=== PATIENT | female | born 1940 | race Caucasian/White ===

== ENCOUNTER → 2017-11-30 12:51 | Outpatient (CLI) | payer OTHER, SELFPAY ==
--- NOTE | 2017-11-30 | DI.CT.S_ITS ---
PROCEDURE: CT CHEST W CON INDICATIONS: LYPHADENOPATHY TECHNIQUE: After the administration of intravenous contrast, 5 mm thick sections acquired from the pulmonary apices to the posterior costophrenic angles. 7 mm thick coronal and sagittal MIP reformats were acquired. For radiation dose reduction, the following was used: automated exposure control, adjustment of mA and/or kV according to patient size. COMPARISON: [facility], CT, CT ANGIO CHEST, 06/18/2016, 9:53. , CT, PE STUDY (CTA CHEST), 05/20/2011, 12:36. FINDINGS: Image quality: Excellent. Lungs and pleura: No acute consolidation. 1 mm nodule seen in the right lung on image 29 series 3 is unchanged. No pleural effusions or pneumothorax. Central and peripheral airways are patent and normal in caliber. Mediastinum: Heart size is enlarged. No pericardial effusion. No mediastinal or hilar adenopathy by size criteria. Thoracic aorta and central pulmonary arteries are normal in size. Esophagus is normal in caliber. No hiatal hernia. Bones and chest wall: No suspicious bony lesions. No vertebral body compression fractures. No axillary or supraclavicular adenopathy by size criteria. Thyroid gland negative. Abdomen: The Upper abdominal bowel loops are normal in caliber. Gallbladder surgically absent. There is hepatic steatosis. IMPRESSION: No acute consolidation. No evidence of mediastinal or hilar lymphadenopathy. No axillary lymphadenopathy. Hepatic steatosis. Mild cardiomegaly. Dictated by: Quentin Pedroza M.D. on 11/30/2017 at 13:58 Approved by: Quentin Pedroza M.D. on 11/30/2017 at 14:08
== END ==
PROVIDERS: PCP Family Medicine; Visit Provider Family Medicine
DX: K76.0 Fatty (change of) liver, not elsewhere classified (principal); R59.0 Localized enlarged lymph nodes; I51.7 Cardiomegaly
CPT/HCPCS: 71260; Q9967

== ENCOUNTER → 2018-02-17 12:40 | Outpatient (CLI) | payer OTHER, SELFPAY ==
--- NOTE | 2018-02-17 | DI.CT.S_ITS ---
PROCEDURE: CT SOFT TISSUE NECK W CON INDICATIONS: MASS AND LUMP OF LEFT NECK TECHNIQUE: After the administration of intravenous contrast, 3.0 mm axial sections acquired from the sella to the aortic arch. Additional oblique axial 3.0 mm sections acquired through the pharynx. 3 mm thick coronal and sagittal reformats were generated. For radiation dose reduction, the following was used: automated exposure control. COMPARISON: None. FINDINGS: Image quality: Excellent. Lymph nodes: No enlarged lymph nodes seen throughout the neck. Vessels: Visualized vasculature appears patent. Neck spaces: The oropharynx, nasopharynx, and pharynx demonstrate no mucosal lesions. The vocal cords, false vocal cords, pyriform sinuses, epiglottis, vallecula, and tongue base all appear normal. Extramucosal spaces appear unremarkable. A CT surface marker was placed over the area of maximal clinical concern by the patient, left supraclavicular fossa area anteriorly. This does show a mild contour prominence without underlying soft tissue mass but rather the fatty soft tissues in this area appears slightly asymmetrically more prominent than on the right. A lipoma or normal anatomic variation in the fatty soft tissues both could produce this appearance. Glands: The parotid and submandibular glands appear normal. Thyroid gland appears normal. Miscellaneous: Visualized brain and orbits appear normal. Lung apices appear clear. Superficial soft tissues appear normal. Bones: No suspicious bony lesions. Visualized sinuses and mastoids appear unremarkable. IMPRESSION: Mild asymmetry in the fatty soft tissues of the anterior left supraclavicular fossa when compared to the same area on the right. As noted this may reflect presence of a lipoma within the fatty soft tissues in that area but also normal anatomic variant asymmetry could explain that appearance. No underlying adenopathy is found, no malignant appearing mass is suspected. Dictated by: Jamie Zhou M.D. on 02/17/2018 at 14:15 Approved by: Jamie Zhou M.D. on 02/17/2018 at 14:20
== END ==
PROVIDERS: PCP Family Medicine; Visit Provider Physician Assistant Medical
DX: R22.0 Localized swelling, mass and lump, head (principal)
CPT/HCPCS: 70491; Q9967

== ENCOUNTER → 2018-07-13 10:31 | Outpatient (CLI) | payer OTHER, SELFPAY ==
--- NOTE | 2018-07-13 | DI.US.S_ITS ---
PROCEDURE: US ARTERIAL DUPLEX LE BI INDICATIONS: PAIN IN BILATERAL LOWER EXTREMITIES TECHNIQUE: Color and pulse Doppler interrogation was performed of both lower extremity arterial systems, with image documentation. COMPARISON: None. FINDINGS: Right lower extremity: Common femoral artery: 124 cm/sec, with triphasic flow. Deep femoral artery: 69 cm/sec, with triphasic flow. Proximal superficial femoral artery: 1:15 cm/sec, with triphasic flow. Mid superficial femoral artery: 89 cm/sec, with biphasic flow. Distal superficial femoral artery: 94 cm/sec, with biphasic flow. Popliteal artery: 50 cm/s, biphasic Posterior tibial artery: 81 cm/sec, with a biphasic flow. Anterior tibial artery/dorsalis pedis: 85 cm/sec, with biphasic flow. Reyes-scale imaging description:M.D. 3.7 x 1.1 x 2.1 cm medial popliteal fossa cystic structure with internal debris consistent with a Tracey's cyst. No significant stenosing plaque, either calcific or soft. Left lower extremity: Common femoral artery: 1:30 cm/sec, with biphasic flow. Deep femoral artery: 64 cm/sec, with biphasic flow. Proximal superficial femoral artery: 98 cm/sec, with biphasic flow. Mid superficial femoral artery: 96 cm/sec, with biphasic flow. Distal superficial femoral artery: 59 cm/sec, with biphasic flow. Popliteal artery: 66 cm/sec, with biphasic flow. Posterior tibial artery: 79 cm/sec, with biphasic flow. Anterior tibial artery/dorsalis pedis: 68 cm/sec, with biphasic flow. Reyes-scale imaging description: No significant stenosing plaque, either calcific or soft. IMPRESSION: Mild atherosclerotic change, no area of significant stenosis or occlusion found. Incidental note is made of a Tracey's cyst measuring up to 3 cm of the right popliteal fossa medially. The Dictated by: Jamie Zhou M.D. on 07/13/2018 at 14:02 Approved by: Jamie Zhou M.D. on 07/13/2018 at 14:06
== END ==
PROVIDERS: PCP Family Medicine; Visit Provider Internal Medicine Cardiovascular Disease
DX: M79.604 Pain in right leg (principal); M79.605 Pain in left leg; M71.21 Synovial cyst of popliteal space [Baker], right knee
CPT/HCPCS: 93925

== ENCOUNTER → 2018-08-24 12:05 | Outpatient (CLI) | payer OTHER, SELFPAY ==
--- NOTE | 2018-08-24 | DI.US.S_ITS ---
PROCEDURE: US CAROTID DOPPLER BI INDICATIONS: CAROTID ARTERIAL DISEASE TECHNIQUE: Color and pulse Doppler interrogation was performed of both carotid systems, with image documentation and velocity measurements. COMPARISON: None. FINDINGS: Stenosis calculations are based on SRU (Society of Radiologists in Ultrasound) criteria. Right side: Brachial blood pressure: 144/80 mm Hg. Common carotid artery peak systolic velocity: 80 cm/sec. Internal carotid artery peak systolic velocity: 109 cm/sec. Internal carotid artery end diastolic velocity: 39 cm/sec. External carotid artery peak systolic velocity: 169 cm/sec. ICA/CCA peak systolic ratio: 1.4. Reyes scale imaging description: Moderate scattered plaque. Percent internal carotid artery stenosis: Less than 50% stenosis. Vertebral artery: Flow direction is antegrade. Left side: Brachial blood pressure: 134/71 mm Hg. Common carotid artery peak systolic velocity: 97 cm/sec. Internal carotid artery peak systolic velocity: 226 cm/sec. Internal carotid artery end diastolic velocity: 59 cm/sec. External carotid artery peak systolic velocity: 106 cm/sec. ICA/CCA peak systolic ratio: 2.3. Reyes scale imaging description: Moderate scattered plaque. Percent internal carotid artery stenosis: 50-69% stenosis. Vertebral artery: Flow direction is antegrade. IMPRESSION: 1. 50-69% left internal carotid artery stenosis. 2. Less than 50% right internal carotid artery stenosis. Dictated by: Kunal HURD Interpreted: Caty Encarnacion MD on 08/24/2018 at 13:57 Approved by: Caty Encarnacion M.D. on 08/24/2018 at 16:20
== END ==
PROVIDERS: PCP Family Medicine; Visit Provider Family Medicine
DX: I65.23 Occlusion and stenosis of bilateral carotid arteries (principal)
CPT/HCPCS: 93880

== ENCOUNTER → 2018-10-28 09:25 | Outpatient (CLI) | payer OTHER, SELFPAY ==
--- NOTE | 2018-10-28 09:29 | DI.RAD.S_ITS ---
PROCEDURE: XR CHEST 2V INDICATIONS: worsening cough TECHNIQUE: 2 views of the chest were acquired. COMPARISON: [facility], CT, CT CHEST W CON, 11/30/2017, 13:03. [facility], CR, CHEST 1 VIEW, 08/15/2015, 6:52. [facility], CR, CHEST 1 VIEW, 08/25/2015, 3:03. FINDINGS: Surgical changes and devices: A pacer device is seen. Cholecystectomy clips are seen. Lungs and pleura: An incomplete inspiratory result is noted, causing a crowded appearance to the lung markings. Interstitial prominence can be seen. No pneumothorax or significant pleural effusions are seen. Mediastinum: Mediastinal contours are normal. Heart size is normal. Bones and chest wall: No suspicious bony abnormalities. Age-appropriate bony degenerative changes are seen. Soft tissues appear unremarkable. IMPRESSION: Low lung volumes, with interstitial prominence. Differential diagnosis includes pulmonary edema and artifact. No definite, focal infiltrates are seen. If there is clinical concern for a developing pulmonary process, a short-term followup chest series (with PA and lateral views, performed in deep inspiration) is suggested for further evaluation. Postoperative and degenerative changes are seen. Dictated by: Virgil Stock M.D. on 10/28/2018 at 8:43 Approved by: Virgil Stock M.D. on 10/28/2018 at 8:45
== END ==
PROVIDERS: PCP Family Medicine; Visit Provider Physician Assistant
DX: R05 Cough (principal); Z95.0 Presence of cardiac pacemaker
CPT/HCPCS: 71046

== ENCOUNTER → 2018-12-09 16:46 | Outpatient (CLI) | payer OTHER, SELFPAY ==
--- NOTE | 2018-12-09 | DI.MG.S_ITS ---
BILATERAL DIGITAL SCREENING MAMMOGRAM 3D/2D WITH CAD: 12/09/2018 CLINICAL: Routine screening. Comparison is made to exams dated: 07/01/2013 mammogram, 07/12/2014 mammogram, and 06/21/2015 mammogram - [facility]. There are scattered fibroglandular elements in both breasts. Current study was also evaluated with a Computer Aided Detection (CAD) system. There are post operative changes of the left breast/chest including placement of a left chest pacer device, the battery pack of which projects over the superior left breast and results in imaging artifact that results in suboptimal evaluation of the left breast tissue and obscures underlying anatomy. Of note, the pacer device projects over the posterior central left breast LCC view, obscuring evaluation of the area of greatest fibroglandular tissue when compared to prior exams. Within this context, no significant masses, calcifications, or other findings are seen in either breast. IMPRESSION: Limited exam secondary to the patient's superior left chest pacer device which causes imaging artifact that results in suboptimal evaluation of the left breast tissues and obscures underlying anatomy. Within this context, there are no suspicious masses or abnormalities are identified in the imaged portions of the breasts bilaterally to suggest malignancy. A 1 year screening mammogram is recommended. This exam was interpreted at Station ID: [id number]. NOTE: For mammograms, a report in lay terms will be sent to the patient. Approximately 15% of breast malignancies will not be visualized mammographically. In the management of a palpable breast mass, a negative mammogram must not discourage biopsy of a clinically suspicious lesion. Electronically Signed By: Pasha Gallo M.D. ecl/:12/10/2018 19:44:11 letter sent: Normal Exam ACR BI-RADS Category 2: Benign Finding(s) 3342F
== END ==
PROVIDERS: PCP Family Medicine; Visit Provider Family Medicine
DX: Z12.31 Encounter for screening mammogram for malignant neoplasm of breast (principal)
CPT/HCPCS: 77063; 77067

== ENCOUNTER → 2019-02-28 10:04 | Outpatient (CLI) | payer MEDICARE, SELFPAY ==
[2019-02-28 11:11] LABS: BUN Creatinine Ratio 23.3 (6-22); Blood Urea Nitrogen 14 mg/dL (7-17); Calcium 9.7 mg/dL (8.4-10.2); Carbon Dioxide 29 mmol/L (22-32); Chloride 98 mmol/L (98-107); Estimated Glomerular Filt Rate > 60.0 mL/min (>60); Glucose 110 mg/dL (80-110); HEMOLYSIS < 15 (0-50); Potassium 5.2 mmol/L (3.4-5.1); Sodium 136 mmol/L (137-145)
== END ==
PROVIDERS: PCP Family Medicine; Visit Provider Family Medicine
DX: Z51.81 Encounter for therapeutic drug level monitoring (principal); E78.5 Hyperlipidemia, unspecified; I10 Essential (primary) hypertension; R55 Syncope and collapse
CPT/HCPCS: 36415; 80048

== ENCOUNTER → 2019-03-07 10:30 | Outpatient (CLI) | payer MEDICARE, SELFPAY ==
--- NOTE | 2019-03-07 10:31 | DI.CT.S_ITS ---
PROCEDURE: CT HEAD/BRAIN WO/W CON INDICATIONS: headaches TECHNIQUE: 4.5 mm thick angled axial sections acquired from the foramen magnum to the vertex before and after the administration of intravenous contrast, with coronal and sagittal reformats. For radiation dose reduction, the following was used: automated exposure control, adjustment of mA and/or kV according to patient size. COMPARISON: None. FINDINGS: Image quality: Excellent. CSF Spaces: Basal cisterns are patent. No extra-axial fluid collections. Ventricles are normal in size and shape. Brain: No midline shift. No intracranial bleeds or masses. No abnormal intracranial enhancement. Reyes-white interface appears normal there is mild, diffuse cerebral volume loss. There are mild periventricular and subcortical white matter chronic microvascular ischemic changes.. Skull and face: Calvarium and visualized facial bones appear intact, without suspicious lesions. Sinuses: Visualized sinuses and mastoids are clear. IMPRESSION: 1. No acute intracranial disease process. 2. No abnormal intracranial mass or mass effect. 3. No suspicious postcontrast enhancement. Dictated by: Lauren Rojo MD, PhD on 03/07/2019 at 11:06 Approved by: Lauren Rojo MD, PhD on 03/07/2019 at 11:08
== END ==
PROVIDERS: PCP Family Medicine; Visit Provider Family Medicine
DX: R51 Headache (principal)
CPT/HCPCS: 70470; Q9967

== ENCOUNTER → 2019-06-10 10:38 | Outpatient (CLI) | payer MEDICARE, SELFPAY ==
[2019-06-10 12:03] LABS: Add Manual Diff / Slide Review NO; Basophils Absolute Auto 100 /uL (0-100); Basophils Percent Auto 0.7 % (0-2); Eosinophils Absolute Auto 100 /uL (0-450); Eosinophils Percent Auto 0.9 % (2-4); Hemoglobin 13.9 g/dL (12.0-16.0); Lymphocytes Absolute Auto 1600 /uL (1100-4500); Mean Corpuscular Hemoglobin 28.2 PG (26-34); Mean Corpuscular Volume 82.9 fL (80-100); Monocytes Absolute Auto 900 /uL (0-900); Monocytes Percent Auto 8.3 % (3-14); Neutrophils Absolute Auto 8100 /uL (1500-7000); Neutrophils Percent Auto 75.1 % (50-75); Platelet Count 453 X10^3/uL (150-400); Red Blood Cell Count 4.94 X10^6/uL (4.0-5.2); Red Cell Distribution Width 13.8 % (11.6-14.8); White Blood Cell Count 10.8 X10^3/uL (4.5-11.0)
[2019-06-10 12:25] LABS: Alanine Aminotransferase 14 IU/L (<35); Albumin 4.2 g/dL (3.5-5.0); Alkaline Phosphatase 85 U/L (38-126); Aspartate Aminotransferase 24 IU/L (14-36); BUN Creatinine Ratio 14.9 (6-22); Bilirubin Total 0.7 mg/dL (0.2-1.3); Blood Urea Nitrogen 10 mg/dL (7-17); C-Reactive Protein Quant 2.5 mg/dL (<1.0); Calcium 9.3 mg/dL (8.4-10.2); Carbon Dioxide 28 mmol/L (22-32); Chloride 97 mmol/L (98-107); Cholesterol 130 mg/dL (140-199); Estimated Glomerular Filt Rate > 60.0 mL/min (>60); Globulin 4.2 g/dL (1.7-4.1); Glucose 118 mg/dL (80-110); HDL Cholesterol 39 mg/dL (40-60); HEMOLYSIS < 15 (0-50); LDL Cholesterol Calculated 74 mg/dL (<100); Magnesium 1.9 mg/dL (1.6-2.3); Potassium 4.4 mmol/L (3.4-5.1); Sodium 134 mmol/L (137-145); Total Protein 8.4 g/dL (6.3-8.2); Triglycerides 86 mg/dL (35-150)
[2019-06-10 12:34] LABS: Erythrocyte Sedimentation Rate 19 MM/HR (0-20)
[2019-06-10 12:36] LABS: Vitamin D 25 Hydroxy (D3) 22.6 ng/mL (30.0-100.0)
[2019-06-10 12:37] LABS: Free T3, Triiodothyronine Free 2.45 pg/mL (2.77-5.27); Free T4, Direct Thyroxine 1.39 ng/dL (0.78-2.19)
[2019-06-10 12:51] LABS: Thyroid Stimulating Hormone 1.77 uIU/mL (0.47-4.68)
[2019-06-11 20:07] LABS: ANA Screen, IFA Negative (.)
== END ==
PROVIDERS: PCP Family Medicine; Referring Provider Family Medicine; Visit Provider Family Medicine
DX: E03.9 Hypothyroidism, unspecified (principal); E78.5 Hyperlipidemia, unspecified; I10 Essential (primary) hypertension; M79.10 Myalgia, unspecified site; R53.83 Other fatigue
CPT/HCPCS: 36415; 80053; 80061; 82306; 83735; 84439; 84443; 84481; 85025; 85651; 86038; 86140

== ENCOUNTER → 2019-07-26 11:08 | Outpatient (CLI) | payer MEDICARE, SELFPAY ==
[2019-07-26 12:18] LABS: Free T3, Triiodothyronine Free 3.19 pg/mL (2.77-5.27); Free T4, Direct Thyroxine 1.49 ng/dL (0.78-2.19)
[2019-07-26 12:32] LABS: Thyroid Stimulating Hormone 0.59 uIU/mL (0.47-4.68)
== END ==
PROVIDERS: PCP Family Medicine; Referring Provider Family Medicine; Visit Provider Family Medicine
DX: E03.9 Hypothyroidism, unspecified (principal)
CPT/HCPCS: 36415; 84439; 84443; 84481

== ENCOUNTER → 2019-08-16 16:51 | Outpatient (CLI) | payer MEDICARE, SELFPAY ==
[2019-08-16 20:02] LABS: Free T4, Direct Thyroxine 1.51 ng/dL (0.78-2.19)
[2019-08-16 20:03] LABS: Free T3, Triiodothyronine Free 2.07 pg/mL (2.77-5.27)
[2019-08-16 20:26] LABS: Thyroid Stimulating Hormone 0.578 uIU/mL (0.47-4.68)
== END ==
PROVIDERS: PCP Family Medicine; Referring Provider Family Medicine; Visit Provider Family Medicine
DX: E03.9 Hypothyroidism, unspecified (principal)
CPT/HCPCS: 36415; 84439; 84443; 84481

== ENCOUNTER → 2019-11-23 14:40 | Outpatient (CLI) | payer MEDICARE, SELFPAY ==
[2019-11-23 17:36] LABS: Free T3, Triiodothyronine Free 5.11 pg/mL (2.77-5.27); Free T4, Direct Thyroxine 2.41 ng/dL (0.78-2.19)
[2019-11-23 17:52] LABS: Thyroid Stimulating Hormone < 0.015 uIU/mL (0.47-4.68)
== END ==
PROVIDERS: PCP Family Medicine; Referring Provider Family Medicine; Visit Provider Family Medicine
DX: E03.9 Hypothyroidism, unspecified (principal)
CPT/HCPCS: 36415; 84439; 84443; 84481

== ENCOUNTER → 2020-01-19 10:46 | Outpatient (CLI) | payer MEDICARE, SELFPAY ==
[2020-01-19 12:05] LABS: Alanine Aminotransferase 16 IU/L (<35); Albumin 3.9 g/dL (3.5-5.0); Albumin Globulin Ratio 1.1 (1.0-2.8); Alkaline Phosphatase 79 U/L (38-126); Aspartate Aminotransferase 22 IU/L (14-36); Bilirubin Total 0.6 mg/dL (0.2-1.3); Bilirubin Unconjugated 0.6 mg/dL (0.0-1.1); Cholesterol 124 mg/dL (140-199); Globulin 3.7 g/dL (1.7-4.1); HDL Cholesterol 50 mg/dL (40-60); HEMOLYSIS < 15 (0-50); LDL Cholesterol Calculated 57 mg/dL (<100); Total Protein 7.6 g/dL (6.3-8.2); Triglycerides 83 mg/dL (35-150)
== END ==
PROVIDERS: PCP Family Medicine; Referring Provider Nurse Practitioner; Visit Provider Nurse Practitioner
DX: I73.9 Peripheral vascular disease, unspecified (principal); E78.5 Hyperlipidemia, unspecified
CPT/HCPCS: 36415; 80061; 80076

== ENCOUNTER → 2020-03-17 09:55 | Outpatient (CLI) | payer MEDICARE, SELFPAY ==
--- NOTE | 2020-03-17 | DI.MG.S_ITS ---
BILATERAL DIGITAL SCREENING MAMMOGRAM 3D/2D WITH CAD: 03/17/2020 CLINICAL: Routine screening. Comparison is made to exams dated: 12/09/2018 mammogram - [facility], 06/21/2015 mammogram, and 07/12/2014 mammogram - [facility]. There are scattered fibroglandular elements in both breasts. Current study was also evaluated with a Computer Aided Detection (CAD) system. There are benign post operative findings in the left breast. No significant masses, calcifications, or other findings are seen in either breast. There has been no significant interval change. IMPRESSION: BENIGN There is no mammographic evidence of malignancy. A 1 year screening mammogram is recommended. This exam was interpreted at Station ID: [id number]. NOTE: For mammograms, a report in lay terms will be sent to the patient. Approximately 15% of breast malignancies will not be visualized mammographically. In the management of a palpable breast mass, a negative mammogram must not discourage biopsy of a clinically suspicious lesion. Electronically Signed By: Flash curry/kirsten:03/19/2020 08:38:48 letter sent: Normal Exam ACR BI-RADS Category 2: Benign Finding(s) 3342F
== END ==
PROVIDERS: PCP Family Medicine; Referring Provider Family Medicine; Visit Provider Family Medicine
DX: Z12.31 Encounter for screening mammogram for malignant neoplasm of breast (principal)
CPT/HCPCS: 77063; 77067

== ENCOUNTER 2020-05-10 18:59 | Emergency (ER) | payer MEDICARE, SELFPAY ==
[2020-05-10] VITALS (9 sets, daily range): BP systolic 110–194; BP diastolic 55–108; PULSE 69–140; RESP 14–24; TEMP 36.2–37.1; O2SAT 95–99
--- NOTE | 2020-05-10 19:09 | DI.RAD.S_ITS ---
PROCEDURE: XR CHEST 1V INDICATIONS: chest pain TECHNIQUE: One view of the chest was acquired. COMPARISON: [facility], CR, XR CHEST 2V, 10/28/2018, 9:29. FINDINGS: Surgical changes and devices: Pacemaker Lungs and pleura: Lungs are clear. No pleural effusions or pneumothorax. Mediastinum: Mediastinal contours appear normal. Heart size is normal. Bones and chest wall: No suspicious bony lesions. Overlying soft tissues appear unremarkable. IMPRESSION: No evidence acute pulmonary process. Dictated by: Hong Morales M.D. on 05/10/2020 at 19:41 Approved by: Hong Morales M.D. on 05/10/2020 at 19:42
[2020-05-10 19:22] LABS: Add Manual Diff / Slide Review NO; Basophils Absolute Auto 100 /uL (0-100); Eosinophils Absolute Auto 300 /uL (0-450); Eosinophils Percent Auto 2.3 % (2-4); Lymphocytes Absolute Auto 3200 /uL (1100-4500); Lymphocytes Percent Auto 27.8 % (25-40); Mean Corpuscular HGB Conc 32.5 % (30-36); Mean Corpuscular Hemoglobin 26.6 PG (26-34); Mean Corpuscular Volume 81.9 fL (80-100); Monocytes Absolute Auto 1300 /uL (0-900); Monocytes Percent Auto 11.1 % (3-14); Neutrophils Absolute Auto 6600 /uL (1500-7000); Neutrophils Percent Auto 57.8 % (50-75); Platelet Count 362 X10^3/uL (150-400); Red Blood Cell Count 5.62 X10^6/uL (4.0-5.2); Red Cell Distribution Width 14.5 % (11.6-14.8); White Blood Cell Count 11.4 X10^3/uL (4.5-11.0)
--- NOTE | 2020-05-10 19:28 | ED.CHESTPAIN ---
HPI - Chest Pain General Chief Complaint: Chest Pain Stated Complaint: chest tightness Time Seen by Provider: 05/10/20 19:17 Source: patient Mode of arrival: Ambulatory Limitations: no limitations History of Present Illness HPI narrative: Patient is an 79-year-old female. History of hypothyroidism and high blood pressure in atrial fibrillation. She does have a pacemaker in place. She is unsure the exact maker of the pacemaker. She states that was placed because of atrial fibrillation. She is on anticoagulation and states she has taken every day for the past 4 weeks and longer than that. Approximately 1.5-2 hours prior to arrival here in the emergency department she started to have chest discomfort and some shortness of breath and some lightheadedness. She states that she feels like her heart is beating fast and skipping beats. No swelling in her legs. Nothing seems to make the symptoms better or worse. Has not tried anything for the symptoms prior to arrival. She has taken all of her medication to include a blood pressure medicine today prior to arrival. Related Data Home Medications Medication Instructions Recorded Confirmed rivaroxaban 20 mg tablet 20 mg PO DAILY 10/22/18 12/01/19 atorvastatin 20 mg tablet 20 mg PO DAILY 12/08/19 Previous Rx's Medication Instructions Recorded losartan 100 mg tablet 100 mg PO DAILY #90 tab 03/10/19 levalbuterol tartrate 45 2 inhalation INHALATION Q6H PRN 05/06/19 mcg/actuation aerosol inhaler #15 gram pantoprazole 40 mg tablet,delayed 40 mg PO BID #180 tab 05/16/19 release miscellaneous medical supply See Rx Instructions MISC .COMPLEX 05/25/19 #100 each trazodone 50 mg tablet 50 mg PO BEDTIME PRN #30 tab 07/29/19 metoprolol succinate 50 mg 50 mg PO DAILY #90 tab 08/02/19 tablet,extended release 24 hr felodipine 5 mg tablet,extended 5 mg PO DAILY #90 tab 09/01/19 release 24 hr zolpidem 10 mg tablet 0.5 mg PO BEDTIME #45 tab 09/13/19 levothyroxine 150 mcg tablet See Rx Instructions .ROUTE 02/14/20 .COMPLEX #90 tab escitalopram oxalate 10 mg tablet 10 mg PO DAILY #90 tab 04/04/20 Allergies Allergy/AdvReac Type Severity Reaction Status Date / Time hydromorphone Allergy Intermediate RASH/GI Verified 12/01/19 15:57 UPSET hydrocodone Allergy Mild GI UPSET Verified 12/01/19 15:57 diltiazem [DILTIAZEM] AdvReac Intermediate BRADYCARDIA Verified 12/01/19 15:57 Review of Systems Constitutional Constitutional: Denies fatigue, Denies fever(s) and Denies headache(s) ENT Ears, Nose, Mouth, and Throat: Denies headache(s) Cardiovascular Cardiovascular: Reports chest pain, Reports rapid heart rate, Reports irregular heart rhythm and Reports dyspnea Respiratory Respiratory: Denies cough and Reports dyspnea Gastrointestinal Gastrointestinal: Denies abdominal pain, Denies nausea and Denies vomiting Genitourinary Genitourinary: Denies dysuria Genitourinary: Denies dysuria Musculoskeletal Musculoskeletal: Denies myalgias Integumentary/Breasts Skin/Breast: Denies rash Neurologic Neurologic: Denies behavioral changes and Denies headache(s) Psychiatric Psychiatric: Denies behavioral changes Endocrine Endocrine: Denies fatigue Hematologic/Lymphatic On Anticoagulants: Yes Allergic/Immunologic Allergic/Immunologic: Denies urticaria Patient History Medical History Allergies Anxiety (~2013) Bilateral chronic otitis media Carpal tunnel syndrome Cervical somatic dysfunction Chronic neck pain Chronic pain of both shoulders Cranial somatic dysfunction Depression (~2015) Fatigue Fibroid (~1964) Hearing loss Lumbar region somatic dysfunction Myalgia Segmental and somatic dysfunction of abdomen and other regions Segmental and somatic dysfunction of pelvic region Segmental and somatic dysfunction of sacral region Segmental and somatic dysfunction of thoracic region Shoulder pain (~2018) Stiff neck Upper extremity somatic dysfunction Vitamin D deficiency Surgical History Anesthesia Cataracts, bilateral History of appendectomy History of cholecystectomy History of hysterectomy (~1978) Pacemaker (~11/06/15) Family History (Updated 11/21/18 @ 17:16 by Sayda Sosa) Father Hypertension Mother Lung cancer Social History Smoking Status: Never smoker Smoking Status: Never smoker Substance Use Type: does not use Exam Initial Vital Signs Initial Vital Signs: Vital Signs Temperature 97.1 F L 05/10/20 19:05 Pulse Rate 104 H 05/10/20 19:05 Respiratory Rate 24 05/10/20 19:05 Blood Pressure 194/108 H 05/10/20 19:05 Pulse Oximetry 95 05/10/20 19:05 Const General: cooperative, comfortable and well developed Limitations: mental status not altered HENMT Head: normal to inspection and normocephalic Resp Effort & Inspection: normal respiratory effort Auscultation: clear to auscultation bilaterally Cardio Rate: tachycardic Rhythm: abnormal rhythm GI Inspection: non-distended Skin Lesions: no lesions Rashes: no rashes Neuro General: patient alert, patient awake and patient oriented x3 Cognition: normal cognition Speech: speech normal Extrem General: normal to inspection, capillary refill normal and No edema Psych Appearance: grossly normal and well kempt Procedures Cardioversion Consent Signed: Yes Indication: Atrial fibrillation Stability: Stable Number of attempts (shocks): 1 Joules used: 150 Cardiac rhythm post-cardioversion: Sinus rhythm Procedural Sedation Consent signed: Yes Time out performed: Yes Indication: cardioversion Presedation Evaluation: See note ASA Class: II Mallampati Airway Classification: Class II Preparation: traffic monitor specialist applied, pulse oximeter, capnometry used, supplemental O2 applied, suction/airway equipment at bedside and IV secured Fentanyl: IV Fentanyl dose (mcg): 12 IV Propofol dose (mg): 70 ED Sedation Level: Moderate (Concious) Patient Tolerated Procedure: Well Complications: none Course Orders Ordered: ED Orders 05/10/20 19:09 XR chest 1V Stat EKG-12 Lead Stat 05/10/20 19:12 BNP [NT-proBNP (BNP-Adult 18+)] Stat Complete Blood Count AUTO DIFF Stat Comprehensive Metabolic Panel Stat Lipase Stat Magnesium Stat Partial Thromboplastin Time Stat Prothrombin Time INR Stat Troponin & CK Cardiac Panel Stat 05/10/20 19:29 RT Consult Eval and Treat Now 05/10/20 20:23 EKG-12 Lead Stat Discontinued Medications Fentanyl (Fentanyl 100 Mcg/2 Ml Inj) 125 mcg IV NOW ONE Stop: 05/10/20 19:30 Last Admin: 05/10/20 20:13 Dose: 125 mcg Documented by: DIVYA Fentanyl (Fentanyl 100 Mcg/2 Ml Inj) 12.5 mcg IV NOW ONE Stop: 05/10/20 20:12 Last Admin: 05/10/20 20:14 Dose: 12.5 mcg Documented by: DIVYA Sodium Chloride (Normal Saline 0.9%) 1,000 mls @ 1,000 mls/hr IV BOLUS ONE Stop: 05/10/20 21:12 Last Infusion: 05/10/20 21:30 Dose: 0 mls/hr Documented by: Admin: 05/10/20 20:15 Dose: 1,000 mls/hr Documented by: DIVYA Propofol (Propofol 200 Mg/20 Ml Vial) 100 mg IV NOW ONE Stop: 05/10/20 19:30 Last Admin: 05/10/20 19:52 Dose: 100 mg Documented by: DIVYA Vital Signs Vital signs: Vital Signs - 8 hr 05/10/20 19:05 05/10/20 19:57 05/10/20 20:02 Temperature 97.1 F L 98.7 F Pulse Rate 104 H 122 H 140 H Respiratory Rate 24 14 24 Blood Pressure 194/108 H Blood Pressure [Right Arm] 110/56 L 187/77 H Pulse Oximetry 95 99 98 05/10/20 20:15 05/10/20 20:18 05/10/20 20:25 Temperature 98.7 F Pulse Rate 138 H 75 69 Respiratory Rate 24 23 19 Blood Pressure Blood Pressure [Right Arm] 139/68 144/65 H 134/62 Pulse Oximetry 99 98 97 05/10/20 20:33 05/10/20 20:39 05/10/20 21:31 Temperature Pulse Rate 69 69 69 Respiratory Rate 17 14 24 Blood Pressure 138/61 Blood Pressure [Right Arm] 125/55 L 125/55 L Pulse Oximetry 97 97 97 MDM - Chest Pain Lab Data Attestation: I reviewed the patient's lab results. Result diagrams: 05/10/20 19:12 05/10/20 19:12 Labs: Lab Results 05/10/20 05/10/20 05/10/20 Range/Units 19:12 19:12 19:12 WBC 11.4 H (4.5-11.0) X10^3/uL RBC 5.62 H (4.0-5.2) X10^6/uL Hgb 15.0 (12.0-16.0) g/dL Hct 46.0 (36-46) % MCV 81.9 (80-100) fL MCH 26.6 (26-34) PG MCHC 32.5 (30-36) % RDW 14.5 (11.6-14.8) % Plt Count 362 (150-400) X10^3/uL Neut % (Auto) 57.8 (50-75) % Lymph % (Auto) 27.8 (25-40) % [place] % (Auto) 11.1 (3-14) % Eos % (Auto) 2.3 (2-4) % Baso % (Auto) 1.0 (0-2) % Neut # (Auto) 6600 (0703-7905) /uL Lymph # (Auto) 3200 (4843-3214) /uL [place] # (Auto) 1300 H (0-900) /uL Eos # (Auto) 300 (0-450) /uL Baso # (Auto) 100 (0-100) /uL PT 12.5 (10.1-12.7) SECONDS INR 1.1 (0.9-1.3) APTT 34 (26.4-36.2) SECONDS Sodium 136 L (137-145) mmol/L Potassium 3.7 (3.4-5.1) mmol/L Chloride 100 (98-107) mmol/L Carbon Dioxide 23 (22-32) mmol/L BUN 14 (7-17) mg/dL Creatinine 0.48 L (0.52-1.04) mg/dL Estimated GFR > 60.0 (>60) mL/min BUN/Creatinine Ratio 29.2 H (6-22) Glucose 183 H (80-110) mg/dL Calcium 9.7 (8.4-10.2) mg/dL Magnesium (1.6-2.3) mg/dL Total Bilirubin 0.3 (0.2-1.3) mg/dL AST 36 (14-36) IU/L ALT 19 (<35) IU/L Alkaline Phosphatase 85 (38-126) U/L Total Creatine Kinase 41 (30-135) U/L CK-MB (CK-2) TNP CK-MB (CK-2) Rel Index TNP Troponin I < 0.012 (0.01-0.034) ng/mL NT-Pro-B Natriuret Pep (<450) pg/mL Total Protein 8.6 H (6.3-8.2) g/dL Albumin 4.5 (3.5-5.0) g/dL Globulin 4.1 (1.7-4.1) g/dL Albumin/Globulin Ratio 1.1 (1.0-2.8) Lipase 107 (23-300) U/L // Range/Units 19:12 WBC (4.5-11.0) X10^3/uL RBC (4.0-5.2) X10^6/uL Hgb (12.0-16.0) g/dL Hct (36-46) % MCV (80-100) fL MCH (26-34) PG MCHC (30-36) % RDW (11.6-14.8) % Plt Count (150-400) X10^3/uL Neut % (Auto) (50-75) % Lymph % (Auto) (25-40) % [place] % (Auto) (3-14) % Eos % (Auto) (2-4) % Baso % (Auto) (0-2) % Neut # (Auto) (2575-9518) /uL Lymph # (Auto) (2424-5140) /uL [place] # (Auto) (0-900) /uL Eos # (Auto) (0-450) /uL Baso # (Auto) (0-100) /uL PT (10.1-12.7) SECONDS INR (0.9-1.3) APTT (26.4-36.2) SECONDS Sodium (137-145) mmol/L Potassium (3.4-5.1) mmol/L Chloride (98-107) mmol/L Carbon Dioxide (22-32) mmol/L BUN (7-17) mg/dL Creatinine (0.52-1.04) mg/dL Estimated GFR (>60) mL/min BUN/Creatinine Ratio (6-22) Glucose (80-110) mg/dL Calcium (8.4-10.2) mg/dL Magnesium 1.8 (1.6-2.3) mg/dL Total Bilirubin (0.2-1.3) mg/dL AST (14-36) IU/L ALT (<35) IU/L Alkaline Phosphatase (38-126) U/L Total Creatine Kinase (30-135) U/L CK-MB (CK-2) CK-MB (CK-2) Rel Index Troponin I (0.01-0.034) ng/mL NT-Pro-B Natriuret Pep 296 (<450) pg/mL Total Protein (6.3-8.2) g/dL Albumin (3.5-5.0) g/dL Globulin (1.7-4.1) g/dL Albumin/Globulin Ratio (1.0-2.8) Lipase (23-300) U/L Point of Care Testing Test Results Negative Imaging Data Chest x-ray: Radiologist's Impression: [address] [id number] ReportSigned Patient: Jory Reese LMR#: [id number]: 9Acct:[id number]/Sex: 79 / FDate of Service: 05/10/20Loc: EDAccession Number: [id number] Procedure: XR chest 1V Ordering Provider: Jorge Barton D.O. PROCEDURE: XR CHEST 1V INDICATIONS: chest pain TECHNIQUE: One view of the chest was acquired. COMPARISON: [facility], , XR CHEST 2V, 10/28/2018, 9:29. FINDINGS: Surgical changes and devices: Pacemaker Lungs and pleura: Lungs are clear. No pleural effusions or pneumothorax. Mediastinum: Mediastinal contours appear normal. Heart size is normal. Bones and chest wall: No suspicious bony lesions. Overlying soft tissues appear unremarkable. IMPRESSION: No evidence acute pulmonary process. Dictated by: Hong Morales M.D. on 05/10/2020 at 19:41 Approved by: Hong Morales M.D. on 05/10/2020 at 19:42 ECG Data Attestation: I personally reviewed and interpreted this ECG as follows: Interpretation: Presentation EKG Atrial fibrillation Ventricular rate 137 Normal axis Normal QRS Normal QTC Nonspecific ST T wave changes Post cardioversion EKG Sinus rhythm Ventricular rate is 76 Normal axis Normal QRS Normal QTC No ST T wave changes MDM Narrative Medical decision making narrative: Patient does have a history of atrial fibrillation and she has been on anticoagulation every day for least the past 4 weeks. She has taken all of her medications prior to arrival. She arrived tachycardic in atrial fibrillation but not hypotensive. I suspect that her presenting symptoms are related to this. After discussing options to include rate control versus rhythm control the patient opted for rhythm control and sedation. We discussed 1st benefits this. She signed the consent form. Patient was cardioverted as described above without any complication. After the cardioversion all of patient's symptoms resolved. She was instructed to continue taking all of her medications and a contact her primary doctor and also or environmental laboratory technician tomorrow for follow-up. She expressed understanding and agreement Discharge Plan Departure Patient Disposition: Home Clinical Impression: Atrial fibrillation status post cardioversion Instructions: Atrial Fibrillation Activity Restrictions/Additional Instructions: Continue all of your medications as directed. Recommend that tomorrow you contact your primary doctor and also your environmental laboratory technician for a follow-up. Return to the emergency department for any new or worsening symptoms Prescriptions: No Action losartan 100 mg tablet 100 mg PO DAILY Qty: 90 RF: 1 levalbuterol tartrate 45 mcg/actuation HFA aerosol inhaler 2 inhalation INHALATION Q6H PRN (Reason: shortness of breath or wheezing) Qty: 15 RF: 1 pantoprazole [Protonix] 40 mg tablet,delayed release (DR/EC) 40 mg PO BID Qty: 180 RF: 3 trazodone 50 mg tablet 50 mg PO BEDTIME PRN (Reason: insomnia) Qty: 30 RF: 1 metoprolol succinate 50 mg tablet extended release 24 hr 50 mg PO DAILY Qty: 90 RF: 1 felodipine 5 mg tablet extended release 24 hr 5 mg PO DAILY Qty: 90 RF: 0 zolpidem [Ambien] 10 mg tablet 0.5 mg PO BEDTIME Qty: 45 RF: 1 atorvastatin 20 mg tablet 20 mg PO DAILY RF: 0 levothyroxine 150 mcg tablet See Rx Instructions .ROUTE .COMPLEX Qty: 90 RF: 1 escitalopram oxalate [Lexapro] 10 mg tablet 10 mg PO DAILY Qty: 90 RF: 1 miscellaneous medical supply Misc See Rx Instructions MISC .COMPLEX Qty: 100 RF: 5 Xarelto 20 mg tablet 20 mg PO DAILY RF: 0 Referrals: Montrell Yi DO [Primary Care Provider] -
[2020-05-10 19:36] LABS: INR 1.1 (0.9-1.3); Prothrombin Time 12.5 SECONDS (10.1-12.7)
[2020-05-10 19:38] LABS: Magnesium 1.8 mg/dL (1.6-2.3); PTT Partial Thromboplastin Tim 34 SECONDS (26.4-36.2)
[2020-05-10 19:48] LABS: NT-proBNP (BNP-Adult 18+) 296 pg/mL (<450)
[2020-05-10] MEDS: propofoL 200 MG/20 ML VIAL 100 MG IV (19:52)
[2020-05-10] MEDS: fentaNYL 100 MCG/2 ML INJ 125 MCG IV (20:13)
[2020-05-10] MEDS: fentaNYL 100 MCG/2 ML INJ 12.5 MCG IV (20:14)
[2020-05-10] MEDS: SODIUM CHLORIDE 0.9% 1,000 ML 1000 ML IV (20:15)
[2020-05-10 21:02] LABS: Alanine Aminotransferase 19 IU/L (<35); Albumin 4.5 g/dL (3.5-5.0); Albumin Globulin Ratio 1.1 (1.0-2.8); Alkaline Phosphatase 85 U/L (38-126); Aspartate Aminotransferase 36 IU/L (14-36); BUN Creatinine Ratio 29.2 (6-22); Bilirubin Total 0.3 mg/dL (0.2-1.3); Blood Urea Nitrogen 14 mg/dL (7-17); Calcium 9.7 mg/dL (8.4-10.2); Carbon Dioxide 23 mmol/L (22-32); Chloride 100 mmol/L (98-107); Creatine Kinase 41 U/L (30-135); Estimated Glomerular Filt Rate > 60.0 mL/min (>60); Globulin 4.1 g/dL (1.7-4.1); Glucose 183 mg/dL (80-110); HEMOLYSIS 40 (0-50); Lipase 107 U/L (23-300); Potassium 3.7 mmol/L (3.4-5.1); Sodium 136 mmol/L (137-145); Total Protein 8.6 g/dL (6.3-8.2)
[2020-05-10 21:14] LABS: Troponin I < 0.012 ng/mL (0.01-0.034)
== END 2020-05-10 21:33 | disposition home or self-care (01) ==
PROVIDERS: Emergency Provider Emergency Medicine; PCP Family Medicine
DX: I48.91 Unspecified atrial fibrillation (principal); Z95.0 Presence of cardiac pacemaker; Z79.01 Long term (current) use of anticoagulants
CPT/HCPCS: 36415; 71045; 80053; 82550; 83690; 83735; 83880; 84484; 85025; 85610; 85730; 92960; 93005; 93010; 96360; 96361; 99152; 99284; 99285; J2704; J3010

== ENCOUNTER → 2020-05-16 10:21 | Outpatient (CLI) | payer MEDICARE, SELFPAY ==
[2020-05-16 11:41] LABS: Free T4, Direct Thyroxine 2.28 ng/dL (0.78-2.19)
[2020-05-16 11:55] LABS: Thyroid Stimulating Hormone < 0.015 uIU/mL (0.47-4.68)
== END ==
PROVIDERS: PCP Registered Nurse; Referring Provider Registered Nurse; Visit Provider Registered Nurse
DX: E03.9 Hypothyroidism, unspecified (principal)
CPT/HCPCS: 36415; 84439; 84443

== ENCOUNTER → 2020-06-26 08:24 | Outpatient (CLI) | payer MEDICARE, SELFPAY ==
[2020-06-26 10:09] LABS: Thyroid Stimulating Hormone < 0.015 uIU/mL (0.47-4.68)
== END ==
PROVIDERS: PCP Registered Nurse; Referring Provider Registered Nurse; Visit Provider Registered Nurse
DX: E03.9 Hypothyroidism, unspecified (principal)
CPT/HCPCS: 36415; 84443

== ENCOUNTER 2020-08-03 08:53 | Emergency (ER) | payer MEDICARE, SELFPAY ==
[2020-08-03] VITALS (7 sets, daily range): BP systolic 107–130; BP diastolic 53–63; PULSE 69–75; RESP 16–23; TEMP 36.9–37.1; O2SAT 91–96; BMI 27.1
--- NOTE | 2020-08-03 09:08 | DI.RAD.S_ITS ---
PROCEDURE: XR CHEST 1V INDICATIONS: chest pain TECHNIQUE: One view of the chest was acquired. COMPARISON: [facility], CR, XR CHEST 1V, 05/10/2020, 19:22. FINDINGS: Surgical changes and devices: Left chest wall pacer is seen with intact leads. Lungs and pleura: Lungs are clear. No pleural effusions or pneumothorax. Mediastinum: Mediastinal contours appear normal. Heart size is normal. Bones and chest wall: No suspicious bony lesions. Overlying soft tissues appear unremarkable. IMPRESSION: No acute cardiopulmonary abnormality. Dictated by: Alvarez High M.D. on 08/03/2020 at 11:26 Approved by: Alvarez High M.D. on 08/03/2020 at 11:27
--- NOTE | 2020-08-03 09:14 | ED.CHESTPAIN ---
HPI - Chest Pain General Chief Complaint: Chest Pain Stated Complaint: CHEST PAIN/SHORTNESS OF BREATH Time Seen by Provider: 08/03/20 09:14 Source: patient Mode of arrival: Family Vehicle Limitations: no limitations History of Present Illness HPI narrative: 79-year-old woman with a history of, hypertension, hypothyroidism, hyperlipidemia and paroxysmal atrial fibrillation, with dual-chamber permanent pacemaker,anticoagulated on Xarelto and cardioverted 3 days ago presents with a rubber band like tightness under her breasts that has been significantly bothering her since bedtime last night. she notes that she typically has this pressure but describes it as a chronic 1 to 2/10 last night it was high getting up into the to 10/26 and she was having difficulty sleeping until she readjusted positions in was in a recliner. She describes difficulty in taking a deep breath and fatigue. She was seen by her linux security administrator approximately 2 weeks ago was in atrial fibrillation at the time complaining of dyspnea and fatigue she had a scheduled cardioversion but found that the fatigue and dyspnea was progressive to the point that she did go to the ER on July 31 and was cardioverted. She has remained in sinus rhythm over the last 3 days. She does not describe orthopnea or lower extremity edema. She has intermittent episodes of diaphoresis that are not necessarily related to any chest pain. She describes no fever, cough, chills, vomiting, diarrhea, abdominal pain. recent cardiology visits: Her LBE Security Master heart monitor has reported long an ongoing atrial fibrillation episodes since July 20. On July 24 her metoprolol was increased to metoprolol succinate 50 mg twice a day which did seem to help her symptoms. Of note, she did have a cardiac ablation 07/02/2016 and has been cardioverted 4-5 times since that point and has been very consistent with taking her Xarelto. Related Data Home Medications Medication Instructions Recorded Confirmed rivaroxaban 20 mg tablet 20 mg PO DAILY 10/22/18 12/01/19 atorvastatin 20 mg tablet 20 mg PO DAILY 12/08/19 Previous Rx's Medication Instructions Recorded losartan 100 mg tablet 100 mg PO DAILY #90 tab 03/10/19 levalbuterol tartrate 45 2 inhalation INHALATION Q6H PRN 05/06/19 mcg/actuation aerosol inhaler #15 gram pantoprazole 40 mg tablet,delayed 40 mg PO BID #180 tab 05/16/19 release metoprolol succinate 50 mg 50 mg PO DAILY #90 tab 08/02/19 tablet,extended release 24 hr escitalopram oxalate 10 mg tablet 10 mg PO DAILY #90 tab 04/04/20 felodipine 5 mg tablet,extended 5 mg PO DAILY #90 tab 05/15/20 release 24 hr levothyroxine 112 mcg capsule 112 mcg PO DAILY #30 cap 07/02/20 zolpidem 5 mg tablet 5 mg PO BEDTIME PRN #30 tab 07/05/20 levothyroxine 112 mcg tablet 112 mcg PO DAILY #90 tab 07/17/20 Allergies Allergy/AdvReac Type Severity Reaction Status Date / Time hydromorphone Allergy Intermediate RASH/GI Verified 05/15/20 10:23 UPSET hydrocodone Allergy Mild GI UPSET Verified 05/15/20 10:23 diltiazem [DILTIAZEM] AdvReac Intermediate BRADYCARDIA Verified 05/15/20 10:23 Review of Systems Review of Systems Narrative: Remainder of complete review of systems is otherwise unremarkable except for that included in the HPI. Patient History Medical History (Updated 08/03/20 @ 12:43 by Goldie Menon MD) Allergies Anxiety (~2013) Atrial fibrillation (~2014) Bilateral chronic otitis media Carpal tunnel syndrome Cervical somatic dysfunction Chronic neck pain Cranial somatic dysfunction Depression (~2015) Fatigue Fibroid (~1964) Hearing loss HTN (hypertension) Hypothyroid Lumbar region somatic dysfunction Segmental and somatic dysfunction of abdomen and other regions Segmental and somatic dysfunction of pelvic region Segmental and somatic dysfunction of sacral region Segmental and somatic dysfunction of thoracic region Shoulder pain (~2018) Upper extremity somatic dysfunction Vitamin D deficiency Surgical History Anesthesia Cataracts, bilateral History of appendectomy History of cholecystectomy History of hysterectomy (~1978) Pacemaker (~11/06/15) Family History Father Hypertension Mother Lung cancer Social History Smoking Status: Never smoker Smoking Status: Never smoker alcohol intake frequency: 0-2 drinks per day Substance Use Type: does not use Exam Narrative Exam Narrative: General: Healthy appearing, in no acute distress. Able to give a complete and coherent history. Well-nourished well-developed HEENT: Moist mucous membranes, normal sclera with reactive pupils, Neck: No JVD, supple Respiratory: Lungs are clear to auscultation, no wheezing no rales no rhonchi. Full and symmetrical air movement Cardiac: Regular rate and rhythm no murmurs no bruits Abdomen: Soft, nontender, good bowel tones, no flank pain Skin: Warm and dry, no rashes Neurologic: Grossly neurologically intact with no obvious asymmetries or abnormalities Extremities: No trauma, well perfused Psych: Cooperative, appropriate insight and affect Initial Vital Signs Initial Vital Signs: Vital Signs Temperature 98.5 F 08/03/20 09:08 Pulse Rate 75 08/03/20 09:08 Respiratory Rate 20 08/03/20 09:08 Blood Pressure 130/63 08/03/20 09:08 Pulse Oximetry 95 08/03/20 09:08 Course Orders Ordered: ED Orders 08/03/20 09:26 Complete Blood Count AUTO DIFF Stat Comprehensive Metabolic Panel Stat Lipase Stat Troponin & CK Cardiac Panel Stat Vital Signs Vital signs: Vital Signs - 8 hr 08/03/20 10:30 08/03/20 11:00 08/03/20 12:13 Temperature 98.7 F Pulse Rate 69 69 69 Respiratory Rate 20 22 16 Blood Pressure 107/53 L 109/57 L 116/58 L Pulse Oximetry 93 92 96 MDM - Chest Pain Medical Records Data Attestation: I reviewed the patient's medical records. Lab Data Attestation: I reviewed the patient's lab results. Result diagrams: 08/03/20 09:26 08/03/20 09:26 Labs: Lab Results 08/03/20 08/03/20 Range/Units 09:26 09:26 WBC 16.0 H (4.5-11.0) X10^3/uL RBC 4.68 (4.0-5.2) X10^6/uL Hgb 12.6 (12.0-16.0) g/dL Hct 38.3 (36-46) % MCV 81.9 (80-100) fL MCH 27.0 (26-34) PG MCHC 32.9 (30-36) % RDW 13.8 (11.6-14.8) % Plt Count 310 (150-400) X10^3/uL Neut % (Auto) 86.9 H (50-75) % Lymph % (Auto) 6.1 L (25-40) % [place] % (Auto) 6.4 (3-14) % Eos % (Auto) 0.2 L (2-4) % Baso % (Auto) 0.4 (0-2) % Neut # (Auto) 41270 H (1105-7672) /uL Lymph # (Auto) 1000 L (6349-6404) /uL [place] # (Auto) 1000 H (0-900) /uL Eos # (Auto) 0 (0-450) /uL Baso # (Auto) 100 (0-100) /uL Sodium 136 L (137-145) mmol/L Potassium 3.7 (3.4-5.1) mmol/L Chloride 103 (98-107) mmol/L Carbon Dioxide 27 (22-32) mmol/L BUN 9 (7-17) mg/dL Creatinine 0.44 L (0.52-1.04) mg/dL Estimated GFR > 60.0 (>60) mL/min BUN/Creatinine Ratio 20.5 (6-22) Glucose 132 H (80-110) mg/dL Calcium 9.2 (8.4-10.2) mg/dL Total Bilirubin 1.7 H (0.2-1.3) mg/dL AST 27 (14-36) IU/L ALT 16 (<35) IU/L Alkaline Phosphatase 64 (38-126) U/L Total Creatine Kinase 38 (30-135) U/L CK-MB (CK-2) TNP CK-MB (CK-2) Rel Index TNP Troponin I < 0.012 (0.01-0.034) ng/mL Total Protein 7.4 (6.3-8.2) g/dL Albumin 3.8 (3.5-5.0) g/dL Globulin 3.6 (1.7-4.1) g/dL Albumin/Globulin Ratio 1.1 (1.0-2.8) Lipase 30 (23-300) U/L Imaging Data Chest x-ray: Radiologist's Impression: FINDINGS: Surgical changes and devices: Left chest wall pacer is seen with intact leads. Lungs and pleura: Lungs are clear. No pleural effusions or pneumothorax. Mediastinum: Mediastinal contours appear normal. Heart size is normal. Bones and chest wall: No suspicious bony lesions. Overlying soft tissues appear unremarkable. IMPRESSION: No acute cardiopulmonary abnormality. Dictated by: Alvarez High M.D. on 08/03/2020 at 11:26 ECG Data Attestation: I personally reviewed and interpreted this ECG as follows: Interpretation: sinus rhythm at a rate of [address] T wave abnormalities no acute ischemic changes MDM Narrative Medical decision making narrative: 79-year-old woman with history of paroxysmal atrial fibrillation and chronic upper abdominal pain presents with chronic upper abdominal pain in a bandlike distribution. There is no evidence of acute coronary syndrome, pancreatitis, ulcer disease or other life-threatening abnormalities appreciated today. She is currently in sinus rhythm. Reassurance is given and she is felt to be safe for home Discharge Plan Departure Patient Disposition: Home Clinical Impression: Abdominal pain Qualifiers: Abdominal location: upper abdomen, unspecified Qualified Code(s): R10.10 - Upper abdominal pain, unspecified Instructions: DI for Abdominal Pain-Adult Activity Restrictions/Additional Instructions: thank you for coming in today this bandlike pain that you are experiencing does not seem to be related to your heart. There is no evidence of recurrent atrial fibrillation or heart attack or heart attack like syndrome today. I do not see any evidence of pancreatitis or bleeding from your stomach. Your belly itself is very reassuring and there is no evidence of any type of surgical problem. As you have had this bandlike upper abdominal pain for a long period of time, I would recommend that you follow-up with your primary care physician to see if they have any additional suggestions on further workup. I wish you the best Prescriptions: No Action losartan 100 mg tablet 100 mg PO DAILY Qty: 90 RF: 1 levalbuterol tartrate 45 mcg/actuation HFA aerosol inhaler 2 inhalation INHALATION Q6H PRN (Reason: shortness of breath or wheezing) Qty: 15 RF: 1 pantoprazole [Protonix] 40 mg tablet,delayed release (DR/EC) 40 mg PO BID Qty: 180 RF: 3 metoprolol succinate 50 mg tablet extended release 24 hr 50 mg PO DAILY Qty: 90 RF: 1 atorvastatin 20 mg tablet 20 mg PO DAILY RF: 0 escitalopram oxalate [Lexapro] 10 mg tablet 10 mg PO DAILY Qty: 90 RF: 1 zolpidem 5 mg tablet 5 mg PO BEDTIME PRN (Reason: insomnia) Qty: 30 RF: 3 levothyroxine [Synthroid] 112 mcg tablet 112 mcg PO DAILY Qty: 90 RF: 3 Xarelto 20 mg tablet 20 mg PO DAILY RF: 0 felodipine 5 mg tablet extended release 24 hr 5 mg PO DAILY Qty: 90 RF: 0 levothyroxine 112 mcg capsule 112 mcg PO DAILY Qty: 30 RF: 2 Referrals: Christian Velez ARNP [Primary Care Provider] -
[2020-08-03 09:32] LABS: Add Manual Diff / Slide Review NO; Basophils Absolute Auto 100 /uL (0-100); Basophils Percent Auto 0.4 % (0-2); Eosinophils Absolute Auto 0 /uL (0-450); Eosinophils Percent Auto 0.2 % (2-4); Hematocrit 38.3 % (36-46); Hemoglobin 12.6 g/dL (12.0-16.0); Lymphocytes Absolute Auto 1000 /uL (1100-4500); Lymphocytes Percent Auto 6.1 % (25-40); Mean Corpuscular HGB Conc 32.9 % (30-36); Mean Corpuscular Volume 81.9 fL (80-100); Monocytes Absolute Auto 1000 /uL (0-900); Monocytes Percent Auto 6.4 % (3-14); Neutrophils Absolute Auto 13900 /uL (1500-7000); Neutrophils Percent Auto 86.9 % (50-75); Platelet Count 310 X10^3/uL (150-400); Red Blood Cell Count 4.68 X10^6/uL (4.0-5.2); Red Cell Distribution Width 13.8 % (11.6-14.8)
[2020-08-03 09:46] LABS: Alanine Aminotransferase 16 IU/L (<35); Albumin 3.8 g/dL (3.5-5.0); Albumin Globulin Ratio 1.1 (1.0-2.8); Alkaline Phosphatase 64 U/L (38-126); Aspartate Aminotransferase 27 IU/L (14-36); BUN Creatinine Ratio 20.5 (6-22); Bilirubin Total 1.7 mg/dL (0.2-1.3); Blood Urea Nitrogen 9 mg/dL (7-17); Calcium 9.2 mg/dL (8.4-10.2); Carbon Dioxide 27 mmol/L (22-32); Chloride 103 mmol/L (98-107); Creatine Kinase 38 U/L (30-135); Estimated Glomerular Filt Rate > 60.0 mL/min (>60); Globulin 3.6 g/dL (1.7-4.1); Glucose 132 mg/dL (80-110); HEMOLYSIS 42 (0-50); Lipase 30 U/L (23-300); Potassium 3.7 mmol/L (3.4-5.1); Sodium 136 mmol/L (137-145); Total Protein 7.4 g/dL (6.3-8.2)
[2020-08-03 09:57] LABS: Troponin I < 0.012 ng/mL (0.01-0.034)
== END 2020-08-03 12:53 | disposition home or self-care (01) ==
PROVIDERS: Emergency Provider Emergency Medicine; PCP Registered Nurse
DX: R10.10 Upper abdominal pain, unspecified (principal); I48.0 Paroxysmal atrial fibrillation; Z95.0 Presence of cardiac pacemaker
CPT/HCPCS: 36415; 71045; 80053; 82550; 83690; 84484; 85025; 93005; 93010; 99284

== ENCOUNTER → 2020-08-15 11:30 | Outpatient (CLI) | payer MEDICARE, SELFPAY ==
--- NOTE | 2020-08-15 11:31 | DI.US.S_ITS ---
PROCEDURE: US THYROID INDICATIONS: HYPOTHYROIDISM TECHNIQUE: Real-time scanning was performed of the thyroid gland, with image documentation. COMPARISON: None. FINDINGS: Right: Thyroid lobe measures 3.4 x 1.1 x 1.1 cm, and is mildly heterogeneous in echotexture. Left: Thyroid lobe measures 3.6 x 0.9 x 0.8 cm, and is mildly heterogeneous in echotexture. Isthmus: 3.0 mm thick. MPRESSION: Mildly atrophic and heterogeneous thyroid. No focal nodules. Dictated by: Kunal HURD Interpreted: Jesus Alvarez MD on 08/15/2020 at 12:40 Transcribed by: BRY on 08/15/2020 at 12:41 Approved by: Jesus Alvarez M.D. on 08/15/2020 at 18:03
== END ==
PROVIDERS: PCP Registered Nurse; Referring Provider Registered Nurse; Visit Provider Registered Nurse
DX: E03.9 Hypothyroidism, unspecified (principal)
CPT/HCPCS: 76536

== ENCOUNTER 2020-08-30 18:54 | Emergency (ER) | payer MEDICARE, SELFPAY ==
[2020-08-30] VITALS (25 sets, daily range): BP systolic 77–167; BP diastolic 52–109; PULSE 69–156; RESP 16–33; TEMP 36.5; O2SAT 93–99; BMI 34.0
--- NOTE | 2020-08-30 19:12 | DI.RAD.S_ITS ---
PROCEDURE: XR CHEST 1V INDICATIONS: chest pain TECHNIQUE: One view of the chest was acquired. COMPARISON: [facility], CR, XR CHEST 2 VIEWS, 08/02/2019, 8:56. [facility], CR, XR CHEST 1 VIEW, 07/31/2020, 9:26. [facility], CR, XR CHEST 1V, 05/10/2020, 19:22. [facility], CR, XR CHEST 1V, 08/03/2020, 9:11. FINDINGS: Surgical changes and devices: There is a cardiac pacemaker in stable position. Lungs and pleura: Lungs are clear. No pleural effusions or pneumothorax. Mediastinum: Mediastinal contours appear normal. Heart size is normal. Bones and chest wall: No suspicious bony lesions. Overlying soft tissues appear unremarkable. IMPRESSION: No acute cardiopulmonary disease. Dictated by: Manoj Milan M.D. on 08/30/2020 at 20:20 Approved by: Manoj Milan M.D. on 08/30/2020 at 20:21
--- NOTE | 2020-08-30 19:16 | ED.ARRPALP ---
HPI - Arrhythmia/Palpitations General Chief Complaint: Arrhythmia/Palpitations Stated Complaint: thinks she is in A Fib Time Seen by Provider: 08/30/20 19:13 Source: patient Mode of arrival: Ambulatory Limitations: no limitations History of Present Illness HPI narrative: 79-year-old female nonsmoker with history of AFib on Xarelto presents with family in the chief complaint of rapid irregular heart rate, shortness of breath and chest pressure over the course of the day. She has been taking all of her medications as directed and has not missed a dose of her Xarelto in quite some time. She has had no fever chills and denies nausea, vomiting or diarrhea. She denies any exertional component to her chest pressure. She denies recent travel, history of blood clot Related Data Home Medications Medication Instructions Recorded Confirmed rivaroxaban 20 mg tablet (Xarelto) 20 mg PO DAILY 10/22/18 08/10/20 atorvastatin 20 mg tablet 20 mg PO DAILY 12/08/19 08/10/20 metoprolol succinate 50 mg 75 mg PO DAILY tab 08/10/20 08/10/20 tablet,extended release 24 hr Previous Rx's Medication Instructions Recorded losartan 100 mg tablet 100 mg PO DAILY #90 tab 03/10/19 levalbuterol tartrate 45 2 inhalation INHALATION Q6H PRN 05/06/19 mcg/actuation aerosol inhaler #15 gram pantoprazole 40 mg tablet,delayed 40 mg PO BID #180 tab 05/16/19 release (Protonix) escitalopram oxalate 10 mg tablet 10 mg PO DAILY #90 tab 04/04/20 (Lexapro) felodipine 5 mg tablet,extended 5 mg PO DAILY #90 tab 05/15/20 release 24 hr zolpidem 5 mg tablet 5 mg PO BEDTIME PRN #30 tab 07/05/20 levothyroxine 88 mcg tablet 88 mcg PO DAILY 30 Days #30 tab 08/10/20 (Synthroid) Allergies Allergy/AdvReac Type Severity Reaction Status Date / Time hydromorphone Allergy Intermediate RASH/GI Verified 08/30/20 19:01 UPSET hydrocodone Allergy Mild GI UPSET Verified 08/30/20 19:01 diltiazem [DILTIAZEM] AdvReac Intermediate BRADYCARDIA Verified 08/30/20 19:01 Review of Systems Review of Systems Narrative: GENERAL: Denies chills, fatigue, malaise, fever, sweats. HEENT: Denies sinus pain, ear pain, sore throat, difficulty swallowing, dizziness. RESPIRATORY: Denies dyspnea, cough, wheezing, hemoptysis, sputum. CARDIOVASCULAR: See HPI GASTROINTESTINAL: Denies nausea, vomiting, abdominal pain, diarrhea, constipation, melena. : Denies dysuria, frequency, incontinence, hematuria, urinary retention. MUSCULOSKELETAL: denies weakness, joint pain, or bony pain SKIN: Denies rash, skin lesions, or other NEUROLOGIC: Denies weakness, headache, numbness, change in speech, confusion, seizures, incoordination. PSYCHIATRIC: No concerning psychosocial issues. 12 point review of systems is negative except for those stated above Patient History Medical History Allergies Anxiety (~2013) Atrial fibrillation (~2014) Bilateral chronic otitis media Carpal tunnel syndrome Cervical somatic dysfunction Chronic neck pain Cranial somatic dysfunction Depression (~2015) Fatigue Fibroid (~1965) Hearing loss HTN (hypertension) Hypothyroid Lumbar region somatic dysfunction Segmental and somatic dysfunction of abdomen and other regions Segmental and somatic dysfunction of pelvic region Segmental and somatic dysfunction of sacral region Segmental and somatic dysfunction of thoracic region Shoulder pain (~2018) Upper extremity somatic dysfunction Vitamin D deficiency Surgical History Anesthesia Cataracts, bilateral History of appendectomy History of cholecystectomy History of hysterectomy (~1978) Pacemaker (~11/06/15) Family History Father Hypertension Mother Lung cancer Social History Smoking Status: Never smoker Smoking Status: Never smoker alcohol intake frequency: other Substance Use Type: does not use Exam Narrative Exam Narrative: GENERAL: [79] year old patient appears stated age. Well-developed patient, in mild distress. Anxious, some visible increased work of breathing HEAD: Atraumatic. Normocephalic. EYES: Pupils equal round and reactive. Extraocular motions intact. No scleral icterus. No injection or drainage. ENT: Nose without bleeding, purulent drainage. Throat without erythema, tonsillar hypertrophy or exudate. Airway patent. NECK: Trachea midline. Non tender CARDIOVASCULAR: Tachycardic and irregular rhythm without murmurs, gallops, or rubs. RESPIRATORY: Clear to auscultation. Breath sounds equal bilaterally. No wheezes, rales, or rhonchi. GASTROINTESTINAL: Abdomen soft, non-tender, nondistended. EXTREMITIES: No edema or joint tenderness. BACK: Nontender without deformity or crepitance. No flank tenderness. NEURO: AOx3. SKIN: No rash or erythema of visible areas Initial Vital Signs Initial Vital Signs: Vital Signs Temperature 97.7 F 08/30/20 19:01 Pulse Rate 129 H 08/30/20 19:01 Respiratory Rate 22 08/30/20 19:01 Blood Pressure 167/97 H 08/30/20 19:01 Pulse Oximetry 99 08/30/20 19:01 Procedures Cardioversion Consent Signed: Yes Stability: Unstable Number of attempts (shocks): 1 Joules used: 120 Cardiac rhythm post-cardioversion: Normal sinus rhythm in the 80s Procedural Sedation Consent signed: Yes Time out performed: Yes Indication: cardioversion Preparation: barrel endshaker adjuster applied, pulse oximeter, capnometry used, supplemental O2 applied, suction/airway equipment at bedside and IV secured IV Propofol dose (mg): 80 Intraservice time/total sedation time (min): 10 ED Sedation Level: Moderate (Concious) Patient Tolerated Procedure: Well Complications: none Course Orders Ordered: ED Orders 08/30/20 19:12 XR chest 1V Stat EKG-12 Lead Stat 08/30/20 19:20 Complete Blood Count AUTO DIFF Stat Comprehensive Metabolic Panel Stat Lipase Stat Troponin & CK Cardiac Panel Stat Discontinued Medications Propofol (Propofol 200 Mg/20 Ml Vial) 80 mg 1 mg/kg (80 mg) IV NOW ONE Stop: 08/30/20 19:27 Last Admin: 08/30/20 19:42 Dose: 55 mg Documented by: KRISTY Vital Signs Vital signs: Vital Signs - 8 hr 08/30/20 19:01 08/30/20 19:07 08/30/20 19:08 Temperature 97.7 F Pulse Rate 129 H 121 H 140 H Respiratory Rate 22 20 Blood Pressure 167/97 H 143/101 H Pulse Oximetry 99 98 98 08/30/20 19:10 08/30/20 19:15 08/30/20 19:20 Temperature Pulse Rate 138 H 128 H 136 H Respiratory Rate 20 18 24 Blood Pressure 147/108 H Pulse Oximetry 98 98 97 08/30/20 19:24 08/30/20 19:25 08/30/20 19:30 Temperature Pulse Rate 141 H 136 H 135 H Respiratory Rate 21 18 21 Blood Pressure 144/102 H 137/109 H Pulse Oximetry 97 97 98 08/30/20 19:35 08/30/20 19:36 08/30/20 19:38 Temperature Pulse Rate 139 H 142 H 156 H Respiratory Rate 26 H 21 20 Blood Pressure 149/96 H Pulse Oximetry 98 99 93 08/30/20 19:40 08/30/20 19:45 08/30/20 19:46 Temperature Pulse Rate 141 H 150 H 81 Respiratory Rate 19 29 H 33 H Blood Pressure 108/74 97/52 L Pulse Oximetry 98 98 94 08/30/20 19:50 08/30/20 19:55 08/30/20 20:00 Temperature Pulse Rate 74 69 69 Respiratory Rate 22 17 18 Blood Pressure 111/53 L 111/56 L 112/53 L Pulse Oximetry 97 95 96 08/30/20 20:05 08/30/20 20:10 08/30/20 20:11 Temperature Pulse Rate 69 69 69 Respiratory Rate 17 16 17 Blood Pressure 115/58 L 121/55 L Pulse Oximetry 97 97 96 08/30/20 20:15 08/30/20 20:20 08/30/20 20:25 Temperature Pulse Rate 69 69 69 Respiratory Rate 20 17 26 H Blood Pressure 77/52 L 119/58 L 104/61 Pulse Oximetry 96 97 97 08/30/20 20:30 Temperature Pulse Rate 70 Respiratory Rate Blood Pressure 111/59 L Pulse Oximetry 98 MDM - Arrhythmia/Palpitations Lab Data Result diagrams: 08/30/20 19:20 08/30/20 19:20 Labs: Lab Results 08/30/20 08/30/20 Range/Units 19:20 19:20 WBC 11.8 H (4.5-11.0) X10^3/uL RBC 5.61 H (4.0-5.2) X10^6/uL Hgb 15.2 (12.0-16.0) g/dL Hct 46.1 H (36-46) % MCV 82.1 (80-100) fL MCH 27.0 (26-34) PG MCHC 32.9 (30-36) % RDW 14.0 (11.6-14.8) % Plt Count 344 (150-400) X10^3/uL Neut % (Auto) 70.8 (50-75) % Lymph % (Auto) 18.0 L (25-40) % [place] % (Auto) 8.7 (3-14) % Eos % (Auto) 1.7 L (2-4) % Baso % (Auto) 0.8 (0-2) % Neut # (Auto) 8300 H (1457-9831) /uL Lymph # (Auto) 2100 (9355-2321) /uL [place] # (Auto) 1000 H (0-900) /uL Eos # (Auto) 200 (0-450) /uL Baso # (Auto) 100 (0-100) /uL Sodium 136 L (137-145) mmol/L Potassium 4.1 (3.4-5.1) mmol/L Chloride 101 (98-107) mmol/L Carbon Dioxide 27 (22-32) mmol/L BUN 15 (7-17) mg/dL Creatinine 0.60 (0.52-1.04) mg/dL Estimated GFR > 60.0 (>60) mL/min BUN/Creatinine Ratio 25.0 H (6-22) Glucose 147 H (80-110) mg/dL Calcium 9.5 (8.4-10.2) mg/dL Total Bilirubin 0.4 (0.2-1.3) mg/dL AST 32 (14-36) IU/L ALT 21 (<35) IU/L Alkaline Phosphatase 83 (38-126) U/L Total Creatine Kinase 49 (30-135) U/L CK-MB (CK-2) TNP CK-MB (CK-2) Rel Index TNP Troponin I < 0.012 (0.01-0.034) ng/mL Total Protein 8.2 (6.3-8.2) g/dL Albumin 4.5 (3.5-5.0) g/dL Globulin 3.7 (1.7-4.1) g/dL Albumin/Globulin Ratio 1.2 (1.0-2.8) Lipase 99 (23-300) U/L Point of Care Testing Test Results Not applicable ECG Data Interpretation: EKG 1: Rapid atrial fibrillation in the 140s without signs of ischemia such as ST depression or elevation. MDM Narrative Medical decision making narrative: Patient in a rapid AFib is quite symptomatic including shortness of breath and chest pain. This alone would suggest she is a candidate for cardioversion, however an extra layer safety given her routine use of anticoagulants. She responds well and is asymptomatic after cardioversion. Return precautions given and questions answered to her apparent satisfaction Discharge Plan Departure Patient Disposition: Home Clinical Impression: Atrial fibrillation Qualifiers: Atrial fibrillation type: paroxysmal Qualified Code(s): I48.0 - Paroxysmal atrial fibrillation Instructions: DI for Atrial Fibrillation Activity Restrictions/Additional Instructions: *You have been diagnosed with [atrial fibrillation status post electrocardioversion] *What to do: *Please continue to take your regular medications as directed. [ ] New medication prescriptions sent to your pharmacy: [ ] [ ] New medication written as a paper prescription [ x] No new medications given *Please follow up with your primary care provider in 2-3 days, call for an appointment. Let them know you were seen in the Emergency Department and that we ask that you be seen in follow up. We will electronically transmit a record of today's note if your PCP is in our system *If you do not have a primary care provider please contact the [facility] Resource line at [phone]. They will ask some questions about your medical history and help get you set up with a doctor in the community. *Return to Emergency Department if you should have any new, worsening or concerning symptoms, such as [fever greater than 101 F, shaking chills, worsening pain, persistent vomiting or other bothersome symptoms] Prescriptions: No Action losartan 100 mg tablet 100 mg PO DAILY Qty: 90 RF: 1 levalbuterol tartrate 45 mcg/actuation HFA aerosol inhaler 2 inhalation INHALATION Q6H PRN (Reason: shortness of breath or wheezing) Qty: 15 RF: 1 pantoprazole [Protonix] 40 mg tablet,delayed release (DR/EC) 40 mg PO BID Qty: 180 RF: 3 atorvastatin 20 mg tablet 20 mg PO DAILY RF: 0 escitalopram oxalate [Lexapro] 10 mg tablet 10 mg PO DAILY Qty: 90 RF: 1 zolpidem 5 mg tablet 5 mg PO BEDTIME PRN (Reason: insomnia) Qty: 30 RF: 3 metoprolol succinate 50 mg tablet extended release 24 hr 75 mg PO DAILY RF: 0 levothyroxine [Synthroid] 88 mcg tablet 88 mcg PO DAILY 30 Days Qty: 30 RF: 3 Xarelto 20 mg tablet 20 mg PO DAILY RF: 0 felodipine 5 mg tablet extended release 24 hr 5 mg PO DAILY Qty: 90 RF: 0 Referrals: Christian Velez ARNP [Primary Care Provider] -
[2020-08-30 19:27] LABS: Add Manual Diff / Slide Review NO; Basophils Absolute Auto 100 /uL (0-100); Basophils Percent Auto 0.8 % (0-2); Eosinophils Absolute Auto 200 /uL (0-450); Eosinophils Percent Auto 1.7 % (2-4); Hematocrit 46.1 % (36-46); Hemoglobin 15.2 g/dL (12.0-16.0); Lymphocytes Absolute Auto 2100 /uL (1100-4500); Mean Corpuscular HGB Conc 32.9 % (30-36); Mean Corpuscular Volume 82.1 fL (80-100); Monocytes Absolute Auto 1000 /uL (0-900); Monocytes Percent Auto 8.7 % (3-14); Neutrophils Absolute Auto 8300 /uL (1500-7000); Neutrophils Percent Auto 70.8 % (50-75); Platelet Count 344 X10^3/uL (150-400); Red Blood Cell Count 5.61 X10^6/uL (4.0-5.2); White Blood Cell Count 11.8 X10^3/uL (4.5-11.0)
[2020-08-30 19:39] LABS: Alanine Aminotransferase 21 IU/L (<35); Albumin 4.5 g/dL (3.5-5.0); Albumin Globulin Ratio 1.2 (1.0-2.8); Alkaline Phosphatase 83 U/L (38-126); Aspartate Aminotransferase 32 IU/L (14-36); Bilirubin Total 0.4 mg/dL (0.2-1.3); Blood Urea Nitrogen 15 mg/dL (7-17); Calcium 9.5 mg/dL (8.4-10.2); Carbon Dioxide 27 mmol/L (22-32); Chloride 101 mmol/L (98-107); Creatine Kinase 49 U/L (30-135); Estimated Glomerular Filt Rate > 60.0 mL/min (>60); Globulin 3.7 g/dL (1.7-4.1); Glucose 147 mg/dL (80-110); HEMOLYSIS 24 (0-50); Lipase 99 U/L (23-300); Potassium 4.1 mmol/L (3.4-5.1); Sodium 136 mmol/L (137-145); Total Protein 8.2 g/dL (6.3-8.2)
[2020-08-30] MEDS: propofoL 200 MG/20 ML VIAL 80 MG IV (19:42)
[2020-08-30 19:50] LABS: Troponin I < 0.012 ng/mL (0.01-0.034)
== END 2020-08-30 20:33 | disposition home or self-care (01) ==
PROVIDERS: Emergency Provider Emergency Medicine; PCP Registered Nurse
DX: I48.0 Paroxysmal atrial fibrillation (principal); Z79.01 Long term (current) use of anticoagulants; R06.02 Shortness of breath; R07.9 Chest pain, unspecified
CPT/HCPCS: 36415; 71045; 80053; 82550; 83690; 84484; 85025; 92960; 93005; 93010; 99152; 99285; J2704

== ENCOUNTER → 2020-09-06 10:23 | Outpatient (CLI) | payer MEDICARE, SELFPAY ==
[2020-09-06 11:38] LABS: Thyroid Stimulating Hormone < 0.015 uIU/mL (0.47-4.68)
== END ==
PROVIDERS: PCP Registered Nurse; Referring Provider Registered Nurse; Visit Provider Registered Nurse
DX: E03.9 Hypothyroidism, unspecified (principal)
CPT/HCPCS: 36415; 84443

== ENCOUNTER → 2020-10-15 11:46 | Outpatient (CLI) | payer MEDICARE, SELFPAY ==
[2020-10-15 13:58] LABS: Thyroid Stimulating Hormone 1.41 uIU/mL (0.47-4.68)
== END ==
PROVIDERS: PCP Registered Nurse; Referring Provider Registered Nurse; Visit Provider Registered Nurse
DX: E03.9 Hypothyroidism, unspecified (principal)
CPT/HCPCS: 36415; 84443

== ENCOUNTER → 2021-03-27 13:37 | Outpatient (CLI) | payer MEDICARE, SELFPAY ==
[2021-03-27 16:03] LABS: Appearance Urine UA CLEAR; Bilirubin Urine UA NEGATIVE (NEGATIVE); Color Urine UA YELLOW; Glucose Urine UA TRACE g/dL (Negative); Ketones Urine UA NEGATIVE (NEGATIVE); Leukocyte Esterase Urine UA TRACE (NEGATIVE); Nitrite Urine UA NEGATIVE (Negative); Occult Blood Urine UA NEGATIVE (Negative); Protein Urine UA NEGATIVE (Negative); Urobilinogen Urine UA 0.2 E.U./dL (0.2)
[2021-03-27 16:05] LABS: Add Manual Diff / Slide Review NO; Basophils Absolute Auto 100 /uL (0-100); Basophils Percent Auto 0.7 % (0-2); Eosinophils Absolute Auto 100 /uL (0-450); Eosinophils Percent Auto 1.7 % (2-4); Hematocrit 43.4 % (36-46); Hemoglobin 14.5 g/dL (12.0-16.0); Lymphocytes Absolute Auto 2900 /uL (1100-4500); Lymphocytes Percent Auto 34.7 % (25-40); Mean Corpuscular HGB Conc 33.4 % (30-36); Mean Corpuscular Hemoglobin 28.2 PG (26-34); Mean Corpuscular Volume 84.5 fL (80-100); Monocytes Absolute Auto 1000 /uL (0-900); Monocytes Percent Auto 11.9 % (3-14); Neutrophils Absolute Auto 4300 /uL (1500-7000); Platelet Count 403 X10^3/uL (150-400); Red Blood Cell Count 5.14 X10^6/uL (4.0-5.2); Red Cell Distribution Width 13.3 % (11.6-14.8); White Blood Cell Count 8.5 X10^3/uL (4.5-11.0)
[2021-03-27 16:10] LABS: Amorphous Sediment Urine 1+; Bacteria Urine Occasional (0-1); Culture Indicated Urine Specimen Cultured; RBC Urine None Seen (0-5/HPF); Squamous Epithelial Cell Urine 0-1 /HPF (0-5/HPF); WBC Urine 5-10/HPF (0-5/HPF)
[2021-03-27 16:29] LABS: Hemoglobin A1C% w Est Avg Glu 6.1 % (4.0-6.0)
[2021-03-27 16:52] LABS: BUN Creatinine Ratio 20.3 (6-22); Blood Urea Nitrogen 12 mg/dL (7-17); Calcium 9.6 mg/dL (8.4-10.2); Carbon Dioxide 35 mmol/L (22-32); Chloride 99 mmol/L (98-107); Estimated Glomerular Filt Rate > 60.0 mL/min (>60); Glucose 99 mg/dL (80-110); HEMOLYSIS < 15 (0-50); Potassium 3.8 mmol/L (3.4-5.1); Sodium 138 mmol/L (137-145)
== END ==
PROVIDERS: PCP Registered Nurse; Referring Provider Orthopaedic Surgery; Visit Provider Orthopaedic Surgery
DX: R73.9 Hyperglycemia, unspecified (principal); Z01.812 Encounter for preprocedural laboratory examination; N39.0 Urinary tract infection, site not specified
CPT/HCPCS: 36415; 80048; 81001; 83036; 85025; 87086

== ENCOUNTER → 2021-04-01 10:52 | Outpatient (CLI) | payer MEDICARE, SELFPAY ==
[2021-04-01 12:32] LABS: COVID19 -Nasal RAPID POSITIVE (Negative)
== END ==
PROVIDERS: PCP Registered Nurse; Visit Provider Family Medicine Sleep Medicine
DX: U07.1 COVID-19 (principal); Z20.822 Contact with and (suspected) exposure to COVID-19
CPT/HCPCS: 87635; C9803

== ENCOUNTER → 2021-04-03 09:16 | Outpatient (CLI) | payer MEDICARE, SELFPAY ==
[2021-04-03 13:39] LABS: COVID19 -Nasal RAPID Negative (Negative)
== END ==
PROVIDERS: PCP Registered Nurse; Visit Provider Family Medicine Sleep Medicine
DX: Z20.822 Contact with and (suspected) exposure to COVID-19 (principal)
CPT/HCPCS: 87635; C9803

== ENCOUNTER 2021-04-04 07:50 | Day surgery (SDC) | payer MEDICARE, SELFPAY ==
[2021-04-04] VITALS (26 sets, daily range): BP systolic 110–195; BP diastolic 51–92; PULSE 70–88; RESP 11–22; TEMP 36.1–36.8; O2SAT 93–100; BMI 34.0
--- NOTE | 2021-04-04 | DI.RAD.S_ITS ---
PROCEDURE: XR KNEE LT 1TO2V INDICATIONS: POST OP TECHNIQUE: To view(s) of the knee acquired. COMPARISON: None. FINDINGS: Bones: Patient is status post knee medial unicondylar joint arthroplasty. Hardware components are in expected positions. Visualized bony structures are intact. Soft tissues: Overlying postoperative changes are noted. IMPRESSION: Expected postsurgical change for left knee medial hemiarthroplasty. Dictated by: Lauren Rojo MD, PhD on 04/04/2021 at 12:57 Approved by: Lauren Rojo MD, PhD on 04/04/2021 at 12:57
[2021-04-04] MEDS: LACTATED RINGERS 1,000 ML 42 ML IV (09:42)
[2021-04-04] MEDS: VANCOMYCIN 1,000 MG/200 ML PIGGYBACK 200 MG IV (09:43)
--- NOTE | 2021-04-04 10:10 | PM.PREOP ---
Pre-operative Note COVID-19 COVID-19 status: Negative Result date/Date tested (Pos, Neg/Pending): 04/03/21 Criteria for continued procedure: Expected advancement of disease process, Possibility delay results in more complex future surgery or treatment and Continuing or worsening of significant or severe pain Interval Note History & Physical reviewed/Exam performed by Physician: Yes Changes to H&P: No H&P completed within 30 days and has changed as indicated here:: no symptoms other than seasonal allergies, wants to go home, heart has been stable without a fib now that thyroid has been stabilized
--- NOTE | 2021-04-04 10:12 | PM.PREOP ---
Pre-operative Note COVID-19 COVID-19 status: Negative Criteria for continued procedure: Expected advancement of disease process and Possibility delay results in more complex future surgery or treatment
--- NOTE | 2021-04-04 10:13 | P.OP_ITS ---
Operative Date/Time/Diagnoses Date of procedure: 04/04/21 Time of procedure: 10:50 Pre-op diagnosis: left knee OA Post-op diagnosis: same Procedure & Clinicians Procedure: left knee medial uni arthroplasty Same procedure as scheduled: Yes Indications: The patient has had progressively worsening left knee pain with radiographic changes consistent with arthritis. Non-operative management has failed and the patient has requested medial unicompartment knee replacement. The risks, benefits and alternatives to surgery were discussed with the patient prior to proceeding. Risks discussed included, but were not limited to, failure to relieve pain, stiffness, infection, nerve damage, deep venous thrombosis, pulmonary embolism, stroke, coma, heart attack, permanent paralysis and , as well as the potential need for eventual revision of the prosthetic. Surgeon: Char Cruz [employer] Sales Representative: Wellington Jackson Anesthesia Type: General Operative Notes Findings: Severe medial compartment arthritis, good stability, adequate bone Closure Type: primary Specimen(s): none sent Prosthetic devices, grafts, tissues, transplants, or devices: [employer] BCS 2 size 4 left femerol medial Uni, size 3 tibia, +10 poly Estimated Blood Loss (mL): 250 Blood products transfused: none Tourniquet time (min): 60 Procedure in detail: The patient was seen in the pre-operative area, where the right knee was identified as the operative site and this was marked with my initials. The patient received pre-operative antibiotics, and was taken to the operating room and placed on the operative table in the supine position. After satisfactory anesthesia, a inspector timers out was performed. The right leg was encircled with a tourniquet about the proximal thigh, and the leg was prepared from the toes to the tourniquet with ChloroPrep in the usual fashion and draped through sterile drapes. The leg was elevated and exsanguinated with Eschmark bandage and the tourniquet inflated to [250] mmHg pressure. The knee was approached through an approximately 10 cm incision medial parapatellar incision and carried into the knee through a medial parapatellar arthrotomy. The osteophytes and medial meniscus were removed. Next, a small amount of the anterior tibial boss was carefully resected with a saw. The guide was placed along the medial joint line. It was meticulously adjusted to make sure there was appropriate slope that it was at the joint line and then was pinned to the tibia and the femur. The medial femoral condylar cut was made in extension. The tibial cut was made in flexion. The bone was meticulously irrigated with normal saline. Small amount of additional meniscus was resected posterior capsule was checked and injected with Marcaine. The extension gap was carefully checked with an 8 mm gap supervisor chassis assembly was noted that it fit well. A small number of additional osteophytes were resected. The tibia was a size [3]. It was noted that it fit without overhang. The femur was sized and it was noted to be a [4]. The appropriate cutting guide was pinned into place and carefully positioned on the femoral condyle. Drill holes were placed. The tibia was pinned into place and drill holes were made. Trial reduction with the appropriate poly showed full range of motion and good stability at 0, 45. and 90? with normal tracking of the components without edge loading. The bone was meticulously irrigated and dried. Additional Marcaine was injected. The posterior capsule was injected with 0.25% Marcaine mixed with 20 ml Exparel for post-operative pain control. The remainder of this mixture was injected into the capsule and subcutaneous tissues during cement curing. Range of motion was [0-130], with good stability throughout the range. The trials were then remove. The cement was as applied and the final prosthetics placed. Excess cement was removed during and after cement curing. A brief medial compartment Betadine soak was performed. After confirming there was no extruded cement posteriorly, the final tibial insert was placed. The knee was copiously irrigated and the tourniquet deflated. Hemostasis was obtained. The capsule was closed with interrupted vicryl. The subcutaneous tissue was closed with barbed sutures. The skin with a running 3-0 V-Lock suture and surgical glue. An Aquacel Ag dressing was applied and the patient was taken to recovery having tolerated the procedure well. Complications: none Post-operative Condition: stable Disposition: Acute Care Plan for aftercare: The patient will be maintained on a standard medial uni knee replacement protocol with weight bearing as tolerated. The patient will receive aspirin and sequential compression devices for DVT prophylaxis. The patient will be discharged home when safe for the home environment. She had some chest pressure in the recovery room and an EKG was obtained and a hospital consult was obtained and it was felt that she required admission for further evaluation and medical stabilization.
[2021-04-04] MEDS: TRANEXAMIC ACID 1,000 MG in SODIUM CHLORIDE 0.9% 100 ML 200 ML IV ×2 (10:50→12:06)
--- NOTE | 2021-04-04 11:01 | SUR.OPER ---
Supine on padded OR bed. Pillow under head, arms secured on padded armboards <90 degree abduction. Safety belt across torso. Non-operative leg secured with tape over blanket over lower leg. Operative leg secured in Dionisio boot. Foam padded brace at thigh of operative leg.
[2021-04-04] MEDS: BUPIVACAINE 0.25% W/ EPI 30 ML VIAL 60 ML INJ (11:09)
[2021-04-04] MEDS: BUPIVACAINE LIPOSOME 266 MG/20 ML VIAL INJ (11:10)
--- NOTE | 2021-04-04 13:08 | SUR.PHASEI ---
Pt states it is hard to breath as chest feels heavy. O2 sat 98%. Dr Cruz at bedside, notified. STAT Ekg ordered. Oxygen placed at 2L NC.
[2021-04-04] MEDS: ALBUTEROL 2.5 MG/3 ML NEB (ADULT) INH (13:14)
[2021-04-04] MEDS: LORazepam 2 MG/ML INJ 0.5 MG IV ×2 (13:37→13:53)
--- NOTE | 2021-04-04 13:49 | SUR.PHASEI ---
1307 Pt awoke, stated she it was hard to breath and that she had chest pressure, not pain. Dr Cruz to bedside and notified. EDG ordered stat. Dr Grant notified by Dr Cruz. Pt o2 sat 98%, placed on 2L NC oxygen. 1308 Pt stated that the back of her neck was sore. 1317 EKG done by Rt. 1318 Alb nub given for left anterior chest wheeze. Pt states she rarely uses inhaler at home and that it has been months 1320 Dr Cruz to bedside. Updated. 1325 Dr Grant to bedside. Updated. Pt states that her breathing feels better after neb treatment and then
--- NOTE | 2021-04-04 14:02 | SUR.PHASEI ---
1325 Note continued. Pt states chest pressure is better. Pt having tremors to right upper outer thigh and larger spasms to same area with also complaining of muscle tightness in shoulders and a stiff neck. See order[address] Grant for Lorazepam. 1330 Patient 99% on room air. Continues to breath easily at this point. 1340 Medicated with 0.25 Ativan for continued muscle spams to right leg and neck. Dr Cruz at bedside, updated. 1344 Calm and dozing. Muscles spasms have mostly subsided 1348 Declined more ativan at this time.
--- NOTE | 2021-04-04 14:16 | SUR.PHASEI ---
Addendum entered by Sandra Zabala R.N. 04/04/21 14:17: 1/2 dose of 0.25mg dose given for total of 0.5mg Ativan. Original Note: 1353. No visible spasms however pt states the are still present, medicated with / dose of Ativan. Pt awake, alert, clearing throat. Denies SOB, difficulty breathing and chest pain.
--- NOTE | 2021-04-04 15:00 | SUR.PHASEI ---
Patient transferred to room 208 in bed with 1 belongings bag by this RN in bed on room air. SBAR report and update at bedside with Lynn RN. Pt awake, alert, denies pain, muscles spasms and SOB, smiling and talking with nursing staff. Left leg warm, + pedal pulse. Dressing clean dry and intact. Daughter at bedside. Bed in low position. Call light in reach.
[2021-04-04] MEDS: LACTATED RINGERS 1,000 ML 100 ML IV (15:22)
[2021-04-04] MEDS: ACETAMINOPHEN 325 MG TABLET 650 MG PO ×2 (15:23→20:44)
[2021-04-04] MEDS: CEFAZOLIN 2 GM/20 ML SYRINGE IV ×2 (15:23→23:17)
[2021-04-04] MEDS: PANTOPRAZOLE DR 40 MG TABLET PO (15:24)
--- NOTE | 2021-04-04 16:35 | PM.CN ---
History of Present Illness Consult details Chief complaint: [facility] [place] Narrative: 80yo female with a hx of hypertension, hyperlipidemia, hypothyroidism, atrial fibrillation on Xarelto, depression/anxiety, and GERD that we were consulted on for chest pain. The patient describes it as pressure, located over sub-xiphoid/epigastric area. She denies that this was associated with physical/emotional exertion. She denies any radiation of her pain to her arms, jaw, back, or elsewhere. She denies that this has happened before. She reports the episode occurred after she was coming out of anesthesia. She states it lasted 15-30 minutes and then self-resolved. She denies any recurrence of the pain since then. She actually reports feeling very well. Her only complaint is a slight indigestion/heartburn feeling. She reports feeling anxious at the time that this all occurred. She reports often feeling wonky after undergoing anesthesia. The patient denies any personal hx of GA's. She denies undergoing stress tests or heart caths. She does endorse a hx of PAD, status post vascular stenting on the left lower extremity. She reports that's stable. She does endorse a hx of GERD, and says that laying down flat for an extended period of time will sometimes cause it to flare. She believes that that might have happened this time, too. She takes her Protonix typically every day or every other day with meals. The patient reports adherence with all her medicines, including the atherosclerotic plaque-protecting meds, and Xarelto. She knows them by name and dose. PSH is positive for elective breast reduction, total hysterectomy, appendectomy and cholecystectomy, along with the most recent orthopedic surgery. She denies any family hx of premature CAD, or even of old-age GA's, etc. Her mother from lung cancer after many years of smoking tobacco. The patient denies ever smoking tobacco, using nicotine, or abusing EtOH or illicit drugs. She lives nearby with 2 of her daughter living close by for support, too. 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 Meds Home Medications and Allergies Home Medications Medication Instructions Recorded Confirmed Type rivaroxaban 20 mg tablet (Xarelto) 20 mg PO DAILY 10/22/18 04/03/21 History levalbuterol tartrate 45 2 inhalation INHALATION Q6H PRN 05/06/19 04/04/21 Rx mcg/actuation aerosol inhaler #15 gram felodipine 5 mg tablet,extended See Rx Instructions .ROUTE 11/06/20 04/04/21 Rx release 24 hr .COMPLEX #90 tab losartan 100 mg tablet 100 mg PO DAILY #90 tab 11/22/20 04/04/21 Rx levothyroxine 50 mcg tablet 50 mcg PO DAILY #90 tab 12/04/20 04/04/21 Rx pantoprazole 40 mg tablet,delayed 40 mg PO 2XW 12/06/20 04/04/21 History release (Protonix) pravastatin 20 mg tablet 20 mg PO DAILY 12/06/20 04/04/21 History metoprolol succinate 50 mg 50 mg PO BEDTIME 04/01/21 04/04/21 History tablet,extended release 24 hr multivitamin with minerals-folic 1 tab PO DAILY 04/01/21 04/04/21 History acid 200 mcg chewable tablet (Multivitamin Gummies) Baby Aspirin 81 mg PO DAILY 04/03/21 04/03/21 History escitalopram oxalate 5 mg tablet 5 mg PO DAILY 04/03/21 04/04/21 History (Lexapro) Allergies Allergy/AdvReac Type Severity Reaction Status Date / Time hydromorphone Allergy Intermediate RASH/GI Verified 04/04/21 09:38 UPSET hydrocodone Allergy Mild GI UPSET Verified 04/04/21 09:38 rosuvastatin [From Crestor] Allergy Unknown Intolerant Verified 04/04/21 09:38 diltiazem [DILTIAZEM] AdvReac Intermediate BRADYCARDIA Verified 04/04/21 09:38 atorvastatin AdvReac Unknown Significant Verified 04/04/21 09:38 weakness, myalgias Review of Systems Constitutional Comments: Denies fever/chills, weight loss, appetite loss Cardiovascular Comments: Denies CP, SOB, palpitations Respiratory Comments: Denies cough, SOB, URI sxs Gastrointestinal Comments: Denies abd pain, n/v/d. Does endorse heartburn. Integumentary/Breasts Comments: Denies any new skin changes Exam Vital Signs (past 8 hours): - 04/04/21 09:13 04/04/21 12:25 04/04/21 12:30 Temperature 97.9 F 97.3 F L Pulse Rate 70 70 70 Respiratory Rate 17 12 15 Blood Pressure 195/92 H 110/51 L 128/55 L Pulse Oximetry 99 93 93 04/04/21 12:35 04/04/21 12:40 04/04/21 12:45 Temperature 97.3 F L Pulse Rate 73 73 76 Respiratory Rate 13 13 12 Blood Pressure 136/60 137/58 L 136/57 L Pulse Oximetry 97 97 97 04/04/21 12:50 04/04/21 12:55 04/04/21 13:05 Temperature 97.4 F L Pulse Rate 76 76 75 Respiratory Rate 11 L 15 20 Blood Pressure 139/59 L 141/60 H 150/60 H Pulse Oximetry 98 97 98 04/04/21 13:10 04/04/21 13:15 04/04/21 13:20 Temperature 97.4 F L Pulse Rate 75 82 82 Respiratory Rate 15 22 22 Blood Pressure 142/74 H 136/74 138/72 Pulse Oximetry 100 100 100 04/04/21 13:25 04/04/21 13:30 04/04/21 13:45 Temperature 97.2 F L Pulse Rate 78 76 75 Respiratory Rate 22 20 15 Blood Pressure 148/80 H 140/63 145/63 H Pulse Oximetry 100 100 99 04/04/21 14:00 04/04/21 14:15 04/04/21 14:20 Temperature 97.2 F L Pulse Rate 76 71 70 Respiratory Rate 16 18 12 Blood Pressure 126/55 L 130/57 L 130/57 L Pulse Oximetry 100 99 99 04/04/21 14:36 04/04/21 14:50 04/04/21 15:22 Temperature 97.0 F L 96.9 F L 97.1 F L Pulse Rate 74 74 71 Respiratory Rate 17 18 18 Blood Pressure 120/58 L 127/56 L 127/80 Pulse Oximetry 98 95 96 04/04/21 15:55 Temperature 97.2 F L Pulse Rate 70 Respiratory Rate 16 Blood Pressure 117/63 Pulse Oximetry 95 Oxygen Delivery Method Room Air Oxygen Flow Rate 2 Const Other: Patient sitting up in bed comfortably upon my entering the room, watching TV, and in no apparent acute distress Eyes Other: No scleral icterus appreciated Neck Other: No carotid bruits appreciated Chest Other: Non-reproducible chest pain on chest wall palpation Resp Other: Lungs clear to auscultation bilaterally with good air exchange Cardio Other: Regular rate and rhythm, S1 and S2 heart sounds normal, with no extra heart sounds or murmurs appreciated, no peripheral edema noted GI Other: Soft, non-distended, non-tender, bowel sounds present Skin Other: No grossly abnormal skin lesions appreciated Extrem Other: Steady and equal radial pulses, along with bilateral dorsalis pedis pulses, with left lower extremity wrapped post-orthopedic surgery [facility] Medical History Allergies Anticoagulated Anxiety (~2013) Atrial fibrillation (~2014) Bilateral chronic otitis media Bruises easily Carpal tunnel syndrome Cervical somatic dysfunction Cervical spondylosis Chronic neck pain Cranial somatic dysfunction Depression (~2015) Essential hypertension Fatigue Fibroid (~1965) First degree AV block Gastroenteritis Hearing loss History of cardioversion (~07/31/20) History of syncope HTN (hypertension) Hypothyroid Lumbar region somatic dysfunction Osteoarthritis of left knee Pacemaker (~11/2015) PAD (peripheral artery disease) Segmental and somatic dysfunction of abdomen and other regions Segmental and somatic dysfunction of pelvic region Segmental and somatic dysfunction of sacral region Segmental and somatic dysfunction of thoracic region Shoulder pain (~2018) Tachy-kimmy syndrome Upper extremity somatic dysfunction Vitamin D deficiency Surgical History Anesthesia Cataracts, bilateral H/O cardiac radiofrequency ablation (~07/02/16) History of appendectomy History of carpal tunnel release History of cholecystectomy History of hysterectomy (~1978) Hx of breast reduction, elective (~2006) Pacemaker (~11/06/15) Family History Father Hypertension Mother Lung cancer Tobacco & Substance Use Smoking Status: Never smoker alcohol intake: never substance use type: does not use Assessment & Plan Assessment & Plan narrative: Assessment: 1. Atypical CP, likely due to GERD, resolved 2. GERD, stable 3. Atrial fibrillation, on Xarelto 4. Hypertension 5. Hyperlipidemia 6. Depression/anxiety 7. Left knee medial hemiarthroplasty 8. Possible JHON Plan: 1. Atypical CP, with unremarkable EKG, unlikely to be of true acute coronary syndrome origin, and does not require further coronary work-up at this time. 2. Continue home Protonix 40 mg daily. 3. CHADSVASc: 4 (age >75, hypertension, female sex). Continue home Xarelto for anticoagulation. Continue home Toprol 50 mg daily for rate control. 4. It does not appear that hypertensive urgency had any role to play in this atypical CP. Continue home losartan 100 mg dailyt, felodipine 5 mg daily (or inpatient equivalent), Toprol 50 mg daily. 5. This certainly serves as a risk factor for CAD, along with age, HTN, etc. However, LDL's appear to be well-controlled consistently. Continue home aspirin 81 mg daily, and pravastatin 20 mg daily. 6. Continue home escitalopram 5 mg daily. 7. She underwent this surgery on April 04, 2021. 8. Patient does have risk factors, and we discussed the importance of an outpatient sleep study, as uncontrolled JHON can cause heart strain and worsen atrial fibrillation. VTE prophylaxis: Xarelto, as per problem 3 Thank you for this consult. Hospital medicine will sign-off at this time. Time Spent With Patient Critical Care time: I spent a total of [] minutes of critical care time on this patient's care today; this time is exclusive of procedural time.
[2021-04-04] MEDS: IBUPROFEN 400 MG TABLET PO ×2 (17:10→20:45)
[2021-04-04] MEDS: DOCUSATE 100 MG CAPSULE PO (20:44)
[2021-04-04] MEDS: METOPROLOL ER 50 MG TABLET PO (20:44)
[2021-04-05] MEDS: IBUPROFEN 400 MG TABLET PO ×3 (01:33→08:30)
[2021-04-05] MEDS: LACTATED RINGERS 1,000 ML 100 ML IV (01:33)
--- NOTE | 2021-04-05 04:39 | PC.NURSE ---
Shift Note: Patient was alert and orientedx4, denies pain/discomfort, with post op dressing at left knee, no active bleeding or drainage noted. Afebrile, vital signs within acceptable limits, no signs of any distress. Safety precautions maintained. Will continue to monitor.
[2021-04-05] MEDS: LEVOTHYROXINE 50 MCG TABLET PO (05:37)
[2021-04-05 05:53] VITALS: BP 134/80; PULSE 77; RESP 18; TEMP 36.3; O2SAT 97
[2021-04-05 07:19] LABS: Hematocrit 41.6 % (36-46); Hemoglobin 13.9 g/dL (12.0-16.0)
--- NOTE | 2021-04-05 07:28 | PM.DS.1 ---
History of Present Illness History of Present Illness Date Patient Seen: 04/05/21 Time Patient Seen: 07:28 Chief complaint: Left knee pain s/p left medial arthroplasty Narrative: Patient notes her pain is mild this morning. I the chest pressure she was experiencing yesterday has completely resolved. She does have a history of AFib and takes Xarelto and baby aspirin for this she also has a history of GERD. She denies any numbness or tingling. Overall she is feeling good and would like to be discharged home today if she is safe Discharge Providers Provider Discharge Date: 04/05/21 Primary care physician: ARCADIO Krishnamurthy Consults: 04/04/21 13:36 Consult to Hospitalist Service Routine Comment: Consulting Provider: Cecille Pearson Reason for consultation: chest dyscomfort, dyspnea Has provider been notified: Yes 04/04/21 14:49 Consult to Discharge Planning Routine Comment: Consult to Physical Therapy Evaluate & Treat Comment: Physician Instructions: postop TKA protocol Consult to Respiratory Therapy Evaluate & Treat Comment: Physician Instructions: Evaluate and treat Discharge provider: Sara Galvez PA-C Summary Hospital Course Discharge Diagnosis: -left knee OA -atypical chest pain, likely due to GERD, resolved -history of AFib, GERD, PAD Hospital Course: Operative Date/Time/Diagnoses Date of procedure: 04/04/21 Time of procedure: 10:50 Procedure & Clinicians Procedure: left knee medial uni arthroplasty Same procedure as scheduled: Yes Indications: The patient has had progressively worsening left knee pain with radiographic changes consistent with arthritis. Non-operative management has failed and the patient has requested medial unicompartment knee replacement. The risks, benefits and alternatives to surgery were discussed with the patient prior to proceeding. Risks discussed included, but were not limited to, failure to relieve pain, stiffness, infection, nerve damage, deep venous thrombosis, pulmonary embolism, stroke, coma, heart attack, permanent paralysis and , as well as the potential need for eventual revision of the prosthetic. Surgeon: Char Cruz Demo Event Specialist: Wellington Jackson Anesthesia Type: General Operative Notes Findings: Severe medial compartment arthritis, good stability, adequate bone Closure Type: primary Specimen(s): none sent Prosthetic devices, grafts, tissues, transplants, or devices: [employer] BCS 2 size 4 left femerol medial Uni, size 3 tibia, +10 poly Estimated Blood Loss (mL): 250 Blood products transfused: none Tourniquet time (min): 60 Status at Discharge Cognitive/behavioral status at discharge: oriented Functional status at discharge: uses cane/walker Overall status at discharge: patient is progressing back to baseline Exam Vital Signs (past 8 hours): - 04/04/21 23:50 04/05/21 05:53 Temperature 97.5 F L 97.4 F L Pulse Rate 74 77 Respiratory Rate 17 18 Blood Pressure 127/89 134/80 Pulse Oximetry 96 97 Oxygen Delivery Method Room Air Oxygen Flow Rate 2 Narrative Exam Narrative: Pleasant 80-year-old female, resting comfortably in bed, no acute distress. Dressing is clean, dry, intact. Bilateral lower extremity: Motor functions are grossly intact, sensation is grossly intact to light touch, calves are soft and nontender to palpation. Objective Labs Result Diagrams: 04/05/21 07:04 Labs: Laboratory Results - last 24 hr 04/05/21 07:04 Hgb 13.9 Hct 41.6 PFSH Medical History Allergies Anticoagulated Anxiety (~2013) Atrial fibrillation (~2014) Bilateral chronic otitis media Bruises easily Carpal tunnel syndrome Cervical somatic dysfunction Cervical spondylosis Chronic neck pain Cranial somatic dysfunction Depression (~2015) Essential hypertension Fatigue Fibroid (~1964) First degree AV block Gastroenteritis Hearing loss History of cardioversion (~07/31/20) History of syncope HTN (hypertension) Hypothyroid Lumbar region somatic dysfunction Osteoarthritis of left knee Pacemaker (~11/2015) PAD (peripheral artery disease) Segmental and somatic dysfunction of abdomen and other regions Segmental and somatic dysfunction of pelvic region Segmental and somatic dysfunction of sacral region Segmental and somatic dysfunction of thoracic region Shoulder pain (~2018) Tachy-kimmy syndrome Upper extremity somatic dysfunction Vitamin D deficiency Surgical History Anesthesia Cataracts, bilateral H/O cardiac radiofrequency ablation (~07/02/16) History of appendectomy History of carpal tunnel release History of cholecystectomy History of hysterectomy (~1978) Hx of breast reduction, elective (~2006) Pacemaker (~11/06/15) Family History Father Hypertension Mother Lung cancer Social History Smoking Status: Never smoker alcohol intake: never substance use type: does not use Discharge Assessment & Plan Assessment and Plan Assessment: Stable status post left knee medial unicompartmental arthroplasty -atypical chest pain, resolved, likely due to GERD -history of AFib, GERD Plan of Treatment: -mobilize with PT. Weightbearing as tolerated front wheel walker -continue Xarelto and baby aspirin for her AFib and for DVT prophylaxis -discontinue ibuprofen upon discharge, continue with Tylenol and oxycodone as needed -DC home when cleared by PT Discharge Plan Discharge Plan Patient Disposition: Home Discharge orders & Medications Discharge Orders: Discharge (Order); Ordered 04/05/21 Ordered By: Sara Galvez Prescriptions: New acetaminophen 500 mg capsule 500 mg PO Q4H MDD Max 3000 mg per day PRN (Reason: fever or pain) Qty: 90 0RF docusate sodium 100 mg Capsule 100 mg PO BID PRN (Reason: Constipation from narcotic pain meds) Qty: 14 0RF oxycodone 5 mg Tablet 5 mg PO Q3HR PRN (Reason: Pain, Moderate (4-6)) Qty: 20 0RF Continued levalbuterol tartrate 45 mcg/actuation HFA aerosol inhaler 2 inhalation INHALATION Q6H PRN (Reason: shortness of breath or wheezing) Qty: 15 1RF felodipine 5 mg tablet extended release 24 hr See Rx Instructions .ROUTE .COMPLEX Qty: 90 0RF Dose Instruction: TAKE 1 TABLET DAILY Rx Instructions: TAKE 1 TABLET DAILY losartan 100 mg tablet 100 mg PO DAILY Qty: 90 1RF levothyroxine 50 mcg tablet 50 mcg PO DAILY Qty: 90 0RF Xarelto 20 mg tablet 20 mg PO DAILY 0RF pravastatin 20 mg Tablet 20 mg PO DAILY 0RF pantoprazole [Protonix] 40 mg tablet,delayed release (DR/EC) 40 mg PO 2XW 0RF metoprolol succinate 50 mg tablet extended release 24 hr 50 mg PO BEDTIME 0RF Multivitamin Gummies 200 mcg Tablet,Chewable 1 tab PO DAILY 0RF Baby Aspirin 81 mg PO DAILY 0RF escitalopram oxalate [Lexapro] 5 mg Tablet 5 mg PO DAILY 0RF Follow up/Referrals: Christian Velez ARNP [Primary Care Provider] - Char Cruz MD [Physician] - (10-14 days for postoperative visit) Diet/Activity/Treatments Diet: Regular Other treatments: Medications: -Xarelto to prevent blood clots. -OTC Tylenol 500 mg 1 tablet every 4 hours as needed for pain/fever. Max 6 tablets per day. -Oxycodone 5 mg take 1-2 tablets every 4 hours as needed for moderate-severe pain (narcotic pain medication). -As needed medications: -Ducolax and /or MiraLax as needed for constipation from narcotic pain medications. -Pepcid AC as needed for stomach upset (usually from aspirin or ibuprofen). Dressing/Wound care: -Remove the Roni wrap 48 hours after surgery. -Keep Aquacell dressing in place until postoperative follow-up office visit. -Okay to shower. Keep wound out of direct water stream. No soaking or submerging until all the scabs fall off (approximately 6 weeks). -Please call the office if dressing becomes wet, soiled, or saturated. Activities: -Weight-bearing as tolerated. Use front wheeled walker, and progress to cane when safe. -Continue with home exercises as directed by your physical therapist. -Elevate ?toes above the nose if you have significant swelling in your lower leg. (A wedge pillow is easiest.) -Ice your incision as needed for pain/inflammation/swelling. Protect your skin with a folded pillowcase. Follow-up: -Follow-up with your surgeon or PA in the office in 10-14 days after surgery. -Follow-up with your surgeon 6 weeks postoperatively. Call the office if you have chest pain, shortness of breath, significant swelling that will not resolve with elevating, fever over 101?, significantly worsening pain. [facility] Orth[facility]: [phone] Skin/Wound/Dressing Care Report to your healthcare provider any signs of infection, such as:: chills, fever, night sweats, unusual drainage and unusual redness Visit Report/Discharge Packet Instructions: DI for Knee Replacement Stand Alone Forms: Surgery Discharge Discharge Data Primary Care Provider: Christian Velez Attending Provider: Char Cruz Quality VTE Deep Vein Thrombosis/Pulmonary Embolism Present on Admission: No
[2021-04-05] MEDS: ACETAMINOPHEN 325 MG TABLET 650 MG PO (08:27)
[2021-04-05] MEDS: ASPIRIN 81 MG CHEW TAB PO (08:31)
[2021-04-05] MEDS: AMLODIPINE 5 MG TABLET PO (08:31)
[2021-04-05] MEDS: DOCUSATE 100 MG CAPSULE PO (08:31)
[2021-04-05] MEDS: OXYCODONE IR 5 MG TABLET PO (08:34)
[2021-04-05] MEDS: PRAVASTATIN 20 MG TABLET PO (08:34)
[2021-04-05 09:00] VITALS: BP 143/73; PULSE 70; RESP 18; O2SAT 97
--- NOTE | 2021-04-05 09:45 | PT.IIE ---
Current Diagnoses Unilateral primary osteoarthritis, left knee (04/04/21) Pain, unspecified (04/04/21) Surgery Performed Operation Date: 04/04/21 10:45 Actual Procedures p Unicompartment Knee Arthroplasty(Left) - Char Cruz MD Surgical History (Last Reviewed 04/05/21 @ 07:30 by Sara Galvez PA-C) Anesthesia Cataracts, bilateral Pacemaker (~11/06/15) Medical History (Last Reviewed 04/05/21 @ 07:30 by Sara Galvez PA-C) Allergies Anticoagulated Anxiety (~2013) Atrial fibrillation (~2014) Bilateral chronic otitis media Bruises easily Carpal tunnel syndrome Cervical somatic dysfunction Cervical spondylosis Chronic neck pain Cranial somatic dysfunction Depression (~2015) Essential hypertension Fatigue Fibroid (~1964) First degree AV block Gastroenteritis Hearing loss History of cardioversion (~07/31/20) History of syncope HTN (hypertension) Hypothyroid Lumbar region somatic dysfunction Osteoarthritis of left knee Pacemaker (~11/2015) PAD (peripheral artery disease) Segmental and somatic dysfunction of abdomen and other regions Segmental and somatic dysfunction of pelvic region Segmental and somatic dysfunction of sacral region Segmental and somatic dysfunction of thoracic region Shoulder pain (~2018) Tachy-kimmy syndrome Upper extremity somatic dysfunction Vitamin D deficiency Physical Therapy Inpatient Evaluation/Re-Eval M1 PT/OT-IP Prior Functional Status Start: 04/05/21 12:33 Freq: NEEDED Status: Discharge Protocol: Document 04/05/21 09:45 AB (Rec: 04/05/21 12:46 AB [id number]) Medical Review Prior Functional Status Medical History Reviewed Yes Communication ablel to make needs known Mobility and Gait pt stated that she is independent with all mobilities and ambulation without AD Social History Household Members none Living Arrangements House Number of Floors (Floors) One Floor Number of Stairs To Enter/Railing? 2 steps L rail ascending Home Environment Standard Height Toilet,Walk in Shower Home Equipment Front Wheel Walker,Quad Cane, Raised Toilet Seat Without Armrests,Shower Seat with Backrest Additional Social History Comment pt's daughters will stay with pt to assist M2 PT-IP Current Condition Start: 04/05/21 12:33 Freq: NEEDED Status: Discharge Protocol: Document 04/05/21 09:45 AB (Rec: 04/05/21 12:46 AB [email or web address]) Physical Therapy Current Condition Current Condition Evaluation Date 04/05/21 Treatment Diagnosis s/p L medial knee replacement; difficulty in walking Onset Date 04/04/21 M3 PT-IP Subjective Start: 04/05/21 12:33 Freq: NEEDED Status: Discharge Protocol: Document 04/05/21 09:45 AB (Rec: 04/05/21 12:46 AB [email or web address]) Subjective Physical Therapy Visit Type Type Initial Evaluation Visit Start Time 09:45 Visit Stop Time 10:15 Total Visit Minutes 30 Number of SENIOR FRONT END WEB DEVELOPER Visits 0 Physical Therapy Visit Comments Patient Comments agreeable to do PT Therapy Pain Assessment Pain When Pain Assessed At Rest Pain Present Pain Present Pain Reported Location Left Knee Intensity 1 Scale Used Numeric (0 - 10) Pain Management Techniques Distraction,Modification of Treatment,Re-positioning M4 PT-IP Mobility and Gait Start: 04/05/21 12:33 Freq: NEEDED Status: Discharge Protocol: Document 04/05/21 09:45 AB (Rec: 04/05/21 12:46 AB [email or web address]) PT-Bed Mobility Assessment Supine to Sit Supine to Sit Standby Assistance Sit to Supine Sit to Supine Standby Assistance PT-Transfer Assessment Sit to and From Stand Sit to and from Stand Standby Assistance,Contact Guard Assistance,1 Person Assistance,Use of Upper Extremities Equipment Transfer Assistive Device Gait Belt,Front Wheeled Walker Orthotic/Prosthetic Devices or Brace: No Transfers Transfer Destination Bed,Chair Transfer Technique ambulated Transfer Ability Level of Assist Standby Assistance,Contact Guard Assistance,1 Person Assistance,Use of Upper Extremities Comments Mobility Comments pt sitting on chair and agreeable to do PT. daugther in room with pt. pt completed sit to stand from chair CGA and ambulated in room SBA to CGA. cued for quads activation. ambulated to EOB. completed sit<>supine SBA. agreed to ambulate in the hallway and completed using FWW ~ 150 ft SBA to occasional CGA. completed up/down steps using L rail CGA. educated daughter on how to assist pt. pt ambulated back to the room using FWW SBA and sat on chair . pt without any other concerns. informed [facility] that pt is waiting for d/c. Gait Assessment Gait Gait Assistance Required: Standby Assistance,Contact Guard Assist Distance (Feet) 150 Able to Maintain Weight Bearing Status Yes During Gait Assistive Devices Assistive Device Gait Belt,Front Wheeled Walker Orthotic/Prosthetic Devices or Brace: No Gait Deviations General Gait Pattern Antalgic,Decreased Stride Length,Decreased Feet Clearance Factors Limiting Gait Function Factors Limiting Gait Function Decreased Activity Tolerance, Decreased Strength,Limited Range of Motion,Pain,Poor Balance,Poor Safety Awareness Stair Climbing Assessment Evaluation Level of Assist On Stairs Standby Assistance,Contact Guard Assistance,1 Person Assistance Devices Stair Climbing Assistive Devices Left Railing Technique/Endurance Stair Climbing Direction Ascend and Descend Stair Climbing Technique Step to Step Number of Steps Climbed 3 Query Text: Stair Climbing Set # Repetitions (reps) 2 PT-Balance Assessment Sitting Balance and Reactions Static Sitting Balance Ability Good Dynamic Sitting Balance Ability Good Standing Balance and Reactions Static Standing Balance Ability Fair Dynamic Standing Balance Ability Fair Device Used FWW M5 PT-IP Objective Assessments Start: 04/05/21 12:33 Freq: NEEDED Status: Discharge Protocol: Document 04/05/21 09:45 AB (Rec: 04/05/21 12:46 AB [email or web address]) Orientation Orientation/Cognition Level of Alertness Alert Orientation Name,Age,Birthday,Month,Date, Year,Day of Week,Place, Situation Language Function Ability Hard of Hearing Safety Awareness Understands Safety Issues Memory Description No Deficits Noted Gross Range of Motion Lower Extremity ROM Assessment Left Impaired Impairments L knee flexion ~ 90 deg PROM Strength Lower Extremity Strength Assessment Left Impaired Hip 4/5 Knee 4-/5 Sensation Assessment Sensation Gross Sensation WNL Muscle Tone Muscle Tone WNL Yes M6 PT-IP Treatment Start: 04/05/21 12:33 Freq: NEEDED Status: Discharge Protocol: Document 04/05/21 09:45 AB (Rec: 04/05/21 12:46 AB [email or web address]) Physical Therapy Treatment Education Education Provided Precautions,Weight Bearing Status,Post-Op Packet,Safety M7 PT-IP Assessment and Plan Start: 04/05/21 12:33 Freq: NEEDED Status: Discharge Protocol: Document 04/05/21 09:45 AB (Rec: 04/05/21 12:46 AB [email or web address]) PT Summary Assessment and Plan Potential Rehabilitation Potential Good Status of Condition at Evaluation Stable Summary Impairments Pain,ROM,Strength,Balance, Coordination,Sensation,Tone, Cognition,Bed Mobility, Transfers,Gait,Activity Tolerance Assessment Summary pt requiring SBA to CGA with mobility using FWW and will have her family to assist her. pt stated that she is set up for outpt PT. pt may go home when medically stable. Goals Bed Mobility Goal Independent Transfer Goal Independent,Front Wheeled Walker Gait Goal Independent,Front Wheel Walker Gait Distance 200 Other Goals up/down 2 steps L rail ascending mod I Days to Meet Goals 3 Frequency of Treatment Frequency Of Treatment Twice a Day Treatment Plan Physical Therapy Treatment Plan Bed Mobility Training,Transfer Training,Gait Training, Therapeutic Exercise,Balance Retraining,Post Op Education, Discharge Planning,Hot or Cold Pack,Neuromuscular Re-ed, Coordination Retraining,Manual Therapy Weight Bearing Status Weight Bearing Status Weight Bear as Tolerated Allowed Weight Bearing Amount (enter % LLE WBAT or #) (%) Recommendations To Nursing Amount of Assist Needed Standby Assistance Discharge Recommendations PT Discharge Recommendations Home with Assistance, Outpatient PT Transportation Needs at Discharge Private Vehicle
--- NOTE | 2021-04-05 12:40 | PC.NURSE ---
Pt is A&Ox3, VSS, afebrile on RA. She is able to ambulate with SBA using FWW, without difficulty and void without difficulty this a.m. She reports pain is tolerable to Left Knee at 4/10 with movement and denies pain at rest. She is anxious for discharging home this a.m. and is cleared by Ortho as well as PT this a.m. She denies numbness/tingling to LLE, +CMS to toes. RUPA wrap to L knee is c/D/I. She verbalizes understanding of site care, activity, s/sx of infection, medications and follow up care. She is escorted to private vehicle this a.m. at 1050 with her daughter for discharge home with all of her belongings.
== END 2021-04-05 10:50 | disposition home or self-care (01) ==
LOC: OR 12:05 → AC 12:06
PROVIDERS: PCP Registered Nurse; Referring Provider Orthopaedic Surgery; Visit Provider Orthopaedic Surgery
PROC: (CPT 27446; principal; 2021-04-04 10:45)
DX: M17.12 Unilateral primary osteoarthritis, left knee (principal); I10 Essential (primary) hypertension; I48.91 Unspecified atrial fibrillation; F32.9 Major depressive disorder, single episode, unspecified; F41.9 Anxiety disorder, unspecified; K21.9 Gastro-esophageal reflux disease without esophagitis; E78.5 Hyperlipidemia, unspecified; E03.9 Hypothyroidism, unspecified; Z79.01 Long term (current) use of anticoagulants; Z95.0 Presence of cardiac pacemaker
CPT/HCPCS: 27446; 73560; 85014; 85018; 93005; 93010; 97161; C1776; C9290; J0360; J0690; J1100; J2060; J2405; J2704; J3010; J7613

== ENCOUNTER 2021-04-27 12:38 | Emergency (ER) | payer MEDICARE, SELFPAY ==
[2021-04-04 15:02] VITALS: BMI 34.0
[2021-04-27] VITALS (49 sets, daily range): BP systolic 91–171; BP diastolic 44–103; PULSE 70–143; RESP 11–23; TEMP 36.3; O2SAT 94–99; BMI 32.5
--- NOTE | 2021-04-27 12:48 | DI.RAD.S_ITS ---
PROCEDURE: XR CHEST 1V INDICATIONS: chest pain TECHNIQUE: One view of the chest was acquired. COMPARISON: Located Within [facility], CR, XR CHEST 1V, 08/30/2020, 19:50. FINDINGS: Surgical changes and devices: Left chest wall pacemaker leads are in the region of right atrium and right ventricle. Lungs and pleura: Lungs are clear. No pleural effusions or pneumothorax. Mediastinum: Mediastinal contours appear normal. Heart size is normal. Bones and chest wall: No suspicious bony lesions. Overlying soft tissues appear unremarkable. IMPRESSION: No acute cardiopulmonary pathology. Dictated by: Adrian Elizondo M.D. on 04/27/2021 at 13:12 Approved by: Adrian Elizondo M.D. on 04/27/2021 at 13:12
--- NOTE | 2021-04-27 13:04 | ED.CHESTPAIN ---
HPI - Chest Pain General Chief Complaint: Chest Pain Stated Complaint: Tightness in chest- has pacemaker Time Seen by Provider: 04/27/21 12:57 Source: patient Mode of arrival: Ambulatory Limitations: no limitations History of Present Illness HPI narrative: The patient is an 80-year-old female with a history of AFib who presents with chest pain onset last night. She has lower sternal discomfort. She is having palpitations. She has PF, she recognizes she is in AFib once again. His anticoagulated. There is no dyspnea, no hemoptysis. She denies recent illness. She has no headache, sore throat, cough or fever. She underwent partial left knee replacement about 1 month ago. The wound is healing well. She has no calf edema or tenderness. She is compliant with medications, she has had her morning medications. Regarding AFib, she has previously undergone cardiac ablation. She has undergone cardioversion on multiple occasions. Related Data Home Medications Medication Instructions Recorded Confirmed rivaroxaban 20 mg tablet (Xarelto) 20 mg PO DAILY 10/22/18 04/03/21 pantoprazole 40 mg tablet,delayed 40 mg PO 2XW 12/06/20 04/04/21 release (Protonix) pravastatin 20 mg tablet 20 mg PO DAILY 12/06/20 04/04/21 metoprolol succinate 50 mg 50 mg PO BEDTIME 04/01/21 04/04/21 tablet,extended release 24 hr multivitamin with minerals-folic 1 tab PO DAILY 04/01/21 04/04/21 acid 200 mcg chewable tablet (Multivitamin Gummies) Baby Aspirin 81 mg PO DAILY 04/03/21 04/03/21 Previous Rx's Medication Instructions Recorded losartan 100 mg tablet 100 mg PO DAILY #90 tab 11/22/20 levothyroxine 50 mcg tablet 50 mcg PO DAILY #90 tab 12/04/20 acetaminophen 500 mg capsule 500 mg PO Q4H PRN #90 cap MDD Max 04/05/21 3000 mg per day docusate sodium 100 mg capsule 100 mg PO BID PRN #14 cap 04/05/21 oxycodone 5 mg tablet 5 mg PO Q3HR PRN #20 tab 04/05/21 escitalopram oxalate 10 mg tablet See Rx Instructions .ROUTE 04/12/21 .COMPLEX #90 tab felodipine 5 mg tablet,extended See Rx Instructions .ROUTE 04/12/21 release 24 hr .COMPLEX #90 tab levalbuterol tartrate 45 2 inh INHALATION Q6H PRN #15 gram 04/24/21 mcg/actuation aerosol inhaler Allergies Allergy/AdvReac Type Severity Reaction Status Date / Time hydromorphone Allergy Intermediate RASH/GI Verified 04/27/21 12:47 UPSET rosuvastatin [From Crestor] Allergy Unknown Intolerant Verified 04/27/21 12:47 diltiazem [DILTIAZEM] AdvReac Intermediate BRADYCARDIA Verified 04/27/21 12:47 hydrocodone AdvReac Mild GI UPSET Verified 04/27/21 15:03 atorvastatin AdvReac Unknown Significant Verified 04/27/21 12:47 weakness, myalgias Review of Systems Constitutional Constitutional: Reports as per HPI, Denies body ache(s), Denies chills, Denies fever(s) and Denies headache(s) Eyes Eyes: Denies blurry vision and Denies change in vision ENT Ears, Nose, Mouth, and Throat: Denies dizziness, Denies dry mouth, Denies ear discharge and Denies headache(s) Cardiovascular Cardiovascular: Denies chest pain, Denies syncope, Reports rapid heart rate and Reports irregular heart rhythm Respiratory Respiratory: Denies chest congestion and Denies cough Genitourinary Genitourinary: Denies dysuria Musculoskeletal Musculoskeletal: Denies arthralgias, Denies back pain and Denies muscle cramps Integumentary/Breasts Skin/Breast: Denies rash Neurologic Neurologic: Denies confusion, Denies dizziness, Denies syncope and Denies headache(s) Psychiatric Psychiatric: Denies confusion Hematologic/Lymphatic On Anticoagulants: No Patient History Medical History Allergies Anticoagulated Anxiety (~2013) Atrial fibrillation (~2014) Bilateral chronic otitis media Bruises easily Carpal tunnel syndrome Cervical somatic dysfunction Cervical spondylosis Chronic neck pain Cranial somatic dysfunction Depression (~2015) Essential hypertension Fatigue Fibroid (~1964) First degree AV block Gastroenteritis Hearing loss History of cardioversion (~07/31/20) History of syncope HTN (hypertension) Hypothyroid Lumbar region somatic dysfunction Osteoarthritis of left knee Pacemaker (~11/2015) PAD (peripheral artery disease) Segmental and somatic dysfunction of abdomen and other regions Segmental and somatic dysfunction of pelvic region Segmental and somatic dysfunction of sacral region Segmental and somatic dysfunction of thoracic region Shoulder pain (~2018) Tachy-kimmy syndrome Upper extremity somatic dysfunction Vitamin D deficiency Surgical History Anesthesia Cataracts, bilateral H/O cardiac radiofrequency ablation (~07/02/16) History of appendectomy History of carpal tunnel release History of cholecystectomy History of hysterectomy (~1978) Hx of breast reduction, elective (~2006) Pacemaker (~11/06/15) Family History Father Hypertension Mother Lung cancer Social History household members: none Smoking Status: Never smoker alcohol intake: never substance use type: does not use Smoking Status: Never smoker alcohol intake frequency: a few times a month Substance Use Type: does not use Exam Initial Vital Signs Initial Vital Signs: Vital Signs Temperature 97.3 F L 04/27/21 12:42 Pulse Rate 110 H 04/27/21 12:42 Respiratory Rate 20 04/27/21 12:42 Blood Pressure 137/80 04/27/21 12:42 Pulse Oximetry 97 04/27/21 12:42 Const General: cooperative, comfortable, well developed and well groomed HENHI Head: normocephalic and atraumatic Mouth: oral mucosae normal Teeth and gingiva: dentition normal Throat: posterior oropharynx normal Eyes General: appearance normal, both eyes and all related structures Neck Neck: normal visual inspection and No JVD Chest Chest: normal inspection of the chest Resp Effort & Inspection: normal respiratory effort Auscultation: clear to auscultation bilaterally Cardio Rate: tachycardic Rhythm: abnormal rhythm irregularly irregular Heart Sounds: no murmurs Pulses: radial pulses present GI Inspection: normal to inspection Palpation: soft and No tender Auscultation: normal bowel sounds Back/Spine/Pelvis Back: normal to inspection Skin General: no rashes or lesions noted Neuro General: patient alert, patient awake and patient oriented x3 Extrem General: normal to inspection, full ROM, no pedal edema and no calf tenderness Psych Mental Status: mental status grossly normal Procedures Cardioversion Time of Cardioversion: 17:40 Consent Signed: Yes Indication: AFib with RVR Stability: Stable Number of attempts (shocks): 1 Joules used: 100 Cardiac rhythm post-cardioversion: Normal sinus rhythm Procedural Sedation Time of procedure: 17:40 Consent signed: Yes Time out performed: Yes Indication: cardioversion ASA Class: I Mallampati Airway Classification: Class I Preparation: supervisor/port director applied, pulse oximeter, capnometry used, supplemental O2 applied and IV secured IV Etomidate dose (mg): 10 ED Sedation Level: Moderate (Concious) Patient Tolerated Procedure: Well Complications: none Course Course Course Narrative: The patient arrived in AFib with RVR. She is appropriate medicated for AFib. She has previously required cardioversion. She cannot tolerate Cardizem due to severe bradycardia. IV metoprolol as unavailable. IV labetalol and IV digoxin had no impact on her rate or rhythm. Cardioversion was explained to the patient. Consent was given. Cardioversion was successful, converted her to normal sinus rhythm on the 1st shock. She is recovering with no issues. She has normal sensitive with normal oxygen. She was discharged home on her current medications was advised to follow-up with her health and safety manager. Orders Ordered: ED Orders 04/27/21 12:48 XR chest 1V Stat Complete Blood Count AUTO DIFF Stat Comprehensive Metabolic Panel Stat Lipase Stat Magnesium Stat NT-proBNP (BNP-Adult 18+) Stat Partial Thromboplastin Time Stat Prothrombin Time INR Stat Troponin & CK Cardiac Panel Stat EKG-12 Lead Stat 04/27/21 12:59 D Dimer Stat 04/27/21 13:18 COVID19 -Nasal swab/Pre-Proc Stat Discontinued Medications Digoxin (Digoxin 500 Mcg/2 Ml Ampul) 500 mcg IV NOW ONE Stop: 04/27/21 15:02 Last Admin: 04/27/21 15:13 Dose: 500 mcg Documented by: RUPERT Diltiazem HCl (Diltiazem 5 Mg/Ml Sdv) 10 mg IV NOW ONE Stop: 04/27/21 13:05 Last Admin: 04/27/21 13:20 Dose: Not Given Documented by: ARGENIS Etomidate (Etomidate 2 Mg/Ml 10 Ml Vial) 20 mg IV NOW ONE Stop: 04/27/21 17:33 Last Admin: 04/27/21 17:51 Dose: 10 mg Documented by: RUPERT Furosemide (Furosemide 40 Mg/4 Ml Vial) 40 mg IV NOW ONE Stop: 04/27/21 14:58 Last Admin: 04/27/21 15:22 Dose: 40 mg Documented by: RUPERT Labetalol HCl (Labetalol 20 Mg/4 Ml Syringe) 5 mg IV NOW ONE Stop: 04/27/21 13:27 Last Admin: 04/27/21 13:31 Dose: 5 mg Documented by: RUPERT Labetalol HCl (Labetalol 20 Mg/4 Ml Syringe) 5 mg IV NOW ONE Stop: 04/27/21 16:29 Last Admin: 04/27/21 17:26 Dose: Not Given Documented by: RUPERT Vital Signs Vital signs: Vital Signs - 8 hr 04/27/21 12:42 04/27/21 13:14 04/27/21 13:16 Temperature 97.3 F L Pulse Rate 110 H 112 H 113 H Respiratory Rate 20 19 21 Blood Pressure 137/80 134/89 Pulse Oximetry 97 97 96 04/27/21 13:28 04/27/21 13:30 04/27/21 13:35 Temperature Pulse Rate 107 H 103 H 121 H Respiratory Rate 20 15 19 Blood Pressure 128/66 112/72 171/94 H Pulse Oximetry 96 97 96 04/27/21 13:45 04/27/21 13:50 04/27/21 13:56 Temperature Pulse Rate 104 H 117 H 114 H Respiratory Rate 15 13 17 Blood Pressure 116/82 116/89 116/59 L Pulse Oximetry 97 95 95 04/27/21 14:00 04/27/21 14:06 04/27/21 14:10 Temperature Pulse Rate 122 H 117 H 115 H Respiratory Rate 18 16 16 Blood Pressure 102/50 L 151/83 H 126/58 L Pulse Oximetry 94 97 96 04/27/21 14:15 04/27/21 14:20 04/27/21 14:25 Temperature Pulse Rate 113 H 127 H 105 H Respiratory Rate 14 17 18 Blood Pressure 124/58 L 112/71 117/56 L Pulse Oximetry 98 94 95 04/27/21 14:30 04/27/21 14:35 04/27/21 14:41 Temperature Pulse Rate 106 H 110 H 118 H Respiratory Rate 11 L 15 18 Blood Pressure 101/51 L 116/51 L 108/59 L Pulse Oximetry 96 97 97 04/27/21 14:45 04/27/21 14:50 04/27/21 14:56 Temperature Pulse Rate 102 H 105 H 122 H Respiratory Rate 15 15 16 Blood Pressure 101/62 116/53 L 143/57 H Pulse Oximetry 94 97 97 04/27/21 15:00 04/27/21 15:05 04/27/21 15:10 Temperature Pulse Rate 120 H 121 H 117 H Respiratory Rate 18 19 16 Blood Pressure 119/60 110/55 L 110/65 Pulse Oximetry 97 96 98 04/27/21 15:16 04/27/21 15:25 04/27/21 15:30 Temperature Pulse Rate 109 H 115 H 120 H Respiratory Rate 17 19 20 Blood Pressure 130/94 H 137/92 H 138/103 H Pulse Oximetry 99 98 97 04/27/21 15:36 04/27/21 15:56 04/27/21 16:00 Temperature Pulse Rate 122 H 124 H 116 H Respiratory Rate 15 23 21 Blood Pressure 168/93 H 102/61 Pulse Oximetry 96 04/27/21 16:09 04/27/21 16:20 04/27/21 16:30 Temperature Pulse Rate 135 H 108 H 127 H Respiratory Rate 19 18 20 Blood Pressure 111/88 113/71 95/57 L Pulse Oximetry 04/27/21 16:40 04/27/21 16:51 04/27/21 17:00 Temperature Pulse Rate 100 H 124 H 112 H Respiratory Rate 18 22 22 Blood Pressure 102/55 L 113/55 L 113/68 Pulse Oximetry 96 04/27/21 17:11 04/27/21 17:20 04/27/21 17:30 Temperature Pulse Rate 123 H 120 H 104 H Respiratory Rate 20 22 16 Blood Pressure 103/70 113/64 112/57 L Pulse Oximetry 96 96 97 04/27/21 17:41 04/27/21 17:45 04/27/21 17:51 Temperature Pulse Rate 126 H 141 H 143 H Respiratory Rate 18 17 Blood Pressure 114/74 109/72 128/76 Pulse Oximetry 98 98 97 04/27/21 17:56 04/27/21 18:00 04/27/21 18:06 Temperature Pulse Rate 74 70 76 Respiratory Rate 23 19 11 L Blood Pressure 156/63 H 127/58 L 91/50 L Pulse Oximetry 95 96 96 04/27/21 18:15 04/27/21 18:30 04/27/21 18:31 Temperature Pulse Rate 94 H 76 85 Respiratory Rate 19 18 19 Blood Pressure 94/48 L 107/44 L Pulse Oximetry 96 95 96 04/27/21 18:45 Temperature Pulse Rate 72 Respiratory Rate 19 Blood Pressure 104/47 L Pulse Oximetry 94 MDM - Chest Pain Lab Data Result diagrams: 04/27/21 12:48 04/27/21 12:48 Labs: Lab Results 04/27/21 04/27/21 04/27/21 Range/Units 12:48 12:48 12:48 WBC 11.0 (4.5-11.0) X10^3/uL RBC 5.43 H (4.0-5.2) X10^6/uL Hgb 15.3 (12.0-16.0) g/dL Hct 45.6 (36-46) % MCV 84.0 (80-100) fL MCH 28.3 (26-34) PG MCHC 33.6 (30-36) % RDW 14.1 (11.6-14.8) % Plt Count 330 (150-400) X10^3/uL Neut % (Auto) 50.9 (50-75) % Lymph % (Auto) 39.0 (25-40) % [place] % (Auto) 7.8 (3-14) % Eos % (Auto) 0.9 L (2-4) % Baso % (Auto) 1.4 (0-2) % Neut # (Auto) 5600 (5893-8821) /uL Lymph # (Auto) 4300 (4321-2799) /uL [place] # (Auto) 900 (0-900) /uL Eos # (Auto) 100 (0-450) /uL Baso # (Auto) 100 (0-100) /uL PT 15.6 H (10.1-12.7) SECONDS INR 1.4 H (0.9-1.3) APTT 37 H (26.4-36.2) SECONDS D-Dimer (<230) ng/mL Sodium 135 L (137-145) mmol/L Potassium 3.9 (3.4-5.1) mmol/L Chloride 100 (98-107) mmol/L Carbon Dioxide 29 (22-32) mmol/L BUN 13 (7-17) mg/dL Creatinine 0.68 (0.52-1.04) mg/dL Estimated GFR > 60.0 (>60) mL/min BUN/Creatinine Ratio 19.1 (6-22) Glucose 136 H (80-110) mg/dL Calcium 9.4 (8.4-10.2) mg/dL Magnesium 1.7 (1.6-2.3) mg/dL Total Bilirubin 0.9 (0.2-1.3) mg/dL AST 31 (14-36) IU/L ALT 20 (<35) IU/L Alkaline Phosphatase 75 (38-126) U/L Total Creatine Kinase 53 (30-135) U/L CK-MB (CK-2) TNP CK-MB (CK-2) Rel Index TNP Troponin I < 0.012 (0.01-0.034) ng/mL NT-Pro-B Natriuret Pep 1580 H (<450) pg/mL Total Protein 8.8 H (6.3-8.2) g/dL Albumin 4.6 (3.5-5.0) g/dL Globulin 4.2 H (1.7-4.1) g/dL Albumin/Globulin Ratio 1.1 (1.0-2.8) Lipase 61 (23-300) U/L SARS-CoV-2 (PCR) (Negative) 04/27/21 04/27/21 Range/Units 12:59 13:18 WBC (4.5-11.0) X10^3/uL RBC (4.0-5.2) X10^6/uL Hgb (12.0-16.0) g/dL Hct (36-46) % MCV (80-100) fL MCH (26-34) PG MCHC (30-36) % RDW (11.6-14.8) % Plt Count (150-400) X10^3/uL Neut % (Auto) (50-75) % Lymph % (Auto) (25-40) % [place] % (Auto) (3-14) % Eos % (Auto) (2-4) % Baso % (Auto) (0-2) % Neut # (Auto) (4964-7147) /uL Lymph # (Auto) (8735-0064) /uL [place] # (Auto) (0-900) /uL Eos # (Auto) (0-450) /uL Baso # (Auto) (0-100) /uL PT (10.1-12.7) SECONDS INR (0.9-1.3) APTT (26.4-36.2) SECONDS D-Dimer 545 H (<230) ng/mL Sodium (137-145) mmol/L Potassium (3.4-5.1) mmol/L Chloride (98-107) mmol/L Carbon Dioxide (22-32) mmol/L BUN (7-17) mg/dL Creatinine (0.52-1.04) mg/dL Estimated GFR (>60) mL/min BUN/Creatinine Ratio (6-22) Glucose (80-110) mg/dL Calcium (8.4-10.2) mg/dL Magnesium (1.6-2.3) mg/dL Total Bilirubin (0.2-1.3) mg/dL AST (14-36) IU/L ALT (<35) IU/L Alkaline Phosphatase (38-126) U/L Total Creatine Kinase (30-135) U/L CK-MB (CK-2) CK-MB (CK-2) Rel Index Troponin I (0.01-0.034) ng/mL NT-Pro-B Natriuret Pep (<450) pg/mL Total Protein (6.3-8.2) g/dL Albumin (3.5-5.0) g/dL Globulin (1.7-4.1) g/dL Albumin/Globulin Ratio (1.0-2.8) Lipase (23-300) U/L SARS-CoV-2 (PCR) Negative (Negative) Point of Care Testing Test Results Not applicable Imaging Data Chest x-ray: Radiologist's Impression: No acute cardiopulmonary process. ECG Data Attestation: I personally reviewed and interpreted this ECG as follows: (EKG 1.: AFib rate 119 beats per minute. Nonspecific ST T wave changes. No acute ST elevation. EKG 2.: Normal sinus rhythm rate 74 beats per minute. Nonspecific ST-T wave changes. Occasional PAC.) Discharge Plan Departure Patient Disposition: Home Clinical Impression: Atrial fibrillation, Atrial fibrillation status post cardioversion Instructions: Atrial Fibrillation Activity Restrictions/Additional Instructions: Continue your current medications. Follow-up with your health and safety manager. Return here as needed. Prescriptions: No Action losartan 100 mg tablet 100 mg PO DAILY Qty: 90 1RF levothyroxine 50 mcg tablet 50 mcg PO DAILY Qty: 90 0RF felodipine 5 mg tablet extended release 24 hr See Rx Instructions .ROUTE .COMPLEX Qty: 90 0RF Dose Instruction: TAKE 1 TABLET DAILY Rx Instructions: TAKE 1 TABLET DAILY escitalopram oxalate 10 mg tablet See Rx Instructions .ROUTE .COMPLEX Qty: 90 1RF Dose Instruction: TAKE 1 TABLET DAILY Rx Instructions: TAKE 1 TABLET DAILY levalbuterol tartrate 45 mcg/actuation HFA aerosol inhaler 2 inh INHALATION Q6H PRN (Reason: shortness of breath or wheezing) Qty: 15 5RF Xarelto 20 mg tablet 20 mg PO DAILY 0RF pravastatin 20 mg Tablet 20 mg PO DAILY 0RF pantoprazole [Protonix] 40 mg tablet,delayed release (DR/EC) 40 mg PO 2XW 0RF metoprolol succinate 50 mg tablet extended release 24 hr 50 mg PO BEDTIME 0RF Multivitamin Gummies 200 mcg Tablet,Chewable 1 tab PO DAILY 0RF Baby Aspirin 81 mg PO DAILY 0RF acetaminophen 500 mg capsule 500 mg PO Q4H MDD Max 3000 mg per day PRN (Reason: fever or pain) Qty: 90 0RF docusate sodium 100 mg Capsule 100 mg PO BID PRN (Reason: Constipation from narcotic pain meds) Qty: 14 0RF oxycodone 5 mg Tablet 5 mg PO Q3HR PRN (Reason: Pain, Moderate (4-6)) Qty: 20 0RF Referrals: Christian Velez ARNP [Primary Care Provider] -
[2021-04-27 13:16] LABS: Add Manual Diff / Slide Review NO; Basophils Absolute Auto 100 /uL (0-100); Basophils Percent Auto 1.4 % (0-2); Eosinophils Absolute Auto 100 /uL (0-450); Eosinophils Percent Auto 0.9 % (2-4); Hematocrit 45.6 % (36-46); Hemoglobin 15.3 g/dL (12.0-16.0); Lymphocytes Absolute Auto 4300 /uL (1100-4500); Mean Corpuscular HGB Conc 33.6 % (30-36); Mean Corpuscular Hemoglobin 28.3 PG (26-34); Monocytes Absolute Auto 900 /uL (0-900); Monocytes Percent Auto 7.8 % (3-14); Neutrophils Absolute Auto 5600 /uL (1500-7000); Neutrophils Percent Auto 50.9 % (50-75); Platelet Count 330 X10^3/uL (150-400); Red Blood Cell Count 5.43 X10^6/uL (4.0-5.2); Red Cell Distribution Width 14.1 % (11.6-14.8)
[2021-04-27 13:24] LABS: INR 1.4 (0.9-1.3); Prothrombin Time 15.6 SECONDS (10.1-12.7)
[2021-04-27 13:27] LABS: PTT Partial Thromboplastin Tim 37 SECONDS (26.4-36.2)
[2021-04-27 13:29] LABS: Alanine Aminotransferase 20 IU/L (<35); Albumin 4.6 g/dL (3.5-5.0); Albumin Globulin Ratio 1.1 (1.0-2.8); Alkaline Phosphatase 75 U/L (38-126); Aspartate Aminotransferase 31 IU/L (14-36); BUN Creatinine Ratio 19.1 (6-22); Bilirubin Total 0.9 mg/dL (0.2-1.3); Blood Urea Nitrogen 13 mg/dL (7-17); Calcium 9.4 mg/dL (8.4-10.2); Carbon Dioxide 29 mmol/L (22-32); Chloride 100 mmol/L (98-107); Creatine Kinase 53 U/L (30-135); Estimated Glomerular Filt Rate > 60.0 mL/min (>60); Globulin 4.2 g/dL (1.7-4.1); Glucose 136 mg/dL (80-110); Lipase 61 U/L (23-300); Magnesium 1.7 mg/dL (1.6-2.3); Potassium 3.9 mmol/L (3.4-5.1); Sodium 135 mmol/L (137-145); Total Protein 8.8 g/dL (6.3-8.2)
[2021-04-27] MEDS: LABETALOL 20 MG/4 ML SYRINGE 5 MG IV (13:31)
[2021-04-27 13:37] LABS: NT-proBNP (BNP-Adult 18+) 1580 pg/mL (<450)
[2021-04-27 13:46] LABS: D Dimer 545 ng/mL (<230)
[2021-04-27 14:07] LABS: COVID19 -Nasal RAPID Negative (Negative)
[2021-04-27] MEDS: DIGOXIN 500 MCG/2 ML AMPUL IV (15:13)
[2021-04-27] MEDS: FUROSEMIDE 40 MG/4 ML VIAL IV (15:22)
[2021-04-27 15:26] LABS: HEMOLYSIS 26 (0-50); Troponin I < 0.012 ng/mL (0.01-0.034)
[2021-04-27] MEDS: ETOMIDATE 2 MG/ML 10 ML VIAL 20 MG IV (17:51)
== END 2021-04-27 19:08 | disposition home or self-care (01) ==
PROVIDERS: Emergency Provider Emergency Medicine; Family Provider Registered Nurse; PCP Registered Nurse
DX: I48.91 Unspecified atrial fibrillation (principal); R07.9 Chest pain, unspecified; Z79.01 Long term (current) use of anticoagulants; Z20.822 Contact with and (suspected) exposure to COVID-19
CPT/HCPCS: 36415; 71045; 80053; 82550; 83690; 83735; 83880; 84484; 85025; 85379; 85610; 85730; 87635; 92960; 93005; 93010; 99152; 99285; C9803; J1160; J1940

== ENCOUNTER → 2021-05-01 14:37 | Outpatient (CLI) | payer MEDICARE, SELFPAY ==
[2021-04-04 15:02] VITALS: BMI 34.0
[2021-05-01 15:38] LABS: Add Manual Diff / Slide Review NO; Basophils Absolute Auto 100 /uL (0-100); Eosinophils Absolute Auto 200 /uL (0-450); Eosinophils Percent Auto 2.1 % (2-4); Hematocrit 41.1 % (36-46); Hemoglobin 13.8 g/dL (12.0-16.0); Lymphocytes Absolute Auto 3900 /uL (1100-4500); Mean Corpuscular HGB Conc 33.6 % (30-36); Mean Corpuscular Hemoglobin 28.4 PG (26-34); Mean Corpuscular Volume 84.7 fL (80-100); Monocytes Absolute Auto 1000 /uL (0-900); Monocytes Percent Auto 9.1 % (3-14); Neutrophils Absolute Auto 5900 /uL (1500-7000); Neutrophils Percent Auto 52.8 % (50-75); Platelet Count 337 X10^3/uL (150-400); Red Blood Cell Count 4.85 X10^6/uL (4.0-5.2); Red Cell Distribution Width 14.1 % (11.6-14.8); White Blood Cell Count 11.1 X10^3/uL (4.5-11.0)
[2021-05-01 15:56] LABS: C-Reactive Protein Quant < 0.5 mg/dL (<1.0)
[2021-05-01 16:44] LABS: Erythrocyte Sedimentation Rate 7 MM/HR (0-20)
== END ==
PROVIDERS: Family Provider Registered Nurse; PCP Registered Nurse; Referring Provider Physician Assistant Medical; Visit Provider Physician Assistant Medical
DX: M25.462 Effusion, left knee (principal); M25.562 Pain in left knee
CPT/HCPCS: 36415; 85025; 85651; 86140

== ENCOUNTER 2021-05-14 15:15 | Outpatient (RCR) | payer MEDICARE, SELFPAY ==
[2021-04-04 15:02] VITALS: BMI 34.0
--- NOTE | 2021-04-25 16:05 | PT.OIE ---
Current Diagnoses Unilateral primary osteoarthritis, left knee (04/25/21) Stiffness of left knee, not elsewhere classified (04/25/21) Difficulty in walking, not elsewhere classified (04/25/21) Weakness (04/25/21) Presence of left artificial knee joint (04/25/21) Past Medical History (Last Reviewed 04/05/21 @ 07:30 by Sara Galvez PA-C) Allergies Anticoagulated Anxiety (~2013) Atrial fibrillation (~2014) Bilateral chronic otitis media Bruises easily Carpal tunnel syndrome Cervical somatic dysfunction Cervical spondylosis Chronic neck pain Cranial somatic dysfunction Depression (~2015) Essential hypertension Fatigue Fibroid (~1964) First degree AV block Gastroenteritis H/O cardiac radiofrequency ablation (~07/02/16) Hearing loss History of appendectomy History of cardioversion (~07/31/20) History of carpal tunnel release History of cholecystectomy History of hysterectomy (~1978) History of syncope HTN (hypertension) Hx of breast reduction, elective (~2006) Hypothyroid Lumbar region somatic dysfunction Osteoarthritis of left knee Pacemaker (~11/2015) PAD (peripheral artery disease) Segmental and somatic dysfunction of abdomen and other regions Segmental and somatic dysfunction of pelvic region Segmental and somatic dysfunction of sacral region Segmental and somatic dysfunction of thoracic region Shoulder pain (~2018) Tachy-kimmy syndrome Upper extremity somatic dysfunction Vitamin D deficiency Past Surgical History (Last Reviewed 04/05/21 @ 07:30 by Sara Galvez PA-C) Anesthesia Cataracts, bilateral H/O cardiac radiofrequency ablation (~07/02/16) History of appendectomy History of carpal tunnel release History of cholecystectomy History of hysterectomy (~1978) Hx of breast reduction, elective (~2006) Pacemaker (~11/06/15) Visit Care Team Role Provider Type ARCADIO Krishnamurthy Family Provider Advanced Engineering Specialist Technician Primary Care Provider Specialty: Medical Address: [address] [place] [address], [id number] Email: [email or web address] Char Cruz MD Attending Provider Physician Referring Provider Specialty: Orthopedics Orthopedic Surgery Address: [address] [place] [address], [id number] Email: [email or web address] [facility] Initial Evaluation PT-OP-A Visit Information Start: 04/24/21 10:10 Freq: Status: Active Protocol: Document 04/25/21 11:14 [facility] (Rec: 04/25/21 12:24 [facility] [id number]) Out-Patient Physical Therapy Visit Information Visit Information Visit Type Initial Evaluation Visit Start Time 11:15 Visit Stop Time 12:05 Total Visit Minutes 50 Visit Number 1 Evaluation Information Evaluation Date 04/25/21 PT-OP-B Current Condition Start: 04/24/21 10:10 Freq: Status: Active Protocol: Document 04/25/21 11:14 [facility] (Rec: 04/25/21 12:24 [facility] [id number]) Current Condition History of Current Condition Onset Date 04/04/21 Current Complaints left knee pain History of Current Condition left partial TKA by Dr. Cruz 04/04/21. Has been progressing well, then got very swollen, saw doctor a couple days ago; told to ice, elevate; has been doing that, some better but swelling persists. Order was supposed to be put in for blood test, but wasn't in when she went to do today will check with doctor. States icing and elevating a few times per day though admits may not be above her heart. Hasn't been using assistive device because it get in my way. Compliant to HEP a couple times per day. Had skin reaction to adhesive from post-op dressing, gradually gettin better. Prior Treatments and Tests multiple knee injections prior to opting for surgery Future Testing and Treatments Planned post-op appointment with Dr. Cruz 6 weeks after surgery. Treatment Goals Patient/Caregiver Goals return to pain-free walking and standing, usual activities around the home. Prior Functional Status Baseline Function- ADL's Independent Baseline Function- Mobility Independent Baseline Function- Gait indep, no device Current Functional Impairments (Reported) Functional Limitations- ADL's modified independent Functional Limitations- Mobility/Gait primarily household, not using device Functional Limitations- Recreation/ unable to do right now; need Hobbies to make my grandkids some cookies. PT-OP-C Subjective Start: 04/24/21 10:10 Freq: Status: Active Protocol: Document 04/25/21 11:14 [facility] (Rec: 04/25/21 12:24 [facility] [id number]) OP-PT Pain Assessment Pain Assessment Grid Paper Pain Assessment Grid Completed Yes Location Left Knee Intensity 3 PT-OP-D Balance Start: 04/24/21 10:10 Freq: Status: Active Protocol: Document 04/25/21 11:14 [facility] (Rec: 04/25/21 12:24 [facility] [id number]) OP-PT Balance Assessment Sitting Balance Static Sitting Balance Ability Normal Dynamic Sitting Balance Ability Normal Standing Balance Static Standing Balance Ability Good Dynamic Standing Balance Ability Fair Gunter Fall Scale Copyright Permission PT-OP-G Mobility & Gait Start: 04/24/21 10:10 Freq: Status: Active Protocol: Document 04/25/21 11:14 [facility] (Rec: 04/25/21 12:24 [facility] [id number]) Stair Climbing Evaluation Evaluation Level of Assist On Stairs Independent Devices Stair Climbing Assistive Devices Left Railing,Right Railing Technique/Endurance Stair Climbing Direction Ascend and Descend Stair Climbing Technique Step to Step PT-OP-H Neuro Start: 04/24/21 10:10 Freq: Status: Active Protocol: Document 04/25/21 11:14 [facility] (Rec: 04/25/21 12:24 [facility] [id number]) Sensation Evaluation Gross Sensation Gross Sensation WNL PT-OP-K Range of Motion Start: 04/24/21 10:10 Freq: Status: Active Protocol: Document 04/25/21 11:14 [facility] (Rec: 04/25/21 12:24 [facility] [id number]) Knee Goniometric Range of Motion Knee Left Knee ROM WFL No Flexion Active (degrees) 98 Flexion Passive (degrees) 101 Extension Active (degrees) 12 Extension Passive (degrees) 5 Right Knee ROM WFL Yes Knee ROM Limitations Knee ROM Limitations Soft Tissue Tightness,Muscle Weakness,Swelling PT-OP-M Strength Start: 04/24/21 10:10 Freq: Status: Active Protocol: Document 04/25/21 11:14 [facility] (Rec: 04/25/21 12:24 [facility] [id number]) Knee Strength Knee Manual Muscle Testing Left Flexion (S2) 3- Fair- Extension (L3) 3- Fair- Right Flexion (S2) 4+ Good+ Extension (L3) 4+ Good+ PT-OP-Q Treatments Start: 04/24/21 10:10 Freq: Status: Active Protocol: Document 04/25/21 11:14 [facility] (Rec: 04/25/21 12:24 [facility] [id number]) Cardio Equipment Recumbent Elliptical (Biodex) Duration (Minutes) 5 Resistance 1 Seat Position 4 Other UE's and LE's Therapeutic Exercises Supine Exercises SAQ Side bilateral Reps/Minutes 10x Comments added to HEP gravity assisted knee flex Side left Reps/Minutes 3x30 Comments added to HEP Gait Training Gait Activity 1 Device Used none Surface firm Treatment Focus no limp Comments Patient advised to use her cane until able to ambulate without a limp Self-Care/Home Management Treatment Education Patient Education Home Exercise Program,Pain Management Other Education education for elevating LE above her heart with icing, use cane until able to ambulate without a limp, obtain thigh-high compression stocking for edema management (trial of donated pair but they were too long as pt 5'1) . PT-OP-R Modalities Start: 04/24/21 10:10 Freq: Status: Active Protocol: Document 04/25/21 11:14 [facility] (Rec: 04/25/21 12:24 [facility] [id number]) Hot Pack/Cold Pack Treatment ice pack Location left knee Patient Position Hooklying Treatment Duration (minutes) 10 Patient Tolerance Good Comments small ice pack under knee, large on top PT-OP-T Assessment and Plan Start: 04/24/21 10:10 Freq: Status: Active Protocol: Document 04/25/21 11:14 [facility] (Rec: 04/25/21 12:24 [facility] [id number]) Physical Therapy Assessment Rehab Potential Rehabilitation Potential Good Evaluation Complexity Number of Personal Factors/Comorbidities 1-2 Number of Body Systems Impaired 3 Clinical Presentation at Evaluation Evolving Impairments Impairments Edema,Gait,ROM,Strength Goals 4 Impairment swelling left knee Residential Goal (LTG) Decrease swelling left knee to allow for more normal movement and decreased pain; no greater than 1 cm larger than the right. LTG Duration 06/24/21 3 Impairment weakness left knee Residential Goal (LTG) Patient to have muscle strength left knee of at least 4/5 for improved ease of performing usual activities LTG Duration 06/24/21 2 Impairment gait dysfunction Impairment limp, step-to pattern on stairs Annealing Torch Operator Goal (LTG) Patient will be able to ambulate without device without limp or compensatory movements for household and short distance community ambulation and will be able to ascend and descend at least 4 stairs with alternating pattern with one handrail independently. LTG Duration 06/24/21 1 Impairment lacking full knee ROM Impairment AROM 12-98 PROM 5-101 Residential Goal (LTG) Improve AROM left knee to 0- 120 degrees LTG Duration 06/24/21 Assessment Summary Assessment Patient presents to PT for rehab s/p left UKA. She ambulates into clinic without device but gait characterized by significan limp so advised her to return to using cane until able to ambulate without a limp. Patient has typical post-op restrictions in knee ROM and strength, and has had difficulty with management of swelling in her left knee. Recommended use of thigh-high compression stocking as well as increased icing and elevation above her heart (has not been elevating high enough per her report). We reviewed her HEP and added a couple new exercises for her HEP and she demonstrated good understanding. Discussed POC and she agreed. Should benefit from PT for rehab s/p surgery and help her return to her PLF. Physical Therapy Plan Frequency and Duration Frequency of Treatment 2x/Week Duration of Treatment 8 weeks Plan of Care Start Date 04/25/21 Plan of Care End Date 06/24/21 Therapeutic Interventions Therapeutic Interventions Aquatic Therapy,Gait Training, Home Exercise Program,Manual Therapy,Orthotic/Prosthetic Management,Patient/Caregiver Education,Self-Care/Home Management,Soft Tissue Mobilization,Taping, Therapeutic Activities, Therapeutic Exercises Modalities Cold Pack/Ice Massage,Electric Stimulation Next Visit Focus/Plan Next Note Type Treatment Note Next Visit Plan Start with Biodex recumbant elliptical. Ther ex: HC stretch, stair lunge stretch, standing hamstring curl, seated and supine TKA HEP with manual assist as needed for full knee extension followed by eccentric lowering. Gait training with emphasis on normal mechanics with no limp, use of device as needed. Assess fit of compression stockings if obtained, possible manual lymphatic drainage massage if edema swelling not improved. End with ice and elevation.
--- NOTE | 2021-04-25 16:05 | PT.OPPOC ---
Physical, Occupational & Speech Therapy At [facility] Current Diagnoses Unilateral primary osteoarthritis, left knee (04/25/21) Stiffness of left knee, not elsewhere classified (04/25/21) Difficulty in walking, not elsewhere classified (04/25/21) Weakness (04/25/21) Presence of left artificial knee joint (04/25/21) Visit Care Team Role Provider Type ARCADIO Krishnamurthy Family Provider Advanced Assistant Associate Full Professor Primary Care Provider Specialty: Medical Address: [address] [place] [address], [address] Email: [email or web address] Char Cruz MD Attending Provider Physician Referring Provider Specialty: Orthopedics Orthopedic Surgery Address: [address] [place] [address], [address] Email: [email or web address] Plan Of Care PT-OP-T Assessment and Plan Start: 04/24/21 10:10 Freq: Status: Active Protocol: Document 04/25/21 11:14 [facility] (Rec: 04/25/21 12:24 [facility] [id number]) Physical Therapy Assessment Rehab Potential Rehabilitation Potential Good Evaluation Complexity Number of Personal Factors/Comorbidities 1-2 Number of Body Systems Impaired 3 Clinical Presentation at Evaluation Evolving Impairments Impairments Edema,Gait,ROM,Strength Goals 4 Impairment swelling left knee Recreation Adviser Goal (LTG) Decrease swelling left knee to allow for more normal movement and decreased pain; no greater than 1 cm larger than the right. LTG Duration 06/24/21 3 Impairment weakness left knee Recreation Adviser Goal (LTG) Patient to have muscle strength left knee of at least 4/5 for improved ease of performing usual activities LTG Duration 06/24/21 2 Impairment gait dysfunction Impairment limp, step-to pattern on stairs Recreation Adviser Goal (LTG) Patient will be able to ambulate without device without limp or compensatory movements for household and short distance community ambulation and will be able to ascend and descend at least 4 stairs with alternating pattern with one handrail independently. LTG Duration 06/24/21 1 Impairment lacking full knee ROM Impairment AROM 12-98 PROM 5-101 Recreation Adviser Goal (LTG) Improve AROM left knee to 0- 120 degrees LTG Duration 06/24/21 Assessment Summary Assessment Patient presents to PT for rehab s/p left UKA. She ambulates into clinic without device but gait characterized by significan limp so advised her to return to using cane until able to ambulate without a limp. Patient has typical post-op restrictions in knee ROM and strength, and has had difficulty with management of swelling in her left knee. Recommended use of thigh-high compression stocking as well as increased icing and elevation above her heart (has not been elevating high enough per her report). We reviewed her HEP and added a couple new exercises for her HEP and she demonstrated good understanding. Discussed POC and she agreed. Should benefit from PT for rehab s/p surgery and help her return to her PLF. Physical Therapy Plan Frequency and Duration Frequency of Treatment 2x/Week Duration of Treatment 8 weeks Plan of Care Start Date 04/25/21 Plan of Care End Date 06/24/21 Therapeutic Interventions Therapeutic Interventions Aquatic Therapy,Gait Training, Home Exercise Program,Manual Therapy,Orthotic/Prosthetic Management,Patient/Caregiver Education,Self-Care/Home Management,Soft Tissue Mobilization,Taping, Therapeutic Activities, Therapeutic Exercises Modalities Cold Pack/Ice Massage,Electric Stimulation Next Visit Focus/Plan Next Note Type Treatment Note Next Visit Plan Start with Biodex recumbant elliptical. Ther ex: HC stretch, stair lunge stretch, standing hamstring curl, seated and supine TKA HEP with manual assist as needed for full knee extension followed by eccentric lowering. Gait training with emphasis on normal mechanics with no limp, use of device as needed. Assess fit of compression stockings if obtained, possible manual lymphatic drainage massage if edema swelling not improved. End with ice and elevation. Plan of Care Dates Plan of Care Start Date 04/25/21 Plan of Care End Date 06/24/21 Electronically Signed by: Dulce Babcock, PT 04/25/21 [id number] Please Sign and Return: I have reviewed this Plan of Care and certify that the skilled therapy services above are required to meet the patient?s needs. Physician Signature Date Printed Name and Credentials Clinical Instructor Signature Printed Name and Credentials
--- NOTE | 2021-05-01 16:15 | PT.OTN ---
Current Diagnoses Unilateral primary osteoarthritis, left knee (05/01/21) Stiffness of left knee, not elsewhere classified (05/01/21) Difficulty in walking, not elsewhere classified (05/01/21) Weakness (05/01/21) Presence of left artificial knee joint (05/01/21) Physical Therapy Treatment Note PT-OP-A Visit Information Start: 04/24/21 10:10 Freq: Status: Active Protocol: Document 05/01/21 15:27 [facility] (Rec: 05/01/21 16:13 [facility] [id number]) Out-Patient Physical Therapy Visit Information Visit Information Visit Type Initial Evaluation Visit Start Time 15:25 Visit Stop Time 16:15 Total Visit Minutes 50 Visit Number 2 Evaluation Information Evaluation Date 04/25/21 Precautions Precautions a-fib, was cardioverted in ER at . Had to cancel 04/29/21 due to not feeling. PT-OP-B Current Condition Start: 04/24/21 10:10 Freq: Status: Active Protocol: Document 05/01/21 15:27 [facility] (Rec: 05/01/21 16:13 [facility] [id number]) Current Condition History of Current Condition Onset Date 04/04/21 Current Complaints left knee pain History of Current Condition left partial TKA by Dr. Cruz 04/04/21. Has been progressing well, then got very swollen, saw doctor a couple days ago; told to ice, elevate; has been doing that, some better but swelling persists. Order was supposed to be put in for blood test, but wasn't in when she went to do today will check with doctor. States icing and elevating a few times per day though admits may not be above her heart. Hasn't been using assistive device because it get in my way. Compliant to HEP a couple times per day. Had skin reaction to adhesive from post-op dressing, gradually gettin better. Prior Treatments and Tests multiple knee injections prior to opting for surgery Future Testing and Treatments Planned post-op appointment with Dr. Cruz 6 weeks after surgery. Treatment Goals Patient/Caregiver Goals return to pain-free walking and standing, usual activities around the home. Prior Functional Status Baseline Function- ADL's Independent Baseline Function- Mobility Independent Baseline Function- Gait indep, no device Current Functional Impairments (Reported) Functional Limitations- ADL's modified independent Functional Limitations- Mobility/Gait primarily household, not using device Functional Limitations- Recreation/ unable to do right now; need Hobbies to make my grandkids some cookies. PT-OP-C Subjective Start: 04/24/21 10:10 Freq: Status: Active Protocol: Document 05/01/21 15:27 [facility] (Rec: 05/01/21 16:15 [facility] [id number]) OP-PT Subjective Patient Comments Patient Comments Patient reports she had cardioversion in ER 04/27/21. Sent home. Had to cancel PT treatment 04/29/21 PT-OP-D Balance Start: 04/24/21 10:10 Freq: Status: Active Protocol: Document 04/25/21 11:14 [facility] (Rec: 04/25/21 12:24 [facility] [id number]) OP-PT Balance Assessment Sitting Balance Static Sitting Balance Ability Normal Dynamic Sitting Balance Ability Normal Standing Balance Static Standing Balance Ability Good Dynamic Standing Balance Ability Fair Gunter Fall Scale Copyright Permission PT-OP-G Mobility & Gait Start: 04/24/21 10:10 Freq: Status: Active Protocol: Document 04/25/21 11:14 [facility] (Rec: 04/25/21 12:24 [facility] [id number]) Stair Climbing Evaluation Evaluation Level of Assist On Stairs Independent Devices Stair Climbing Assistive Devices Left Railing,Right Railing Technique/Endurance Stair Climbing Direction Ascend and Descend Stair Climbing Technique Step to Step PT-OP-H Neuro Start: 04/24/21 10:10 Freq: Status: Active Protocol: Document 04/25/21 11:14 [facility] (Rec: 04/25/21 12:24 [facility] [id number]) Sensation Evaluation Gross Sensation Gross Sensation WNL PT-OP-K Range of Motion Start: 04/24/21 10:10 Freq: Status: Active Protocol: Document 04/25/21 11:14 [facility] (Rec: 04/25/21 12:24 [facility] [id number]) Knee Goniometric Range of Motion Knee Left Knee ROM WFL No Flexion Active (degrees) 98 Flexion Passive (degrees) 101 Extension Active (degrees) 12 Extension Passive (degrees) 5 Right Knee ROM WFL Yes Knee ROM Limitations Knee ROM Limitations Soft Tissue Tightness,Muscle Weakness,Swelling PT-OP-M Strength Start: 04/24/21 10:10 Freq: Status: Active Protocol: Document 04/25/21 11:14 [facility] (Rec: 04/25/21 12:24 [facility] [id number]) Knee Strength Knee Manual Muscle Testing Left Flexion (S2) 3- Fair- Extension (L3) 3- Fair- Right Flexion (S2) 4+ Good+ Extension (L3) 4+ Good+ PT-OP-Q Treatments Start: 04/24/21 10:10 Freq: Status: Active Protocol: Document 05/01/21 15:27 [facility] (Rec: 05/01/21 16:13 [facility] [id number]) Cardio Equipment Recumbent Elliptical (BiodRealDeck) Duration (Minutes) 7 Resistance 1 Seat Position 4 Other UE's and LE's Gym Equipment Shuttle Recovery Unilateral Squats Resistance 37 Shuttle Recovery Platform Stable Reps/Time 10x2 Bilateral Squats Resistance 50 Shuttle Recovery Platform Stable Reps/Time 10x2 Therapeutic Exercises Supine Exercises SAQ Side bilateral Reps/Minutes 10x Comments added to HEP gravity assisted knee flex Side left Reps/Minutes 5x10 Comments foot on shuttle leg press, pillow case. Standing Exercises HC stretch Equipment Used JUAN Reps/Minutes 2x30 squat Reps/Minutes 10x Comments UE support on wall bar hamstring curl Reps/Minutes 10x heel and toe raises Reps/Minutes 10x Gait Training Gait Activity 1 Device Used none Surface firm Treatment Focus no limp Comments mirror for visual feedback Self-Care/Home Management Treatment Education Patient Education Home Exercise Program,Pain Management Other Education elevate LE above heart with icing, continue to work on walking without limp. PT-OP-R Modalities Start: 04/24/21 10:10 Freq: Status: Active Protocol: Document 05/01/21 15:27 [facility] (Rec: 05/01/21 16:13 [facility] [id number]) Hot Pack/Cold Pack Treatment ice pack Location left knee Patient Position Hooklying Treatment Duration (minutes) 10 Patient Tolerance Good Comments small ice pack under knee, large on top PT-OP-T Assessment and Plan Start: 04/24/21 10:10 Freq: Status: Active Protocol: Document 05/01/21 15:27 [facility] (Rec: 05/01/21 16:13 [facility] [id number]) Physical Therapy Assessment Goals 4 Impairment swelling left knee Intermediate Goal (LTG) Decrease swelling left knee to allow for more normal movement and decreased pain; no greater than 1 cm larger than the right. LTG Duration 06/24/21 3 Impairment weakness left knee Intermediate Goal (LTG) Patient to have muscle strength left knee of at least 4/5 for improved ease of performing usual activities LTG Duration 06/24/21 2 Impairment gait dysfunction Impairment limp, step-to pattern on stairs Intermediate Goal (LTG) Patient will be able to ambulate without device without limp or compensatory movements for household and short distance community ambulation and will be able to ascend and descend at least 4 stairs with alternating pattern with one handrail independently. LTG Duration 06/24/21 1 Impairment lacking full knee ROM Impairment AROM 12-98 PROM 5-101 Intermediate Goal (LTG) Improve AROM left knee to 0- 120 degrees LTG Duration 06/24/21 Assessment Summary Assessment Despite cardioversion and decreased ther ex patient is progressing with gait, ROM, activity tolerance. AROM left knee 5-102, PROM 0-105 Swelling continues to be an issue and was encouraged to do increase in icing. Incision healing well, skin irritation diminishing. No signs or symptoms of infection. Physical Therapy Plan Frequency and Duration Frequency of Treatment 2x/Week Duration of Treatment 8 weeks Plan of Care Start Date 04/25/21 Plan of Care End Date 06/24/21 Therapeutic Interventions Therapeutic Interventions Aquatic Therapy,Gait Training, Home Exercise Program,Manual Therapy,Orthotic/Prosthetic Management,Patient/Caregiver Education,Self-Care/Home Management,Soft Tissue Mobilization,Taping, Therapeutic Activities, Therapeutic Exercises Modalities Cold Pack/Ice Massage,Electric Stimulation Next Visit Focus/Plan Next Note Type Treatment Note Next Visit Plan Continue [facility] rehab with progression of ther ex, closed chain exercises, gait training. Initiate scar massage next session.
--- NOTE | 2021-05-09 16:04 | PT.OTN ---
Current Diagnoses Unilateral primary osteoarthritis, left knee (05/09/21) Stiffness of left knee, not elsewhere classified (05/09/21) Difficulty in walking, not elsewhere classified (05/09/21) Weakness (05/09/21) Presence of left artificial knee joint (05/09/21) Physical Therapy Treatment Note PT-OP-A Visit Information Start: 04/24/21 10:10 Freq: Status: Active Protocol: Document 05/09/21 12:58 [facility] (Rec: 05/09/21 13:46 [facility] [id number]) Out-Patient Physical Therapy Visit Information Visit Information Visit Type Treatment Note Visit Start Time 13:00 Visit Stop Time 13:51 Total Visit Minutes 51 Visit Number 3 Evaluation Information Evaluation Date 04/25/21 Precautions Precautions a-fib, was cardioverted in ER at . Had to cancel 04/29/21 due to not feeling. PT-OP-B Current Condition Start: 04/24/21 10:10 Freq: Status: Active Protocol: Document 05/09/21 12:58 [facility] (Rec: 05/09/21 13:46 [facility] [id number]) Current Condition History of Current Condition Onset Date 04/04/21 Current Complaints left knee pain History of Current Condition left partial TKA by Dr. Cruz 04/04/21. Has been progressing well, then got very swollen, saw doctor a couple days ago; told to ice, elevate; has been doing that, some better but swelling persists. Order was supposed to be put in for blood test, but wasn't in when she went to do today will check with doctor. States icing and elevating a few times per day though admits may not be above her heart. Hasn't been using assistive device because it get in my way. Compliant to HEP a couple times per day. Had skin reaction to adhesive from post-op dressing, gradually gettin better. Prior Treatments and Tests multiple knee injections prior to opting for surgery Future Testing and Treatments Planned post-op appointment with Dr. Cruz 6 weeks after surgery. Treatment Goals Patient/Caregiver Goals return to pain-free walking and standing, usual activities around the home. PT-OP-C Subjective Start: 04/24/21 10:10 Freq: Status: Active Protocol: Document 05/09/21 12:58 [facility] (Rec: 05/09/21 13:46 [facility] [id number]) OP-PT Subjective Patient Comments Patient Comments Was able to stand and make cookies for grandkids, very tired and had some swelling so rested and iced. was able to kneel to cut cats claws. PT-OP-D Balance Start: 04/24/21 10:10 Freq: Status: Active Protocol: Document 04/25/21 11:14 [facility] (Rec: 04/25/21 12:24 [facility] [id number]) OP-PT Balance Assessment Sitting Balance Static Sitting Balance Ability Normal Dynamic Sitting Balance Ability Normal Standing Balance Static Standing Balance Ability Good Dynamic Standing Balance Ability Fair Gunter Fall Scale Copyright Permission PT-OP-G Mobility & Gait Start: 04/24/21 10:10 Freq: Status: Active Protocol: Document 04/25/21 11:14 [facility] (Rec: 04/25/21 12:24 [facility] [id number]) Stair Climbing Evaluation Evaluation Level of Assist On Stairs Independent Devices Stair Climbing Assistive Devices Left Railing,Right Railing Technique/Endurance Stair Climbing Direction Ascend and Descend Stair Climbing Technique Step to Step PT-OP-H Neuro Start: 04/24/21 10:10 Freq: Status: Active Protocol: Document 04/25/21 11:14 [facility] (Rec: 04/25/21 12:24 [facility] [id number]) Sensation Evaluation Gross Sensation Gross Sensation WNL PT-OP-K Range of Motion Start: 04/24/21 10:10 Freq: Status: Active Protocol: Document 04/25/21 11:14 [facility] (Rec: 04/25/21 12:24 [facility] [id number]) Knee Goniometric Range of Motion Knee Left Knee ROM WFL No Flexion Active (degrees) 98 Flexion Passive (degrees) 101 Extension Active (degrees) 12 Extension Passive (degrees) 5 Right Knee ROM WFL Yes Knee ROM Limitations Knee ROM Limitations Soft Tissue Tightness,Muscle Weakness,Swelling PT-OP-M Strength Start: 04/24/21 10:10 Freq: Status: Active Protocol: Document 04/25/21 11:14 [facility] (Rec: 04/25/21 12:24 [facility] [id number]) Knee Strength Knee Manual Muscle Testing Left Flexion (S2) 3- Fair- Extension (L3) 3- Fair- Right Flexion (S2) 4+ Good+ Extension (L3) 4+ Good+ PT-OP-Q Treatments Start: 04/24/21 10:10 Freq: Status: Active Protocol: Document 05/09/21 12:58 [facility] (Rec: 05/09/21 13:46 [facility] [id number]) Cardio Equipment Recumbent Bicycle Duration (Minutes) 7 Resistance 1 Seat Position 3 Gym Equipment Shuttle Recovery Unilateral Squats Resistance 37 Shuttle Recovery Platform Stable Reps/Time 10x2 Bilateral Squats Resistance 50 Shuttle Recovery Platform Stable Reps/Time 10x2 Therapeutic Exercises Supine Exercises SAQ Side bilateral Reps/Minutes 10x Comments added to HEP gravity assisted knee flex Side left Reps/Minutes 5x10 Comments foot on shuttle leg press, pillow case. Sitting Exercises hamstring curl Resistance L1 TB Reps/Minutes 10x Comments added to HEP Standing Exercises stair lunge Reps/Minutes 10x HC stretch Equipment Used JUAN Reps/Minutes 2x30 squat Reps/Minutes 10x Comments UE support on wall bar hamstring curl Reps/Minutes 10x heel and toe raises Reps/Minutes 10x Gait Training Gait Activity hurdles Device Used rail, Distance/Duration 3x 6 hurdles, unil UE support Treatment Focus knee flex, no circumduction of leg stairs Device Used none Level of Assistance smiley rail Comments 4 stairs 1 Device Used none Surface firm Treatment Focus no limp Comments mirror for visual feedback Manual Therapy Treatment Soft Tissue Mobilization scar Mobilization Type Myofascial Release,Strumming Body Position Hooklying Self-Care/Home Management Treatment Education Patient Education Home Exercise Program,Pain Management Other Education massage scar with vitamin e oil PT-OP-R Modalities Start: 04/24/21 10:10 Freq: Status: Active Protocol: Document 05/09/21 12:58 [facility] (Rec: 05/09/21 16:04 [facility] [id number]) Hot Pack/Cold Pack Treatment ice pack Location left knee Patient Position Hooklying Treatment Duration (minutes) 10 Patient Tolerance Good Comments small ice pack under knee, large on top PT-OP-T Assessment and Plan Start: 04/24/21 10:10 Freq: Status: Active Protocol: Document 05/09/21 12:58 [facility] (Rec: 05/09/21 13:46 [facility] [id number]) Physical Therapy Assessment Goals 4 Impairment swelling left knee Fpc Goal (LTG) Decrease swelling left knee to allow for more normal movement and decreased pain; no greater than 1 cm larger than the right. LTG Duration 06/24/21 3 Impairment weakness left knee Finish Mender Goal (LTG) Patient to have muscle strength left knee of at least 4/5 for improved ease of performing usual activities LTG Duration 06/24/21 2 Impairment gait dysfunction Impairment limp, step-to pattern on stairs Fpc Goal (LTG) Patient will be able to ambulate without device without limp or compensatory movements for household and short distance community ambulation and will be able to ascend and descend at least 4 stairs with alternating pattern with one handrail independently. LTG Duration 06/24/21 1 Impairment lacking full knee ROM Impairment AROM 12-98 PROM 5-101 Fpc Goal (LTG) Improve AROM left knee to 0- 120 degrees LTG Duration 06/24/21 Assessment Summary Assessment added resisted hamstring curl to HEP. Good improvement in gait quality, able to alternate feet on 4 stairs, descending dificult. AROM 4- 110 left knee. Physical Therapy Plan Frequency and Duration Frequency of Treatment 2x/Week Duration of Treatment 8 weeks Plan of Care Start Date 04/25/21 Plan of Care End Date 06/24/21 Therapeutic Interventions Therapeutic Interventions Aquatic Therapy,Gait Training, Home Exercise Program,Manual Therapy,Orthotic/Prosthetic Management,Patient/Caregiver Education,Self-Care/Home Management,Soft Tissue Mobilization,Taping, Therapeutic Activities, Therapeutic Exercises Modalities Cold Pack/Ice Massage,Electric Stimulation Next Visit Focus/Plan Next Note Type Treatment Note Next Visit Plan Continue [facility] rehab with progression of ther ex, closed chain exercises, gait training.
--- NOTE | 2021-05-14 16:05 | PT.OTN ---
Current Diagnoses Unilateral primary osteoarthritis, left knee (05/14/21) Stiffness of left knee, not elsewhere classified (05/14/21) Difficulty in walking, not elsewhere classified (05/14/21) Weakness (05/14/21) Presence of left artificial knee joint (05/14/21) Physical Therapy Treatment Note PT-OP-A Visit Information Start: 04/24/21 10:10 Freq: Status: Active Protocol: Document 05/14/21 15:23 SAK (Rec: 05/14/21 16:05 [facility] [id number]) Out-Patient Physical Therapy Visit Information Visit Information Visit Type Treatment Note Visit Start Time 15:20 Total Visit Minutes 51 Visit Number 4 Evaluation Information Evaluation Date 04/25/21 Precautions Precautions a-fib, was cardioverted in ER at . Had to cancel 04/29/21 due to not feeling. PT-OP-B Current Condition Start: 04/24/21 10:10 Freq: Status: Active Protocol: Document 05/09/21 12:58 SAK (Rec: 05/09/21 13:46 [facility] [id number]) Current Condition History of Current Condition Onset Date 04/04/21 Current Complaints left knee pain History of Current Condition left partial TKA by Dr. Cruz 04/04/21. Has been progressing well, then got very swollen, saw doctor a couple days ago; told to ice, elevate; has been doing that, some better but swelling persists. Order was supposed to be put in for blood test, but wasn't in when she went to do today will check with doctor. States icing and elevating a few times per day though admits may not be above her heart. Hasn't been using assistive device because it get in my way. Compliant to HEP a couple times per day. Had skin reaction to adhesive from post-op dressing, gradually gettin better. Prior Treatments and Tests multiple knee injections prior to opting for surgery Future Testing and Treatments Planned post-op appointment with Dr. Cruz 6 weeks after surgery. Treatment Goals Patient/Caregiver Goals return to pain-free walking and standing, usual activities around the home. PT-OP-C Subjective Start: 04/24/21 10:10 Freq: Status: Active Protocol: Document 05/14/21 15:23 SAK (Rec: 05/14/21 16:05 [facility] [id number]) OP-PT Subjective Patient Comments Patient Comments Feels stiff when first gets up but gradually loosens. A little different and better every day PT-OP-D Balance Start: 04/24/21 10:10 Freq: Status: Active Protocol: Document 04/25/21 11:14 SAK (Rec: 04/25/21 12:24 [facility] [id number]) OP-PT Balance Assessment Sitting Balance Static Sitting Balance Ability Normal Dynamic Sitting Balance Ability Normal Standing Balance Static Standing Balance Ability Good Dynamic Standing Balance Ability Fair Gunter Fall Scale Copyright Permission PT-OP-G Mobility & Gait Start: 04/24/21 10:10 Freq: Status: Active Protocol: Document 04/25/21 11:14 [facility] (Rec: 04/25/21 12:24 [facility] [id number]) Stair Climbing Evaluation Evaluation Level of Assist On Stairs Independent Devices Stair Climbing Assistive Devices Left Railing,Right Railing Technique/Endurance Stair Climbing Direction Ascend and Descend Stair Climbing Technique Step to Step PT-OP-H Neuro Start: 04/24/21 10:10 Freq: Status: Active Protocol: Document 04/25/21 11:14 SAK (Rec: 04/25/21 12:24 [facility] [id number]) Sensation Evaluation Gross Sensation Gross Sensation WNL PT-OP-K Range of Motion Start: 04/24/21 10:10 Freq: Status: Active Protocol: Document 04/25/21 11:14 SAK (Rec: 04/25/21 12:24 [facility] [id number]) Knee Goniometric Range of Motion Knee Left Knee ROM WFL No Flexion Active (degrees) 98 Flexion Passive (degrees) 101 Extension Active (degrees) 12 Extension Passive (degrees) 5 Right Knee ROM WFL Yes Knee ROM Limitations Knee ROM Limitations Soft Tissue Tightness,Muscle Weakness,Swelling PT-OP-M Strength Start: 04/24/21 10:10 Freq: Status: Active Protocol: Document 04/25/21 11:14 SAK (Rec: 04/25/21 12:24 [facility] [id number]) Knee Strength Knee Manual Muscle Testing Left Flexion (S2) 3- Fair- Extension (L3) 3- Fair- Right Flexion (S2) 4+ Good+ Extension (L3) 4+ Good+ PT-OP-Q Treatments Start: 04/24/21 10:10 Freq: Status: Active Protocol: Document 05/14/21 15:23 SAK (Rec: 05/14/21 16:05 [facility] [id number]) Cardio Equipment Recumbent Bicycle Duration (Minutes) 7 Resistance 1 Seat Position 2 Gym Equipment Shuttle Recovery Unilateral Squats Resistance 37 Shuttle Recovery Platform Stable Reps/Time 10x2 Bilateral Squats Resistance 50 Shuttle Recovery Platform Stable Reps/Time 10x2 Therapeutic Exercises Supine Exercises SAQ Side bilateral Reps/Minutes 10x Comments added to HEP gravity assisted knee flex Side left Reps/Minutes 5x10 Comments foot on shuttle leg press, pillow case. Sitting Exercises hamstring curl Resistance L1 TB Reps/Minutes 10x Comments added to HEP Standing Exercises stair lunge Reps/Minutes 10x HC stretch Equipment Used JUAN Reps/Minutes 2x30 hamstring curl Reps/Minutes 10x Gait Training Gait Activity hurdles Device Used rail, Distance/Duration 3x 6 hurdles, unil UE support Treatment Focus knee flex, no circumduction of leg stairs Device Used none Level of Assistance smiley rail Treatment Focus 3x ea Comments 4 and 6 stairs Manual Therapy Treatment Soft Tissue Mobilization distal quads Mobilization Type Instrument Assisted,Myofascial Release,Oscillations Intensity/Depth Moderate Body Position Hooklying scar Mobilization Type Myofascial Release,Strumming Body Position Hooklying PT-OP-R Modalities Start: 04/24/21 10:10 Freq: Status: Active Protocol: Document 05/14/21 15:23 [facility] (Rec: 05/14/21 16:05 [facility] [id number]) Hot Pack/Cold Pack Treatment ice pack Location left knee Patient Position Hooklying Treatment Duration (minutes) 10 Patient Tolerance Good Comments small ice pack under knee, large on top PT-OP-T Assessment and Plan Start: 04/24/21 10:10 Freq: Status: Active Protocol: Document 05/14/21 15:23 [facility] (Rec: 05/14/21 16:05 [facility] [id number]) Physical Therapy Assessment Goals 4 Impairment swelling left knee Parachute Harness Rigger Goal (LTG) Decrease swelling left knee to allow for more normal movement and decreased pain; no greater than 1 cm larger than the right. LTG Duration 06/24/21 3 Impairment weakness left knee Parachute Harness Rigger Goal (LTG) Patient to have muscle strength left knee of at least 4/5 for improved ease of performing usual activities LTG Duration 06/24/21 2 Impairment gait dysfunction Impairment limp, step-to pattern on stairs Parachute Harness Rigger Goal (LTG) Patient will be able to ambulate without device without limp or compensatory movements for household and short distance community ambulation and will be able to ascend and descend at least 4 stairs with alternating pattern with one handrail independently. LTG Duration 06/24/21 1 Impairment lacking full knee ROM Impairment AROM 12-98 PROM 5-101 Parachute Harness Rigger Goal (LTG) Improve AROM left knee to 0- 120 degrees LTG Duration 06/24/21 Assessment Summary Assessment Good progress AROM 2-115. Able to ascend and descend 4 stairs with min discomfort, 6 with pain left knee though able to ascend and descend with alternating pattern. Good healing of incision, improving scar mobility. Patient instrsucted to ice with knee above her heart as has not been doing though c/o swelling. Physical Therapy Plan Frequency and Duration Frequency of Treatment 2x/Week Duration of Treatment 8 weeks Plan of Care Start Date 04/25/21 Plan of Care End Date 06/24/21 Therapeutic Interventions Therapeutic Interventions Aquatic Therapy,Gait Training, Home Exercise Program,Manual Therapy,Orthotic/Prosthetic Management,Patient/Caregiver Education,Self-Care/Home Management,Soft Tissue Mobilization,Taping, Therapeutic Activities, Therapeutic Exercises Modalities Cold Pack/Ice Massage,Electric Stimulation Next Visit Focus/Plan Next Note Type Treatment Note Next Visit Plan Add resisted gait and chair squats.
--- NOTE | 2022-02-06 14:55 | PT.OPDS ---
Current Diagnoses Unilateral primary osteoarthritis, left knee (05/14/21) Stiffness of left knee, not elsewhere classified (05/14/21) Difficulty in walking, not elsewhere classified (05/14/21) Weakness (05/14/21) Presence of left artificial knee joint (05/14/21) Visit Care Team Role Provider Type ARCADIO Krishnamurthy Family Provider Advanced [employer] Research Scientist Primary Care Provider Specialty: Medical Address: [address] [place] [address], [id number] Email: [email or web address] Char Cruz MD Attending Provider Physician Referring Provider Specialty: Orthopedics Orthopedic Surgery Address: [address] [place] [address], [id number] Email: [email or web address] Visit Number Visit Number 4 Discharge Summary PT-OP-B Current Condition Start: 04/24/21 10:10 Freq: Status: Active Protocol: Document 05/09/21 12:58 SAK (Rec: 05/09/21 13:46 [facility] [id number]) Current Condition History of Current Condition Onset Date 04/04/21 Current Complaints left knee pain History of Current Condition left partial TKA by Dr. Cruz 04/04/21. Has been progressing well, then got very swollen, saw doctor a couple days ago; told to ice, elevate; has been doing that, some better but swelling persists. Order was supposed to be put in for blood test, but wasn't in when she went to do today will check with doctor. States icing and elevating a few times per day though admits may not be above her heart. Hasn't been using assistive device because it get in my way. Compliant to HEP a couple times per day. Had skin reaction to adhesive from post-op dressing, gradually gettin better. Prior Treatments and Tests multiple knee injections prior to opting for surgery Future Testing and Treatments Planned post-op appointment with Dr. Cruz 6 weeks after surgery. Treatment Goals Patient/Caregiver Goals return to pain-free walking and standing, usual activities around the home. PT-OP-C Subjective Start: 04/24/21 10:10 Freq: Status: Active Protocol: Document 05/14/21 15:23 SAK (Rec: 05/14/21 16:05 [facility] [id number]) OP-PT Subjective Patient Comments Patient Comments Feels stiff when first gets up but gradually loosens. A little different and better every day PT-OP-D Balance Start: 04/24/21 10:10 Freq: Status: Active Protocol: Document 04/25/21 11:14 SAK (Rec: 04/25/21 12:24 [facility] [id number]) OP-PT Balance Assessment Sitting Balance Static Sitting Balance Ability Normal Dynamic Sitting Balance Ability Normal Standing Balance Static Standing Balance Ability Good Dynamic Standing Balance Ability Fair Gunter Fall Scale Copyright Permission PT-OP-G Mobility & Gait Start: 04/24/21 10:10 Freq: Status: Active Protocol: Document 04/25/21 11:14 SAK (Rec: 04/25/21 12:24 [facility] [id number]) Stair Climbing Evaluation Evaluation Level of Assist On Stairs Independent Devices Stair Climbing Assistive Devices Left Railing,Right Railing Technique/Endurance Stair Climbing Direction Ascend and Descend Stair Climbing Technique Step to Step PT-OP-H Neuro Start: 04/24/21 10:10 Freq: Status: Active Protocol: Document 04/25/21 11:14 SAK (Rec: 04/25/21 12:24 [facility] [id number]) Sensation Evaluation Gross Sensation Gross Sensation WNL PT-OP-K Range of Motion Start: 04/24/21 10:10 Freq: Status: Active Protocol: Document 04/25/21 11:14 SAK (Rec: 04/25/21 12:24 [facility] [id number]) Knee Goniometric Range of Motion Knee Left Knee ROM WFL No Flexion Active (degrees) 98 Flexion Passive (degrees) 101 Extension Active (degrees) 12 Extension Passive (degrees) 5 Right Knee ROM WFL Yes Knee ROM Limitations Knee ROM Limitations Soft Tissue Tightness,Muscle Weakness,Swelling PT-OP-M Strength Start: 04/24/21 10:10 Freq: Status: Active Protocol: Document 04/25/21 11:14 SAK (Rec: 04/25/21 12:24 [facility] [id number]) Knee Strength Knee Manual Muscle Testing Left Flexion (S2) 3- Fair- Extension (L3) 3- Fair- Right Flexion (S2) 4+ Good+ Extension (L3) 4+ Good+ PT-OP-T Assessment and Plan Start: 04/24/21 10:10 Freq: Status: Active Protocol: Document 02/06/22 14:54 [facility] (Rec: 02/06/22 14:55 [facility] [id number]) Physical Therapy Plan Discharge Physical Therapy Discharge Reasons No Longer Attending PT
== END 2022-02-11 09:04 | disposition home or self-care (01) ==
LOC: PHYS 15:15
PROVIDERS: Family Provider Registered Nurse; PCP Registered Nurse; Referring Provider Orthopaedic Surgery; Visit Provider Orthopaedic Surgery
DX: M17.12 Unilateral primary osteoarthritis, left knee (principal); Z96.652 Presence of left artificial knee joint; R26.2 Difficulty in walking, not elsewhere classified; M25.662 Stiffness of left knee, not elsewhere classified; R53.1 Weakness
CPT/HCPCS: 97110; 97140; 97161; 97535

== ENCOUNTER 2021-07-16 19:10 | Emergency (ER) | payer MEDICARE, SELFPAY ==
[2021-04-04 15:02] VITALS: BMI 34.0
[2021-07-16] VITALS (24 sets, daily range): BP systolic 107–176; BP diastolic 57–85; PULSE 70–140; RESP 13–25; TEMP 36.3; O2SAT 95–100; BMI 34.0
--- NOTE | 2021-07-16 19:53 | PC.NURSE ---
Pt reports feeling SOB and fatigued for the last week. She reports a hx of Afib, hx of cardioversions and a pacemaker. Pt states that the provider called today to tell her she is in Afib and wanted her to come to ER for cardioversion. Pt daughter at bedside.
--- NOTE | 2021-07-16 20:04 | ED_ITS ---
HPI - Arrhythmia/Palpitations General Chief Complaint: Arrhythmia/Palpitations Stated Complaint: states [facility] sent her for cardioversion Time Seen by Provider: 07/16/21 19:36 Mode of arrival: Family Vehicle History of Present Illness HPI narrative: 80-year-old woman with a history of paroxysmal atrial fibrillation, tachy-kimmy syndrome, pacemaker in November of 2015. Wrist recent cardioversion was for recurrent atrial fibrillation with rapid ventricular some response on April 272021. She received a phone call from Dr. Whaley's office today informing her that she has been in atrial fibrillation since July 02 and recommending that she come to the emergency department for cardioversion. She is anticoagulated on rivaroxaban and has been taking this. Related Data Home Medications Medication Instructions Recorded Confirmed rivaroxaban 20 mg tablet (Xarelto) 20 mg PO DAILY 10/22/18 07/16/21 multivitamin with minerals-folic 1 tab PO DAILY 04/01/21 07/16/21 acid 200 mcg chewable tablet (Multivitamin Gummies) aspirin 81 mg capsule 81 mg PO DAILY #0 04/03/21 07/16/21 metoprolol succinate 50 mg 50 mg PO DAILY tab 06/03/21 07/16/21 tablet,extended release 24 hr escitalopram oxalate 10 mg tablet 10 mg PO DAILY 07/16/21 07/16/21 felodipine 5 mg tablet,extended 5 mg PO DAILY 07/16/21 07/16/21 release 24 hr levothyroxine 50 mcg capsule 50 mcg PO DAILY 07/16/21 07/16/21 pantoprazole 40 mg tablet,delayed 40 mg PO BID 07/16/21 07/16/21 release zolpidem 5 mg tablet 5 mg PO BEDTIME PRN 07/16/21 07/16/21 Previous Rx's Medication Instructions Recorded losartan 100 mg tablet 100 mg PO DAILY #90 tab 11/22/20 acetaminophen 500 mg capsule 500 mg PO Q4H PRN #90 cap MDD Max 04/05/21 3000 mg per day docusate sodium 100 mg capsule 100 mg PO BID PRN #14 cap 04/05/21 levalbuterol tartrate 45 2 inh INHALATION Q6H PRN #15 gram 04/24/21 mcg/actuation aerosol inhaler pravastatin 20 mg tablet 20 mg PO DAILY #90 tab 06/03/21 Allergies Allergy/AdvReac Type Severity Reaction Status Date / Time hydromorphone Allergy Intermediate RASH/GI Verified 07/16/21 19:30 UPSET rosuvastatin [From Crestor] Allergy Unknown Intolerant Verified 07/16/21 19:30 diltiazem [DILTIAZEM] AdvReac Intermediate BRADYCARDIA Verified 07/16/21 19:30 hydrocodone AdvReac Mild GI UPSET Verified 07/16/21 19:30 atorvastatin AdvReac Unknown Significant Verified 07/16/21 19:30 weakness, myalgias Review of Systems Review of Systems Narrative: Remainder of complete review of systems is otherwise unremarkable except for that included in the HPI. Patient History Medical History Allergies Anticoagulated Anxiety (~2013) Atrial fibrillation (~2014) Bilateral chronic otitis media Bruises easily Carpal tunnel syndrome Cervical somatic dysfunction Cervical spondylosis Chronic neck pain Cranial somatic dysfunction Depression (~2015) Essential hypertension Fatigue Fibroid (~1964) First degree AV block Gastroenteritis Hearing loss History of cardioversion (~07/31/20) History of syncope HTN (hypertension) Hypothyroid Lumbar region somatic dysfunction Osteoarthritis of left knee Pacemaker (~11/2015) PAD (peripheral artery disease) Segmental and somatic dysfunction of abdomen and other regions Segmental and somatic dysfunction of pelvic region Segmental and somatic dysfunction of sacral region Segmental and somatic dysfunction of thoracic region Shoulder pain (~2018) Tachy-kimmy syndrome Upper extremity somatic dysfunction Vitamin D deficiency Surgical History Anesthesia Cataracts, bilateral H/O cardiac radiofrequency ablation (~07/02/16) History of appendectomy History of carpal tunnel release History of cholecystectomy History of hysterectomy (~1978) Hx of breast reduction, elective (~2006) Pacemaker (~11/06/15) Family History Father Hypertension Mother Lung cancer Social History household members: none Smoking Status: Never smoker alcohol intake: never substance use type: does not use Smoking Status: Never smoker alcohol intake frequency: a few times a month Substance Use Type: does not use Exam Initial Vital Signs Initial Vital Signs: Vital Signs Temperature 97.4 F L 07/16/21 19:24 Pulse Rate 140 H 07/16/21 19:24 Respiratory Rate 20 07/16/21 19:24 Blood Pressure 176/83 H 07/16/21 19:24 Pulse Oximetry 97 07/16/21 19:24 General: Healthy appearing, in no acute distress. Able to give a complete and coherent history. Well-nourished well-developed HEENT: Moist mucous membranes, normal sclera with reactive pupils, Neck: No JVD, supple Respiratory: Lungs are clear to auscultation, no wheezing no rales no rhonchi. Full and symmetrical air movement Cardiac: Rapid and irregular but no murmurs, no bruits Abdomen: Soft, nontender, good bowel tones, no flank pain Skin: Warm and dry, no rashes Neurologic: Grossly neurologically intact with no obvious asymmetries or abnormalities Extremities: No trauma, well perfused Psych: Cooperative, appropriate insight and affect Procedures Cardioversion Time of Cardioversion: 22:45 Consent Signed: Yes Indication: a fib Stability: Stable Number of attempts (shocks): 1 Joules used: 100 Cardiac rhythm post-cardioversion: sinus with atrial-paced rythm Procedural Sedation Time of procedure: 22:46 Consent signed: Yes Time out performed: Yes Indication: cardioversion ASA Class: III Mallampati Airway Classification: Class III IV Propofol dose (mg): 40 (would recommend 60 if procedure needs to be repeated in the future) Intraservice time/total sedation time (min): 7 ED Sedation Level: Moderate (Concious) Patient Tolerated Procedure: Well Complications: none Course Orders Ordered: ED Orders 07/16/21 19:44 Complete Blood Count AUTO DIFF Stat Comprehensive Metabolic Panel Stat Magnesium Stat Troponin I Stat Discontinued Medications Propofol (Propofol 200 Mg/20 Ml Vial) 165 mg 2 mg/kg (165 mg) IV NOW ONE Stop: 07/16/21 21:29 Last Admin: 07/16/21 22:31 Dose: 40 mg Documented by: AVRIL Vital Signs Vital signs: Vital Signs - 8 hr 07/16/21 19:24 07/16/21 19:32 07/16/21 20:00 Temperature 97.4 F L Pulse Rate 140 H 137 H 105 H Respiratory Rate 20 25 H 21 Blood Pressure 176/83 H Pulse Oximetry 97 97 95 07/16/21 20:30 07/16/21 21:04 07/16/21 21:49 Temperature Pulse Rate 96 H 134 H 125 H Respiratory Rate 24 18 Blood Pressure 112/85 146/68 H Pulse Oximetry 95 97 97 07/16/21 22:08 Temperature Pulse Rate 134 H Respiratory Rate 20 Blood Pressure Pulse Oximetry MDM - Arrhythmia/Palpitations Lab Data Result diagrams: 07/16/21 19:44 07/16/21 19:44 Labs: Lab Results 07/16/21 07/16/21 Range/Units 19:44 19:44 WBC 9.8 (4.5-11.0) X10^3/uL RBC 5.33 H (4.0-5.2) X10^6/uL Hgb 14.7 (12.0-16.0) g/dL Hct 43.9 (36-46) % MCV 82.3 (80-100) fL MCH 27.5 (26-34) PG MCHC 33.4 (30-36) % RDW 13.2 (11.6-14.8) % Plt Count 379 (150-400) X10^3/uL Neut % (Auto) 58.8 (50-75) % Lymph % (Auto) 29.5 (25-40) % [place] % (Auto) 8.9 (3-14) % Eos % (Auto) 1.7 L (2-4) % Baso % (Auto) 1.1 (0-2) % Neut # (Auto) 5800 (5984-6066) /uL Lymph # (Auto) 2900 (0748-1006) /uL [place] # (Auto) 900 (0-900) /uL Eos # (Auto) 200 (0-450) /uL Baso # (Auto) 100 (0-100) /uL Sodium 134 L (137-145) mmol/L Potassium 3.8 (3.4-5.1) mmol/L Chloride 99 (98-107) mmol/L Carbon Dioxide 27 (22-32) mmol/L BUN 14 (7-17) mg/dL Creatinine 0.56 (0.52-1.04) mg/dL Estimated GFR > 60 (>60) mL/min BUN/Creatinine Ratio 25.0 H (6-22) Glucose 162 H (80-110) mg/dL Calcium 9.2 (8.4-10.2) mg/dL Magnesium 1.7 (1.6-2.3) mg/dL Total Bilirubin 0.4 (0.2-1.3) mg/dL AST 27 (14-36) IU/L ALT 18 (<35) IU/L Alkaline Phosphatase 59 (38-126) U/L Troponin I < 0.012 (0.01-0.034) ng/mL Total Protein 7.9 (6.3-8.2) g/dL Albumin 4.2 (3.5-5.0) g/dL Globulin 3.7 (1.7-4.1) g/dL Albumin/Globulin Ratio 1.1 (1.0-2.8) Point of Care Testing Test Results Not applicable ECG Data Interpretation: Atrial fibrillation at a rate of 119 Normal axis No acute ischemic changes Post cardioversion: Atrial paced rhythm No acute ischemic changes MDM Narrative Medical decision making narrative: 80-year-old woman with a history of paroxysmal atrial fibrillation currently with a pacemaker in place, on Xarelto who has been in atrial fibrillation since July 02 according to her device. She was contacted by her hair rooting machine operator's office and suggested that she come to the emergency room for electrical cardioversion. She is noticing some mild exertional dyspnea and increasing fatigue but no overt chest pain. Initial lab work is unremarkable with no significant electrolyte abnormalities or acute coronary syndrome. It is confirmed that she has been taking her anticoagulant regularly. Informed consent is obtained and she is sedated with propofol and electrically cardioverted. She is back in a paced sinus rhythm She tolerated the procedure well. Is waking up nicely after her propofol. She will be safe for home discharge and will continue all of her home medications including her Xarelto dose this evening once she arrives home. Will ask her to follow-up with her hair rooting machine operator in the next couple of days. Discharge Plan Departure Patient Disposition: Home Clinical Impression: Atrial fibrillation, Encounter for cardioversion procedure Instructions: DI for Atrial Fibrillation, Moderate Sedation Activity Restrictions/Additional Instructions: Thank you for coming in today Your lab work was unremarkable. According to reports, you were in atrial fibrillation since July 02 and have been anticoagulated appropriately. I your hair rooting machine operator's request, you were cardioverted in the emergency department today. We used a total of 40 mg of propofol for sedation. You were significantly sedated to the point you are not responding to stimulation or questions however you clearly remember the cardioversion itself. If we need to do this again I would suggest we use 60 mg of propofol. Fortunately, with a single attempt your heart converted to sinus with your pacemaker working Please make sure that you take all of your evening medications especially your Xarelto Please contact her hair rooting machine operator's office tomorrow to let them know you were cardioverted and schedule follow-up If you find that you are getting worse or develop any new symptoms, please feel free to return to the emergency department for further evaluation. Prescriptions: No Action losartan 100 mg tablet 100 mg PO DAILY Qty: 90 1RF levalbuterol tartrate 45 mcg/actuation HFA aerosol inhaler 2 inh INHALATION Q6H PRN (Reason: shortness of breath or wheezing) Qty: 15 5RF Xarelto 20 mg tablet 20 mg PO DAILY 0RF metoprolol succinate 50 mg tablet extended release 24 hr 50 mg PO DAILY 0RF Rx Instructions: Take at Bedtime pravastatin 20 mg tablet 20 mg PO DAILY Qty: 90 3RF Multivitamin Gummies 200 mcg Tablet,Chewable 1 tab PO DAILY 0RF aspirin 81 mg Capsule 81 mg PO DAILY Qty: 0 0RF acetaminophen 500 mg capsule 500 mg PO Q4H MDD Max 3000 mg per day PRN (Reason: fever or pain) Qty: 90 0RF docusate sodium 100 mg Capsule 100 mg PO BID PRN (Reason: Constipation from narcotic pain meds) Qty: 14 0RF zolpidem 5 mg Tablet 5 mg PO BEDTIME PRN (Reason: Sleep) 0RF felodipine 5 mg tablet extended release 24 hr 5 mg PO DAILY 0RF pantoprazole 40 mg tablet,delayed release (DR/EC) 40 mg PO BID 0RF escitalopram oxalate 10 mg tablet 10 mg PO DAILY 0RF levothyroxine 50 mcg capsule 50 mcg PO DAILY 0RF Referrals: Emily Roque MD [Primary Care Provider] -
[2021-07-16 20:30] LABS: Add Manual Diff / Slide Review NO; Basophils Absolute Auto 100 /uL (0-100); Basophils Percent Auto 1.1 % (0-2); Eosinophils Absolute Auto 200 /uL (0-450); Eosinophils Percent Auto 1.7 % (2-4); Hematocrit 43.9 % (36-46); Hemoglobin 14.7 g/dL (12.0-16.0); Lymphocytes Absolute Auto 2900 /uL (1100-4500); Lymphocytes Percent Auto 29.5 % (25-40); Mean Corpuscular HGB Conc 33.4 % (30-36); Mean Corpuscular Hemoglobin 27.5 PG (26-34); Mean Corpuscular Volume 82.3 fL (80-100); Monocytes Absolute Auto 900 /uL (0-900); Monocytes Percent Auto 8.9 % (3-14); Neutrophils Absolute Auto 5800 /uL (1500-7000); Neutrophils Percent Auto 58.8 % (50-75); Platelet Count 379 X10^3/uL (150-400); Red Blood Cell Count 5.33 X10^6/uL (4.0-5.2); Red Cell Distribution Width 13.2 % (11.6-14.8); White Blood Cell Count 9.8 X10^3/uL (4.5-11.0)
[2021-07-16 20:37] LABS: Alanine Aminotransferase 18 IU/L (<35); Albumin 4.2 g/dL (3.5-5.0); Albumin Globulin Ratio 1.1 (1.0-2.8); Alkaline Phosphatase 59 U/L (38-126); Aspartate Aminotransferase 27 IU/L (14-36); Bilirubin Total 0.4 mg/dL (0.2-1.3); Blood Urea Nitrogen 14 mg/dL (7-17); Calcium 9.2 mg/dL (8.4-10.2); Carbon Dioxide 27 mmol/L (22-32); Chloride 99 mmol/L (98-107); Estimated Glomerular Filt Rate > 60 mL/min (>60); Globulin 3.7 g/dL (1.7-4.1); Glucose 162 mg/dL (80-110); HEMOLYSIS 28 (0-50); Magnesium 1.7 mg/dL (1.6-2.3); Potassium 3.8 mmol/L (3.4-5.1); Sodium 134 mmol/L (137-145); Total Protein 7.9 g/dL (6.3-8.2)
[2021-07-16 20:49] LABS: Troponin I < 0.012 ng/mL (0.01-0.034)
[2021-07-16] MEDS: propofoL 200 MG/20 ML VIAL 165 MG IV (22:31)
--- NOTE | 2021-07-16 22:32 | PC.NURSE ---
RT at bedside for post cardioversion EKG.
== END 2021-07-16 23:02 | disposition home or self-care (01) ==
PROVIDERS: Emergency Provider Emergency Medicine; Family Provider Registered Nurse; PCP Family Medicine
DX: I48.91 Unspecified atrial fibrillation (principal); Z79.01 Long term (current) use of anticoagulants; Z95.0 Presence of cardiac pacemaker
CPT/HCPCS: 36415; 80053; 83735; 84484; 85025; 92960; 93005; 99285; 99291; J2704

== ENCOUNTER → 2021-07-18 09:46 | Outpatient (CLI) | payer MEDICARE, SELFPAY ==
[2021-04-04 15:02] VITALS: BMI 34.0
[2021-07-18 11:53] LABS: Alanine Aminotransferase 17 IU/L (<35); Albumin 4.3 g/dL (3.5-5.0); Albumin Globulin Ratio 1.2 (1.0-2.8); Alkaline Phosphatase 65 U/L (38-126); Aspartate Aminotransferase 27 IU/L (14-36); BUN Creatinine Ratio 12.5 (6-22); Bilirubin Total 0.9 mg/dL (0.2-1.3); Blood Urea Nitrogen 8 mg/dL (7-17); Calcium 8.9 mg/dL (8.4-10.2); Carbon Dioxide 30 mmol/L (22-32); Chloride 100 mmol/L (98-107); Cholesterol 161 mg/dL (140-199); Estimated Glomerular Filt Rate > 60 mL/min (>60); Globulin 3.7 g/dL (1.7-4.1); Glucose 114 mg/dL (80-110); HDL Cholesterol 52 mg/dL (40-60); HEMOLYSIS < 15 (0-50); LDL Cholesterol Calculated 88 mg/dL (<100); Potassium 4.7 mmol/L (3.4-5.1); Sodium 137 mmol/L (137-145); Triglycerides 104 mg/dL (35-150)
[2021-07-18 12:08] LABS: TSH w/ Reflex to FT4 0.81 uIU/mL (0.47-4.68)
[2021-07-18 12:42] LABS: Hemoglobin A1C% w Est Avg Glu 5.9 % (4.0-6.0)
[2021-07-18 15:18] LABS: Creatinine Urine Random 131.2 mg/dL
[2021-07-18 15:22] LABS: Microalbumi Creatinin Ratio Ur 11.4 ug/mg CR (<30); Microalbumin Urine Random 1.5 mg/dL (0-1.6)
== END ==
PROVIDERS: Family Provider Registered Nurse; PCP Family Medicine; Referring Provider Family Medicine; Visit Provider Family Medicine
DX: I10 Essential (primary) hypertension (principal); D72.829 Elevated white blood cell count, unspecified; E03.9 Hypothyroidism, unspecified; E78.5 Hyperlipidemia, unspecified; R73.03 Prediabetes
CPT/HCPCS: 36415; 80053; 80061; 82043; 82570; 83036; 84443

== ENCOUNTER → 2021-08-12 10:53 | Outpatient (CLI) | payer MEDICARE, SELFPAY ==
[2021-04-04 15:02] VITALS: BMI 34.0
[2021-08-12 13:31] LABS: Hemoglobin A1C% w Est Avg Glu 5.9 % (4.0-6.0)
[2021-08-12 13:34] LABS: BUN Creatinine Ratio 16.4 (6-22); Blood Urea Nitrogen 11 mg/dL (7-17); Calcium 8.7 mg/dL (8.4-10.2); Carbon Dioxide 28 mmol/L (22-32); Chloride 100 mmol/L (98-107); Estimated Glomerular Filt Rate > 60 mL/min (>60); Glucose 99 mg/dL (80-110); HEMOLYSIS < 15 (0-50); Potassium 4.2 mmol/L (3.4-5.1); Sodium 135 mmol/L (137-145)
== END ==
PROVIDERS: Family Provider Registered Nurse; PCP Pediatrics; Referring Provider Pediatrics; Visit Provider Pediatrics
DX: R73.03 Prediabetes (principal); E78.5 Hyperlipidemia, unspecified; I10 Essential (primary) hypertension; I48.91 Unspecified atrial fibrillation
CPT/HCPCS: 36415; 80048; 83036

== ENCOUNTER → 2021-09-16 13:36 | Outpatient (CLI) | payer MEDICARE, SELFPAY ==
[2021-04-04 15:02] VITALS: BMI 34.0
--- NOTE | 2021-09-16 | DI.ECHO.S_ITS ---
[facility] +---------+ : : [address] : : : : [id number] : : : : Phone: [phone]+ Echocardiogram Report + + :Name: HOMERO DONG Study Date: 09/16/2021 Height: 62 in : :[facility] ReadingLocation: Weight: 189 lb : : Gender: Female BSA: 1.9 m2 : :: 1940 Age: 80 yrs BP: 152/99 mmHg: :Reason For Study: MITRAL INSUFFICIENCY : :Ordering Physician: URBANO, : :CRISTELA Performed By: Shadia Villalta : :Referring: CRISTELA CLEMENT : + + Interpretation Summary The left ventricle is normal in size. The ejection fraction is estimated to be 60-65%. There has been no significant change in LV EF since the previous exam. Diastolic parameters suggest a pseudonormalization pattern, consistent with probable elevated filling pressures. This is unchanged compared to the previous study. The right ventricle is normal in size and function. There is a pacemaker lead in the right ventricle. There is mild mitral regurgitation. Compared to the prior echo study, there has been a decrease in the severity of mitral regurgitation. There is mild tricuspid regurgitation. Compared to the prior echo exam, there has been no change in TR severity. The right ventricular systolic pressure is estimated to be at least 41 mmHg based on an estimated right atrial pressure of 3 mm Hg. There is mild pulmonary hypertension. Compared to the prior echo exam, there has been an increase in the severity of pulmonary hypertension. Previously 28 mmHg. Procedure: A two-dimensional transthoracic echocardiogram with color flow and Doppler was performed. The study quality was technically adequate. Comparison is made with the echocardiogram of 09/03/2020. The patient was in sinus rhythm with heart rates between 75-90 bpm during the exam. Left Ventricle: The left ventricle is normal in size. There is borderline concentric left ventricular hypertrophy. Proximal septal thickening is noted. There is no echo evidence for significant left ventricular outflow tract obstruction. There is no thrombus. The ejection fraction is estimated to be 60-65%. There has been no significant change since the previous exam. There are no focal wall motion abnormalities. Diastolic parameters suggest a pseudonormalization pattern, consistent with probable elevated filling pressures. This is unchanged compared to the previous study. Right Ventricle: The right ventricle is normal in size and function. There is a pacemaker lead in the right ventricle. Atria: The left atrium is moderately dilated. There has been no significant change since the previous study. Right atrial size is normal. There is no Doppler evidence for an interatrial shunt. Mitral Valve: The mitral valve leaflets appear mildly thickened, but open well. There is mild to moderate mitral annular calcification. There is mild mitral regurgitation. Compared to the prior echo study, there has been a decrease in the severity of mitral regurgitation. Aortic Valve: The aortic valve is trileaflet. The aortic valve is mildly calcified. There is no aortic valve stenosis. No aortic regurgitation is present. Tricuspid Valve: The tricuspid valve is normal. There is mild tricuspid regurgitation. The right ventricular systolic pressure is estimated to be at least 41 mmHg based on an estimated right atrial pressure of 3 mm Hg. Compared to the prior echo exam, there has been no change in TR severity. Compared to the prior echo exam, there has been an increase in the severity of pulmonary hypertension. There is mild pulmonary hypertension. Pulmonic Valve: The pulmonic valve leaflets are thin and pliable; valve motion is normal. There is no pulmonic valvular regurgitation. Great Vessels: The aortic root is normal size. The dimensions of the ascending aorta are normal. The IVC is of normal diameter and collapses greater than 50% with a sniff. This suggests a low right atrial pressure of 3 mm Hg. Pericardium/ Pleura There is no pericardial effusion. There is an anterior echo-free space consistent with a fat pad. There is no pleural effusion. MMode/2D Measurements & Calculations LVIDd: 4.3 cm LVOT diam: 1.8 cm LVIDs: 2.9 cm Ao root diam: 2.5 cm FS: 31.6 % asc Aorta Diam: 3.0 cm EPSS: 0.96 cm IVSd: 1.1 cm LVPWd: 1.4 cm LV diaz. diameter/BSA (cm/m^2): 2.3 LV sys. diameter/BSA (cm/m^2): 1.6 LA A2 area: 21.0 cm2 RA long axis: 5.0 cm LA A4 area: 22.7 cm2 RA area: 15.7 cm2 LA length (vol): 6.0 cm RA vol: 42.2 ml LA vol: 67.3 ml RA : 22.6 ml/m2 LA vol index: 36.1 ml/m2 IVC diam: 1.9 cm RVD1 (basal): 3.6 cm TAPSE: 1.8 cm Doppler Measurements & Calculations Ao V2 max: 170.3 cm/sec LVOT Max Joselito: 101.0 cm/sec Ao V2 mean: 122.2 cm/sec LV V1 max P.1 mmHg Ao max P.6 mmHg LV V1 VTI: 23.2 cm Ao mean P.8 mmHg CRISTIAN(I,D): 1.6 cm2 Ao V2 VTI: 38.6 cm CRISTIAN(V,D): 1.6 cm2 sev ratio: 0.60 CRISTIAN indexed to BSA (cm^2/m^2): 0.85 MV E max joselito: 99.4 cm/sec TR max joselito: 309.0 cm/sec MV A max joselito: 79.2 cm/sec TR max P.2 mmHg MV E/A: 1.3 PA V2 max: 104.5 cm/sec Med Peak E' Joselito: 6.7 cm/sec PA V2 mean: 79.3 cm/sec E/E' med: 14.8 PA mean P.7 mmHg Lat Peak E' Joselito: 7.8 cm/sec PA pr(Accel): 46.5 mmHg E/E' lat: 12.7 E/e' average: 13.7 MV dec time: 0.24 sec SV(LVOT): 60.9 ml Reading Physician:12:36 PM
== END ==
PROVIDERS: Family Provider Registered Nurse; PCP Pediatrics; Referring Provider Internal Medicine Cardiovascular Disease; Visit Provider Internal Medicine Cardiovascular Disease
DX: I08.1 Rheumatic disorders of both mitral and tricuspid valves (principal); I48.0 Paroxysmal atrial fibrillation; Z95.0 Presence of cardiac pacemaker
CPT/HCPCS: 93306

== ENCOUNTER → 2022-01-01 11:01 | Outpatient (CLI) | payer MEDICARE, SELFPAY ==
[2021-04-04 15:02] VITALS: BMI 34.0
--- NOTE | 2022-01-01 | DI.MG.S_ITS ---
BILATERAL DIGITAL SCREENING MAMMOGRAM 3D/2D WITH CAD: 01/01/2022 CLINICAL: Routine screening. Comparison is made to exams dated: 03/17/2020 mammogram, 12/09/2018 mammogram - [facility], and 06/21/2015 mammogram - [facility]. There are scattered areas of fibroglandular density in both breasts (category b / 25%-50% glandular tissue). Current study was also evaluated with a Computer Aided Detection (CAD) system. There are benign post operative findings in the left breast. No significant masses, calcifications, or other findings are seen in either breast. There has been no significant interval change. IMPRESSION: BENIGN There is no mammographic evidence of malignancy. A 1 year screening mammogram is recommended. Based on the Tyrer Cuzick model (a risk assessment model) the patient's lifetime risk is 0.4% and her 10 year risk is 0.0%. According to the ACR, ACS, and NCCN guidelines, an annual breast MRI exam along with mammogram is recommended if the patient's lifetime risk is 20% or greater. This exam was interpreted at Station ID: [id number]. NOTE: For mammograms, a report in lay terms will be sent to the patient. Approximately 15% of breast malignancies will not be visualized mammographically. In the management of a palpable breast mass, a negative mammogram must not discourage biopsy of a clinically suspicious lesion. Electronically Signed By: Hortencia mckinley/kirsten:01/01/2022 11:23:58 letter sent: Normal Exam ACR BI-RADS Category 2: Benign Finding(s) 3342F
== END ==
PROVIDERS: PCP Family Medicine; Referring Provider Family Medicine; Visit Provider Family Medicine
DX: Z12.31 Encounter for screening mammogram for malignant neoplasm of breast (principal)
CPT/HCPCS: 77063; 77067

== ENCOUNTER 2022-02-04 12:19 | Emergency (ER) | payer MEDICARE, SELFPAY ==
[2021-04-04 15:02] VITALS: BMI 34.0
[2022-02-04] VITALS (29 sets, daily range): BP systolic 69–201; BP diastolic 32–115; PULSE 57–124; RESP 7–37; TEMP 36.4; O2SAT 93–98; BMI 33.8
--- NOTE | 2022-02-04 12:39 | DI.RAD.S_ITS ---
PROCEDURE: XR CHEST 1V INDICATIONS: chest pain TECHNIQUE: One view of the chest was acquired. COMPARISON: [facility], CR, XR CHEST 1V, 04/27/2021, 12:55. FINDINGS: Surgical changes and devices: Pacemaker Lungs and pleura: Lungs are clear. No pleural effusions or pneumothorax. Mediastinum: Mediastinal contours appear normal. Cardiomegaly Bones and chest wall: No suspicious bony lesions. Overlying soft tissues appear unremarkable. IMPRESSION: No evidence acute pulmonary process. Dictated by: Hong Morales M.D. on 02/04/2022 at 13:05 Approved by: Hong Morales M.D. on 02/04/2022 at 13:10
[2022-02-04 13:44] LABS: Add Manual Diff / Slide Review NO; Basophils Absolute Auto 100 /uL (0-100); Basophils Percent Auto 0.8 % (0-2); Eosinophils Absolute Auto 0 /uL (0-450); Eosinophils Percent Auto 0.1 % (2-4); Hemoglobin 15.6 g/dL (12.0-16.0); Lymphocytes Absolute Auto 1200 /uL (1100-4500); Lymphocytes Percent Auto 10.6 % (25-40); Mean Corpuscular HGB Conc 32.5 % (30-36); Mean Corpuscular Hemoglobin 26.4 PG (26-34); Mean Corpuscular Volume 81.2 fL (80-100); Monocytes Absolute Auto 600 /uL (0-900); Monocytes Percent Auto 5.5 % (3-14); Neutrophils Absolute Auto 9000 /uL (1500-7000); Platelet Count 366 X10^3/uL (150-400); Red Cell Distribution Width 14.3 % (11.6-14.8); White Blood Cell Count 10.8 X10^3/uL (4.5-11.0)
[2022-02-04 13:58] LABS: INR 1.6 (0.9-1.3); Prothrombin Time 18.5 SECONDS (10.1-12.7)
[2022-02-04 14:00] LABS: PTT Partial Thromboplastin Tim 36 SECONDS (26-36)
[2022-02-04 14:02] LABS: Alanine Aminotransferase 25 IU/L (<35); Albumin 4.4 g/dL (3.5-5.0); Albumin Globulin Ratio 1.1 (1.0-2.8); Alkaline Phosphatase 70 U/L (38-126); Aspartate Aminotransferase 31 IU/L (14-36); BUN Creatinine Ratio 17.2 (6-22); Blood Urea Nitrogen 11 mg/dL (7-17); Calcium 9.4 mg/dL (8.4-10.2); Carbon Dioxide 28 mmol/L (22-32); Chloride 98 mmol/L (98-107); Creatine Kinase 45 U/L (30-135); Estimated Glomerular Filt Rate > 60 mL/min (>60); Globulin 3.9 g/dL (1.7-4.1); Glucose 117 mg/dL (80-110); HEMOLYSIS < 15 (0-50); Lipase 41 U/L (23-300); Magnesium 1.8 mg/dL (1.6-2.3); Potassium 3.9 mmol/L (3.4-5.1); Sodium 134 mmol/L (137-145); Total Protein 8.3 g/dL (6.3-8.2)
[2022-02-04 14:13] LABS: Troponin I < 0.012 ng/mL (0.01-0.034)
[2022-02-04 14:55] LABS: COVID19 -Nasal RAPID Negative (Negative)
--- NOTE | 2022-02-04 15:50 | ED_ITS ---
HPI - Chest Pain General Chief Complaint: Chest Pain Stated Complaint: atrial fib Time Seen by Provider: 02/04/22 13:22 Source: patient Mode of arrival: Family Vehicle Limitations: no limitations History of Present Illness HPI narrative: Patient is a 81-year-old female history of atrial fibrillation on Xarelto, tachy Jose G syndrome, pacemaker in 2016 has had 2 ablations for atrial fibrillation previously. Daughter reports that she has had increasing shortness of breath with exertion which is a sign of her AFib. She was actually seen by Cardiology yesterday who noted that she was in atrial fibrillation. Her rate is controlled. She denies any orthopnea chest pain palpitations or fluttering in her chest. She is not had any fever chills nausea vomiting. She denies any lower extremity edema. Related Data Home Medications Medication Instructions Recorded Confirmed rivaroxaban 20 mg tablet (Xarelto) 20 mg PO DAILY 10/22/18 12/02/21 multivitamin with minerals-folic 1 tab PO DAILY 04/01/21 12/02/21 acid 200 mcg chewable tablet (Multivitamin Gummies) aspirin 81 mg capsule 81 mg PO DAILY ##0 04/03/21 12/02/21 Previous Rx's Medication Instructions Recorded acetaminophen 500 mg capsule 500 mg PO Q4H PRN fever or pain 04/05/21 #90 caps escitalopram oxalate 10 mg tablet 10 mg PO DAILY #90 tabs 12/02/21 felodipine 5 mg tablet,extended 5 mg PO DAILY #90 tabs 12/02/21 release 24 hr levalbuterol tartrate 45 2 inh inhalation Q6H PRN shortness 12/02/21 mcg/actuation aerosol inhaler of breath or wheezing #15 grams levothyroxine 50 mcg tablet 50 mcg PO DAILY #90 tabs 12/02/21 losartan 100 mg tablet 100 mg PO DAILY #90 tabs 12/02/21 metoprolol succinate 50 mg 50 mg PO DAILY #135 tabs 12/02/21 tablet,extended release 24 hr pravastatin 20 mg tablet 20 mg PO DAILY #90 tabs 12/02/21 diclofenac sodium 1 % topical gel 2 g topical BID #100 grams 01/20/22 (Voltaren Arthritis Pain) zolpidem 5 mg tablet 2.5 mg PO BEDTIME PRN Sleep #45 01/20/22 tabs Allergies Allergy/AdvReac Type Severity Reaction Status Date / Time hydromorphone Allergy Intermediate RASH/GI Verified 12/02/21 10:37 UPSET rosuvastatin [From Crestor] Allergy Unknown Intolerant Verified 12/02/21 10:37 diltiazem [DILTIAZEM] AdvReac Intermediate BRADYCARDIA Verified 12/02/21 10:37 hydrocodone AdvReac Mild GI UPSET Verified 12/02/21 10:37 atorvastatin AdvReac Unknown Significant Verified 12/02/21 10:37 weakness, myalgias Review of Systems Review of Systems Narrative: GENERAL: Denies chills, fatigue, malaise, fever, sweats, travel HEENT: Denies sinus pain, ear pain, sore throat, difficulty swallowing, neck pain RESPIRATORY: Denies dyspnea, cough, wheezing, hemoptysis, sputum. CARDIOVASCULAR: See HPI GASTROINTESTINAL: Denies nausea, vomiting, abdominal pain, diarrhea, constipation, melena. : Denies dysuria, frequency, incontinence, hematuria, urinary retention, flank pain. MUSCULOSKELETAL: Denies weakness, joint pain, or bony pain SKIN: No rash, no erythema, no pruritus NEUROLOGIC: Denies weakness, dizziness, headache, numbness, change in speech, confusion PSYCHIATRIC: No concerning psychosocial issues. 12 point review of systems is negative except for those stated above and HPI Patient History Medical History Allergies Anticoagulated Anxiety (~2013) Atrial fibrillation (~2014) Bilateral chronic otitis media Bruises easily Carpal tunnel syndrome Cervical somatic dysfunction Cervical spondylosis Chronic neck pain Cranial somatic dysfunction Depression (~2015) Essential hypertension Fatigue Fibroid (~1965) First degree AV block Gastroenteritis Hearing loss History of cardioversion (~07/31/20) History of syncope HTN (hypertension) Hypothyroid Lumbar region somatic dysfunction Osteoarthritis of left knee Pacemaker (~11/2015) PAD (peripheral artery disease) Segmental and somatic dysfunction of abdomen and other regions Segmental and somatic dysfunction of pelvic region Segmental and somatic dysfunction of sacral region Segmental and somatic dysfunction of thoracic region Shoulder pain (~2018) Tachy-jose g syndrome Upper extremity somatic dysfunction Vitamin D deficiency Surgical History Anesthesia Cataracts, bilateral H/O cardiac radiofrequency ablation (~07/02/16) History of appendectomy History of carpal tunnel release History of cholecystectomy History of hysterectomy (~1978) Hx of breast reduction, elective (~2006) Pacemaker (~11/06/15) Family History Father Hypertension Mother Lung cancer Social History household members: none Smoking Status: Never smoker alcohol intake: never substance use type: does not use Smoking Status: Never smoker alcohol intake frequency: a few times a month Substance Use Type: does not use Exam Initial Vital Signs Initial Vital Signs: Vital Signs Temperature 97.5 F L 02/04/22 12:41 Pulse Rate 124 H 02/04/22 12:41 Respiratory Rate 18 02/04/22 12:41 Blood Pressure 164/103 H 02/04/22 12:41 Pulse Oximetry 96 02/04/22 12:41 Oxygen Delivery Method 02/04/22 12:41 GENERAL: Alert pleasant mildly hard of hearing 81-year-old female HEENT: Head atraumatic,EOMI, pupils reactive, face symmetric, moist mucous membranes CARDIOVASCULAR: Irregularly irregular no murmur RESPIRATORY: Breath sounds equal bilaterally, no wheezes rales or rhonchi. ABDOMEN: Soft, nontender. Normoactive bowel sounds all 4 quadrants. No guarding or rebound. EXTREMITIES: Normal range of motion, no clubbing or edema. Neurovascularly intact NEUROLOGICAL: Alert and oriented x4.Normal gait and speech. SKIN: Warm, dry, no laceration, no petechiae, no rashes or lesions. Procedures Cardioversion Consent Signed: Yes Stability: Stable Number of attempts (shocks): 1 Joules used: 120 Cardiac rhythm post-cardioversion: nsr Procedural Sedation Time out performed: Yes Indication: cardioversion IV Propofol dose (mg): 100 ED Sedation Level: Moderate (Concious) Complications: hypotension Interventions: Airway repositioned and Assist by BVM Additional Comments: Patient became very hypotensive IV fluids were started she got 1 mL of push dose epinephrine. She did require some jaw thrust and BVM as well. This lasted for a few minutes. And she quickly recovered. Course Orders Ordered: Discontinued Medications Aspirin (Aspirin 81 Mg Chew Tab) 324 mg PO NOW ONE Stop: 02/04/22 12:40 Last Admin: 02/04/22 17:46 Dose: Not Given Documented By: KLS Epinephrine HCl (Epinephrine 1 Mg/10 Ml Syringe) 0.01 mg IV NOW ONE Stop: 02/04/22 17:34 Last Admin: 02/04/22 16:55 Dose: 0.01 mg Documented By: MARTIN Propofol (Propofol 200 Mg/20 Ml Vial) 170 mg 2 mg/kg (170 mg) IV NOW ONE Stop: 02/04/22 16:14 Last Admin: 02/04/22 16:45 Dose: 100 mg Documented By: MARTIN Vital Signs Vital signs: Vital Signs - 8 hr 02/04/22 12:41 02/04/22 12:57 02/04/22 12:58 Temperature 97.5 F L Pulse Rate 124 H 122 H 105 H Respiratory Rate 18 16 21 Blood Pressure 164/103 H Pulse Oximetry 96 97 Oxygen Delivery Method Room Air Room Air 02/04/22 12:58 02/04/22 13:00 02/04/22 13:00 Temperature Pulse Rate 123 H Respiratory Rate 19 Blood Pressure 137/80 201/94 H Pulse Oximetry Oxygen Delivery Method 02/04/22 13:30 02/04/22 13:37 02/04/22 13:37 Temperature Pulse Rate 108 H 108 H Respiratory Rate 20 24 Blood Pressure 193/92 H Pulse Oximetry 96 95 Oxygen Delivery Method Room Air 02/04/22 14:00 02/04/22 14:01 02/04/22 14:01 Temperature Pulse Rate 106 H 94 H Respiratory Rate 19 19 Blood Pressure 171/93 H Pulse Oximetry 95 95 Oxygen Delivery Method 02/04/22 14:30 02/04/22 14:30 02/04/22 17:08 Temperature Pulse Rate 98 H 59 L Respiratory Rate 22 18 Blood Pressure 182/115 H Pulse Oximetry 93 Oxygen Delivery Method Room Air 02/04/22 15:08 02/04/22 15:09 02/04/22 15:09 Temperature Pulse Rate 100 H 103 H Respiratory Rate 22 7 L Blood Pressure 165/97 H Pulse Oximetry 96 Oxygen Delivery Method 02/04/22 15:30 02/04/22 15:30 02/04/22 16:00 Temperature Pulse Rate 96 H 101 H Respiratory Rate 22 26 H Blood Pressure 145/70 H Pulse Oximetry 96 97 Oxygen Delivery Method 02/04/22 16:01 02/04/22 16:01 02/04/22 16:31 Temperature Pulse Rate 104 H 103 H Respiratory Rate 24 27 H Blood Pressure 162/111 H Pulse Oximetry 96 98 Oxygen Delivery Method 02/04/22 16:52 02/04/22 16:52 02/04/22 16:53 Temperature Pulse Rate 60 60 Respiratory Rate 31 H 37 H Blood Pressure 84/32 L Pulse Oximetry 95 94 Oxygen Delivery Method 02/04/22 16:53 02/04/22 16:56 02/04/22 16:56 Temperature Pulse Rate 71 Respiratory Rate 31 H Blood Pressure 69/48 L 121/57 L Pulse Oximetry 95 Oxygen Delivery Method 02/04/22 17:00 02/04/22 17:05 02/04/22 17:05 Temperature Pulse Rate 66 59 L Respiratory Rate 25 H Blood Pressure 89/47 L Pulse Oximetry 96 98 Oxygen Delivery Method 02/04/22 17:06 02/04/22 17:06 02/04/22 17:08 Temperature Pulse Rate 59 L 59 L Respiratory Rate 22 22 Blood Pressure 89/54 L Pulse Oximetry 96 97 Oxygen Delivery Method 02/04/22 17:08 02/04/22 17:10 02/04/22 17:10 Temperature Pulse Rate 60 Respiratory Rate 26 H Blood Pressure 100/53 L 101/55 L Pulse Oximetry 97 Oxygen Delivery Method 02/04/22 17:15 02/04/22 17:15 02/04/22 17:21 Temperature Pulse Rate 58 L 59 L Respiratory Rate 23 21 Blood Pressure 106/52 L Pulse Oximetry 97 96 Oxygen Delivery Method 02/04/22 17:21 02/04/22 17:26 02/04/22 17:26 Temperature Pulse Rate 58 L Respiratory Rate 27 H Blood Pressure 110/59 L 117/58 L Pulse Oximetry 96 Oxygen Delivery Method 02/04/22 17:30 02/04/22 17:30 02/04/22 17:41 Temperature Pulse Rate 59 L 57 L Respiratory Rate 25 H 25 H Blood Pressure 102/51 L Pulse Oximetry 96 96 Oxygen Delivery Method 02/04/22 17:41 02/04/22 17:45 02/04/22 17:45 Temperature Pulse Rate 58 L Respiratory Rate 25 H Blood Pressure 131/56 L 109/56 L Pulse Oximetry 97 Oxygen Delivery Method MDM - Chest Pain Lab Data Result diagrams: 02/04/22 13:35 02/04/22 13:35 Labs: Lab Results 02/04/22 02/04/22 02/04/22 Range/Units 13:35 13:35 13:35 WBC 10.8 (4.5-11.0) X10^3/uL RBC 5.90 H (4.0-5.2) X10^6/uL Hgb 15.6 (12.0-16.0) g/dL Hct 48.0 H (36-46) % MCV 81.2 (80-100) fL MCH 26.4 (26-34) PG MCHC 32.5 (30-36) % RDW 14.3 (11.6-14.8) % Plt Count 366 (150-400) X10^3/uL Neut % (Auto) 83.0 H (50-75) % Lymph % (Auto) 10.6 L (25-40) % [place] % (Auto) 5.5 (3-14) % Eos % (Auto) 0.1 L (2-4) % Baso % (Auto) 0.8 (0-2) % Neut # (Auto) 9000 H (4637-6262) /uL Lymph # (Auto) 1200 (2381-0592) /uL [place] # (Auto) 600 (0-900) /uL Eos # (Auto) 0 (0-450) /uL Baso # (Auto) 100 (0-100) /uL PT 18.5 H (10.1-12.7) SECONDS INR 1.6 H (0.9-1.3) APTT 36 (26-36) SECONDS Sodium 134 L (137-145) mmol/L Potassium 3.9 (3.4-5.1) mmol/L Chloride 98 (98-107) mmol/L Carbon Dioxide 28 (22-32) mmol/L BUN 11 (7-17) mg/dL Creatinine 0.64 (0.52-1.04) mg/dL Estimated GFR > 60 (>60) mL/min BUN/Creatinine Ratio 17.2 (6-22) Glucose 117 H (80-110) mg/dL Calcium 9.4 (8.4-10.2) mg/dL Magnesium 1.8 (1.6-2.3) mg/dL Total Bilirubin 1.0 (0.2-1.3) mg/dL AST 31 (14-36) IU/L ALT 25 (<35) IU/L Alkaline Phosphatase 70 (38-126) U/L Total Creatine Kinase 45 (30-135) U/L CK-MB (CK-2) TNP CK-MB (CK-2) Rel Index TNP Troponin I < 0.012 (0.01-0.034) ng/mL Total Protein 8.3 H (6.3-8.2) g/dL Albumin 4.4 (3.5-5.0) g/dL Globulin 3.9 (1.7-4.1) g/dL Albumin/Globulin Ratio 1.1 (1.0-2.8) Lipase 41 (23-300) U/L SARS-CoV-2 (PCR) (Negative) 02/04/22 Range/Units 14:20 WBC (4.5-11.0) X10^3/uL RBC (4.0-5.2) X10^6/uL Hgb (12.0-16.0) g/dL Hct (36-46) % MCV (80-100) fL MCH (26-34) PG MCHC (30-36) % RDW (11.6-14.8) % Plt Count (150-400) X10^3/uL Neut % (Auto) (50-75) % Lymph % (Auto) (25-40) % [place] % (Auto) (3-14) % Eos % (Auto) (2-4) % Baso % (Auto) (0-2) % Neut # (Auto) (8507-9818) /uL Lymph # (Auto) (9238-9707) /uL [place] # (Auto) (0-900) /uL Eos # (Auto) (0-450) /uL Baso # (Auto) (0-100) /uL PT (10.1-12.7) SECONDS INR (0.9-1.3) APTT (26-36) SECONDS Sodium (137-145) mmol/L Potassium (3.4-5.1) mmol/L Chloride (98-107) mmol/L Carbon Dioxide (22-32) mmol/L BUN (7-17) mg/dL Creatinine (0.52-1.04) mg/dL Estimated GFR (>60) mL/min BUN/Creatinine Ratio (6-22) Glucose (80-110) mg/dL Calcium (8.4-10.2) mg/dL Magnesium (1.6-2.3) mg/dL Total Bilirubin (0.2-1.3) mg/dL AST (14-36) IU/L ALT (<35) IU/L Alkaline Phosphatase (38-126) U/L Total Creatine Kinase (30-135) U/L CK-MB (CK-2) CK-MB (CK-2) Rel Index Troponin I (0.01-0.034) ng/mL Total Protein (6.3-8.2) g/dL Albumin (3.5-5.0) g/dL Globulin (1.7-4.1) g/dL Albumin/Globulin Ratio (1.0-2.8) Lipase (23-300) U/L SARS-CoV-2 (PCR) Negative (Negative) Imaging Data Chest x-ray: Radiologist's Impression: Signed Patient: Jory Reese MR#: [id number] : 1940 Acct:[id number] Age/Sex: 81 / F Date of Service: 02/04/22 Loc: ED Accession Number: [id number] ?? Procedure: XR chest 1V Ordering Provider: Elizabeth Shanks D.O. PROCEDURE:? XR CHEST 1V ? INDICATIONS:? chest pain ? TECHNIQUE:? One view of the chest was acquired.? ? COMPARISON:? [facility], , XR CHEST 1V, 04/27/2021, 12:55. ? FINDINGS:? ? Surgical changes and devices:? Pacemaker ? Lungs and pleura:? Lungs are clear.? No pleural effusions or pneumothorax.? ? Mediastinum:? Mediastinal contours appear normal.? Cardiomegaly ? Bones and chest wall:? No suspicious bony lesions.? Overlying soft tissues appear unremarkable.? ? IMPRESSION:? No evidence acute pulmonary process. ? ? ? Dictated by: Hong Morales M.D. on 02/04/2022 at 13:05 ? ? ECG Data Interpretation: Atrial fibrillation rate [address] changes previous EKG does show atrial paced sinus rhythm however the 1 before that does show AFib with RVR Normal sinus rhythm rate 67 IN interval 184 QRS [address] changes MDM Narrative Medical decision making narrative: Patient does appear to be symptomatic with her atrial fibrillation. She does have significant rapid rate but is short of breath when she walks. She is been cardioverted multiple times she is currently on Xarelto. There is no contra indication to cardioversion. Patient was cardioverted she did develop some hypotension during the procedure which required 1 mL of push dose epinephrine. She also required some oxygen but quickly recovered. She stayed in normal sinus rhythm and is feeling better. Blood work is overall reassuring. At this time there is no need for any further workup or intervention. Differential diagnosis acute coronary syndrome, AFib, AFib with RVR, congestive heart failure, upper respiratory infection Discharge Plan Departure Patient Disposition: Home Clinical Impression: Atrial fibrillation Instructions: Atrial Fibrillation Activity Restrictions/Additional Instructions: *You have been diagnosed with atrial fibrillation *What to do: At this time please follow-up with your vice president digital strategist. I hope that you start to feel better. *Continue to take medications as directed *Follow up with your primary care provider in 2-3 days or call [phone] *Return to ER if you should have increasing shortness of breath, chest pain palpitations dizziness lightheadedness or passing or any new, worsening or concerning symptoms Prescriptions: No Action zolpidem 5 mg tablet 2.5 mg PO BEDTIME PRN (Reason: Sleep) Qty: 45 0RF Rx Instructions: Caution regarding possible dizziness or falls on med. Limit use as possible. diclofenac sodium [Voltaren Arthritis Pain] 1 % gel 2 g topical BID Qty: 100 0RF Rx Instructions: apply to both hips as needed for pain Xarelto 20 mg tablet 20 mg PO DAILY escitalopram oxalate 10 mg tablet 10 mg PO DAILY Qty: 90 3RF felodipine 5 mg tablet extended release 24 hr 5 mg PO DAILY Qty: 90 3RF levalbuterol tartrate 45 mcg/actuation HFA aerosol inhaler 2 inh INHALATION Q6H PRN (Reason: shortness of breath or wheezing) Qty: 15 5RF levothyroxine 50 mcg tablet 50 mcg PO DAILY Qty: 90 3RF losartan 100 mg tablet 100 mg PO DAILY Qty: 90 3RF metoprolol succinate 50 mg tablet extended release 24 hr 50 mg PO DAILY Qty: 135 3RF Rx Instructions: 25MG QAM 50MG QPM pravastatin 20 mg tablet 20 mg PO DAILY Qty: 90 3RF Hold Instructions: muscle aches and pain Multivitamin Gummies 200 mcg Tablet,Chewable 1 tab PO DAILY aspirin 81 mg Capsule 81 mg PO DAILY Qty: 0 acetaminophen 500 mg capsule 500 mg PO Q4H MDD Max 3000 mg per day PRN (Reason: fever or pain) Qty: 90 0RF Referrals: Sarah Montana DO [Primary Care Provider] - Visit Report Forms: Patient Portal/API
[2022-02-04] MEDS: propofoL 200 MG/20 ML VIAL 170 MG IV (16:45)
[2022-02-04] MEDS: EPINEPHrine 1 MG/10 ML SYRINGE IV (16:55)
== END 2022-02-04 18:40 | disposition home or self-care (01) ==
PROVIDERS: Emergency Provider Emergency Medicine; PCP Family Medicine
DX: I48.91 Unspecified atrial fibrillation (principal); I95.9 Hypotension, unspecified; Z20.822 Contact with and (suspected) exposure to COVID-19
CPT/HCPCS: 36415; 71045; 80053; 82550; 83690; 83735; 84484; 85025; 85610; 85730; 87635; 92960; 93005; 99152; 99153; 99284; 99285; C9803; J0171; J2704

== ENCOUNTER 2022-03-25 08:13 | Emergency (ER) | payer MEDICARE, SELFPAY ==
[2021-04-04 15:02] VITALS: BMI 34.0
[2022-03-25] VITALS (13 sets, daily range): BP systolic 169–239; BP diastolic 69–103; PULSE 46–75; RESP 19–25; TEMP 36.7; O2SAT 95–98; BMI 34.9
--- NOTE | 2022-03-25 08:18 | ED_ITS ---
HPI - General Adult General Chief complaint: Arrhythmia/Palpitations Stated complaint: heart problems has AFIB Time Seen by Provider: 03/25/22 08:17 History of Present Illness HPI narrative: 81-year-old female presenting with diaphoresis we have concern for recurrent episode of atrial fibrillation. Patient has known history of atrial fibrillation on anticoagulation with rivaroxaban. Patient reports watching news and drinking coffee this morning when she noted onset of diaphoresis, no significant chest pain or shortness of breath at that time, however, patient has had these type of symptoms with prior episodes of atrial fibrillation. Patient does not always know when she is in atrial fibrillation. No recent medication changes. Patient reports feeling significantly improved since presenting to the emergency department. Related Data Home Medications Medication Instructions Recorded Confirmed multivitamin with minerals-folic 1 tab PO DAILY 04/01/21 03/25/22 acid 200 mcg chewable tablet (Multivitamin Gummies) aspirin 81 mg capsule 81 mg PO BEDTIME ##0 04/03/21 03/25/22 escitalopram oxalate 10 mg tablet 10 mg PO BEDTIME 03/25/22 03/25/22 metoprolol succinate 50 mg 50 mg PO BID 03/25/22 03/25/22 tablet,extended release 24 hr pravastatin 20 mg tablet 20 mg PO BEDTIME 03/25/22 03/25/22 Previous Rx's Medication Instructions Recorded acetaminophen 500 mg capsule 500 mg PO Q4H PRN fever or pain 04/05/21 #90 caps levalbuterol tartrate 45 2 inh inhalation Q6H PRN shortness 12/02/21 mcg/actuation aerosol inhaler of breath or wheezing #15 grams levothyroxine 50 mcg tablet 50 mcg PO DAILY #90 tabs 12/02/21 losartan 100 mg tablet 100 mg PO DAILY #90 tabs 12/02/21 zolpidem 5 mg tablet 2.5 mg PO BEDTIME PRN Sleep #45 01/20/22 tabs Allergies Allergy/AdvReac Type Severity Reaction Status Date / Time hydromorphone Allergy Intermediate RASH/GI Verified 03/25/22 08:53 UPSET rosuvastatin [From Crestor] Allergy Unknown Intolerant Verified 03/25/22 08:53 diltiazem [DILTIAZEM] AdvReac Intermediate BRADYCARDIA Verified 03/25/22 08:53 hydrocodone AdvReac Mild GI UPSET Verified 03/25/22 08:53 atorvastatin AdvReac Unknown Significant Verified 03/25/22 08:53 weakness, myalgias Patient History Medical History Allergies Anticoagulated Anxiety (~2013) Atrial fibrillation (~2014) Bilateral chronic otitis media Bruises easily Carpal tunnel syndrome Cervical somatic dysfunction Cervical spondylosis Chronic neck pain Cranial somatic dysfunction Depression (~2015) Essential hypertension Fatigue Fibroid (~1965) First degree AV block Gastroenteritis Hearing loss History of cardioversion (~07/31/20) History of syncope HTN (hypertension) Hypothyroid Lumbar region somatic dysfunction Osteoarthritis of left knee Pacemaker (~11/2015) PAD (peripheral artery disease) Segmental and somatic dysfunction of abdomen and other regions Segmental and somatic dysfunction of pelvic region Segmental and somatic dysfunction of sacral region Segmental and somatic dysfunction of thoracic region Shoulder pain (~2018) Tachy-kimmy syndrome Upper extremity somatic dysfunction Vitamin D deficiency Surgical History Anesthesia Cataracts, bilateral H/O cardiac radiofrequency ablation (~07/02/16) History of appendectomy History of carpal tunnel release History of cholecystectomy History of hysterectomy (~1978) Hx of breast reduction, elective (~2006) Pacemaker (~11/06/15) Family History Father Hypertension Mother Lung cancer Social History household members: none Smoking Status: Never smoker alcohol intake: never substance use type: does not use Smoking Status: Never smoker alcohol intake frequency: a few times a month Substance Use Type: does not use Exam Narrative Exam Narrative: Vitals reviewed. Nursing note reviewed Constitutional: interactive HENT: Moist mucous membranes EYES: No scleral icterus NECK: no masses CV: Well perfused peripherally, no cyanosis present PULM: Unlabored respirations, symmetric chest rise ABD: Non-distended MS: No gross deformities, no asymmetric edema noted SKIN: Warm and dry. PSYCH: Appropriate affect NEURO: Follows simple commands, moves extremities, interactive with exam Initial Vital Signs Initial Vital Signs: Vital Signs Temperature 98.1 F 03/25/22 08:15 Pulse Rate 54 L 03/25/22 08:15 Respiratory Rate 24 03/25/22 08:15 Blood Pressure 239/103 H 03/25/22 08:15 Pulse Oximetry 97 03/25/22 08:15 Oxygen Delivery Method 03/25/22 08:15 Course Orders Ordered: ED Orders 03/25/22 08:19 CXR [XR chest 1V] Stat EKG-12 Lead Stat 03/25/22 08:23 CBC Auto Diff [Complete Blood Count AUTO DIFF] Stat CMP [Comprehensive Metabolic Panel] Stat Troponin I Stat Vital Signs Vital signs: Vital Signs - 8 hr 03/25/22 08:15 03/25/22 08:18 03/25/22 08:22 Temperature 98.1 F Pulse Rate 54 L 75 56 L Respiratory Rate 24 25 H Blood Pressure 239/103 H Pulse Oximetry 97 97 Oxygen Delivery Method Room Air 03/25/22 08:22 03/25/22 08:30 03/25/22 08:31 Temperature Pulse Rate 51 L 51 L Respiratory Rate 20 19 Blood Pressure 239/103 H Pulse Oximetry 96 95 Oxygen Delivery Method 03/25/22 08:31 03/25/22 09:00 03/25/22 09:05 Temperature Pulse Rate 47 L 47 L Respiratory Rate 24 19 Blood Pressure 215/86 H Pulse Oximetry 96 95 Oxygen Delivery Method 03/25/22 09:05 03/25/22 09:30 03/25/22 09:31 Temperature Pulse Rate 46 L 46 L Respiratory Rate 19 19 Blood Pressure 193/77 H Pulse Oximetry 97 95 Oxygen Delivery Method Room Air 03/25/22 09:31 03/25/22 10:00 03/25/22 10:01 Temperature Pulse Rate 48 L Respiratory Rate 20 Blood Pressure 169/69 H 224/85 H Pulse Oximetry 97 Oxygen Delivery Method 03/25/22 10:01 03/25/22 10:30 03/25/22 10:32 Temperature Pulse Rate 48 L 56 L 54 L Respiratory Rate 19 22 21 Blood Pressure Pulse Oximetry 96 96 98 Oxygen Delivery Method 03/25/22 10:32 Temperature Pulse Rate Respiratory Rate Blood Pressure 180/76 H Pulse Oximetry Oxygen Delivery Method Medical Decision Making Lab Data 03/25/22 08:23 03/25/22 08:23 Labs: Lab Results 03/25/22 03/25/22 Range/Units 08:23 08:23 WBC 10.3 (4.5-11.0) X10^3/uL RBC 6.10 H (4.0-5.2) X10^6/uL Hgb 16.1 H (12.0-16.0) g/dL Hct 48.9 H (36-46) % MCV 80.1 (80-100) fL MCH 26.4 (26-34) PG MCHC 33.0 (30-36) % RDW 15.1 H (11.6-14.8) % Plt Count 330 (150-400) X10^3/uL Neut % (Auto) 77.7 H (50-75) % Lymph % (Auto) 11.2 L (25-40) % [place] % (Auto) 8.3 (3-14) % Eos % (Auto) 1.9 L (2-4) % Baso % (Auto) 0.9 (0-2) % Neut # (Auto) 8000 H (3184-5919) /uL Lymph # (Auto) 1200 (9411-5855) /uL [place] # (Auto) 900 (0-900) /uL Eos # (Auto) 200 (0-450) /uL Baso # (Auto) 100 (0-100) /uL Sodium 137 (137-145) mmol/L Potassium 3.7 (3.4-5.1) mmol/L Chloride 97 L (98-107) mmol/L Carbon Dioxide 30 (22-32) mmol/L BUN 12 (7-17) mg/dL Creatinine 0.72 (0.52-1.04) mg/dL Estimated GFR > 60 (>60) mL/min BUN/Creatinine Ratio 16.7 (6-22) Glucose 132 H (80-110) mg/dL Calcium 9.2 (8.4-10.2) mg/dL Total Bilirubin 1.1 (0.2-1.3) mg/dL AST 27 (14-36) IU/L ALT 21 (<35) IU/L Alkaline Phosphatase 62 (38-126) U/L Troponin I < 0.012 (0.01-0.034) ng/mL Total Protein 8.1 (6.3-8.2) g/dL Albumin 4.3 (3.5-5.0) g/dL Globulin 3.8 (1.7-4.1) g/dL Albumin/Globulin Ratio 1.1 (1.0-2.8) MDM Narrative Medical decision making narrative: 81-year-old female presenting with episode of diaphoresis and concern for recur rent episode of atrial fibrillation. On presentation, vital signs notable for hypertension and bradycardia. Physical exam notable for 81-year-old female who is in no acute distress, alert, interactive, well-appearing, reassuring cardiac and pulmonary exam, benign abdomen. Initial concern for ACS, recurrent atrial fibrillation, primary cardiac arrhythmia, medication effect, infectious etiology including focal bacterial infection concerned viral syndrome, electrolyte derangement, metabolic process. EKG obtained on presentation notable for sinus bradycardia at 53, normal axis, no clear ST elevation or depression noted, patient does have baseline artifact that limits interpretation. Broad screening labs obtained. Patient was monitored on cardiac telemetry throughout emergency department stay. Screening labs reassuring as above with normal range troponin, reassuring creatinine and electrolytes, reassuring CBC. Chest x-ray without evidence of acute pathology. On repeat evaluation, patient continues to have reassuring exam. Patient able to ambulate in the department with no difficulties. Discussed likelihood of transient episode of atrial fibrillation with RVR. Given patient with reassuring evaluation plan for discharge and close outpatient follow up. Return precautions were discussed. Patient was comfortable with plan for discharge and close outpatient follow up. Discharge Plan Departure Patient Disposition: Home Clinical Impression: Atrial fibrillation, Palpitations Instructions: DI for Atrial Fibrillation Prescriptions: No Action zolpidem 5 mg tablet 2.5 mg PO BEDTIME PRN (Reason: Sleep) Qty: 45 0RF Rx Instructions: Caution regarding possible dizziness or falls on med. Limit use as possible. levalbuterol tartrate 45 mcg/actuation HFA aerosol inhaler 2 inh INHALATION Q6H PRN (Reason: shortness of breath or wheezing) Qty: 15 5RF levothyroxine 50 mcg tablet 50 mcg PO DAILY Qty: 90 3RF losartan 100 mg tablet 100 mg PO DAILY Qty: 90 3RF Multivitamin Gummies 200 mcg Tablet,Chewable 1 tab PO DAILY aspirin 81 mg Capsule 81 mg PO BEDTIME Qty: 0 acetaminophen 500 mg capsule 500 mg PO Q4H MDD Max 3000 mg per day PRN (Reason: fever or pain) Qty: 90 0RF metoprolol succinate 50 mg tablet extended release 24 hr 50 mg PO BID Rx Instructions: 25MG QAM 50MG QPM pravastatin 20 mg tablet 20 mg PO BEDTIME escitalopram oxalate 10 mg tablet 10 mg PO BEDTIME Referrals: Sarah Montana DO [Primary Care Provider] - Stand Alone Forms: Patient Portal/API
--- NOTE | 2022-03-25 08:19 | DI.RAD.S_ITS ---
PROCEDURE: XR CHEST 1V INDICATIONS: chest pain TECHNIQUE: One view of the chest was acquired. COMPARISON: [facility], CR, XR CHEST 1V, 02/04/2022, 12:46. FINDINGS: Surgical changes and devices: Left chest wall pacer is seen with intact leads. Lungs and pleura: Lungs are clear. No pleural effusions or pneumothorax. Mediastinum: Mediastinal contours appear normal. Heart size is normal. Bones and chest wall: No suspicious bony lesions. Overlying soft tissues appear unremarkable. IMPRESSION: No acute cardiopulmonary abnormality. Dictated by: Caty Encarnacion M.D. on 03/25/2022 at 9:16 Approved by: Caty Encarnacion M.D. on 03/25/2022 at 9:17
[2022-03-25 08:31] LABS: Add Manual Diff / Slide Review NO; Basophils Absolute Auto 100 /uL (0-100); Basophils Percent Auto 0.9 % (0-2); Eosinophils Absolute Auto 200 /uL (0-450); Eosinophils Percent Auto 1.9 % (2-4); Hematocrit 48.9 % (36-46); Hemoglobin 16.1 g/dL (12.0-16.0); Lymphocytes Absolute Auto 1200 /uL (1100-4500); Lymphocytes Percent Auto 11.2 % (25-40); Mean Corpuscular Hemoglobin 26.4 PG (26-34); Mean Corpuscular Volume 80.1 fL (80-100); Monocytes Absolute Auto 900 /uL (0-900); Monocytes Percent Auto 8.3 % (3-14); Neutrophils Absolute Auto 8000 /uL (1500-7000); Neutrophils Percent Auto 77.7 % (50-75); Platelet Count 330 X10^3/uL (150-400); Red Cell Distribution Width 15.1 % (11.6-14.8); White Blood Cell Count 10.3 X10^3/uL (4.5-11.0)
[2022-03-25 08:51] LABS: Alanine Aminotransferase 21 IU/L (<35); Albumin 4.3 g/dL (3.5-5.0); Albumin Globulin Ratio 1.1 (1.0-2.8); Alkaline Phosphatase 62 U/L (38-126); Aspartate Aminotransferase 27 IU/L (14-36); BUN Creatinine Ratio 16.7 (6-22); Bilirubin Total 1.1 mg/dL (0.2-1.3); Blood Urea Nitrogen 12 mg/dL (7-17); Calcium 9.2 mg/dL (8.4-10.2); Carbon Dioxide 30 mmol/L (22-32); Chloride 97 mmol/L (98-107); Estimated Glomerular Filt Rate > 60 mL/min (>60); Globulin 3.8 g/dL (1.7-4.1); Glucose 132 mg/dL (80-110); HEMOLYSIS < 15 (0-50); Potassium 3.7 mmol/L (3.4-5.1); Sodium 137 mmol/L (137-145); Total Protein 8.1 g/dL (6.3-8.2)
[2022-03-25 09:03] LABS: Troponin I < 0.012 ng/mL (0.01-0.034)
== END 2022-03-25 11:01 | disposition home or self-care (01) ==
PROVIDERS: Emergency Provider Emergency Medicine; PCP Family Medicine
DX: I48.91 Unspecified atrial fibrillation (principal); Z79.01 Long term (current) use of anticoagulants; R00.2 Palpitations
CPT/HCPCS: 36415; 71045; 80053; 84484; 85025; 93005; 93010; 99283; 99284

== ENCOUNTER → 2022-04-07 09:27 | Outpatient (CLI) | payer MEDICARE, SELFPAY ==
[2021-04-04 15:02] VITALS: BMI 34.0
[2022-04-07 11:42] LABS: Alanine Aminotransferase 19 IU/L (<35); Albumin 4.1 g/dL (3.5-5.0); Albumin Globulin Ratio 1.1 (1.0-2.8); Alkaline Phosphatase 59 U/L (38-126); Aspartate Aminotransferase 32 IU/L (14-36); BUN Creatinine Ratio 21.3 (6-22); Blood Urea Nitrogen 13 mg/dL (7-17); Carbon Dioxide 30 mmol/L (22-32); Chloride 99 mmol/L (98-107); Cholesterol 132 mg/dL (140-199); Estimated Glomerular Filt Rate > 60 mL/min (>60); Globulin 3.6 g/dL (1.7-4.1); Glucose 102 mg/dL (80-110); HDL Cholesterol 46 mg/dL (40-60); HEMOLYSIS 41 (0-50); LDL Cholesterol Calculated 75 mg/dL (<100); Magnesium 1.8 mg/dL (1.6-2.3); Potassium 4.5 mmol/L (3.4-5.1); Sodium 137 mmol/L (137-145); Total Protein 7.7 g/dL (6.3-8.2); Triglycerides 56 mg/dL (35-150)
[2022-04-07 11:57] LABS: Thyroid Stimulating Hormone 1.08 uIU/mL (0.47-4.68)
== END ==
PROVIDERS: PCP Family Medicine; Referring Provider Internal Medicine Cardiovascular Disease; Visit Provider Internal Medicine Cardiovascular Disease
DX: I10 Essential (primary) hypertension (principal); E78.5 Hyperlipidemia, unspecified
CPT/HCPCS: 36415; 80053; 80061; 83735; 84443

== ENCOUNTER 2022-05-26 15:32 | Emergency (ER) | payer MEDICARE, SELFPAY ==
[2022-05-15 12:18] VITALS: BMI 34.0
[2022-05-26] VITALS (103 sets, daily range): BP systolic 137–240; BP diastolic 65–118; PULSE 64–126; RESP 9–44; TEMP 37.2; O2SAT 89–99; BMI 32.9
--- NOTE | 2022-05-26 15:51 | DI.RAD.S_ITS ---
PROCEDURE: XR CHEST 1V INDICATIONS: chest pain TECHNIQUE: One view of the chest was acquired. COMPARISON: [facility], CR, XR CHEST 1V, 03/25/2022, 8:26. FINDINGS: Surgical changes and devices: Dual-chamber left-sided pacemaker Lungs and pleura: Lungs are clear. No pleural effusions or pneumothorax. Mediastinum: Mediastinal contours appear normal. Heart size is enlarged. Bones and chest wall: No suspicious bony lesions. Overlying soft tissues appear unremarkable. IMPRESSION: Cardiomegaly and pacemaker without vascular congestion Approved by: Guillermo Lemus M.D. on 05/26/2022 at 16:22
--- NOTE | 2022-05-26 16:06 | ED.GENADULT ---
HPI - General Adult <Ahmet Gayle DO - Last Filed: 05/27/22 08:13> General Chief complaint: Hypertension Stated complaint: SOB Hypertension sent from [facility] Time Seen by Provider: 05/26/22 15:59 Source: patient Mode of arrival: Family Vehicle History of Present Illness HPI narrative: 81-year-old female nonsmoker with history of hypertension, AFib on Xarelto, pacemaker presents at the request of the walk-in clinic for evaluation chest pressure, generally feeling unwell and high blood pressure. She states that she has been taking her medications as directed. She states that she went to bed last night feeling relatively well and had a blood pressure 140s over 90s but upon waking this morning felt off, bit unwell with some central chest heaviness. She took her blood pressure and found it to be in the 200s over 110s and went to the walk-in clinic for evaluation at which point she was sent to us for further evaluation. She denies any dizziness, weakness or lightheadedness. She denies any exertional symptoms or obvious provocation, palliation or radiation of her chest discomfort. On arrival nursing noted the blood pressure in her upper extremities to be significantly different, noted in their notes. She denies any upper extremity numbness, tingling or weakness. She has no headache or blurred vision. Related Data Home Medications Medication Instructions Recorded Confirmed multivitamin with minerals-folic 1 tab PO DAILY 04/01/21 05/26/22 acid 200 mcg chewable tablet (Multivitamin Gummies) aspirin 81 mg capsule 81 mg PO BEDTIME ##0 04/03/21 05/26/22 escitalopram oxalate 10 mg tablet 10 mg PO BEDTIME 03/25/22 05/26/22 metoprolol succinate 50 mg 50 mg PO BEDTIME 03/25/22 05/26/22 tablet,extended release 24 hr alirocumab 75 mg/mL subcutaneous 75 mg SUBCUT Q14D 05/26/22 05/26/22 pen injector (Praluent Pen) cyclosporine 0.05 % eye drops in a 1 drp ophthalmic (eye) BEDTIME 05/26/22 05/26/22 dropperette (Restasis) losartan 100 mg tablet 100 mg PO QAM 05/26/22 05/26/22 metoprolol succinate 50 mg 25 mg PO QAM 05/26/22 05/26/22 tablet,extended release 24 hr rivaroxaban 20 mg tablet (Xarelto) 20 mg PO QPM 05/26/22 05/26/22 Previous Rx's Medication Instructions Recorded acetaminophen 500 mg capsule 500 mg PO Q4H PRN fever or pain 04/05/21 #90 caps levothyroxine 50 mcg tablet 50 mcg PO DAILY #90 tabs 12/02/21 zolpidem 5 mg tablet 2.5 mg PO BEDTIME PRN Sleep #45 01/20/22 tabs Allergies Allergy/AdvReac Type Severity Reaction Status Date / Time hydromorphone Allergy Intermediate RASH/GI Verified 05/26/22 16:09 UPSET rosuvastatin [From Crestor] Allergy Unknown Intolerant Verified 05/26/22 16:09 diltiazem [DILTIAZEM] AdvReac Intermediate BRADYCARDIA Verified 05/26/22 16:09 hydrocodone AdvReac Mild GI UPSET Verified 05/26/22 16:09 atorvastatin AdvReac Unknown Significant Verified 05/26/22 16:09 weakness, myalgias Review of Systems <Ahmet Gayle DO - Last Filed: 05/27/22 08:13> Review of Systems Narrative: GENERAL: Denies chills, fatigue, malaise, fever, sweats. HEENT: Denies sinus pain, ear pain, sore throat, difficulty swallowing, dizziness. RESPIRATORY: Denies dyspnea, cough, wheezing, hemoptysis, sputum. CARDIOVASCULAR: Denies chest pain, palpitations, orthopnea, edema, GASTROINTESTINAL: Denies nausea, vomiting, abdominal pain, diarrhea, constipation, melena. : Denies dysuria, frequency, incontinence, hematuria, urinary retention. MUSCULOSKELETAL: denies weakness, joint pain, or bony pain SKIN: Denies rash, skin lesions, or other NEUROLOGIC: Denies weakness, headache, numbness, change in speech, confusion, seizures, incoordination. PSYCHIATRIC: No concerning psychosocial issues. 12 point review of systems is negative except for those stated above Patient History <DO Andrea Light Last Filed: 05/27/22 08:13> Medical History Allergies Anticoagulated Anxiety (~2013) Atrial fibrillation (~2014) Bilateral chronic otitis media Bruises easily Carpal tunnel syndrome Cervical somatic dysfunction Cervical spondylosis Chronic neck pain Cranial somatic dysfunction Depression (~2015) Essential hypertension Fatigue Fibroid (~1965) First degree AV block Gastroenteritis Hearing loss History of cardioversion (~07/31/20) History of syncope HTN (hypertension) Hypothyroid Lumbar region somatic dysfunction Osteoarthritis of left knee Pacemaker (~11/2015) PAD (peripheral artery disease) Segmental and somatic dysfunction of abdomen and other regions Segmental and somatic dysfunction of pelvic region Segmental and somatic dysfunction of sacral region Segmental and somatic dysfunction of thoracic region Shoulder pain (~2018) Tachy-kimmy syndrome Upper extremity somatic dysfunction Vitamin D deficiency Surgical History Anesthesia Cataracts, bilateral H/O cardiac radiofrequency ablation (~07/02/16) History of appendectomy History of carpal tunnel release History of cholecystectomy History of hysterectomy (~1978) Hx of breast reduction, elective (~2006) Pacemaker (~11/06/15) Family History Father Hypertension Mother Lung cancer Social History household members: none Smoking Status: Never smoker alcohol intake: never substance use type: does not use Smoking Status: Never smoker alcohol intake frequency: a few times a month Substance Use Type: does not use Exam <Ahmet Gayle DO - Last Filed: 05/27/22 08:13> Narrative Exam Narrative: GENERAL: [81] year old patient appears stated age. Well-developed patient, in mild distress. HEAD: Atraumatic. Normocephalic. EYES: Pupils equal round and reactive. Extraocular motions intact. No scleral icterus. No injection or drainage. ENT: Nose without bleeding, purulent drainage. Throat without erythema, tonsillar hypertrophy or exudate. Airway patent. NECK: Trachea midline. Non tender CARDIOVASCULAR: Tachycardic and irregular rhythm without murmurs, gallops, or rubs. RESPIRATORY: Clear to auscultation. Breath sounds equal bilaterally. No wheezes, rales, or rhonchi. GASTROINTESTINAL: Abdomen soft, non-tender, nondistended. EXTREMITIES: No edema or joint tenderness. BACK: Nontender without deformity or crepitance. No flank tenderness. NEURO: AOx3. SKIN: No rash or erythema of visible areas Initial Vital Signs Initial Vital Signs: Vital Signs Temperature 98.9 F 05/26/22 15:41 Pulse Rate 111 H 05/26/22 15:41 Respiratory Rate 26 H 05/26/22 15:41 Blood Pressure 204/109 H 05/26/22 15:41 Pulse Oximetry 98 05/26/22 15:41 Oxygen Delivery Method Room Air 05/26/22 15:41 <DO Andrea Cárdenas Last Filed: 05/27/22 01:05> Initial Vital Signs Initial Vital Signs: Vital Signs Temperature 98.9 F 05/26/22 15:41 Pulse Rate 111 H 05/26/22 15:41 Respiratory Rate 26 H 05/26/22 15:41 Blood Pressure 204/109 H 05/26/22 15:41 Pulse Oximetry 98 05/26/22 15:41 Oxygen Delivery Method Room Air 05/26/22 15:41 <DO Andrea Cárdenas Last Filed: 05/27/22 01:05> Cardioversion Consent Signed: Yes Indication: AFib Stability: Stable Number of attempts (shocks): 1 Joules used: 120 Cardiac rhythm post-cardioversion: Sinus rhythm Procedural Sedation Consent signed: Yes Time out performed: Yes Indication: cardioversion ASA Class: II Mallampati Airway Classification: Class II Preparation: rope cutter applied, pulse oximeter, capnometry used, supplemental O2 applied, suction/airway equipment at bedside and IV secured Fentanyl: IV Fentanyl dose (mcg): 12 IV Propofol dose (mg): 70 Intraservice time/total sedation time (min): 15 ED Sedation Level: Moderate (Concious) Patient Tolerated Procedure: Well Complications: none Course <DO Andrea Light Last Filed: 05/27/22 08:13> Orders Ordered: Discontinued Medications Aspirin (Aspirin 81 Mg Chew Tab) 324 mg PO NOW ONE Stop: 05/26/22 15:52 Last Admin: 05/26/22 16:08 Dose: Not Given Documented By: KLS Fentanyl (Fentanyl 100 Mcg/2 Ml Inj) 12.5 mcg IV NOW ONE Stop: 05/26/22 18:47 Last Admin: 05/26/22 19:03 Dose: 12.5 mcg Documented By: CTS Sodium Chloride (Normal Saline 0.9%) 1,000 mls @ 125 mls/hr IV CONT TED Last Admin: 05/26/22 19:00 Dose: 1,000 mls/hr Documented By: KEVIN Labetalol HCl (Labetalol 20 Mg/4 Ml Syringe) 20 mg IV NOW ONE; Protocol Stop: 05/26/22 17:06 Last Admin: 05/26/22 17:28 Dose: 20 mg Documented By: BRAYAN Propofol (Propofol 200 Mg/20 Ml Vial) 100 mg IV NOW ONE Stop: 05/26/22 18:47 Last Admin: 05/26/22 19:05 Dose: 70 mg Documented By: KEVIN Vital Signs Vital signs: Vital Signs - 8 hr 05/26/22 17:02 05/26/22 17:03 05/26/22 17:04 Pulse Rate 103 H 95 H 93 H Respiratory Rate 33 H 28 H 31 H Blood Pressure Pulse Oximetry 96 96 96 Oxygen Delivery Method 05/26/22 17:05 05/26/22 17:06 05/26/22 17:07 Pulse Rate 96 H 103 H 93 H Respiratory Rate 28 H 24 24 Blood Pressure Pulse Oximetry 97 96 95 Oxygen Delivery Method 05/26/22 17:08 05/26/22 17:09 05/26/22 17:10 Pulse Rate 88 89 96 H Respiratory Rate 23 29 H 33 H Blood Pressure Pulse Oximetry 95 95 95 Oxygen Delivery Method 05/26/22 17:11 05/26/22 17:12 05/26/22 17:13 Pulse Rate 92 H 97 H 90 Respiratory Rate 23 26 H 23 Blood Pressure Pulse Oximetry 95 95 96 Oxygen Delivery Method 05/26/22 17:14 05/26/22 17:15 05/26/22 17:16 Pulse Rate 88 86 92 H Respiratory Rate 23 20 25 H Blood Pressure Pulse Oximetry 96 95 95 Oxygen Delivery Method 05/26/22 17:17 05/26/22 17:18 05/26/22 17:19 Pulse Rate 94 H 89 92 H Respiratory Rate 28 H 23 26 H Blood Pressure Pulse Oximetry 95 95 95 Oxygen Delivery Method 05/26/22 17:20 05/26/22 17:21 05/26/22 17:22 Pulse Rate 90 90 94 H Respiratory Rate 29 H 23 27 H Blood Pressure Pulse Oximetry 95 95 95 Oxygen Delivery Method 05/26/22 17:23 05/26/22 17:28 05/26/22 17:26 Pulse Rate 89 100 H 96 H Respiratory Rate 25 H 22 Blood Pressure 239/118 H Pulse Oximetry 95 95 Oxygen Delivery Method 05/26/22 17:26 05/26/22 17:30 05/26/22 17:30 Pulse Rate 94 H Respiratory Rate 22 Blood Pressure 240/106 H 239/118 H Pulse Oximetry 96 Oxygen Delivery Method Room Air 05/26/22 17:37 05/26/22 17:37 05/26/22 17:40 Pulse Rate 114 H 108 H Respiratory Rate 22 23 Blood Pressure 179/115 H Pulse Oximetry 94 96 Oxygen Delivery Method 05/26/22 17:41 05/26/22 17:41 05/26/22 17:55 Pulse Rate 108 H 102 H Respiratory Rate 21 Blood Pressure 189/81 H Pulse Oximetry 95 95 Oxygen Delivery Method 05/26/22 17:58 05/26/22 17:58 05/26/22 18:00 Pulse Rate 94 H 114 H Respiratory Rate 24 Blood Pressure 186/99 H Pulse Oximetry 95 95 Oxygen Delivery Method Room Air 05/26/22 18:01 05/26/22 18:01 05/26/22 18:10 Pulse Rate 101 H 100 H Respiratory Rate 25 H 23 Blood Pressure 190/79 H Pulse Oximetry 95 95 Oxygen Delivery Method 05/26/22 18:16 05/26/22 18:20 05/26/22 18:30 Pulse Rate 93 H 97 H Respiratory Rate 24 15 Blood Pressure 190/79 H Pulse Oximetry 94 95 Oxygen Delivery Method 05/26/22 18:31 05/26/22 18:31 05/26/22 18:40 Pulse Rate 99 H 100 H Respiratory Rate 9 L 24 Blood Pressure 161/73 H Pulse Oximetry 94 96 Oxygen Delivery Method 05/26/22 18:50 05/26/22 18:55 05/26/22 18:57 Pulse Rate 116 H 103 H 111 H Respiratory Rate 29 H 16 Blood Pressure Pulse Oximetry 94 95 97 Oxygen Delivery Method 05/26/22 18:57 05/26/22 19:00 05/26/22 19:04 Pulse Rate 124 H Respiratory Rate 41 H Blood Pressure 195/99 H 139/93 H Pulse Oximetry 97 Oxygen Delivery Method 05/26/22 19:04 05/26/22 19:05 05/26/22 19:05 Pulse Rate 116 H 126 H Respiratory Rate 24 24 Blood Pressure 149/94 H Pulse Oximetry 97 97 Oxygen Delivery Method 05/26/22 19:07 05/26/22 19:07 05/26/22 19:10 Pulse Rate 79 77 Respiratory Rate 44 H 33 H Blood Pressure 159/74 H Pulse Oximetry 89 L 94 Oxygen Delivery Method 05/26/22 19:11 05/26/22 19:11 05/26/22 19:15 Pulse Rate 76 73 Respiratory Rate 29 H 23 Blood Pressure 208/85 H Pulse Oximetry 95 97 Oxygen Delivery Method 05/26/22 19:16 05/26/22 19:16 05/26/22 19:20 Pulse Rate 74 Respiratory Rate 23 Blood Pressure 169/72 H 170/67 H Pulse Oximetry 97 Oxygen Delivery Method 05/26/22 19:20 05/26/22 19:25 05/26/22 19:25 Pulse Rate 73 73 Respiratory Rate 20 24 Blood Pressure 186/88 H Pulse Oximetry 98 97 Oxygen Delivery Method 05/26/22 19:30 05/26/22 19:31 05/26/22 19:31 Pulse Rate 72 71 Respiratory Rate 21 26 H Blood Pressure 161/70 H Pulse Oximetry 98 98 Oxygen Delivery Method 05/26/22 19:36 05/26/22 19:36 05/26/22 19:40 Pulse Rate 71 Respiratory Rate 34 H Blood Pressure 166/74 H 172/73 H Pulse Oximetry 98 Oxygen Delivery Method 05/26/22 19:40 05/26/22 19:46 05/26/22 19:46 Pulse Rate 70 64 Respiratory Rate 24 21 Blood Pressure 139/65 Pulse Oximetry 99 96 Oxygen Delivery Method Room Air 05/26/22 19:12 Pulse Rate 75 Respiratory Rate 20 Blood Pressure Pulse Oximetry Oxygen Delivery Method <Jorge Barton DO - Last Filed: 05/27/22 01:05> Orders Ordered: Discontinued Medications Aspirin (Aspirin 81 Mg Chew Tab) 324 mg PO NOW ONE Stop: 05/26/22 15:52 Last Admin: 05/26/22 16:08 Dose: Not Given Documented By: BRAYAN Fentanyl (Fentanyl 100 Mcg/2 Ml Inj) 12.5 mcg IV NOW ONE Stop: 05/26/22 18:47 Last Admin: 05/26/22 19:03 Dose: 12.5 mcg Documented By: CTS Sodium Chloride (Normal Saline 0.9%) 1,000 mls @ 125 mls/hr IV CONT TED Last Admin: 05/26/22 19:00 Dose: 1,000 mls/hr Documented By: KEVIN Labetalol HCl (Labetalol 20 Mg/4 Ml Syringe) 20 mg IV NOW ONE; Protocol Stop: 05/26/22 17:06 Last Admin: 05/26/22 17:28 Dose: 20 mg Documented By: BRAYAN Propofol (Propofol 200 Mg/20 Ml Vial) 100 mg IV NOW ONE Stop: 05/26/22 18:47 Last Admin: 05/26/22 19:05 Dose: 70 mg Documented By: KEVIN Vital Signs Vital signs: Vital Signs - 8 hr 05/26/22 17:02 05/26/22 17:03 05/26/22 17:04 Pulse Rate 103 H 95 H 93 H Respiratory Rate 33 H 28 H 31 H Blood Pressure Pulse Oximetry 96 96 96 Oxygen Delivery Method 05/26/22 17:05 05/26/22 17:06 05/26/22 17:07 Pulse Rate 96 H 103 H 93 H Respiratory Rate 28 H 24 24 Blood Pressure Pulse Oximetry 97 96 95 Oxygen Delivery Method 05/26/22 17:08 05/26/22 17:09 05/26/22 17:10 Pulse Rate 88 89 96 H Respiratory Rate 23 29 H 33 H Blood Pressure Pulse Oximetry 95 95 95 Oxygen Delivery Method 05/26/22 17:11 05/26/22 17:12 05/26/22 17:13 Pulse Rate 92 H 97 H 90 Respiratory Rate 23 26 H 23 Blood Pressure Pulse Oximetry 95 95 96 Oxygen Delivery Method 05/26/22 17:14 05/26/22 17:15 05/26/22 17:16 Pulse Rate 88 86 92 H Respiratory Rate 23 20 25 H Blood Pressure Pulse Oximetry 96 95 95 Oxygen Delivery Method 05/26/22 17:17 05/26/22 17:18 05/26/22 17:19 Pulse Rate 94 H 89 92 H Respiratory Rate 28 H 23 26 H Blood Pressure Pulse Oximetry 95 95 95 Oxygen Delivery Method 05/26/22 17:20 05/26/22 17:21 05/26/22 17:22 Pulse Rate 90 90 94 H Respiratory Rate 29 H 23 27 H Blood Pressure Pulse Oximetry 95 95 95 Oxygen Delivery Method 05/26/22 17:23 05/26/22 17:28 05/26/22 17:26 Pulse Rate 89 100 H 96 H Respiratory Rate 25 H 22 Blood Pressure 239/118 H Pulse Oximetry 95 95 Oxygen Delivery Method 05/26/22 17:26 05/26/22 17:30 05/26/22 17:30 Pulse Rate 94 H Respiratory Rate 22 Blood Pressure 240/106 H 239/118 H Pulse Oximetry 96 Oxygen Delivery Method Room Air 05/26/22 17:37 05/26/22 17:37 05/26/22 17:40 Pulse Rate 114 H 108 H Respiratory Rate 22 23 Blood Pressure 179/115 H Pulse Oximetry 94 96 Oxygen Delivery Method 05/26/22 17:41 05/26/22 17:41 05/26/22 17:55 Pulse Rate 108 H 102 H Respiratory Rate 21 Blood Pressure 189/81 H Pulse Oximetry 95 95 Oxygen Delivery Method 05/26/22 17:58 05/26/22 17:58 05/26/22 18:00 Pulse Rate 94 H 114 H Respiratory Rate 24 Blood Pressure 186/99 H Pulse Oximetry 95 95 Oxygen Delivery Method Room Air 05/26/22 18:01 05/26/22 18:01 05/26/22 18:10 Pulse Rate 101 H 100 H Respiratory Rate 25 H 23 Blood Pressure 190/79 H Pulse Oximetry 95 95 Oxygen Delivery Method 05/26/22 18:16 05/26/22 18:20 05/26/22 18:30 Pulse Rate 93 H 97 H Respiratory Rate 24 15 Blood Pressure 190/79 H Pulse Oximetry 94 95 Oxygen Delivery Method 05/26/22 18:31 05/26/22 18:31 05/26/22 18:40 Pulse Rate 99 H 100 H Respiratory Rate 9 L 24 Blood Pressure 161/73 H Pulse Oximetry 94 96 Oxygen Delivery Method 05/26/22 18:50 05/26/22 18:55 05/26/22 18:57 Pulse Rate 116 H 103 H 111 H Respiratory Rate 29 H 16 Blood Pressure Pulse Oximetry 94 95 97 Oxygen Delivery Method 05/26/22 18:57 05/26/22 19:00 05/26/22 19:04 Pulse Rate 124 H Respiratory Rate 41 H Blood Pressure 195/99 H 139/93 H Pulse Oximetry 97 Oxygen Delivery Method 05/26/22 19:04 05/26/22 19:05 05/26/22 19:05 Pulse Rate 116 H 126 H Respiratory Rate 24 24 Blood Pressure 149/94 H Pulse Oximetry 97 97 Oxygen Delivery Method 05/26/22 19:07 05/26/22 19:07 05/26/22 19:10 Pulse Rate 79 77 Respiratory Rate 44 H 33 H Blood Pressure 159/74 H Pulse Oximetry 89 L 94 Oxygen Delivery Method 05/26/22 19:11 05/26/22 19:11 05/26/22 19:15 Pulse Rate 76 73 Respiratory Rate 29 H 23 Blood Pressure 208/85 H Pulse Oximetry 95 97 Oxygen Delivery Method 05/26/22 19:16 05/26/22 19:16 05/26/22 19:20 Pulse Rate 74 Respiratory Rate 23 Blood Pressure 169/72 H 170/67 H Pulse Oximetry 97 Oxygen Delivery Method 05/26/22 19:20 05/26/22 19:25 05/26/22 19:25 Pulse Rate 73 73 Respiratory Rate 20 24 Blood Pressure 186/88 H Pulse Oximetry 98 97 Oxygen Delivery Method 05/26/22 19:30 05/26/22 19:31 05/26/22 19:31 Pulse Rate 72 71 Respiratory Rate 21 26 H Blood Pressure 161/70 H Pulse Oximetry 98 98 Oxygen Delivery Method 05/26/22 19:36 05/26/22 19:36 05/26/22 19:40 Pulse Rate 71 Respiratory Rate 34 H Blood Pressure 166/74 H 172/73 H Pulse Oximetry 98 Oxygen Delivery Method 05/26/22 19:40 05/26/22 19:46 05/26/22 19:46 Pulse Rate 70 64 Respiratory Rate 24 21 Blood Pressure 139/65 Pulse Oximetry 99 96 Oxygen Delivery Method Room Air 05/26/22 19:12 Pulse Rate 75 Respiratory Rate 20 Blood Pressure Pulse Oximetry Oxygen Delivery Method Medical Decision Making <Ahmet Gayle, DO - Last Filed: 05/27/22 08:13> Lab Data 05/26/22 16:28 05/26/22 16:28 Labs: Lab Results 05/26/22 05/26/22 05/26/22 Range/Units 15:54 16:28 16:28 WBC 8.8 (4.5-11.0) X10^3/uL RBC 5.85 H (4.0-5.2) X10^6/uL Hgb 15.8 (12.0-16.0) g/dL Hct 47.4 H (36-46) % MCV 81.0 (80-100) fL MCH 27.1 (26-34) PG MCHC 33.4 (30-36) % RDW 15.3 H (11.6-14.8) % Plt Count 337 (150-400) X10^3/uL Neut % (Auto) 70.4 (50-75) % Lymph % (Auto) 17.2 L (25-40) % [place] % (Auto) 9.6 (3-14) % Eos % (Auto) 2.0 (2-4) % Baso % (Auto) 0.8 (0-2) % Neut # (Auto) 6200 (3330-1295) /uL Lymph # (Auto) 1500 (9081-1474) /uL [place] # (Auto) 800 (0-900) /uL Eos # (Auto) 200 (0-450) /uL Baso # (Auto) 100 (0-100) /uL PT 17.6 H (10.1-12.7) SECONDS INR 1.5 H (0.9-1.3) APTT 36 (26-36) SECONDS Sodium (137-145) mmol/L Potassium (3.4-5.1) mmol/L Chloride (98-107) mmol/L Carbon Dioxide (22-32) mmol/L BUN (7-17) mg/dL Creatinine (0.52-1.04) mg/dL Estimated GFR (>60) mL/min BUN/Creatinine Ratio (6-22) Glucose (80-110) mg/dL Calcium (8.4-10.2) mg/dL Magnesium (1.6-2.3) mg/dL Total Bilirubin (0.2-1.3) mg/dL AST (14-36) IU/L ALT (<35) IU/L Alkaline Phosphatase (38-126) U/L Total Creatine Kinase (30-135) U/L CK-MB (CK-2) CK-MB (CK-2) Rel Index Troponin I (0.01-0.034) ng/mL NT-Pro-B Natriuret Pep 1110 H (<450) pg/mL Total Protein (6.3-8.2) g/dL Albumin (3.5-5.0) g/dL Globulin (1.7-4.1) g/dL Albumin/Globulin Ratio (1.0-2.8) Lipase (23-300) U/L SARS-CoV-2 (PCR) (Negative) 05/26/22 05/26/22 Range/Units 16:28 16:38 WBC (4.5-11.0) X10^3/uL RBC (4.0-5.2) X10^6/uL Hgb (12.0-16.0) g/dL Hct (36-46) % MCV (80-100) fL MCH (26-34) PG MCHC (30-36) % RDW (11.6-14.8) % Plt Count (150-400) X10^3/uL Neut % (Auto) (50-75) % Lymph % (Auto) (25-40) % [place] % (Auto) (3-14) % Eos % (Auto) (2-4) % Baso % (Auto) (0-2) % Neut # (Auto) (8862-6096) /uL Lymph # (Auto) (3067-4864) /uL [place] # (Auto) (0-900) /uL Eos # (Auto) (0-450) /uL Baso # (Auto) (0-100) /uL PT (10.1-12.7) SECONDS INR (0.9-1.3) APTT (26-36) SECONDS Sodium 135 L (137-145) mmol/L Potassium 3.8 (3.4-5.1) mmol/L Chloride 99 (98-107) mmol/L Carbon Dioxide 27 (22-32) mmol/L BUN 15 (7-17) mg/dL Creatinine 0.64 (0.52-1.04) mg/dL Estimated GFR > 60 (>60) mL/min BUN/Creatinine Ratio 23.4 H (6-22) Glucose 126 H (80-110) mg/dL Calcium 8.8 (8.4-10.2) mg/dL Magnesium 1.8 (1.6-2.3) mg/dL Total Bilirubin 0.7 (0.2-1.3) mg/dL AST 45 H (14-36) IU/L ALT 29 (<35) IU/L Alkaline Phosphatase 70 (38-126) U/L Total Creatine Kinase 61 (30-135) U/L CK-MB (CK-2) TNP CK-MB (CK-2) Rel Index TNP Troponin I 0.014 (0.01-0.034) ng/mL NT-Pro-B Natriuret Pep (<450) pg/mL Total Protein 8.2 (6.3-8.2) g/dL Albumin 4.1 (3.5-5.0) g/dL Globulin 4.1 (1.7-4.1) g/dL Albumin/Globulin Ratio 1.0 (1.0-2.8) Lipase 100 (23-300) U/L SARS-CoV-2 (PCR) Negative (Negative) Point of Care Testing Test Results Not applicable Point of care testing: Point of Care Testing Test Results Not applicable <Jorge Barton DO - Last Filed: 05/27/22 01:05> Lab Data Lab results reviewed: Yes I reviewed the patient's lab results. Labs: Lab Results 05/26/22 05/26/22 05/26/22 Range/Units 15:54 16:28 16:28 WBC 8.8 (4.5-11.0) X10^3/uL RBC 5.85 H (4.0-5.2) X10^6/uL Hgb 15.8 (12.0-16.0) g/dL Hct 47.4 H (36-46) % MCV 81.0 (80-100) fL MCH 27.1 (26-34) PG MCHC 33.4 (30-36) % RDW 15.3 H (11.6-14.8) % Plt Count 337 (150-400) X10^3/uL Neut % (Auto) 70.4 (50-75) % Lymph % (Auto) 17.2 L (25-40) % [place] % (Auto) 9.6 (3-14) % Eos % (Auto) 2.0 (2-4) % Baso % (Auto) 0.8 (0-2) % Neut # (Auto) 6200 (4161-2875) /uL Lymph # (Auto) 1500 (6679-1569) /uL [place] # (Auto) 800 (0-900) /uL Eos # (Auto) 200 (0-450) /uL Baso # (Auto) 100 (0-100) /uL PT 17.6 H (10.1-12.7) SECONDS INR 1.5 H (0.9-1.3) APTT 36 (26-36) SECONDS Sodium (137-145) mmol/L Potassium (3.4-5.1) mmol/L Chloride (98-107) mmol/L Carbon Dioxide (22-32) mmol/L BUN (7-17) mg/dL Creatinine (0.52-1.04) mg/dL Estimated GFR (>60) mL/min BUN/Creatinine Ratio (6-22) Glucose (80-110) mg/dL Calcium (8.4-10.2) mg/dL Magnesium (1.6-2.3) mg/dL Total Bilirubin (0.2-1.3) mg/dL AST (14-36) IU/L ALT (<35) IU/L Alkaline Phosphatase (38-126) U/L Total Creatine Kinase (30-135) U/L CK-MB (CK-2) CK-MB (CK-2) Rel Index Troponin I (0.01-0.034) ng/mL NT-Pro-B Natriuret Pep 1110 H (<450) pg/mL Total Protein (6.3-8.2) g/dL Albumin (3.5-5.0) g/dL Globulin (1.7-4.1) g/dL Albumin/Globulin Ratio (1.0-2.8) Lipase (23-300) U/L SARS-CoV-2 (PCR) (Negative) 05/26/22 05/26/22 Range/Units 16:28 16:38 WBC (4.5-11.0) X10^3/uL RBC (4.0-5.2) X10^6/uL Hgb (12.0-16.0) g/dL Hct (36-46) % MCV (80-100) fL MCH (26-34) PG MCHC (30-36) % RDW (11.6-14.8) % Plt Count (150-400) X10^3/uL Neut % (Auto) (50-75) % Lymph % (Auto) (25-40) % [place] % (Auto) (3-14) % Eos % (Auto) (2-4) % Baso % (Auto) (0-2) % Neut # (Auto) (8506-5498) /uL Lymph # (Auto) (3509-6757) /uL [place] # (Auto) (0-900) /uL Eos # (Auto) (0-450) /uL Baso # (Auto) (0-100) /uL PT (10.1-12.7) SECONDS INR (0.9-1.3) APTT (26-36) SECONDS Sodium 135 L (137-145) mmol/L Potassium 3.8 (3.4-5.1) mmol/L Chloride 99 (98-107) mmol/L Carbon Dioxide 27 (22-32) mmol/L BUN 15 (7-17) mg/dL Creatinine 0.64 (0.52-1.04) mg/dL Estimated GFR > 60 (>60) mL/min BUN/Creatinine Ratio 23.4 H (6-22) Glucose 126 H (80-110) mg/dL Calcium 8.8 (8.4-10.2) mg/dL Magnesium 1.8 (1.6-2.3) mg/dL Total Bilirubin 0.7 (0.2-1.3) mg/dL AST 45 H (14-36) IU/L ALT 29 (<35) IU/L Alkaline Phosphatase 70 (38-126) U/L Total Creatine Kinase 61 (30-135) U/L CK-MB (CK-2) TNP CK-MB (CK-2) Rel Index TNP Troponin I 0.014 (0.01-0.034) ng/mL NT-Pro-B Natriuret Pep (<450) pg/mL Total Protein 8.2 (6.3-8.2) g/dL Albumin 4.1 (3.5-5.0) g/dL Globulin 4.1 (1.7-4.1) g/dL Albumin/Globulin Ratio 1.0 (1.0-2.8) Lipase 100 (23-300) U/L SARS-CoV-2 (PCR) Negative (Negative) Point of Care Testing Test Results Not applicable Point of care testing: Point of Care Testing Test Results Not applicable Imaging Data CTA chest abdomen pelvis: Radiologist's Impression: PROCEDURE:? CT ANGIO CHEST ABDOMEN PELVIS ? INDICATIONS:? HTN, chest pressure, significantly different BP each arm ? TECHNIQUE:? Precontrast 5 mm thick sections acquired from the lung apices to the iliac crests.? After the administration of intravenous contrast, 2.5 mm thick sections again acquired from the lung apices to the iliac crests.? Maximum intensity projection (MIP) oblique sagittal and coronal reformats were then acquired.? For radiation dose reduction, the following was used:? automated exposure control.? ? COMPARISON:? None. ? FINDINGS: ? Chest: ? Cardiovascular:? Left-sided pacemaker in good position.? Heart size is enlarged.? There is thickening of the left ventricular wall.? Trace atherosclerotic vascular calcification noted in the thoracic aorta.? No evidence of dissection or aneurysm.? Origins of great vessels are unremarkable without stenosis ? Lungs and pleural spaces:? The lung smith are clear without nodule, infiltrate or interstitial prominence.? Pleural spaces show no effusion or pneumothorax. ? Lymph nodes:? No mediastinal, hilar or axillary adenopathy. ? Mediastinum:? Unremarkable.? No hiatal hernia.? Thyroid within normal limits. ? Chest Wall and Bones:? Unremarkable.? No acute fracture. ? Abdomen and Pelvis: ? Liver:? Normal in size and attenuation. No contour deformity present. Biliary system:? No calcified cholelithiasis or pericholecystic inflammation.? No intra or extrahepatic bile duct dilatation. ? Pancreas:? Unremarkable without mass or inflammation evident. ? Spleen:? Normal in size and density. ? Adrenals:? Normal morphology and density. ? Reproductive system:? Unremarkable as visualized. ? Urinary system:? Normal renal size and attenuation. No renal calculi, hydronephrosis, or solid mass present.? Urinary bladder unremarkable. ? Gastrointestinal system:? The bowel is unremarkable with no evidence of bowel obstruction or inflammation. The stomach appears unremarkable.? Multiple diverticula arise from the sigmoid colon without evidence of diverticulitis. ? ? Appendix:? No findings to suggest acute appendicitis. ? Lymph nodes:? No mesenteric or retroperitoneal adenopathy. ? Peritoneal spaces: ? No free air. No free fluid.? ? Vasculature:? The IVC, aorta and iliac vasculature are unremarkable. ? Abdominal wall:? Abdominal wall intact without evidence of ventral or inguinal hernias. ? Musculoskeletal:? Normal bone mineralization.? No acute fractures.? ? IMPRESSION: ? 1.? No evidence of pulmonary embolism, aortic dissection or aneurysm. ? 2. Hypertrophic cardiomegaly and left-sided pacemaker in place. ? 3. Incidental sigmoid diverticulosis without evidence of diverticulitis ECG Data Interpretation: Post cardioversion Sinus rhythm Ventricular rate is 74 First-degree AV block MO interval 2 and 8 milliseconds Normal QRS QTC [address] T wave changes MDM Narrative Medical decision making narrative: Dr Barton: Received turned over. Reviewed patient's history and physical workup up to this point. The CTA of the chest abdomen pelvis does not show any signs of pulmonary embolism or any other aortic pathology. Patient did arrive with hypertension but this is improved with the beta-amanda received here in the ER. She does have a history of paroxysmal atrial fibrillation. She is in atrial fibrillation but is relatively rate controlled. Is on anticoagulation. Discussed with her the risks and benefits of rhythm control with sedation and cardioversion. She is had 2 prior cardioversions. After the discussion of risks and benefits she opted to be cardioverted which was performed as described above without any incident. She was sinus rhythm afterwards. She was not having chest pain. Will discharge patient home. We did discuss the importance of her continuing to take all of her medications as directed. Advised that she take her blood pressure on a daily medicines so that we could trend the results of this and she can have a discussion about whether not she needs any changes to her medicines. He is a follow-up with a customer engagement analyst coming up next week. Will discharge patient home with strict return precautions. She expressed understanding and agreement. Discharge Plan Departure Patient Disposition: Home Clinical Impression: Hypertension, Atrial fibrillation status post cardioversion Instructions: DI for Cardioversion, DI for High Blood Pressure Activity Restrictions/Additional Instructions: I recommend that you continue to take all of your medications as directed. Keep all of your scheduled medical appointments especially your appointment with Cardiology next week. Be sure that you are taking your blood pressure on a daily basis like we discussed. Return to the emergency department for new symptoms. Prescriptions: No Action zolpidem 5 mg tablet 2.5 mg PO BEDTIME PRN (Reason: Sleep) Qty: 45 0RF Rx Instructions: Caution regarding possible dizziness or falls on med. Limit use as possible. levothyroxine 50 mcg tablet 50 mcg PO DAILY Qty: 90 3RF Multivitamin Gummies 200 mcg Tablet,Chewable 1 tab PO DAILY aspirin 81 mg Capsule 81 mg PO BEDTIME Qty: 0 acetaminophen 500 mg capsule 500 mg PO Q4H MDD Max 3000 mg per day PRN (Reason: fever or pain) Qty: 90 0RF metoprolol succinate 50 mg tablet extended release 24 hr 50 mg PO BEDTIME escitalopram oxalate 10 mg tablet 10 mg PO BEDTIME metoprolol succinate 50 mg Tablet Extended Release 24 Hr 25 mg PO QAM cyclosporine [Restasis] 0.05 % Dropperette 1 drp OPHTHALMIC (EYE) BEDTIME Xarelto 20 mg Tablet 20 mg PO QPM Rx Instructions: must administer with evening meal Praluent Pen 75 mg/mL Pen Injector 75 mg SUBCUT Q14D losartan 100 mg tablet 100 mg PO QAM Referrals: Sarah Montana DO [Primary Care Provider] - Stand Alone Forms: Patient Portal/API
--- NOTE | 2022-05-26 16:15 | PC.NURSE ---
Dr. Gayle aware of BP differences in both arms.
[2022-05-26 16:35] LABS: Add Manual Diff / Slide Review NO; Basophils Absolute Auto 100 /uL (0-100); Basophils Percent Auto 0.8 % (0-2); Eosinophils Absolute Auto 200 /uL (0-450); Hematocrit 47.4 % (36-46); Hemoglobin 15.8 g/dL (12.0-16.0); Lymphocytes Absolute Auto 1500 /uL (1100-4500); Lymphocytes Percent Auto 17.2 % (25-40); Mean Corpuscular HGB Conc 33.4 % (30-36); Mean Corpuscular Hemoglobin 27.1 PG (26-34); Monocytes Absolute Auto 800 /uL (0-900); Monocytes Percent Auto 9.6 % (3-14); Neutrophils Absolute Auto 6200 /uL (1500-7000); Neutrophils Percent Auto 70.4 % (50-75); Platelet Count 337 X10^3/uL (150-400); Red Blood Cell Count 5.85 X10^6/uL (4.0-5.2); Red Cell Distribution Width 15.3 % (11.6-14.8); White Blood Cell Count 8.8 X10^3/uL (4.5-11.0)
[2022-05-26 16:46] LABS: INR 1.5 (0.9-1.3); Prothrombin Time 17.6 SECONDS (10.1-12.7)
[2022-05-26 16:48] LABS: PTT Partial Thromboplastin Tim 36 SECONDS (26-36)
[2022-05-26 16:57] LABS: Alanine Aminotransferase 29 IU/L (<35); Albumin 4.1 g/dL (3.5-5.0); Alkaline Phosphatase 70 U/L (38-126); BUN Creatinine Ratio 23.4 (6-22); Bilirubin Total 0.7 mg/dL (0.2-1.3); Blood Urea Nitrogen 15 mg/dL (7-17); Calcium 8.8 mg/dL (8.4-10.2); Carbon Dioxide 27 mmol/L (22-32); Chloride 99 mmol/L (98-107); Creatine Kinase 61 U/L (30-135); Estimated Glomerular Filt Rate > 60 mL/min (>60); Globulin 4.1 g/dL (1.7-4.1); Glucose 126 mg/dL (80-110); Lipase 100 U/L (23-300); Magnesium 1.8 mg/dL (1.6-2.3); Potassium 3.8 mmol/L (3.4-5.1); Sodium 135 mmol/L (137-145); Total Protein 8.2 g/dL (6.3-8.2)
[2022-05-26 17:00] LABS: Aspartate Aminotransferase 45 IU/L (14-36); HEMOLYSIS 67 (0-50)
[2022-05-26 17:03] LABS: COVID19 -Nasal RAPID Negative (Negative)
--- NOTE | 2022-05-26 17:05 | DI.CT.S_ITS ---
PROCEDURE: CT ANGIO CHEST ABDOMEN PELVIS INDICATIONS: HTN, chest pressure, significantly different BP each arm TECHNIQUE: Precontrast 5 mm thick sections acquired from the lung apices to the iliac crests. After the administration of intravenous contrast, 2.5 mm thick sections again acquired from the lung apices to the iliac crests. Maximum intensity projection (MIP) oblique sagittal and coronal reformats were then acquired. For radiation dose reduction, the following was used: automated exposure control. COMPARISON: None. FINDINGS: Chest: Cardiovascular: Left-sided pacemaker in good position. Heart size is enlarged. There is thickening of the left ventricular wall. Trace atherosclerotic vascular calcification noted in the thoracic aorta. No evidence of dissection or aneurysm. Origins of great vessels are unremarkable without stenosis Lungs and pleural spaces: The lung smith are clear without nodule, infiltrate or interstitial prominence. Pleural spaces show no effusion or pneumothorax. Lymph nodes: No mediastinal, hilar or axillary adenopathy. Mediastinum: Unremarkable. No hiatal hernia. Thyroid within normal limits. Chest Wall and Bones: Unremarkable. No acute fracture. Abdomen and Pelvis: Liver: Normal in size and attenuation. No contour deformity present. Biliary system: No calcified cholelithiasis or pericholecystic inflammation. No intra or extrahepatic bile duct dilatation. Pancreas: Unremarkable without mass or inflammation evident. Spleen: Normal in size and density. Adrenals: Normal morphology and density. Reproductive system: Unremarkable as visualized. Urinary system: Normal renal size and attenuation. No renal calculi, hydronephrosis, or solid mass present. Urinary bladder unremarkable. Gastrointestinal system: The bowel is unremarkable with no evidence of bowel obstruction or inflammation. The stomach appears unremarkable. Multiple diverticula arise from the sigmoid colon without evidence of diverticulitis. Appendix: No findings to suggest acute appendicitis. Lymph nodes: No mesenteric or retroperitoneal adenopathy. Peritoneal spaces: No free air. No free fluid. Vasculature: The IVC, aorta and iliac vasculature are unremarkable. Abdominal wall: Abdominal wall intact without evidence of ventral or inguinal hernias. Musculoskeletal: Normal bone mineralization. No acute fractures. IMPRESSION: 1. No evidence of pulmonary embolism, aortic dissection or aneurysm. 2. Hypertrophic cardiomegaly and left-sided pacemaker in place. 3. Incidental sigmoid diverticulosis without evidence of diverticulitis Approved by: Guillermo Lemus M.D. on 05/26/2022 at 17:28
[2022-05-26 17:08] LABS: Troponin I 0.014 ng/mL (0.01-0.034)
[2022-05-26 17:14] LABS: NT-proBNP (BNP-Adult 18+) 1110 pg/mL (<450)
[2022-05-26] MEDS: LABETALOL 20 MG/4 ML SYRINGE IV (17:28)
[2022-05-26] MEDS: SODIUM CHLORIDE 0.9% 1,000 ML 1000 ML IV (19:00)
[2022-05-26] MEDS: fentaNYL 100 MCG/2 ML INJ 12.5 MCG IV (19:03)
[2022-05-26] MEDS: propofoL 200 MG/20 ML VIAL 100 MG IV (19:05)
== END 2022-05-26 19:54 | disposition home or self-care (01) ==
PROVIDERS: Emergency Medicine; Emergency Provider Emergency Medicine; PCP Family Medicine
DX: I10 Essential (primary) hypertension (principal); I48.91 Unspecified atrial fibrillation; Z79.01 Long term (current) use of anticoagulants; Z95.0 Presence of cardiac pacemaker; Z20.822 Contact with and (suspected) exposure to COVID-19
CPT/HCPCS: 36415; 71045; 71275; 74174; 80053; 82550; 83690; 83735; 83880; 84484; 85025; 85610; 85730; 87635; 92960; 93005; 96374; 99152; 99285; C9803; J2704; J3010; Q9967

== ENCOUNTER → 2022-06-02 10:01 | Outpatient (CLI) | payer MEDICARE, SELFPAY ==
[2022-05-15 12:18] VITALS: BMI 34.0
[2022-06-02 12:58] LABS: BUN Creatinine Ratio 15.1 (6-22); Blood Urea Nitrogen 11 mg/dL (7-17); Calcium 9.5 mg/dL (8.4-10.2); Carbon Dioxide 32 mmol/L (22-32); Chloride 92 mmol/L (98-107); Creatine Kinase 90 U/L (30-135); Estimated Glomerular Filt Rate > 60 mL/min (>60); Glucose 106 mg/dL (80-110); HEMOLYSIS < 15 (0-50); Potassium 4.7 mmol/L (3.4-5.1); Sodium 131 mmol/L (137-145)
== END ==
PROVIDERS: PCP Family Medicine; Referring Provider Internal Medicine Cardiovascular Disease; Visit Provider Internal Medicine Cardiovascular Disease
DX: I10 Essential (primary) hypertension (principal)
CPT/HCPCS: 36415; 80048; 82550

== ENCOUNTER → 2022-06-16 10:30 | Outpatient (CLI) | payer MEDICARE, SELFPAY ==
[2022-05-15 12:18] VITALS: BMI 34.0
[2022-06-16 12:41] LABS: Cholesterol 124 mg/dL (140-199); HDL Cholesterol 58 mg/dL (40-60); LDL Cholesterol Calculated 53 mg/dL (<100); Triglycerides 65 mg/dL (35-150)
== END ==
PROVIDERS: PCP Family Medicine; Referring Provider Internal Medicine Cardiovascular Disease; Visit Provider Internal Medicine Cardiovascular Disease
DX: I73.9 Peripheral vascular disease, unspecified (principal)
CPT/HCPCS: 36415; 80061

== ENCOUNTER 2022-07-16 07:36 | Emergency (ER) | payer MEDICARE, SELFPAY ==
[2022-05-15 12:18] VITALS: BMI 34.0
[2022-07-16 07:45] VITALS: BP 149/91; PULSE 78; RESP 16; TEMP 36.5; O2SAT 97; O2SAT 98; BMI 33.8
--- NOTE | 2022-07-16 07:54 | ED_ITS ---
HPI - Arrhythmia/Palpitations General Chief Complaint: Arrhythmia/Palpitations Stated Complaint: thinks she's afib Time Seen by Provider: 07/16/22 07:46 Source: patient, RN notes reviewed and old records reviewed Mode of arrival: Ambulatory Limitations: no limitations History of Present Illness HPI narrative: This is an 81-year-old female with history of paroxysmal atrial fibrillation, tachy-kimmy syndrome, pacemaker in November of 2015, cardiac stents, dyslipidemia, hypothyroidism and hypertension. Patient has had several cardioversions here in the department. She presents today feeling that she is in atrial fibrillation. Patient states she just feels weak and tired. She states her feet felt cold last night. Patient states no chest pain, no shortness of breath, no lightheadedness or passing out, no fevers, no cold cough or congestion. She denies any nausea or vomiting. She states she did have some diarrhea last night which he states often precedes or is an indication that she is gone into atrial fibrillation. No black or bloody stools. It has not been persistent. Denies abdominal back or flank pain. She denies any new swelling in her extremities. She notes she has been switched to an injectable statin that she receives every 14 days, she also has been on some potassium supplementation and water pill that was just started in the last 2 weeks. She is anticoagulated on rivaroxaban and takes a baby aspirin daily, Synthroid, metoprolol, escitalopram, losartan, Praluent. States she is had prior ablation x2, 2-3 cardiac stents and has a pacemaker in place. She states she is allergic to Dilaudid, Vicodin and diltiazem causes very slow heart rate, she has been intolerant with some statins. Dr. Amaro while is her fiberglass laminator, Dr. Denny is her nurse informatics educator with [facility]. Her primary care physician is Sarah Montana. Related Data Home Medications Medication Instructions Recorded Confirmed multivitamin with minerals-folic 1 tab PO DAILY 04/01/21 07/11/22 acid 200 mcg chewable tablet (Multivitamin Gummies) aspirin 81 mg capsule 81 mg PO BEDTIME ##0 04/03/21 07/11/22 escitalopram oxalate 10 mg tablet 10 mg PO BEDTIME 03/25/22 07/11/22 alirocumab 75 mg/mL subcutaneous 75 mg SUBCUT Q14D 05/26/22 07/11/22 pen injector (Praluent Pen) cyclosporine 0.05 % eye drops in a 1 drp ophthalmic (eye) BEDTIME 05/26/22 07/11/22 dropperette (Restasis) losartan 100 mg tablet 100 mg PO QAM 05/26/22 07/11/22 rivaroxaban 20 mg tablet (Xarelto) 20 mg PO QPM 05/26/22 07/11/22 metoprolol succinate 50 mg 50 mg PO BID 06/04/22 07/11/22 tablet,extended release 24 hr chlorthalidone 25 mg tablet 12.5 mg PO DAILY 07/11/22 07/11/22 potassium chloride 10 mEq 10 meq PO 07/11/22 07/11/22 tablet,extended release Previous Rx's Medication Instructions Recorded acetaminophen 500 mg capsule 500 mg PO Q4H PRN fever or pain 04/05/21 #90 caps levothyroxine 50 mcg tablet 50 mcg PO DAILY #90 tabs 12/02/21 zolpidem 5 mg tablet 2.5 mg PO BEDTIME PRN Sleep #45 01/20/22 tabs coenzyme Q10 100 mg capsule (Co 100 mg PO DAILY #90 caps 07/11/22 Q-10) diclofenac sodium 1 % topical gel 2 g topical BID PRN pain #100 grams 07/11/22 Allergies Allergy/AdvReac Type Severity Reaction Status Date / Time hydromorphone Allergy Intermediate RASH/GI Verified 07/16/22 08:02 UPSET hydrocodone Allergy Mild GI UPSET Verified 07/16/22 08:02 rosuvastatin [From Crestor] Allergy Unknown Intolerant Verified 07/16/22 08:02 diltiazem [DILTIAZEM] AdvReac Intermediate BRADYCARDIA Verified 07/16/22 08:02 atorvastatin AdvReac Unknown Significant Verified 07/16/22 08:02 weakness, myalgias Review of Systems Review of Systems ROS Unobtainable: All systems reviewed & are unremarkable except as noted in HPI and below Patient History Medical History Allergies Anticoagulated Anxiety (~2013) Atrial fibrillation (~2014) Bilateral chronic otitis media Bruises easily Carpal tunnel syndrome Cervical somatic dysfunction Cervical spondylosis Chronic neck pain Cranial somatic dysfunction Depression (~2015) Essential hypertension Fatigue Fibroid (~1964) First degree AV block Gastroenteritis Hearing loss History of cardioversion (~07/31/20) History of syncope HTN (hypertension) Hypothyroid Lumbar region somatic dysfunction Osteoarthritis of left knee Pacemaker (~11/2015) PAD (peripheral artery disease) Segmental and somatic dysfunction of abdomen and other regions Segmental and somatic dysfunction of pelvic region Segmental and somatic dysfunction of sacral region Segmental and somatic dysfunction of thoracic region Shoulder pain (~2018) Tachy-kimmy syndrome Upper extremity somatic dysfunction Vitamin D deficiency Surgical History Anesthesia Cataracts, bilateral H/O cardiac radiofrequency ablation (~07/02/16) History of appendectomy History of carpal tunnel release History of cholecystectomy History of hysterectomy (~1978) Hx of breast reduction, elective (~2006) Pacemaker (~11/06/15) Family History Father Hypertension Mother Lung cancer Social History household members: none Smoking Status: Never smoker alcohol intake: never substance use type: does not use Smoking Status: Never smoker alcohol intake frequency: a few times a month Substance Use Type: does not use Exam Narrative Exam Narrative: GENERAL: Alert and oriented x three, female in mild distress. HEENT: Head normocephalic, atraumatic, EOMI, pupils reactive, face symmetric, moist mucous membranes NECK: Supple, full range of motion CARDIOVASCULAR: Irregularly irregular rate and rhythm without murmurs, rubs or gallops. No JVD. Trace pedal edema. Patient's rate is approximately 70-80s. RESPIRATORY: Breath sounds equal bilaterally, no wheezes rales or rhonchi. No tachypnea or accessory muscle use. Speaks in full sentences. ABDOMEN: Soft, nontender. Normoactive bowel sounds all 4 quadrants. No guarding or rebound, rigidity, no mass : No CVA tenderness EXTREMITIES: Normal range of motion, no clubbing or edema. Neurovascularly intact NEUROLOGICAL: Cranial nerves II through XII grossly intact. Moving all extremities SKIN: Warm, dry, no petechiae, no rashes or lesions. Initial Vital Signs Initial Vital Signs: Vital Signs Temperature 97.7 F 07/16/22 07:45 Pulse Rate 78 07/16/22 07:45 Respiratory Rate 16 07/16/22 07:45 Blood Pressure 149/91 H 07/16/22 07:45 Pulse Oximetry 98 07/16/22 07:45 Oxygen Delivery Method Room Air 07/16/22 07:45 Course Orders Ordered: Discontinued Medications Magnesium Sulfate (Magnesium Sulfate) 2 gm in 50 mls @ 25 mls/hr IV NOW ONE Stop: 07/16/22 10:27 Last Infusion: 07/16/22 10:33 Dose: 0 mls/hr Documented By: AT Co-signed By: TYSON Admin: 07/16/22 08:47 Dose: 25 mls/hr Documented By: RB Co-signed By: TYSON(2) Vital Signs Vital signs: Vital Signs - 8 hr 07/16/22 07:45 Temperature 97.7 F Pulse Rate 78 Respiratory Rate 16 Blood Pressure 149/91 H Pulse Oximetry 98 Oxygen Delivery Method Room Air MDM - Arrhythmia/Palpitations Lab Data 07/16/22 07:50 07/16/22 07:50 Labs: Lab Results 07/16/22 07/16/22 07/16/22 Range/Units 07:50 07:50 07:50 WBC 10.5 (4.5-11.0) X10^3/uL RBC 6.20 H (4.0-5.2) X10^6/uL Hgb 17.1 H (12.0-16.0) g/dL Hct 50.8 H (36-46) % MCV 81.9 (80-100) fL MCH 27.6 (26-34) PG MCHC 33.7 (30-36) % RDW 14.3 (11.6-14.8) % Plt Count 318 (150-400) X10^3/uL Neut % (Auto) 81.7 H (50-75) % Lymph % (Auto) 8.7 L (25-40) % [place] % (Auto) 7.9 (3-14) % Eos % (Auto) 1.0 L (2-4) % Baso % (Auto) 0.7 (0-2) % Neut # (Auto) 8600 H (9763-6878) /uL Lymph # (Auto) 900 L (6948-8112) /uL [place] # (Auto) 800 (0-900) /uL Eos # (Auto) 100 (0-450) /uL Baso # (Auto) 100 (0-100) /uL PT 25.7 H (10.1-12.7) SECONDS INR 2.2 H (0.9-1.3) APTT 44 H (26-36) SECONDS Sodium 131 L (137-145) mmol/L Potassium 3.5 (3.4-5.1) mmol/L Chloride 92 L (98-107) mmol/L Carbon Dioxide 32 (22-32) mmol/L BUN 15 (7-17) mg/dL Creatinine 0.62 (0.52-1.04) mg/dL Estimated GFR > 60 (>60) mL/min BUN/Creatinine Ratio 24.2 H (6-22) Glucose 126 H (80-110) mg/dL Calcium 9.3 (8.4-10.2) mg/dL Magnesium 1.5 L (1.6-2.3) mg/dL Total Bilirubin 1.2 (0.2-1.3) mg/dL AST 33 (14-36) IU/L ALT 27 (<35) IU/L Alkaline Phosphatase 54 (38-126) U/L Total Creatine Kinase 68 (30-135) U/L CK-MB (CK-2) TNP CK-MB (CK-2) Rel Index TNP Troponin I < 0.012 (0.01-0.034) ng/mL NT-Pro-B Natriuret Pep 1160 H (<450) pg/mL Total Protein 8.0 (6.3-8.2) g/dL Albumin 4.4 (3.5-5.0) g/dL Globulin 3.6 (1.7-4.1) g/dL Albumin/Globulin Ratio 1.2 (1.0-2.8) Lipase 72 (23-300) U/L TSH (0.47-4.68) uIU/mL 07/16/22 Range/Units 07:50 WBC (4.5-11.0) X10^3/uL RBC (4.0-5.2) X10^6/uL Hgb (12.0-16.0) g/dL Hct (36-46) % MCV (80-100) fL MCH (26-34) PG MCHC (30-36) % RDW (11.6-14.8) % Plt Count (150-400) X10^3/uL Neut % (Auto) (50-75) % Lymph % (Auto) (25-40) % [place] % (Auto) (3-14) % Eos % (Auto) (2-4) % Baso % (Auto) (0-2) % Neut # (Auto) (5374-0992) /uL Lymph # (Auto) (5789-9053) /uL [place] # (Auto) (0-900) /uL Eos # (Auto) (0-450) /uL Baso # (Auto) (0-100) /uL PT (10.1-12.7) SECONDS INR (0.9-1.3) APTT (26-36) SECONDS Sodium (137-145) mmol/L Potassium (3.4-5.1) mmol/L Chloride (98-107) mmol/L Carbon Dioxide (22-32) mmol/L BUN (7-17) mg/dL Creatinine (0.52-1.04) mg/dL Estimated GFR (>60) mL/min BUN/Creatinine Ratio (6-22) Glucose (80-110) mg/dL Calcium (8.4-10.2) mg/dL Magnesium (1.6-2.3) mg/dL Total Bilirubin (0.2-1.3) mg/dL AST (14-36) IU/L ALT (<35) IU/L Alkaline Phosphatase (38-126) U/L Total Creatine Kinase (30-135) U/L CK-MB (CK-2) CK-MB (CK-2) Rel Index Troponin I (0.01-0.034) ng/mL NT-Pro-B Natriuret Pep (<450) pg/mL Total Protein (6.3-8.2) g/dL Albumin (3.5-5.0) g/dL Globulin (1.7-4.1) g/dL Albumin/Globulin Ratio (1.0-2.8) Lipase (23-300) U/L TSH 1.79 (0.47-4.68) uIU/mL Imaging Data Chest x-ray: Radiologist's Impresson: Cardiomegaly, no evidence of acute pulmonary process. ECG Data Attestation: I personally reviewed and interpreted this ECG as follows: Prior ECG tracings: available for review Interpretation: AFib, rate of 73, QRS 84 QTC of 438. No acute ST elevation appreciated. Patient has some depression in lateral leads. Prior from 06/[address] [facility] Narrative Medical decision making narrative: This is an 81-year-old female who presents with complaint of weakness and concern for being in atrial fibrillation. Patient is she is rate controlled, she is appropriately anticoagulated. Patient labs and cardiac workup show hemoglobin of 17, normal. INR is 2.2 unexpected on her anticoagulation, sodium is 131 similar to May, glucose is 126 with normal renal function potassium 3 5, patient's Mag slightly low at 1.5, LFTs otherwise normal troponins negative with a BNP of 11 62 slightly improved from last and similar to prior visits. TSH is negative. Patient's chest x-ray shows cardiomegaly but fluid overload. Patient did receive magnesium replacement IV. She is been taking oral potassium along with a diuretic just recently. Discussed risks versus benefits for cardioversion she is currently rate controlled but is appropriate anticoagulated. Patient defers. Discussed needs follow-up for recheck of labs including electrolytes and may need more regular magnesium replacement. Plan to continue all her home medications with return precautions patient feels comfortable with this plan. Discharge Plan Departure Patient Disposition: Home Clinical Impression: Atrial fibrillation Instructions: DI for Atrial Fibrillation Activity Restrictions/Additional Instructions: Follow-up with your physician for recheck, your magnesium was slightly low, this can also affect how your potassium is absorbed so have your labs rechecked in the next week. Please continue your home medications as prescribed. Please return for new or worsening symptoms, fast heart rate, lightheadedness or passing out, new chest pain or shortness of breath, new swelling in her extremities, persistent vomiting or other new or concerning changes. Prescriptions: No Action zolpidem 5 mg tablet 2.5 mg PO BEDTIME PRN (Reason: Sleep) Qty: 45 0RF Rx Instructions: Caution regarding possible dizziness or falls on med. Limit use as possible. diclofenac sodium 1 % gel 2 g topical BID PRN (Reason: pain) Qty: 100 0RF Rx Instructions: Rub onto most painful area of leg up to twice day if helpful. coenzyme Q10 [Co Q-10] 100 mg capsule 100 mg PO DAILY Qty: 90 0RF potassium chloride 10 mEq tablet extended release 10 meq PO chlorthalidone 25 mg tablet 12.5 mg PO DAILY levothyroxine 50 mcg tablet 50 mcg PO DAILY Qty: 90 3RF metoprolol succinate 50 mg tablet extended release 24 hr 50 mg PO BID Multivitamin Gummies 200 mcg Tablet,Chewable 1 tab PO DAILY aspirin 81 mg Capsule 81 mg PO BEDTIME Qty: 0 acetaminophen 500 mg capsule 500 mg PO Q4H MDD Max 3000 mg per day PRN (Reason: fever or pain) Qty: 90 0RF escitalopram oxalate 10 mg tablet 10 mg PO BEDTIME cyclosporine [Restasis] 0.05 % Dropperette 1 drp OPHTHALMIC (EYE) BEDTIME Xarelto 20 mg Tablet 20 mg PO QPM Rx Instructions: must administer with evening meal Praluent Pen 75 mg/mL Pen Injector 75 mg SUBCUT Q14D losartan 100 mg tablet 100 mg PO QAM Referrals: Sarah Montana DO [Primary Care Provider] - Stand Alone Forms: Patient Portal/API
[2022-07-16 08:00] VITALS: BP 175/102; PULSE 25; O2SAT 98
--- NOTE | 2022-07-16 08:03 | DI.RAD.S_ITS ---
PROCEDURE: XR CHEST 1V INDICATIONS: Arrhythmia TECHNIQUE: One view of the chest was acquired. COMPARISON: [facility], CR, XR CHEST 1V, 05/26/2022, 16:36. FINDINGS: Surgical changes and devices: Pacemaker Lungs and pleura: Lungs are clear. No pleural effusions or pneumothorax. Mediastinum: Mediastinal contours appear normal. Unchanged cardiomegaly. Bones and chest wall: No suspicious bony lesions. Overlying soft tissues appear unremarkable. IMPRESSION: Cardiomegaly. No evidence acute pulmonary process. Dictated by: Hong Morales M.D. on 07/16/2022 at 8:49 Approved by: Hong Morales M.D. on 07/16/2022 at 8:49
[2022-07-16 08:14] LABS: INR 2.2 (0.9-1.3); Prothrombin Time 25.7 SECONDS (10.1-12.7)
[2022-07-16 08:15] LABS: Add Manual Diff / Slide Review NO; Basophils Absolute Auto 100 /uL (0-100); Basophils Percent Auto 0.7 % (0-2); Eosinophils Absolute Auto 100 /uL (0-450); Hematocrit 50.8 % (36-46); Hemoglobin 17.1 g/dL (12.0-16.0); Lymphocytes Absolute Auto 900 /uL (1100-4500); Lymphocytes Percent Auto 8.7 % (25-40); Mean Corpuscular HGB Conc 33.7 % (30-36); Mean Corpuscular Hemoglobin 27.6 PG (26-34); Mean Corpuscular Volume 81.9 fL (80-100); Monocytes Absolute Auto 800 /uL (0-900); Monocytes Percent Auto 7.9 % (3-14); Neutrophils Absolute Auto 8600 /uL (1500-7000); Neutrophils Percent Auto 81.7 % (50-75); Platelet Count 318 X10^3/uL (150-400); Red Cell Distribution Width 14.3 % (11.6-14.8); White Blood Cell Count 10.5 X10^3/uL (4.5-11.0)
[2022-07-16 08:16] LABS: PTT Partial Thromboplastin Tim 44 SECONDS (26-36)
[2022-07-16 08:18] LABS: Alanine Aminotransferase 27 IU/L (<35); Albumin 4.4 g/dL (3.5-5.0); Albumin Globulin Ratio 1.2 (1.0-2.8); Alkaline Phosphatase 54 U/L (38-126); Aspartate Aminotransferase 33 IU/L (14-36); BUN Creatinine Ratio 24.2 (6-22); Bilirubin Total 1.2 mg/dL (0.2-1.3); Blood Urea Nitrogen 15 mg/dL (7-17); Calcium 9.3 mg/dL (8.4-10.2); Carbon Dioxide 32 mmol/L (22-32); Chloride 92 mmol/L (98-107); Creatine Kinase 68 U/L (30-135); Estimated Glomerular Filt Rate > 60 mL/min (>60); Globulin 3.6 g/dL (1.7-4.1); Glucose 126 mg/dL (80-110); HEMOLYSIS 36 (0-50); Lipase 72 U/L (23-300); Magnesium 1.5 mg/dL (1.6-2.3); Potassium 3.5 mmol/L (3.4-5.1); Sodium 131 mmol/L (137-145)
[2022-07-16 08:29] LABS: NT-proBNP (BNP-Adult 18+) 1160 pg/mL (<450); Troponin I < 0.012 ng/mL (0.01-0.034)
[2022-07-16 08:30] VITALS: BP 167/92; PULSE 76; RESP 16; O2SAT 97
[2022-07-16] MEDS: MAGNESIUM SULFATE 2 GM/50 ML PIGGYBACK IV (08:47)
[2022-07-16 09:00] VITALS: BP 148/91; PULSE 79; RESP 23; O2SAT 96
[2022-07-16 09:16] LABS: TSH w/ Reflex to FT4 1.79 uIU/mL (0.47-4.68)
[2022-07-16 09:30] VITALS: BP 129/78; PULSE 72; RESP 16; O2SAT 95
[2022-07-16 10:00] VITALS: BP 143/89; PULSE 76; RESP 18; O2SAT 96
== END 2022-07-16 10:34 | disposition home or self-care (01) ==
PROVIDERS: Emergency Provider Emergency Medicine; PCP Family Medicine
DX: I48.91 Unspecified atrial fibrillation (principal); E83.42 Hypomagnesemia; Z79.01 Long term (current) use of anticoagulants; Z79.899 Other long term (current) drug therapy
CPT/HCPCS: 36415; 71045; 80053; 82550; 83690; 83735; 83880; 84443; 84484; 85025; 85610; 85730; 93005; 93010; 96365; 96366; 99284; J3475

== ENCOUNTER → 2022-07-24 14:47 | Outpatient (CLI) | payer MEDICARE, SELFPAY ==
[2022-05-15 12:18] VITALS: BMI 34.0
[2022-07-24 15:25] LABS: Add Manual Diff / Slide Review NO; Basophils Absolute Auto 100 /uL (0-100); Eosinophils Absolute Auto 100 /uL (0-450); Eosinophils Percent Auto 1.9 % (2-4); Hematocrit 46.5 % (36-46); Hemoglobin 15.5 g/dL (12.0-16.0); Lymphocytes Absolute Auto 1500 /uL (1100-4500); Lymphocytes Percent Auto 20.3 % (25-40); Mean Corpuscular HGB Conc 33.4 % (30-36); Mean Corpuscular Hemoglobin 27.5 PG (26-34); Mean Corpuscular Volume 82.4 fL (80-100); Monocytes Absolute Auto 800 /uL (0-900); Monocytes Percent Auto 9.9 % (3-14); Neutrophils Absolute Auto 5100 /uL (1500-7000); Neutrophils Percent Auto 66.9 % (50-75); Platelet Count 322 X10^3/uL (150-400); Red Blood Cell Count 5.64 X10^6/uL (4.0-5.2); Red Cell Distribution Width 14.2 % (11.6-14.8); White Blood Cell Count 7.6 X10^3/uL (4.5-11.0)
[2022-07-24 16:25] LABS: Alanine Aminotransferase 23 IU/L (<35); Albumin 3.9 g/dL (3.5-5.0); Albumin Globulin Ratio 1.2 (1.0-2.8); Alkaline Phosphatase 61 U/L (38-126); Aspartate Aminotransferase 28 IU/L (14-36); BUN Creatinine Ratio 16.2 (6-22); Bilirubin Total 0.8 mg/dL (0.2-1.3); Blood Urea Nitrogen 12 mg/dL (7-17); Calcium 9.1 mg/dL (8.4-10.2); Carbon Dioxide 32 mmol/L (22-32); Chloride 89 mmol/L (98-107); Estimated Glomerular Filt Rate > 60 mL/min (>60); Globulin 3.2 g/dL (1.7-4.1); Glucose 98 mg/dL (80-110); HEMOLYSIS < 15 (0-50); Magnesium 1.6 mg/dL (1.6-2.3); Potassium 3.8 mmol/L (3.4-5.1); Sodium 128 mmol/L (137-145); Total Protein 7.1 g/dL (6.3-8.2)
[2022-07-24 16:53] LABS: TSH w/ Reflex to FT4 1.42 uIU/mL (0.47-4.68)
== END ==
PROVIDERS: PCP Family Medicine; Referring Provider Nurse Practitioner Family; Visit Provider Nurse Practitioner Family
DX: E03.9 Hypothyroidism, unspecified (principal); R79.0 Abnormal level of blood mineral; I48.91 Unspecified atrial fibrillation
CPT/HCPCS: 36415; 80053; 83735; 84443; 85025

== ENCOUNTER 2022-08-19 07:13 | Emergency (ER) | payer MEDICARE, SELFPAY ==
[2022-05-15 12:18] VITALS: BMI 34.0
[2022-08-19] VITALS (8 sets, daily range): BP systolic 150–190; BP diastolic 70–109; PULSE 69–78; RESP 13–24; TEMP 36.8; O2SAT 95–99
--- NOTE | 2022-08-19 07:17 | DI.RAD.S_ITS ---
PROCEDURE: XR CHEST 1V INDICATIONS: chest pain TECHNIQUE: One view of the chest was acquired. COMPARISON: [facility], CR, XR CHEST 1V, 07/16/2022, 8:00. FINDINGS: Surgical changes and devices: Pacemaker Lungs and pleura: Lungs are clear. No pleural effusions or pneumothorax. Mediastinum: Mediastinal contours appear normal. Cardiomegaly. Bones and chest wall: No suspicious bony lesions. Overlying soft tissues appear unremarkable. IMPRESSION: Cardiomegaly. No evidence acute pulmonary process. Dictated by: Hong Morales M.D. on 08/19/2022 at 8:16 Approved by: Hong Morales M.D. on 08/19/2022 at 8:17
--- NOTE | 2022-08-19 07:38 | ED.ARRPALP ---
HPI - Arrhythmia/Palpitations General Chief Complaint: Arrhythmia/Palpitations Stated Complaint: afib Time Seen by Provider: 08/19/22 07:16 Source: patient Mode of arrival: Family Vehicle History of Present Illness HPI narrative: 81-year-old female nonsmoker with history of AFib on Xarelto, coronary artery disease presents stating she is been in AFib for about 2 weeks and is feeling short of breath. She states that she feels fatigued and short of breath. She is more short of breath with exertion and with lying flat. She denies any swelling of her lower extremities or weight gain. She states she is been feeling poorly ever since her metoprolol was increased about 2 weeks ago. She denies other medication changes. She states that she has not missed any doses of her Xarelto. Related Data Home Medications Medication Instructions Recorded Confirmed multivitamin with minerals-folic 1 tab PO DAILY 04/01/21 07/24/22 acid 200 mcg chewable tablet (Multivitamin Gummies) aspirin 81 mg capsule 81 mg PO BEDTIME ##0 04/03/21 07/24/22 escitalopram oxalate 10 mg tablet 10 mg PO BEDTIME 03/25/22 07/24/22 alirocumab 75 mg/mL subcutaneous 75 mg SUBCUT Q14D 05/26/22 07/24/22 pen injector (Praluent Pen) cyclosporine 0.05 % eye drops in a 1 drp ophthalmic (eye) BEDTIME 05/26/22 07/24/22 dropperette (Restasis) losartan 100 mg tablet 100 mg PO QAM 05/26/22 07/24/22 rivaroxaban 20 mg tablet (Xarelto) 20 mg PO QPM 05/26/22 07/24/22 metoprolol succinate 50 mg 50 mg PO BID 06/04/22 07/24/22 tablet,extended release 24 hr chlorthalidone 25 mg tablet 12.5 mg PO DAILY 07/11/22 07/24/22 potassium chloride 10 mEq 10 meq PO 07/11/22 07/24/22 tablet,extended release Previous Rx's Medication Instructions Recorded acetaminophen 500 mg capsule 500 mg PO Q4H PRN fever or pain 04/05/21 #90 caps levothyroxine 50 mcg tablet 50 mcg PO DAILY #90 tabs 12/02/21 zolpidem 5 mg tablet 2.5 mg PO BEDTIME PRN Sleep #45 01/20/22 tabs coenzyme Q10 100 mg capsule (Co 100 mg PO DAILY #90 caps 07/11/22 Q-10) diclofenac sodium 1 % topical gel 2 g topical BID PRN pain #100 grams 07/11/22 Allergies Allergy/AdvReac Type Severity Reaction Status Date / Time hydromorphone Allergy Intermediate RASH/GI Verified 07/24/22 14:14 UPSET hydrocodone Allergy Mild GI UPSET Verified 07/24/22 14:14 rosuvastatin [From Crestor] Allergy Unknown Intolerant Verified 07/24/22 14:14 diltiazem [DILTIAZEM] AdvReac Intermediate BRADYCARDIA Verified 07/24/22 14:14 atorvastatin AdvReac Unknown Significant Verified 07/24/22 14:14 weakness, myalgias Review of Systems Review of Systems Narrative: GENERAL: Denies chills, fatigue, malaise, fever, sweats. HEENT: Denies sinus pain, ear pain, sore throat, difficulty swallowing, dizziness. RESPIRATORY: Denies dyspnea, cough, wheezing, hemoptysis, sputum. CARDIOVASCULAR: D see HPI GASTROINTESTINAL: Denies nausea, vomiting, abdominal pain, diarrhea, constipation, melena. : Denies dysuria, frequency, incontinence, hematuria, urinary retention. MUSCULOSKELETAL: denies weakness, joint pain, or bony pain SKIN: Denies rash, skin lesions, or other NEUROLOGIC: Denies weakness, headache, numbness, change in speech, confusion, seizures, incoordination. PSYCHIATRIC: No concerning psychosocial issues. 12 point review of systems is negative except for those stated above Patient History Medical History Allergies Anticoagulated Anxiety (~2013) Atrial fibrillation (~2014) Bilateral chronic otitis media Bruises easily Carpal tunnel syndrome Cervical somatic dysfunction Cervical spondylosis Chronic neck pain Cranial somatic dysfunction Depression (~2015) Essential hypertension Fatigue Fibroid (~1965) First degree AV block Gastroenteritis Hearing loss History of cardioversion (~07/31/20) History of syncope HTN (hypertension) Hypothyroid Lumbar region somatic dysfunction Osteoarthritis of left knee Pacemaker (~11/2015) PAD (peripheral artery disease) Segmental and somatic dysfunction of abdomen and other regions Segmental and somatic dysfunction of pelvic region Segmental and somatic dysfunction of sacral region Segmental and somatic dysfunction of thoracic region Shoulder pain (~2018) Tachy-kimmy syndrome Upper extremity somatic dysfunction Vitamin D deficiency Surgical History Anesthesia Cataracts, bilateral H/O cardiac radiofrequency ablation (~07/02/16) History of appendectomy History of carpal tunnel release History of cholecystectomy History of hysterectomy (~1978) Hx of breast reduction, elective (~2006) Pacemaker (~11/06/15) Family History Father Hypertension Mother Lung cancer Social History household members: none Smoking Status: Never smoker alcohol intake: never substance use type: does not use Smoking Status: Never smoker alcohol intake frequency: a few times a month Substance Use Type: does not use Exam Narrative Exam Narrative: GENERAL: [81] year old patient appears stated age. Well-developed patient, in mild distress. HEAD: Atraumatic. Normocephalic. EYES: Pupils equal round and reactive. Extraocular motions intact. No scleral icterus. No injection or drainage. ENT: Nose without bleeding, purulent drainage. Throat without erythema, tonsillar hypertrophy or exudate. Airway patent. NECK: Trachea midline. Non tender CARDIOVASCULAR: Regular rate, irregular rhythm rhythm without murmurs, gallops, or rubs. RESPIRATORY: Clear to auscultation. Breath sounds equal bilaterally. No wheezes, rales, or rhonchi. GASTROINTESTINAL: Abdomen soft, non-tender, nondistended. EXTREMITIES: No edema or joint tenderness. BACK: Nontender without deformity or crepitance. No flank tenderness. NEURO: AOx3. SKIN: No rash or erythema of visible areas Initial Vital Signs Initial Vital Signs: Vital Signs Temperature 98.2 F 08/19/22 07:20 Pulse Rate 69 08/19/22 07:20 Respiratory Rate 18 08/19/22 07:20 Blood Pressure 190/96 H 08/19/22 07:20 Pulse Oximetry 99 08/19/22 07:20 Oxygen Delivery Method Room Air 08/19/22 07:20 Course Orders Ordered: ED Orders 08/19/22 07:17 XR chest 1V Stat EKG-12 Lead Stat 08/19/22 07:50 Complete Blood Count AUTO DIFF Stat Comprehensive Metabolic Panel Stat Lipase Stat MAG [Magnesium] Stat NT-proBNP (BNP-Adult 18+) Stat Troponin & CK Cardiac Panel Stat Sodium Chloride (Normal Saline 0.9%) 1,000 mls @ 150 mls/hr IV CONT TED Last Admin: 08/19/22 08:05 Dose: 150 mls/hr Documented By: RLS Consultations Consultation #1: Discussed with on-call Cardiology, Dr. Lopez. We sure the opinion that resuming prior dosing of beta-amanda as most appropriate as her symptoms seemed to be closely linked with the timing of this change. There is no indication for cardioversion today. Vital Signs Vital signs: Vital Signs - 8 hr 08/19/22 07:20 08/19/22 07:27 08/19/22 07:30 Temperature 98.2 F Pulse Rate 69 71 77 Respiratory Rate 18 13 16 Blood Pressure 190/96 H Pulse Oximetry 99 97 97 Oxygen Delivery Method Room Air 08/19/22 07:49 08/19/22 07:49 08/19/22 08:00 Temperature Pulse Rate 71 Respiratory Rate 24 Blood Pressure 190/109 H 187/84 H Pulse Oximetry 97 Oxygen Delivery Method 08/19/22 08:00 Temperature Pulse Rate 72 Respiratory Rate 18 Blood Pressure Pulse Oximetry 96 Oxygen Delivery Method MDM - Arrhythmia/Palpitations Lab Data 08/19/22 07:50 08/19/22 07:50 Labs: Lab Results 08/19/22 08/19/22 08/19/22 Range/Units 07:50 07:50 07:50 WBC 12.6 H (4.5-11.0) X10^3/uL RBC 5.82 H (4.0-5.2) X10^6/uL Hgb 16.3 H (12.0-16.0) g/dL Hct 47.8 H (36-46) % MCV 82.1 (80-100) fL MCH 27.9 (26-34) PG MCHC 34.0 (30-36) % RDW 14.2 (11.6-14.8) % Plt Count 373 (150-400) X10^3/uL Neut % (Auto) 84.3 H (50-75) % Lymph % (Auto) 6.8 L (25-40) % Ford % (Auto) 7.2 (3-14) % Eos % (Auto) 1.1 L (2-4) % Baso % (Auto) 0.6 (0-2) % Neut # (Auto) 35030 H (3886-8363) /uL Lymph # (Auto) 900 L (7366-4820) /uL Ford # (Auto) 900 (0-900) /uL Eos # (Auto) 100 (0-450) /uL Baso # (Auto) 100 (0-100) /uL Sodium 128 L (137-145) mmol/L Potassium 3.5 (3.4-5.1) mmol/L Chloride 88 L (98-107) mmol/L Carbon Dioxide 31 (22-32) mmol/L BUN 8 (7-17) mg/dL Creatinine 0.55 (0.52-1.04) mg/dL Estimated GFR > 60 (>60) mL/min BUN/Creatinine Ratio 14.5 (6-22) Glucose 108 (80-110) mg/dL Calcium 9.0 (8.4-10.2) mg/dL Magnesium 1.5 L (1.6-2.3) mg/dL Total Bilirubin 1.1 (0.2-1.3) mg/dL AST 36 (14-36) IU/L ALT 23 (<35) IU/L Alkaline Phosphatase 64 (38-126) U/L Total Creatine Kinase 69 (30-135) U/L Troponin I < 0.012 (0.01-0.034) ng/mL NT-Pro-B Natriuret Pep 1080 H (<450) pg/mL Total Protein 8.2 (6.3-8.2) g/dL Albumin 4.4 (3.5-5.0) g/dL Globulin 3.8 (1.7-4.1) g/dL Albumin/Globulin Ratio 1.2 (1.0-2.8) Lipase 55 (23-300) U/L [facility] Narrative Medical decision making narrative: [81] year old patient presents with feeling weak, fatigued and in atrial fibrillation Multiple etiologies for patient's symptoms considered including, but not limited to: [Symptomatic from AFib, medication reaction versus other] Prior Charts reviewed in our EMR Primary Historian: patient Labs reviewed and interpreted by myself: No significant abnormal findings, slight leukocytosis in the absence of any infectious process Imaging reviewed: Chest x-ray without acute finding Consultations: Discussed with Cardiology as noted above Patient has felt fatigued since and increase in her dosing of metoprolol. She is found to be in AFib but rate is in the 60s and 70s. No indication for cardioversion. Discussed with Cardiology, agree that returning to prior dosing of metoprolol with follow-up is most appropriate. Patient appropriate for discharge. She and friend understand and agree with the diagnosis and plan Findings and discharge diagnosis discussed with patient/family followed by verbalization of understanding Return precautions discussed with patient/family whom verbalize understanding of diagnosis and plan Discharge Plan Departure Patient Disposition: Home Clinical Impression: Atrial fibrillation, Fatigue Instructions: DI for Atrial Fibrillation Activity Restrictions/Additional Instructions: *You have been diagnosed with [fatigue, shortness of breath AFib] *What to do: * as we discussed please resume your prior dosing of metoprolol with 25 mg in the morning and 50 at night. Otherwise, Please continue to take your regular medications as directed. [ ] New medication prescriptions sent to your pharmacy: [ ] [ ] New medication written as a paper prescription [ ] No new medications given *Please follow up with your primary care human resources office manager in the next week or so, call for an appointment. Let them know you were seen in the Emergency Department and that we ask that you be seen in follow up. We will electronically transmit a record of today's note *Return to Emergency Department if you should have any new, worsening or concerning symptoms, such as [fever greater than 101 F, shaking chills, worsening pain, persistent vomiting or other bothersome symptoms] Prescriptions: No Action zolpidem 5 mg tablet 2.5 mg PO BEDTIME PRN (Reason: Sleep) Qty: 45 0RF Rx Instructions: Caution regarding possible dizziness or falls on med. Limit use as possible. diclofenac sodium 1 % gel 2 g topical BID PRN (Reason: pain) Qty: 100 0RF Rx Instructions: Rub onto most painful area of leg up to twice day if helpful. coenzyme Q10 [Co Q-10] 100 mg capsule 100 mg PO DAILY Qty: 90 0RF potassium chloride 10 mEq tablet extended release 10 meq PO chlorthalidone 25 mg tablet 12.5 mg PO DAILY levothyroxine 50 mcg tablet 50 mcg PO DAILY Qty: 90 3RF metoprolol succinate 50 mg tablet extended release 24 hr 50 mg PO BID Multivitamin Gummies 200 mcg Tablet,Chewable 1 tab PO DAILY aspirin 81 mg Capsule 81 mg PO BEDTIME Qty: 0 acetaminophen 500 mg capsule 500 mg PO Q4H MDD Max 3000 mg per day PRN (Reason: fever or pain) Qty: 90 0RF escitalopram oxalate 10 mg tablet 10 mg PO BEDTIME cyclosporine [Restasis] 0.05 % Dropperette 1 drp OPHTHALMIC (EYE) BEDTIME Xarelto 20 mg Tablet 20 mg PO QPM Rx Instructions: must administer with evening meal Praluent Pen 75 mg/mL Pen Injector 75 mg SUBCUT Q14D losartan 100 mg tablet 100 mg PO QAM Referrals: Sarah Montana DO [Primary Care Provider] - Stand Alone Forms: Patient Portal/API
[2022-08-19 08:00] LABS: Add Manual Diff / Slide Review NO; Basophils Absolute Auto 100 /uL (0-100); Basophils Percent Auto 0.6 % (0-2); Eosinophils Absolute Auto 100 /uL (0-450); Eosinophils Percent Auto 1.1 % (2-4); Hematocrit 47.8 % (36-46); Hemoglobin 16.3 g/dL (12.0-16.0); Lymphocytes Absolute Auto 900 /uL (1100-4500); Lymphocytes Percent Auto 6.8 % (25-40); Mean Corpuscular Hemoglobin 27.9 PG (26-34); Mean Corpuscular Volume 82.1 fL (80-100); Monocytes Absolute Auto 900 /uL (0-900); Monocytes Percent Auto 7.2 % (3-14); Neutrophils Absolute Auto 10600 /uL (1500-7000); Neutrophils Percent Auto 84.3 % (50-75); Platelet Count 373 X10^3/uL (150-400); Red Blood Cell Count 5.82 X10^6/uL (4.0-5.2); Red Cell Distribution Width 14.2 % (11.6-14.8); White Blood Cell Count 12.6 X10^3/uL (4.5-11.0)
[2022-08-19] MEDS: SODIUM CHLORIDE 0.9% 1,000 ML 150 ML IV (08:05)
[2022-08-19 08:15] LABS: Alanine Aminotransferase 23 IU/L (<35); Albumin 4.4 g/dL (3.5-5.0); Albumin Globulin Ratio 1.2 (1.0-2.8); Alkaline Phosphatase 64 U/L (38-126); Aspartate Aminotransferase 36 IU/L (14-36); BUN Creatinine Ratio 14.5 (6-22); Bilirubin Total 1.1 mg/dL (0.2-1.3); Blood Urea Nitrogen 8 mg/dL (7-17); Carbon Dioxide 31 mmol/L (22-32); Chloride 88 mmol/L (98-107); Creatine Kinase 69 U/L (30-135); Estimated Glomerular Filt Rate > 60 mL/min (>60); Globulin 3.8 g/dL (1.7-4.1); Glucose 108 mg/dL (80-110); Lipase 55 U/L (23-300); Magnesium 1.5 mg/dL (1.6-2.3); Potassium 3.5 mmol/L (3.4-5.1); Sodium 128 mmol/L (137-145); Total Protein 8.2 g/dL (6.3-8.2)
[2022-08-19 08:18] LABS: HEMOLYSIS 51 (0-50)
[2022-08-19 08:24] LABS: NT-proBNP (BNP-Adult 18+) 1080 pg/mL (<450)
[2022-08-19 08:26] LABS: Troponin I < 0.012 ng/mL (0.01-0.034)
== END 2022-08-19 09:34 | disposition home or self-care (01) ==
PROVIDERS: Emergency Provider Emergency Medicine; PCP Family Medicine
DX: I48.91 Unspecified atrial fibrillation (principal); Z79.01 Long term (current) use of anticoagulants; R53.83 Other fatigue
CPT/HCPCS: 36415; 71045; 80053; 82550; 83690; 83735; 83880; 84484; 85025; 93005; 93010; 99284

== ENCOUNTER 2022-09-03 05:07 | Emergency (ER) | payer MEDICARE, SELFPAY ==
[2022-05-15 12:18] VITALS: BMI 34.0
[2022-09-03] VITALS (15 sets, daily range): BP systolic 125–170; BP diastolic 61–85; PULSE 73–91; RESP 17–31; TEMP 36.6; O2SAT 94–97; BMI 32.9
--- NOTE | 2022-09-03 05:15 | DI.RAD.S_ITS ---
PROCEDURE: XR CHEST 1V INDICATIONS: chest pain TECHNIQUE: One view of the chest was acquired. COMPARISON: [facility], CR, XR CHEST 1V, 08/19/2022, 7:24. FINDINGS: Surgical changes and devices: There is a cardiac pacemaker in expected position. Lungs and pleura: Lungs are clear. No pleural effusions or pneumothorax. Mediastinum: Mediastinal contours appear normal. Heart size is normal. Bones and chest wall: No suspicious bony lesions. Overlying soft tissues appear unremarkable. IMPRESSION: No acute cardiopulmonary disease. Dictated by: Manoj Milan M.D. on 09/03/2022 at 10:25 Approved by: Manoj Milan M.D. on 09/03/2022 at 10:25
--- NOTE | 2022-09-03 05:24 | ED.CHESTPAIN ---
HPI - Chest Pain <Jorge Barton, DO - Last Filed: 09/03/22 19:08> General Chief Complaint: Chest Pain Stated Complaint: chest pain Time Seen by Provider: 09/03/22 05:09 Source: patient Mode of arrival: Ambulatory Limitations: no limitations History of Present Illness HPI narrative: 81-year-old female. Has a history of atrial fibrillation. Is anticoagulated. Also has a history of a pacemaker in place. She states that yesterday morning (approximately 24 hours ago) she felt like her device went off. She states that it has never gone off in the past. Afterwards she had some chest discomfort. Her symptoms seemed to improve until last evening when she felt like her device went off once again. She states she now has a ?very slight ?chest pressure. No shortness of breath. The chest pressure has been consistent since last evening. There has been some adjustments to her medication recently. She does see Cardiology. She recently had an appointment with her primary doctor. She is on metoprolol. She does have baseline balance issues. Related Data Home Medications Medication Instructions Recorded Confirmed multivitamin with minerals-folic 1 tab PO DAILY 04/01/21 07/24/22 acid 200 mcg chewable tablet (Multivitamin Gummies) aspirin 81 mg capsule 81 mg PO BEDTIME ##0 04/03/21 07/24/22 escitalopram oxalate 10 mg tablet 10 mg PO BEDTIME 03/25/22 07/24/22 alirocumab 75 mg/mL subcutaneous 75 mg SUBCUT Q14D 05/26/22 07/24/22 pen injector (Praluent Pen) cyclosporine 0.05 % eye drops in a 1 drp ophthalmic (eye) BEDTIME 05/26/22 07/24/22 dropperette (Restasis) losartan 100 mg tablet 100 mg PO QAM 05/26/22 07/24/22 rivaroxaban 20 mg tablet (Xarelto) 20 mg PO QPM 05/26/22 07/24/22 chlorthalidone 25 mg tablet 12.5 mg PO DAILY 07/11/22 07/24/22 potassium chloride 10 mEq 10 meq PO 07/11/22 07/24/22 tablet,extended release metoprolol succinate 50 mg See Rx Instructions PO BID 08/25/22 08/25/22 tablet,extended release 24 hr Previous Rx's Medication Instructions Recorded acetaminophen 500 mg capsule 500 mg PO Q4H PRN fever or pain 04/05/21 #90 caps levothyroxine 50 mcg tablet 50 mcg PO DAILY #90 tabs 12/02/21 coenzyme Q10 100 mg capsule (Co 100 mg PO DAILY #90 caps 07/11/22 Q-10) diclofenac sodium 1 % topical gel 2 g topical BID PRN pain #100 grams 07/11/22 zolpidem 5 mg tablet 2.5 mg PO BEDTIME PRN Sleep #45 08/26/22 tabs potassium chloride 10 mEq 20 meq PO DAILY #60 caps 09/03/22 capsule,extended release Allergies Allergy/AdvReac Type Severity Reaction Status Date / Time hydromorphone Allergy Intermediate RASH/GI Verified 09/03/22 05:18 UPSET hydrocodone Allergy Mild GI UPSET Verified 09/03/22 05:18 rosuvastatin [From Crestor] Allergy Unknown Intolerant Verified 09/03/22 05:18 diltiazem [DILTIAZEM] AdvReac Intermediate BRADYCARDIA Verified 09/03/22 05:18 atorvastatin AdvReac Unknown Significant Verified 09/03/22 05:18 weakness, myalgias Review of Systems <Jorge Barton DO - Last Filed: 09/03/22 19:08> Constitutional Constitutional: Reports system reviewed and no additional complaints, except as documented Cardiovascular Cardiovascular: Reports system reviewed and no additional complaints, except as documented Respiratory Respiratory: Reports system reviewed and no additional complaints, except as documented Gastrointestinal Gastrointestinal: Reports system reviewed and no additional complaints, except as documented Integumentary/Breasts Skin/Breast: Reports system reviewed and no additional complaints, except as documented Neurologic Neurologic: Reports system reviewed and no additional complaints, except as documented Hematologic/Lymphatic On Anticoagulants: Yes Patient History <Jorge Barton DO - Last Filed: 09/03/22 19:08> Medical History Allergies Anticoagulated Anxiety (~2013) Atrial fibrillation (~2014) Bilateral chronic otitis media Bruises easily Carpal tunnel syndrome Cervical somatic dysfunction Cervical spondylosis Chronic neck pain Cranial somatic dysfunction Depression (~2015) Essential hypertension Fatigue Fibroid (~1965) First degree AV block Gastroenteritis Hearing loss History of cardioversion (~07/31/20) History of syncope HTN (hypertension) Hypothyroid Insomnia Lumbar region somatic dysfunction Osteoarthritis of left knee Pacemaker (~11/2015) PAD (peripheral artery disease) Segmental and somatic dysfunction of abdomen and other regions Segmental and somatic dysfunction of pelvic region Segmental and somatic dysfunction of sacral region Segmental and somatic dysfunction of thoracic region Shoulder pain (~2018) Tachy-kimmy syndrome Upper extremity somatic dysfunction Vitamin D deficiency Surgical History Anesthesia Cataracts, bilateral H/O cardiac radiofrequency ablation (~07/02/16) History of appendectomy History of carpal tunnel release History of cholecystectomy History of hysterectomy (~1978) Hx of breast reduction, elective (~2006) Pacemaker (~11/06/15) Family History Father Hypertension Mother Lung cancer Social History household members: none Smoking Status: Never smoker alcohol intake: never substance use type: does not use Smoking Status: Never smoker alcohol intake frequency: a few times a month Substance Use Type: does not use Exam <DO Andrea Cárdenas Last Filed: 09/03/22 19:08> Initial Vital Signs Initial Vital Signs: Vital Signs Pulse Rate 88 09/03/22 05:17 Pulse Oximetry 97 09/03/22 05:17 HENMT Head: normal to inspection and normocephalic Resp Effort & Inspection: normal respiratory effort Auscultation: clear to auscultation bilaterally Cardio Rate: regular rate Rhythm: abnormal rhythm GI Palpation: soft and No tender Neuro General: patient alert, patient awake and patient oriented x3 <DO Andrea Velázquez Last Filed: 09/03/22 10:31> Initial Vital Signs Initial Vital Signs: Vital Signs Pulse Rate 88 09/03/22 05:17 Pulse Oximetry 97 09/03/22 05:17 Course <DO Andrea Cárdenas Last Filed: 09/03/22 19:08> Orders Ordered: Discontinued Medications Magnesium Sulfate (Magnesium Sulfate) 2 gm in 50 mls @ 25 mls/hr IV NOW ONE Stop: 09/03/22 08:02 Last Infusion: 09/03/22 08:06 Dose: 0 mls/hr Documented By: MARTIN Co-signed By: MARLENE Admin: 09/03/22 06:09 Dose: 25 mls/hr Documented By: USHA Co-signed By: Potassium Chloride (Potassium Chloride 10 Meq Tab) 20 meq PO NOW ONE Stop: 09/03/22 06:04 Last Admin: 09/03/22 06:34 Dose: 20 meq Documented By: USHA Vital Signs Vital signs: Vital Signs - 8 hr 09/03/22 05:17 09/03/22 05:29 09/03/22 05:29 Temperature Pulse Rate 88 91 H Respiratory Rate 22 Blood Pressure 149/85 H Pulse Oximetry 97 97 Oxygen Delivery Method 09/03/22 05:30 09/03/22 05:31 09/03/22 05:31 Temperature Pulse Rate 89 86 Respiratory Rate 21 23 Blood Pressure 170/83 H Pulse Oximetry 96 96 Oxygen Delivery Method 09/03/22 05:45 09/03/22 06:00 09/03/22 06:00 Temperature 97.8 F Pulse Rate 79 Respiratory Rate 18 Blood Pressure 156/70 H Pulse Oximetry 95 Oxygen Delivery Method Room Air 09/03/22 06:30 09/03/22 06:30 09/03/22 07:00 Temperature Pulse Rate 75 Respiratory Rate 20 Blood Pressure 137/61 154/71 H Pulse Oximetry 94 Oxygen Delivery Method Room Air 09/03/22 07:00 09/03/22 07:30 09/03/22 07:31 Temperature Pulse Rate 79 75 Respiratory Rate 17 19 Blood Pressure 133/61 Pulse Oximetry 96 96 Oxygen Delivery Method 09/03/22 07:31 09/03/22 08:00 09/03/22 08:00 Temperature Pulse Rate 78 73 Respiratory Rate 18 18 Blood Pressure 134/67 Pulse Oximetry 97 96 Oxygen Delivery Method 09/03/22 08:30 09/03/22 08:30 09/03/22 08:53 Temperature Pulse Rate 74 Respiratory Rate 18 Blood Pressure 125/61 137/78 Pulse Oximetry 95 Oxygen Delivery Method 09/03/22 08:53 09/03/22 09:00 09/03/22 09:00 Temperature Pulse Rate 77 76 Respiratory Rate 23 31 H Blood Pressure 141/85 H Pulse Oximetry 96 97 Oxygen Delivery Method 09/03/22 09:30 09/03/22 09:30 Temperature Pulse Rate 75 Respiratory Rate 20 Blood Pressure 151/72 H Pulse Oximetry 97 Oxygen Delivery Method <Anitha Brito DO - Last Filed: 09/03/22 10:31> Orders Ordered: Discontinued Medications Magnesium Sulfate (Magnesium Sulfate) 2 gm in 50 mls @ 25 mls/hr IV NOW ONE Stop: 09/03/22 08:02 Last Infusion: 09/03/22 08:06 Dose: 0 mls/hr Documented By: MARTIN Co-signed By: MARLENE Admin: 09/03/22 06:09 Dose: 25 mls/hr Documented By: USHA Co-signed By: Potassium Chloride (Potassium Chloride 10 Meq Tab) 20 meq PO NOW ONE Stop: 09/03/22 06:04 Last Admin: 09/03/22 06:34 Dose: 20 meq Documented By: USHA Vital Signs Vital signs: Vital Signs - 8 hr 09/03/22 05:17 09/03/22 05:29 09/03/22 05:29 Temperature Pulse Rate 88 91 H Respiratory Rate 22 Blood Pressure 149/85 H Pulse Oximetry 97 97 Oxygen Delivery Method 09/03/22 05:30 09/03/22 05:31 09/03/22 05:31 Temperature Pulse Rate 89 86 Respiratory Rate 21 23 Blood Pressure 170/83 H Pulse Oximetry 96 96 Oxygen Delivery Method 09/03/22 05:45 09/03/22 06:00 09/03/22 06:00 Temperature 97.8 F Pulse Rate 79 Respiratory Rate 18 Blood Pressure 156/70 H Pulse Oximetry 95 Oxygen Delivery Method Room Air 09/03/22 06:30 09/03/22 06:30 09/03/22 07:00 Temperature Pulse Rate 75 Respiratory Rate 20 Blood Pressure 137/61 154/71 H Pulse Oximetry 94 Oxygen Delivery Method Room Air 09/03/22 07:00 09/03/22 07:30 09/03/22 07:31 Temperature Pulse Rate 79 75 Respiratory Rate 17 19 Blood Pressure 133/61 Pulse Oximetry 96 96 Oxygen Delivery Method 09/03/22 07:31 09/03/22 08:00 09/03/22 08:00 Temperature Pulse Rate 78 73 Respiratory Rate 18 18 Blood Pressure 134/67 Pulse Oximetry 97 96 Oxygen Delivery Method 09/03/22 08:30 09/03/22 08:30 09/03/22 08:53 Temperature Pulse Rate 74 Respiratory Rate 18 Blood Pressure 125/61 137/78 Pulse Oximetry 95 Oxygen Delivery Method 09/03/22 08:53 09/03/22 09:00 09/03/22 09:00 Temperature Pulse Rate 77 76 Respiratory Rate 23 31 H Blood Pressure 141/85 H Pulse Oximetry 96 97 Oxygen Delivery Method 09/03/22 09:30 09/03/22 09:30 Temperature Pulse Rate 75 Respiratory Rate 20 Blood Pressure 151/72 H Pulse Oximetry 97 Oxygen Delivery Method MDM - Chest Pain <Jorge Barton DO - Last Filed: 09/03/22 19:08> Medical Records Data Attestation: I reviewed the patient's medical records. Lab Data Attestation: I reviewed the patient's lab results. 09/03/22 05:30 09/03/22 05:30 Labs: Lab Results 09/03/22 09/03/22 09/03/22 Range/Units 05:30 05:30 05:30 WBC 11.6 H (4.5-11.0) X10^3/uL RBC 6.02 H (4.0-5.2) X10^6/uL Hgb 16.4 H (12.0-16.0) g/dL Hct 48.8 H (36-46) % MCV 81.0 (80-100) fL MCH 27.2 (26-34) PG MCHC 33.6 (30-36) % RDW 14.0 (11.6-14.8) % Plt Count 331 (150-400) X10^3/uL Neut % (Auto) 82.4 H (50-75) % Lymph % (Auto) 8.6 L (25-40) % [place] % (Auto) 7.6 (3-14) % Eos % (Auto) 0.6 L (2-4) % Baso % (Auto) 0.8 (0-2) % Neut # (Auto) 9500 H (2894-5766) /uL Lymph # (Auto) 1000 L (4887-0060) /uL [place] # (Auto) 900 (0-900) /uL Eos # (Auto) 100 (0-450) /uL Baso # (Auto) 100 (0-100) /uL Sodium 129 L (137-145) mmol/L Potassium 3.1 L (3.4-5.1) mmol/L Chloride 91 L (98-107) mmol/L Carbon Dioxide 29 (22-32) mmol/L BUN 12 (7-17) mg/dL Creatinine 0.59 (0.52-1.04) mg/dL Estimated GFR > 60 (>60) mL/min BUN/Creatinine Ratio 20.3 (6-22) Glucose 137 H (80-110) mg/dL Calcium 9.0 (8.4-10.2) mg/dL Magnesium 1.4 L (1.6-2.3) mg/dL Total Bilirubin 1.3 (0.2-1.3) mg/dL AST 30 (14-36) IU/L ALT 24 (<35) IU/L Alkaline Phosphatase 76 (38-126) U/L Total Creatine Kinase 87 (30-135) U/L Troponin I < 0.012 (0.01-0.034) ng/mL Total Protein 8.5 H (6.3-8.2) g/dL Albumin 4.3 (3.5-5.0) g/dL Globulin 4.2 H (1.7-4.1) g/dL Albumin/Globulin Ratio 1.0 (1.0-2.8) Lipase 61 (23-300) U/L 09/03/22 Range/Units 08:40 WBC (4.5-11.0) X10^3/uL RBC (4.0-5.2) X10^6/uL Hgb (12.0-16.0) g/dL Hct (36-46) % MCV (80-100) fL MCH (26-34) PG MCHC (30-36) % RDW (11.6-14.8) % Plt Count (150-400) X10^3/uL Neut % (Auto) (50-75) % Lymph % (Auto) (25-40) % [place] % (Auto) (3-14) % Eos % (Auto) (2-4) % Baso % (Auto) (0-2) % Neut # (Auto) (8192-6041) /uL Lymph # (Auto) (7115-3330) /uL [place] # (Auto) (0-900) /uL Eos # (Auto) (0-450) /uL Baso # (Auto) (0-100) /uL Sodium (137-145) mmol/L Potassium (3.4-5.1) mmol/L Chloride (98-107) mmol/L Carbon Dioxide (22-32) mmol/L BUN (7-17) mg/dL Creatinine (0.52-1.04) mg/dL Estimated GFR (>60) mL/min BUN/Creatinine Ratio (6-22) Glucose (80-110) mg/dL Calcium (8.4-10.2) mg/dL Magnesium (1.6-2.3) mg/dL Total Bilirubin (0.2-1.3) mg/dL AST (14-36) IU/L ALT (<35) IU/L Alkaline Phosphatase (38-126) U/L Total Creatine Kinase 69 (30-135) U/L Troponin I < 0.012 (0.01-0.034) ng/mL Total Protein (6.3-8.2) g/dL Albumin (3.5-5.0) g/dL Globulin (1.7-4.1) g/dL Albumin/Globulin Ratio (1.0-2.8) Lipase (23-300) U/L Imaging Data Chest x-ray: Radiologist's Impression: Mild cardiomegaly without heart failure ECG Data Attestation: I personally reviewed and interpreted this ECG as follows: Prior ECG tracings: available for review Interpretation: Atrial fibrillation Ventricular rate [address] depression V4 V5 V6, no ST elevations Normal QRS MDM Narrative Medical decision making narrative: Patient has a [employer] scientific pacemaker. This was interrogated. According to the report there were no events over the past 24 hours. She is rate controlled AFib here in the ER. Chest x-ray is unremarkable. Troponin is negative. Patient does have a low magnesium and also a low potassium. These were replaced. Repeat troponin ordered. Care turned over to day provider to follow-up and disposition. <Anitha Brito, - Last Filed: 09/03/22 10:31> Lab Data Labs: Lab Results 09/03/22 09/03/22 09/03/22 Range/Units 05:30 05:30 05:30 WBC 11.6 H (4.5-11.0) X10^3/uL RBC 6.02 H (4.0-5.2) X10^6/uL Hgb 16.4 H (12.0-16.0) g/dL Hct 48.8 H (36-46) % MCV 81.0 (80-100) fL MCH 27.2 (26-34) PG MCHC 33.6 (30-36) % RDW 14.0 (11.6-14.8) % Plt Count 331 (150-400) X10^3/uL Neut % (Auto) 82.4 H (50-75) % Lymph % (Auto) 8.6 L (25-40) % [place] % (Auto) 7.6 (3-14) % Eos % (Auto) 0.6 L (2-4) % Baso % (Auto) 0.8 (0-2) % Neut # (Auto) 9500 H (5772-0218) /uL Lymph # (Auto) 1000 L (5763-4469) /uL [place] # (Auto) 900 (0-900) /uL Eos # (Auto) 100 (0-450) /uL Baso # (Auto) 100 (0-100) /uL Sodium 129 L (137-145) mmol/L Potassium 3.1 L (3.4-5.1) mmol/L Chloride 91 L (98-107) mmol/L Carbon Dioxide 29 (22-32) mmol/L BUN 12 (7-17) mg/dL Creatinine 0.59 (0.52-1.04) mg/dL Estimated GFR > 60 (>60) mL/min BUN/Creatinine Ratio 20.3 (6-22) Glucose 137 H (80-110) mg/dL Calcium 9.0 (8.4-10.2) mg/dL Magnesium 1.4 L (1.6-2.3) mg/dL Total Bilirubin 1.3 (0.2-1.3) mg/dL AST 30 (14-36) IU/L ALT 24 (<35) IU/L Alkaline Phosphatase 76 (38-126) U/L Total Creatine Kinase 87 (30-135) U/L Troponin I < 0.012 (0.01-0.034) ng/mL Total Protein 8.5 H (6.3-8.2) g/dL Albumin 4.3 (3.5-5.0) g/dL Globulin 4.2 H (1.7-4.1) g/dL Albumin/Globulin Ratio 1.0 (1.0-2.8) Lipase 61 (23-300) U/L 09/03/22 Range/Units 08:40 WBC (4.5-11.0) X10^3/uL RBC (4.0-5.2) X10^6/uL Hgb (12.0-16.0) g/dL Hct (36-46) % MCV (80-100) fL MCH (26-34) PG MCHC (30-36) % RDW (11.6-14.8) % Plt Count (150-400) X10^3/uL Neut % (Auto) (50-75) % Lymph % (Auto) (25-40) % [place] % (Auto) (3-14) % Eos % (Auto) (2-4) % Baso % (Auto) (0-2) % Neut # (Auto) (3592-5615) /uL Lymph # (Auto) (4205-6555) /uL [place] # (Auto) (0-900) /uL Eos # (Auto) (0-450) /uL Baso # (Auto) (0-100) /uL Sodium (137-145) mmol/L Potassium (3.4-5.1) mmol/L Chloride (98-107) mmol/L Carbon Dioxide (22-32) mmol/L BUN (7-17) mg/dL Creatinine (0.52-1.04) mg/dL Estimated GFR (>60) mL/min BUN/Creatinine Ratio (6-22) Glucose (80-110) mg/dL Calcium (8.4-10.2) mg/dL Magnesium (1.6-2.3) mg/dL Total Bilirubin (0.2-1.3) mg/dL AST (14-36) IU/L ALT (<35) IU/L Alkaline Phosphatase (38-126) U/L Total Creatine Kinase 69 (30-135) U/L Troponin I < 0.012 (0.01-0.034) ng/mL Total Protein (6.3-8.2) g/dL Albumin (3.5-5.0) g/dL Globulin (1.7-4.1) g/dL Albumin/Globulin Ratio (1.0-2.8) Lipase (23-300) U/L ECG Data Interpretation: Atrial fibrillation Ventricular rate [address] depression V4 V5 V6, no ST elevations Normal QRS AFib, rate of 77 QRS 86 QTC [address] No acute ST elevation patient has had lateral depression no change from prior earlier today. Not appreciated on 08/19/2022 but is appreciated on prior EKG from 2019. MDM Narrative Medical decision making narrative: Patient has a [employer] scientific pacemaker. This was interrogated. According to the report there were no events over the past 24 hours. She is rate controlled AFib here in the ER. Chest x-ray is unremarkable. Troponin is negative. Patient does have a low magnesium and also a low potassium. These were replaced. Repeat troponin ordered. Care turned over to day provider to follow-up and disposition. Alisha 09/03/22: An 81-year-old history of atrial fibrillation anticoagulated on Xarelto. Patient had has history of pacemaker/defibrillator reported and she stated yesterday felt like her device had gone off had some chest discomfort afterwards and then thought it had gone off again. Patient does see cardiology. Her initial workup show a mild leukocytosis at 11 hemoglobin is 16 with a crit of 48 platelets 3 3 1, INR is 2.2 potassium is 3.1 Mag is 1.4, sodium is 129. Patient's creatinine appears at baseline glucose 137 troponin was negative. Patient's EKG did show little lateral depression not noted on prior from 08/19/2022 but was noted from 07/16. Patient's device was interrogated no shocks or events reported. She is rate controlled here in the emergency department. Patient had oral potassium replacement, IV magnesium replacement. Patient has had no additional similar symptoms or episodes. Patient has had metoprolol changed at her last visit 2.5 mg twice daily on August 19. Patient also notes she is supposed to be getting an injection statin but is much too expensive the marion had increased to 500-600/injection. Repeat troponin is negative. Repeat EKG shows depression lateral lead rate of 77, QRS is 86 QTC 450. No other acute changes appreciated she did from prior today. Spoke with Dr. Lopez cardiology, reviewed patient's interrogation no obvious shocks. He wonders if his possible palpitations. Just want make sure patient is taking her potassium supplementation if not she needs to be taking it and if she taking it daily he would recommend doubling to 20 mEq daily. Patient notes she is taking the 10 mEq daily. She asked for a prescription of to 20 mEq tablets to be sent to [facility] pharmacy so that she can adjust as needed. Discharge Plan Departure Patient Disposition: Home Clinical Impression: Hypomagnesemia, Atrial fibrillation, Hypokalemia Activity Restrictions/Additional Instructions: Follow up for recheck of your labs including potassium and magnesium in the next week. This can be done with your primary care or cardiology. Increase your potassium from 10 (1 tablet)-20 (2 tablets) mEq daily. A prescription was sent to [facility] pharmacy. Please return for recurrent episodes of a shock feeling, new chest pain or shortness of breath, lightheadedness or passing out, new nausea or vomiting, new swelling of her extremities or other new or concerning changes. Prescriptions: New potassium chloride 10 mEq capsule, extended release 20 meq PO DAILY Qty: 60 0RF No Action zolpidem 5 mg tablet 2.5 mg PO BEDTIME PRN (Reason: Sleep) Qty: 45 0RF Rx Instructions: Caution regarding possible dizziness or falls on med. Limit use as possible. diclofenac sodium 1 % gel 2 g topical BID PRN (Reason: pain) Qty: 100 0RF Rx Instructions: Rub onto most painful area of leg up to twice day if helpful. coenzyme Q10 [Co Q-10] 100 mg capsule 100 mg PO DAILY Qty: 90 0RF potassium chloride 10 mEq tablet extended release 10 meq PO chlorthalidone 25 mg tablet 12.5 mg PO DAILY levothyroxine 50 mcg tablet 50 mcg PO DAILY Qty: 90 3RF metoprolol succinate 50 mg tablet extended release 24 hr See Rx Instructions PO BID Rx Instructions: 1/2 tab QAM, 1 tab QPM orally twice a day; Multivitamin Gummies 200 mcg Tablet,Chewable 1 tab PO DAILY aspirin 81 mg Capsule 81 mg PO BEDTIME Qty: 0 acetaminophen 500 mg capsule 500 mg PO Q4H MDD Max 3000 mg per day PRN (Reason: fever or pain) Qty: 90 0RF escitalopram oxalate 10 mg tablet 10 mg PO BEDTIME cyclosporine [Restasis] 0.05 % Dropperette 1 drp OPHTHALMIC (EYE) BEDTIME Xarelto 20 mg Tablet 20 mg PO QPM Rx Instructions: must administer with evening meal Praluent Pen 75 mg/mL Pen Injector 75 mg SUBCUT Q14D losartan 100 mg tablet 100 mg PO QAM Referrals: Sarah Montana, [Primary Care Provider] - Stand Alone Forms: Patient Portal/API
[2022-09-03 05:44] LABS: Add Manual Diff / Slide Review NO; Basophils Absolute Auto 100 /uL (0-100); Basophils Percent Auto 0.8 % (0-2); Eosinophils Absolute Auto 100 /uL (0-450); Eosinophils Percent Auto 0.6 % (2-4); Hematocrit 48.8 % (36-46); Hemoglobin 16.4 g/dL (12.0-16.0); Lymphocytes Absolute Auto 1000 /uL (1100-4500); Lymphocytes Percent Auto 8.6 % (25-40); Mean Corpuscular HGB Conc 33.6 % (30-36); Mean Corpuscular Hemoglobin 27.2 PG (26-34); Monocytes Absolute Auto 900 /uL (0-900); Monocytes Percent Auto 7.6 % (3-14); Neutrophils Absolute Auto 9500 /uL (1500-7000); Neutrophils Percent Auto 82.4 % (50-75); Platelet Count 331 X10^3/uL (150-400); Red Blood Cell Count 6.02 X10^6/uL (4.0-5.2); White Blood Cell Count 11.6 X10^3/uL (4.5-11.0)
[2022-09-03 05:47] LABS: Magnesium 1.4 mg/dL (1.6-2.3)
[2022-09-03 05:49] LABS: Alanine Aminotransferase 24 IU/L (<35); Albumin 4.3 g/dL (3.5-5.0); Alkaline Phosphatase 76 U/L (38-126); Aspartate Aminotransferase 30 IU/L (14-36); BUN Creatinine Ratio 20.3 (6-22); Bilirubin Total 1.3 mg/dL (0.2-1.3); Blood Urea Nitrogen 12 mg/dL (7-17); Carbon Dioxide 29 mmol/L (22-32); Chloride 91 mmol/L (98-107); Creatine Kinase 87 U/L (30-135); Estimated Glomerular Filt Rate > 60 mL/min (>60); Globulin 4.2 g/dL (1.7-4.1); Glucose 137 mg/dL (80-110); HEMOLYSIS 22 (0-50); Lipase 61 U/L (23-300); Potassium 3.1 mmol/L (3.4-5.1); Sodium 129 mmol/L (137-145); Total Protein 8.5 g/dL (6.3-8.2)
[2022-09-03 06:00] LABS: Troponin I < 0.012 ng/mL (0.01-0.034)
[2022-09-03] MEDS: MAGNESIUM SULFATE 2 GM/50 ML PIGGYBACK IV (06:09)
[2022-09-03] MEDS: POTASSIUM CHLORIDE 10 MEQ TAB 20 MEQ PO (06:34)
[2022-09-03 08:55] LABS: Creatine Kinase 69 U/L (30-135)
[2022-09-03 09:08] LABS: Troponin I < 0.012 ng/mL (0.01-0.034)
== END 2022-09-03 10:01 | disposition home or self-care (01) ==
PROVIDERS: Emergency Medicine; Emergency Provider Emergency Medicine; PCP Family Medicine
DX: E83.42 Hypomagnesemia (principal); E87.6 Hypokalemia; I48.91 Unspecified atrial fibrillation; Z79.01 Long term (current) use of anticoagulants; R07.9 Chest pain, unspecified
CPT/HCPCS: 36415; 71045; 80053; 82550; 83690; 83735; 84484; 85025; 93005; 96360; 96361; 99284; J3475

== ENCOUNTER → 2022-09-11 09:13 | Outpatient (CLI) | payer MEDICARE, SELFPAY ==
[2022-05-15 12:18] VITALS: BMI 34.0
[2022-09-11 11:11] LABS: BUN Creatinine Ratio 18.3 (6-22); Blood Urea Nitrogen 13 mg/dL (7-17); Calcium 9.1 mg/dL (8.4-10.2); Carbon Dioxide 34 mmol/L (22-32); Chloride 91 mmol/L (98-107); Estimated Glomerular Filt Rate > 60 mL/min (>60); Glucose 97 mg/dL (80-110); HEMOLYSIS < 15 (0-50); Potassium 3.9 mmol/L (3.4-5.1); Sodium 132 mmol/L (137-145)
[2022-09-18 05:52] LABS: Magnesium, RBC 4.5 mg/dL (4.2-6.8)
== END ==
PROVIDERS: PCP Family Medicine; Referring Provider Family Medicine; Visit Provider Family Medicine
DX: E83.42 Hypomagnesemia (principal); E87.6 Hypokalemia
CPT/HCPCS: 36415; 80048; 83735

== ENCOUNTER → 2022-10-16 10:29 | Outpatient (CLI) | payer MEDICARE, SELFPAY ==
[2022-05-15 12:18] VITALS: BMI 34.0
[2022-10-16 11:20] LABS: BUN Creatinine Ratio 19.4 (6-22); Blood Urea Nitrogen 13 mg/dL (7-17); Calcium 8.5 mg/dL (8.4-10.2); Carbon Dioxide 31 mmol/L (22-32); Chloride 92 mmol/L (98-107); Estimated Glomerular Filt Rate > 60 mL/min (>60); Glucose 101 mg/dL (80-110); HEMOLYSIS < 15 (0-50); Potassium 3.8 mmol/L (3.4-5.1); Sodium 131 mmol/L (137-145)
[2022-10-16 12:20] LABS: Creatinine Urine Random 163.1 mg/dL; Protein (Total) Urine Random 17 mg/dL (0-12)
== END ==
PROVIDERS: PCP Family Medicine; Referring Provider Nurse Practitioner; Visit Provider Nurse Practitioner
DX: I10 Essential (primary) hypertension (principal)
CPT/HCPCS: 36415; 80048; 82570; 84156

== ENCOUNTER → 2022-11-18 14:08 | Outpatient (CLI) | payer MEDICARE, SELFPAY ==
[2022-05-15 12:18] VITALS: BMI 34.0
[2022-11-18 15:55] LABS: BUN Creatinine Ratio 16.9 (6-22); Blood Urea Nitrogen 12 mg/dL (7-17); Calcium 9.6 mg/dL (8.4-10.2); Carbon Dioxide 31 mmol/L (22-32); Chloride 90 mmol/L (98-107); Estimated Glomerular Filt Rate > 60 mL/min (>60); Glucose 123 mg/dL (80-110); HEMOLYSIS < 15 (0-50); Potassium 4.3 mmol/L (3.4-5.1); Sodium 130 mmol/L (137-145)
[2022-11-19 16:18] LABS: Osmolality, Serum 278 mOsmol/kg (280-301)
== END ==
PROVIDERS: PCP Family Medicine; Referring Provider Internal Medicine Cardiovascular Disease; Visit Provider Internal Medicine Cardiovascular Disease
DX: E87.1 Hypo-osmolality and hyponatremia (principal)
CPT/HCPCS: 36415; 80048; 83930

== ENCOUNTER → 2022-11-26 12:27 | Outpatient (CLI) | payer MEDICARE, SELFPAY ==
[2022-05-15 12:18] VITALS: BMI 34.0
--- NOTE | 2022-11-26 12:28 | DI.RAD.S_ITS ---
PROCEDURE: XR HIP W PEL IF DONE VITALY MIN 4V INDICATIONS: BILATERAL HIP PAIN TECHNIQUE: AP pelvis with lateral view(s) of the right and left hip(s). COMPARISON: None. FINDINGS: Bones: No fractures or dislocations. Pelvic ring appears intact. No suspicious bony lesions. Mild bilateral hip joint space narrowing and spurring. Soft tissues: The visualized bowel gas pattern is normal. No suspicious soft tissue calcifications. IMPRESSION: No acute osseous abnormality. 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 If symptoms persist, follow-up radiographs and/or CT or MRI may be helpful for further evaluation. Dictated by: Flash Ring M.D. on 11/27/2022 at 11:56 Approved by: Flash Ring M.D. on 11/27/2022 at 11:57
== END ==
PROVIDERS: PCP Family Medicine; Referring Provider Family Medicine; Visit Provider Family Medicine
DX: M25.551 Pain in right hip (principal); M25.552 Pain in left hip
CPT/HCPCS: 73522

== ENCOUNTER → 2022-12-05 09:38 | Outpatient (CLI) | payer MEDICARE, SELFPAY ==
[2022-05-15 12:18] VITALS: BMI 34.0
[2022-12-05 10:47] LABS: BUN Creatinine Ratio 15.9 (6-22); Blood Urea Nitrogen 10 mg/dL (7-17); Calcium 9.2 mg/dL (8.4-10.2); Carbon Dioxide 31 mmol/L (22-32); Chloride 93 mmol/L (98-107); Estimated Glomerular Filt Rate > 60 mL/min (>60); Glucose 100 mg/dL (80-110); HEMOLYSIS 42 (0-50); Potassium 3.6 mmol/L (3.4-5.1); Sodium 129 mmol/L (137-145)
== END ==
PROVIDERS: PCP Family Medicine; Referring Provider Family Medicine; Visit Provider Family Medicine
DX: R73.9 Hyperglycemia, unspecified (principal); E78.5 Hyperlipidemia, unspecified
CPT/HCPCS: 36415; 80048; 83036

== ENCOUNTER 2022-12-17 04:10 | Emergency (ER) | payer MEDICARE, SELFPAY ==
[2022-05-15 12:18] VITALS: BMI 34.0
[2022-12-17] VITALS (10 sets, daily range): BP systolic 115–126; BP diastolic 56–75; PULSE 73–83; RESP 16–18; TEMP 35.8; O2SAT 97–100; BMI 35.2
--- NOTE | 2022-12-17 04:35 | ED.DENTAL ---
HPI - Dental/Oral General Chief complaint: Dental/Oral Stated complaint: tooth pulled on thinners wont stop bleeding Time Seen by Provider: 12/17/22 04:26 Source: patient and family Mode of arrival: Ambulatory History of Present Illness HPI Narrative: Patient is a 81-year-old female on Xarelto for atrial fibrillation presenting today with dental bleeding. She reports that she had a tooth pulled 4 days ago, her Xarelto was held for 1 day. It has been bleeding for 1-1/2-2 hours they are unable to get it to stop. She has contusion on her chin. Related Data Home Medications Medication Instructions Recorded Confirmed multivitamin with minerals-folic 1 tab PO DAILY 04/01/21 11/26/22 acid 200 mcg chewable tablet (Multivitamin Gummies) aspirin 81 mg capsule 81 mg PO BEDTIME ##0 04/03/21 11/26/22 escitalopram oxalate 10 mg tablet 10 mg PO BEDTIME 03/25/22 11/26/22 alirocumab 75 mg/mL subcutaneous 75 mg SUBCUT Q14D 05/26/22 11/26/22 pen injector (Praluent Pen) cyclosporine 0.05 % eye drops in a 1 drp ophthalmic (eye) BEDTIME 05/26/22 11/26/22 dropperette (Restasis) losartan 100 mg tablet 100 mg PO QAM 05/26/22 11/26/22 chlorthalidone 25 mg tablet 12.5 mg PO DAILY 07/11/22 11/26/22 metoprolol succinate 50 mg See Rx Instructions PO BID 08/25/22 11/26/22 tablet,extended release 24 hr Liquid IV Hydration Multiplier PO 12/05/22 Previous Rx's Medication Instructions Recorded acetaminophen 500 mg capsule 500 mg PO Q4H PRN fever or pain 04/05/21 #90 caps coenzyme Q10 100 mg capsule (Co 100 mg PO DAILY #90 caps 07/11/22 Q-10) zolpidem 5 mg tablet 2.5 mg (1/2 x 5 mg) PO BEDTIME PRN 08/26/22 Sleep #45 tabs potassium chloride 10 mEq 20 meq (2 x 10 mEq) PO DAILY #60 09/03/22 capsule,extended release caps rivaroxaban 20 mg tablet (Xarelto) 20 mg PO QPM #90 tabs 09/16/22 levothyroxine 50 mcg tablet 50 mcg PO DAILY #90 tabs 11/17/22 Allergies Allergy/AdvReac Type Severity Reaction Status Date / Time hydromorphone Allergy Intermediate RASH/GI Verified 09/26/22 09:20 UPSET hydrocodone Allergy Mild GI UPSET Verified 09/26/22 09:20 rosuvastatin [From Crestor] Allergy Unknown Intolerant Verified 09/26/22 09:20 diltiazem [DILTIAZEM] AdvReac Intermediate BRADYCARDIA Verified 09/26/22 09:20 atorvastatin AdvReac Unknown Significant Verified 09/26/22 09:20 weakness, myalgias Patient History Medical History (Updated 12/17/22 @ 06:49 by Elizabeth Shanks DO) Bruises easily First degree AV block Essential hypertension History of cardioversion (~07/31/20) PAD (peripheral artery disease) History of syncope Tachy-kimmy syndrome Cervical spondylosis Osteoarthritis of left knee Pacemaker (~11/2015) Anticoagulated Gastroenteritis Lumbar region somatic dysfunction Upper extremity somatic dysfunction Vitamin D deficiency Fatigue Segmental and somatic dysfunction of pelvic region Segmental and somatic dysfunction of sacral region Cranial somatic dysfunction Segmental and somatic dysfunction of abdomen and other regions Segmental and somatic dysfunction of thoracic region Cervical somatic dysfunction Chronic neck pain Insomnia Bilateral chronic otitis media Allergies Anxiety (~2013) Shoulder pain (~2018) Carpal tunnel syndrome Hearing loss Fibroid (~1964) Hypothyroid Depression (~2015) HTN (hypertension) Atrial fibrillation (~2014) Surgical History History of carpal tunnel release H/O cardiac radiofrequency ablation (~07/02/16) Hx of breast reduction, elective (~2006) Anesthesia History of appendectomy History of cholecystectomy History of hysterectomy (~1978) Cataracts, bilateral Pacemaker (~11/06/15) Family History Father Hypertension Mother Lung cancer Social History household members: none Smoking Status: Never smoker alcohol intake: never substance use type: does not use Smoking Status: Never smoker alcohol intake frequency: a few times a month Substance Use Type: does not use Exam Initial Vital Signs Initial Vital Signs: Vital Signs Temperature 96.5 F L 12/17/22 04:24 Pulse Rate 83 12/17/22 04:24 Respiratory Rate 16 12/17/22 04:24 Blood Pressure 126/74 12/17/22 04:24 Pulse Oximetry 97 12/17/22 04:24 Oxygen Delivery Method Room Air 12/17/22 04:24 GENERAL: Well-appearing, well-nourished and in no acute distress. MOUTH: Tooth 17. Missing and bleeding. CARDIOVASCULAR: peripheral pulses in tact, cap refill <2 sec RESPIRATORY: No respiratory distress, speaks in full sentences without difficulty EXTREMITIES: Normal range of motion, no clubbing or edema. Neurovascularly intact NEUROLOGICAL: Cranial nerves II through XII grossly intact. Normal gait and speech. SKIN: Contusion on chin Course Orders Ordered: Discontinued Medications Tranexamic Acid (Tranexamic Acid 1,000 Mg Vial) 1,000 mg TOP NOW ONE Stop: 12/17/22 04:41 Last Admin: 12/17/22 04:46 Dose: 1,000 mg Documented By: HNG Vital Signs Vital signs: Vital Signs - 8 hr 12/17/22 04:24 12/17/22 04:51 12/17/22 05:00 Temperature 96.5 F L Pulse Rate 83 Respiratory Rate 16 Blood Pressure 126/74 121/75 125/72 Pulse Oximetry 97 Oxygen Delivery Method Room Air 12/17/22 05:30 12/17/22 05:51 12/17/22 06:00 Temperature Pulse Rate 73 75 Respiratory Rate Blood Pressure 117/64 Pulse Oximetry 98 98 Oxygen Delivery Method 12/17/22 06:01 12/17/22 06:01 12/17/22 06:30 Temperature Pulse Rate 76 78 Respiratory Rate 18 18 Blood Pressure 115/56 L Pulse Oximetry 98 99 Oxygen Delivery Method 12/17/22 07:00 12/17/22 07:01 12/17/22 07:01 Temperature Pulse Rate 80 74 Respiratory Rate Blood Pressure 119/67 Pulse Oximetry 100 100 Oxygen Delivery Method Room Air MDM - Dental/Oral MDM Narrative Medical decision making narrative: Patient actively bleeding on Xarelto from dental extraction. Mouth was rinsed with cool water pressure with TXA placed she is biting on gauze and it seems to be helping. Gauze and pressure stayed for an hour or more it was removed she had a small amount of oozing. Lidocaine with epinephrine was injected. She again placed ice and given black tea bags. Bleeding has definitely slowed but not stopped. tea bags placed. bleeding stopped. Discharge Plan Departure Patient Disposition: Home Clinical Impression: Surgical wound hemorrhage after dental procedure Instructions: Tooth Extraction Activity Restrictions/Additional Instructions: *You have been diagnosed with tooth extraction bleeding *What to do: Do not eat anything hard or crunchy soft diet. If it starts bleeding again apply pressure rinse and spit with ice may try black or green tea bag *Continue to take medications as directed *Follow up with your primary care provider in 2-3 days or call [phone] *Return to ER if you should have persistent bleeding for more than 60 minutes or any new, worsening or concerning symptoms Prescriptions: No Action zolpidem 5 mg tablet 2.5 mg PO BEDTIME PRN (Reason: Sleep) Qty: 45 0RF Rx Instructions: Caution regarding possible dizziness or falls on med. Limit use as possible. Xarelto 20 mg tablet 20 mg PO QPM Qty: 90 3RF Rx Instructions: must administer with evening meal levothyroxine 50 mcg tablet 50 mcg PO DAILY Qty: 90 3RF Liquid IV Hydration Multiplier PO Patient Comments: pt only uses 1/2 packet Ingredients: pure cane sugar, dextrose, citric acid, salt, potassium citrate, sodium citrate, dipotassium phosphate, silicon dioxide, stevia leaf extract (rebaudioside-a), vitamin C (ascorbic acid), vitamin B3 (niacinamide), vitamin B5 (d-calcium pantothenate), natural flavor, vitamin B6 (pyridoxine hydrochloride), vitamin B12 (cyanocobalamin). Rx Instructions: Mix 1 packet in 8oz of water. coenzyme Q10 [Co Q-10] 100 mg capsule 100 mg PO DAILY Qty: 90 0RF chlorthalidone 25 mg tablet 12.5 mg PO DAILY metoprolol succinate 50 mg tablet extended release 24 hr See Rx Instructions PO BID Rx Instructions: 1/2 tab QAM, 1 tab QPM orally twice a day; Multivitamin Gummies 200 mcg Tablet,Chewable 1 tab PO DAILY aspirin 81 mg Capsule 81 mg PO BEDTIME Qty: 0 acetaminophen 500 mg capsule 500 mg PO Q4H MDD Max 3000 mg per day PRN (Reason: fever or pain) Qty: 90 0RF escitalopram oxalate 10 mg tablet 10 mg PO BEDTIME cyclosporine [Restasis] 0.05 % Dropperette 1 drp OPHTHALMIC (EYE) BEDTIME Praluent Pen 75 mg/mL Pen Injector 75 mg SUBCUT Q14D losartan 100 mg tablet 100 mg PO QAM potassium chloride 10 mEq capsule, extended release 20 meq PO DAILY Qty: 60 0RF Referrals: Sarah Montana DO [Primary Care Provider] - Stand Alone Forms: Patient Portal/API
[2022-12-17] MEDS: TRANEXAMIC ACID 1,000 MG VIAL 1000 MG TOP (04:46)
--- NOTE | 2022-12-17 04:52 | PC.NURSE ---
Placed TXA soaked cotton ball on extraction site and pt applying pressure by biting down. Told pt to leave cotton balls in place and not to remove them.
--- NOTE | 2022-12-17 04:55 | PC.NURSE ---
Pt bleeding from tooth extraction site on lower left of mouth. Denies any pain at this time.
--- NOTE | 2022-12-17 06:43 | PC.NURSE ---
Removed cotton ball and pt immediately started bleeding again. Provider aware.
== END 2022-12-17 07:06 | disposition home or self-care (01) ==
PROVIDERS: Emergency Provider Emergency Medicine; PCP Family Medicine
DX: K91.840 Postprocedural hemorrhage of a digestive system organ or structure following a digestive system procedure (principal); Z79.01 Long term (current) use of anticoagulants
CPT/HCPCS: 99282

== ENCOUNTER → 2023-01-13 14:05 | Outpatient (CLI) | payer MEDICARE, SELFPAY ==
[2022-05-15 12:18] VITALS: BMI 34.0
[2023-01-13 15:53] LABS: BUN Creatinine Ratio 17.4 (6-22); Blood Urea Nitrogen 12 mg/dL (7-17); Calcium 9.9 mg/dL (8.4-10.2); Carbon Dioxide 33 mmol/L (22-32); Chloride 90 mmol/L (98-107); Estimated Glomerular Filt Rate > 60 mL/min (>60); Glucose 110 mg/dL (80-110); HEMOLYSIS < 15 (0-50); Potassium 3.9 mmol/L (3.4-5.1); Sodium 130 mmol/L (137-145)
== END ==
PROVIDERS: PCP Family Medicine; Referring Provider Family Medicine; Visit Provider Family Medicine
DX: Z98.818 Other dental procedure status (principal); K91.840 Postprocedural hemorrhage of a digestive system organ or structure following a digestive system procedure; Z79.01 Long term (current) use of anticoagulants
CPT/HCPCS: 36415; 80048

== ENCOUNTER → 2023-04-22 08:37 | Outpatient (CLI) | payer MEDICARE, SELFPAY ==
[2022-05-15 12:18] VITALS: BMI 34.0
[2023-04-22 09:11] LABS: Hemoglobin 15.5 g/dL (12.0-16.0); Mean Corpuscular HGB Conc 33.7 % (30-36); Mean Corpuscular Hemoglobin 28.4 PG (26-34); Mean Corpuscular Volume 84.1 fL (80-100); Platelet Count 283 X10^3/uL (150-400); Red Blood Cell Count 5.47 X10^6/uL (4.0-5.2); Red Cell Distribution Width 14.4 % (11.6-14.8); White Blood Cell Count 8.1 X10^3/uL (4.5-11.0)
[2023-04-22 09:26] LABS: Alanine Aminotransferase 20 IU/L (<35); Albumin 4.1 g/dL (3.5-5.0); Albumin Globulin Ratio 1.1 (1.0-2.8); Alkaline Phosphatase 52 U/L (38-126); Aspartate Aminotransferase 29 IU/L (14-36); BUN Creatinine Ratio 20.9 (6-22); Bilirubin Total 1.2 mg/dL (0.2-1.3); Blood Urea Nitrogen 14 mg/dL (7-17); Calcium 9.3 mg/dL (8.4-10.2); Carbon Dioxide 32 mmol/L (22-32); Chloride 95 mmol/L (98-107); Cholesterol 93 mg/dL (140-199); Estimated Glomerular Filt Rate > 60 mL/min (>60); Globulin 3.6 g/dL (1.7-4.1); Glucose 103 mg/dL (80-110); HDL Cholesterol 53 mg/dL (40-60); HEMOLYSIS < 15 (0-50); LDL Cholesterol Calculated 26 mg/dL (<100); Potassium 3.6 mmol/L (3.4-5.1); Sodium 133 mmol/L (137-145); Total Protein 7.7 g/dL (6.3-8.2); Triglycerides 68 mg/dL (35-150)
== END ==
PROVIDERS: Internal Medicine Cardiovascular Disease; PCP Family Medicine; Referring Provider Family Medicine; Visit Provider Family Medicine
DX: E78.5 Hyperlipidemia, unspecified (principal); E87.1 Hypo-osmolality and hyponatremia; I73.9 Peripheral vascular disease, unspecified; I48.91 Unspecified atrial fibrillation
CPT/HCPCS: 36415; 80053; 80061; 85027

== ENCOUNTER → 2023-05-01 11:52 | Outpatient (CLI) | payer MEDICARE, SELFPAY ==
[2022-05-15 12:18] VITALS: BMI 34.0
[2023-05-01 12:49] LABS: Add Manual Diff / Slide Review NO; Basophils Absolute Auto 100 /uL (0-100); Basophils Percent Auto 1.1 % (0-2); Eosinophils Absolute Auto 200 /uL (0-450); Eosinophils Percent Auto 2.3 % (2-4); Hematocrit 47.2 % (36-46); Hemoglobin 15.9 g/dL (12.0-16.0); Lymphocytes Absolute Auto 1200 /uL (1100-4500); Mean Corpuscular HGB Conc 33.7 % (30-36); Mean Corpuscular Volume 83.2 fL (80-100); Monocytes Absolute Auto 900 /uL (0-900); Monocytes Percent Auto 10.7 % (3-14); Neutrophils Absolute Auto 6100 /uL (1500-7000); Neutrophils Percent Auto 71.9 % (50-75); Platelet Count 306 X10^3/uL (150-400); Red Blood Cell Count 5.67 X10^6/uL (4.0-5.2); Red Cell Distribution Width 14.4 % (11.6-14.8); White Blood Cell Count 8.4 X10^3/uL (4.5-11.0)
[2023-05-01 13:36] LABS: NT-proBNP (BNP-Adult 18+) 1530 pg/mL (<450)
== END ==
PROVIDERS: PCP Family Medicine; Referring Provider Internal Medicine Critical Care Medicine; Visit Provider Internal Medicine Critical Care Medicine
DX: R06.09 Other forms of dyspnea (principal)
CPT/HCPCS: 36415; 82785; 83880; 85025; 86003; 99214

== ENCOUNTER 2023-05-14 05:55 | Emergency (ER) | payer MEDICARE, SELFPAY ==
[2022-05-15 12:18] VITALS: BMI 34.0
--- NOTE | 2023-05-14 06:05 | DI.RAD.S_ITS ---
PROCEDURE: XR KNEE RT 3V INDICATIONS: pain and swelling TECHNIQUE: 3 views of the knee were acquired. COMPARISON: None. FINDINGS: Bones: No fractures or dislocations. No suspicious bony lesions. Mild degenerative joint disease. Question a small intra-articular body in the intercondylar notch. Soft tissues: Large joint effusion. No suspicious soft tissue calcifications. IMPRESSION: 1. Mild degenerative joint disease. 2. Question small intra-articular body in the intercondylar notch. 3. Large knee joint effusion. No significant discrepancy with the drum worker radiology preliminary report. Dictated by: Manoj Milan M.D. on 05/14/2023 at 7:49 Approved by: Manoj Milan M.D. on 05/14/2023 at 7:50
--- NOTE | 2023-05-14 06:06 | ED.GENADULT ---
HPI - General Adult General Chief complaint: Extremity Problem,Nontraumatic Stated complaint: rt knee is locked up and swollen cant walk Time Seen by Provider: 05/14/23 06:00 Source: patient Mode of arrival: Wheelchair Limitations: no limitations History of Present Illness HPI narrative: Patient is an 82-year-old female. Is on anticoagulation secondary to atrial fibrillation. Is here for evaluation of right knee pain and swelling. She states that yesterday morning she started to notice some discomfort in the knee but there was no swelling. She was able to ambulate. States yesterday afternoon she actually went outside and walked around. Later that evening she was sitting on the couch. When she stood up the pain became significantly worse. It started to swell. It continued throughout the night and this morning it is the point where she has quite a bit of difficulty standing on her leg. She denied any specific trauma. No fevers. No ankle pain. No hip pain. Related Data Home Medications Medication Instructions Recorded Confirmed multivitamin with minerals-folic 1 tab PO DAILY 04/01/21 04/27/23 acid 200 mcg chewable tablet (Multivitamin Gummies) aspirin 81 mg capsule 81 mg PO BEDTIME ##0 04/03/21 04/27/23 alirocumab 75 mg/mL subcutaneous 75 mg SUBCUT Q14D 05/26/22 04/27/23 pen injector (Praluent Pen) cyclosporine 0.05 % eye drops in a 1 drp ophthalmic (eye) BEDTIME 05/26/22 04/27/23 dropperette (Restasis) losartan 100 mg tablet 100 mg PO QAM 05/26/22 04/27/23 metoprolol succinate 50 mg See Rx Instructions PO BID 08/25/22 04/27/23 tablet,extended release 24 hr Liquid IV Hydration Multiplier PO 12/05/22 04/27/23 Previous Rx's Medication Instructions Recorded acetaminophen 500 mg capsule 500 mg PO Q4H PRN fever or pain 04/05/21 #90 caps coenzyme Q10 100 mg capsule (Co 100 mg PO DAILY #90 caps 07/11/22 Q-10) rivaroxaban 20 mg tablet (Xarelto) 20 mg PO QPM #90 tabs 09/16/22 levothyroxine 50 mcg tablet 50 mcg PO DAILY #90 tabs 11/17/22 escitalopram oxalate 10 mg tablet 10 mg PO BEDTIME #90 tabs 12/29/22 zolpidem 5 mg tablet 2.5 mg (1/2 x 5 mg) PO BEDTIME PRN 01/26/23 Sleep #45 tabs potassium chloride 10 mEq 10 meq PO DAILY #60 caps 02/23/23 capsule,extended release albuterol sulfate 90 mcg/actuation 2 puff inhalation Q6H PRN 04/08/23 aerosol inhaler shortness of breath or wheezing #8.5 grams fluticasone furoate 200 1 inh inhalation DAILY #30 ea 04/27/23 mcg/actuation blister powder for inhalation (Arnuity Ellipta) chlorthalidone 25 mg tablet 12.5 mg (1/2 x 25 mg) PO DAILY #90 05/06/23 tabs oxycodone 5 mg tablet 5 mg PO Q8H PRN pain #10 tabs 05/14/23 Allergies Allergy/AdvReac Type Severity Reaction Status Date / Time hydromorphone Allergy Intermediate RASH/GI Verified 04/27/23 14:03 UPSET hydrocodone Allergy Mild GI UPSET Verified 04/27/23 14:03 rosuvastatin [From Crestor] Allergy Unknown Intolerant Verified 04/27/23 14:03 diltiazem [DILTIAZEM] AdvReac Intermediate BRADYCARDIA Verified 04/27/23 14:03 atorvastatin AdvReac Unknown Significant Verified 04/27/23 14:03 weakness, myalgias Review of Systems Constitutional Constitutional: Reports system reviewed and no additional complaints, except as documented Musculoskeletal Musculoskeletal: Reports system reviewed and no additional complaints, except as documented Integumentary/Breasts Skin/Breast: Reports system reviewed and no additional complaints, except as documented Hematologic/Lymphatic On Anticoagulants: No Patient History Medical History Bruises easily First degree AV block Essential hypertension History of cardioversion (~07/31/20) PAD (peripheral artery disease) History of syncope Tachy-kimmy syndrome Cervical spondylosis Osteoarthritis of left knee Pacemaker (~11/2015) Anticoagulated Gastroenteritis Lumbar region somatic dysfunction Upper extremity somatic dysfunction Vitamin D deficiency Fatigue Segmental and somatic dysfunction of pelvic region Segmental and somatic dysfunction of sacral region Cranial somatic dysfunction Segmental and somatic dysfunction of abdomen and other regions Segmental and somatic dysfunction of thoracic region Cervical somatic dysfunction Chronic neck pain Insomnia Bilateral chronic otitis media Allergies Anxiety (~2013) Shoulder pain (~2018) Carpal tunnel syndrome Hearing loss Fibroid (~1965) Hypothyroid HTN (hypertension) Atrial fibrillation (~2014) Surgical History History of carpal tunnel release H/O cardiac radiofrequency ablation (~07/02/16) Hx of breast reduction, elective (~2006) Anesthesia History of appendectomy History of cholecystectomy History of hysterectomy (~1978) Cataracts, bilateral Pacemaker (~11/06/15) Family History Father Hypertension Mother Lung cancer Social History household members: none Smoking Status: Never smoker alcohol intake: never substance use type: does not use Smoking Status: Never smoker alcohol intake frequency: a few times a month Substance Use Type: does not use Exam Initial Vital Signs Initial Vital Signs: Vital Signs Temperature 96.9 F L 05/14/23 06:09 Pulse Rate 88 05/14/23 06:09 Respiratory Rate 20 05/14/23 06:09 Blood Pressure 151/99 H 05/14/23 06:09 Pulse Oximetry 98 05/14/23 06:09 Oxygen Delivery Method Room Air 05/14/23 06:09 Const General: cooperative, comfortable and No ill appearing Skin General: no rashes or lesions noted Extrem Other: Right ankle and right hip are unremarkable. Patient does have discomfort and swelling to the superior portion of the right patella. There was no skin changes over the area. No swelling inferior to the patella. Potentially a small joint effusion. No posterior knee tenderness. She was able to flex her knee while lying in bed but it is limited due to pressure per her report. She states her discomfort comes with standing. Course Orders Ordered: ED Orders 05/14/23 06:05 XR knee RT 3V Stat Vital Signs Vital signs: Vital Signs - 8 hr 05/14/23 06:09 Temperature 96.9 F L Pulse Rate 88 Respiratory Rate 20 Blood Pressure 151/99 H Pulse Oximetry 98 Oxygen Delivery Method Room Air Medical Decision Making MDM Narrative Medical decision making narrative: No fractures or dislocations noted on the x-ray. I have low suspicion that this is a septic joint. No history of gout. Low suspicion of gout. Her effusion is in the suprapatellar region. More consistent with a bursitis. We did discuss the possibility that this is blood given the fact that she has on a blood thinner however I feel that doing an arthrocentesis is not beneficial currently because of my low suspicion for septic joint. We did discuss conservative measures to include ice. She can walk on her leg as tolerated. She has a knee brace at home. She has a walker at home. Patient was given return precautions. She expressed understanding and agreement. Discharge Plan Departure Patient Disposition: Home Clinical Impression: Bursitis Instructions: How To Perform RICE (Rest, Ice, Compress, Elevate), How to Apply an Elastic Wrap on Knee Activity Restrictions/Additional Instructions: There were no fractures noted on the x-rays. You can walk 1 your knee as tolerated. Recommend that you use either an Roni bandage for the knee brace you have at home. I also recommend the use the walker you have at home. Continue all of your medications as directed. Use the pain medication as needed. Contact your primary provider for follow-up. Prescriptions: New oxycodone 5 mg tablet 5 mg PO Q8H PRN (Reason: pain) Qty: 10 0RF No Action Xarelto 20 mg tablet 20 mg PO QPM Qty: 90 3RF Rx Instructions: must administer with evening meal levothyroxine 50 mcg tablet 50 mcg PO DAILY Qty: 90 3RF Liquid IV Hydration Multiplier PO Patient Comments: pt only uses 1/2 packet Ingredients: pure cane sugar, dextrose, citric acid, salt, potassium citrate, sodium citrate, dipotassium phosphate, silicon dioxide, stevia leaf extract (rebaudioside-a), vitamin C (ascorbic acid), vitamin B3 (niacinamide), vitamin B5 (d-calcium pantothenate), natural flavor, vitamin B6 (pyridoxine hydrochloride), vitamin B12 (cyanocobalamin). Rx Instructions: Mix 1 packet in 8oz of water. escitalopram oxalate 10 mg tablet 10 mg PO BEDTIME Qty: 90 2RF potassium chloride 10 mEq capsule, extended release 10 meq PO DAILY Qty: 60 0RF chlorthalidone 25 mg tablet 12.5 mg PO DAILY Qty: 90 0RF coenzyme Q10 [Co Q-10] 100 mg capsule 100 mg PO DAILY Qty: 90 0RF metoprolol succinate 50 mg tablet extended release 24 hr See Rx Instructions PO BID Rx Instructions: 1/2 tab QAM, 1 tab QPM orally twice a day; zolpidem 5 mg tablet 2.5 mg PO BEDTIME PRN (Reason: Sleep) Qty: 45 0RF Rx Instructions: Caution regarding possible dizziness or falls on med. Limit use as possible. Arnuity Ellipta 200 mcg/actuation blister with device 1 inh inhalation DAILY Qty: 30 2RF Rx Instructions: [place] teeth or at least rinse mouth and spit after use albuterol sulfate 90 mcg/actuation HFA aerosol inhaler 2 puff inhalation Q6H PRN (Reason: shortness of breath or wheezing) Qty: 8.5 0RF Multivitamin Gummies 200 mcg Tablet,Chewable 1 tab PO DAILY aspirin 81 mg Capsule 81 mg PO BEDTIME Qty: 0 acetaminophen 500 mg capsule 500 mg PO Q4H MDD Max 3000 mg per day PRN (Reason: fever or pain) Qty: 90 0RF cyclosporine [Restasis] 0.05 % Dropperette 1 drp OPHTHALMIC (EYE) BEDTIME Praluent Pen 75 mg/mL Pen Injector 75 mg SUBCUT Q14D losartan 100 mg tablet 100 mg PO QAM Referrals: Sarah Montana DO [Primary Care Provider] - Stand Alone Forms: Patient Portal/API
[2023-05-14 06:09] VITALS: BP 151/99; PULSE 88; RESP 20; TEMP 36.1; O2SAT 98
[2023-05-14 07:04] VITALS: BP 164/100; PULSE 72; RESP 16; O2SAT 95
== END 2023-05-14 07:06 | disposition home or self-care (01) ==
PROVIDERS: Emergency Provider Emergency Medicine; PCP Family Medicine
DX: M70.51 Other bursitis of knee, right knee (principal); Z79.01 Long term (current) use of anticoagulants; Z79.899 Other long term (current) drug therapy
CPT/HCPCS: 73562; 99281; 99283

== ENCOUNTER → 2023-05-19 13:41 | Outpatient (CLI) | payer MEDICARE, SELFPAY ==
[2022-05-15 12:18] VITALS: BMI 34.0
[2023-05-28 21:07] LABS: Alder IgE <0.10 kU/L (Class 0); Alternaria alternata IgE <0.10 kU/L (Class 0); Aspergillus fumigatus IgE <0.10 kU/L (Class 0); Box Elder IgE <0.10 kU/L (Class 0); Cat Dander IgE <0.10 kU/L (Class 0); Cladosporium herbarum IgE <0.10 kU/L (Class 0); Cockroach IgE <0.10 kU/L (Class 0); Cottonwood IgE <0.10 kU/L (Class 0); D farinae IgE <0.10 kU/L (Class 0); D pteronyssinus IgE <0.10 kU/L (Class 0); Dog Dander IgE <0.10 kU/L (Class 0); Elm Tree IgE <0.10 kU/L (Class 0); IgE Mugwort <0.10 kU/L (Class 0); IgE Thistle,Russian <0.10 kU/L (Class 0); Immunoglobulin E 4 IU/mL (6-495); Mountain Cedar IgE <0.10 kU/L (Class 0); Mouse Urine Proteins IgE <0.10 kU/L (Class 0); Oak Tree IgE <0.10 kU/L (Class 0); Penicillium chrysogen IgE <0.10 kU/L (Class 0); Pigweed, Common IgE <0.10 kU/L (Class 0); Sheep Sorrel IgE <0.10 kU/L (Class 0); Silver Birch IgE <0.10 kU/L (Class 0); Timothy Grass IgE <0.10 kU/L (Class 0)
== END ==
PROVIDERS: PCP Family Medicine; Referring Provider Internal Medicine Critical Care Medicine; Visit Provider Internal Medicine Critical Care Medicine
DX: R06.09 Other forms of dyspnea (principal)
CPT/HCPCS: 82785; 86003

== ENCOUNTER → 2023-05-25 13:22 | Outpatient (CLI) | payer MEDICARE, SELFPAY ==
[2022-05-15 12:18] VITALS: BMI 34.0
== END ==
PROVIDERS: PCP Family Medicine; Referring Provider Internal Medicine Critical Care Medicine; Visit Provider Internal Medicine Critical Care Medicine
DX: R06.00 Dyspnea, unspecified (principal); J98.8 Other specified respiratory disorders; J44.9 Chronic obstructive pulmonary disease, unspecified
CPT/HCPCS: 94060; 94726; 94729

== ENCOUNTER → 2023-06-02 13:02 | Outpatient (CLI) | payer MEDICARE, SELFPAY ==
[2022-05-15 12:18] VITALS: BMI 34.0
[2023-06-02 14:05] LABS: BUN Creatinine Ratio 15.9 (6-22); Blood Urea Nitrogen 10 mg/dL (7-17); Calcium 9.4 mg/dL (8.4-10.2); Carbon Dioxide 33 mmol/L (22-32); Chloride 90 mmol/L (98-107); Estimated Glomerular Filt Rate > 60 mL/min (>60); Glucose 103 mg/dL (80-110); HEMOLYSIS < 15 (0-50); Potassium 3.6 mmol/L (3.4-5.1); Sodium 127 mmol/L (137-145)
== END ==
PROVIDERS: PCP Family Medicine; Referring Provider Internal Medicine Cardiovascular Disease; Visit Provider Internal Medicine Cardiovascular Disease
DX: I10 Essential (primary) hypertension (principal)
CPT/HCPCS: 36415; 80048

== ENCOUNTER 2023-06-21 11:35 | Emergency (ER) | payer MEDICARE, SELFPAY ==
[2022-05-15 12:18] VITALS: BMI 34.0
[2023-06-21 11:45] VITALS: BP 138/75; PULSE 98; O2SAT 94
[2023-06-21 11:46] VITALS: BP 134/83; PULSE 81; RESP 14; TEMP 36.8; O2SAT 99; BMI 36.8
[2023-06-21 12:00] VITALS: BP 145/72; PULSE 74; O2SAT 97
[2023-06-21 12:14] LABS: Add Manual Diff / Slide Review NO; Basophils Absolute Auto 100 /uL (0-100); Basophils Percent Auto 0.6 % (0-2); Eosinophils Absolute Auto 100 /uL (0-450); Hematocrit 46.6 % (36-46); Hemoglobin 15.4 g/dL (12.0-16.0); Lymphocytes Absolute Auto 900 /uL (1100-4500); Lymphocytes Percent Auto 7.3 % (25-40); Mean Corpuscular HGB Conc 33.1 % (30-36); Mean Corpuscular Hemoglobin 27.8 PG (26-34); Mean Corpuscular Volume 84.1 fL (80-100); Monocytes Absolute Auto 900 /uL (0-900); Monocytes Percent Auto 7.7 % (3-14); Neutrophils Absolute Auto 10200 /uL (1500-7000); Neutrophils Percent Auto 83.4 % (50-75); Platelet Count 319 X10^3/uL (150-400); Red Blood Cell Count 5.54 X10^6/uL (4.0-5.2); Red Cell Distribution Width 13.8 % (11.6-14.8); White Blood Cell Count 12.3 X10^3/uL (4.5-11.0)
[2023-06-21 12:30] VITALS: BP 154/104; PULSE 78; RESP 14; O2SAT 96
[2023-06-21 12:31] LABS: Alanine Aminotransferase 21 IU/L (<35); Albumin 4.3 g/dL (3.5-5.0); Albumin Globulin Ratio 1.2 (1.0-2.8); Alkaline Phosphatase 65 U/L (38-126); Aspartate Aminotransferase 28 IU/L (14-36); BUN Creatinine Ratio 14.8 (6-22); Bilirubin Total 1.2 mg/dL (0.2-1.3); Blood Urea Nitrogen 8 mg/dL (7-17); Calcium 9.3 mg/dL (8.4-10.2); Carbon Dioxide 31 mmol/L (22-32); Chloride 93 mmol/L (98-107); Estimated Glomerular Filt Rate > 60 mL/min (>60); Globulin 3.5 g/dL (1.7-4.1); Glucose 120 mg/dL (80-110); HEMOLYSIS < 15 (0-50); Potassium 3.6 mmol/L (3.4-5.1); Sodium 129 mmol/L (137-145); Total Protein 7.8 g/dL (6.3-8.2)
--- NOTE | 2023-06-21 12:33 | ED.RECABL ---
HPI - Recheck/Abnormal Lab/Rx General Chief Complaint: Recheck/Abnormal Lab/Rx Stated Complaint: blood pressure really high Time Seen by Provider: 06/21/23 11:42 Source: patient Mode of arrival: Ambulatory History of Present Illness HPI narrative: Patient is a 82 year female history of hypertension, atrial fibrillation anticoagulated on Pradaxa, presenting today with elevated blood pressure. She is followed by cardiology Dr. Sondra beasley who recently decreased her hydrochlorothiazide dose to every other day supposed to every day. She was instructed that if her blood pressures greater than 140/90 that she needs to go to the ED. she has no chest pain palpitations shortness of breath numbness tingling weakness. She reports that she does feel a little fatigued. This is normal for her but usually by 11:00 a.m. she feels a little bit better. She denies any fever or chills. Related Data Home Medications Medication Instructions Recorded Confirmed multivitamin with minerals-folic 1 tab PO DAILY 04/01/21 04/27/23 acid 200 mcg chewable tablet (Multivitamin Gummies) aspirin 81 mg capsule 81 mg PO BEDTIME ##0 04/03/21 04/27/23 alirocumab 75 mg/mL subcutaneous 75 mg SUBCUT Q14D 05/26/22 04/27/23 pen injector (Praluent Pen) cyclosporine 0.05 % eye drops in a 1 drp ophthalmic (eye) BEDTIME 05/26/22 04/27/23 dropperette (Restasis) losartan 100 mg tablet 100 mg PO QAM 05/26/22 04/27/23 metoprolol succinate 50 mg See Rx Instructions PO BID 08/25/22 04/27/23 tablet,extended release 24 hr Liquid IV Hydration Multiplier PO 12/05/22 04/27/23 chlorthalidone 25 mg tablet 12.5 mg PO Q OTHER DAY 06/21/23 06/21/23 Previous Rx's Medication Instructions Recorded acetaminophen 500 mg capsule 500 mg PO Q4H PRN fever or pain 04/05/21 #90 caps coenzyme Q10 100 mg capsule (Co 100 mg PO DAILY #90 caps 07/11/22 Q-10) rivaroxaban 20 mg tablet (Xarelto) 20 mg PO QPM #90 tabs 09/16/22 levothyroxine 50 mcg tablet 50 mcg PO DAILY #90 tabs 11/17/22 escitalopram oxalate 10 mg tablet 10 mg PO BEDTIME #90 tabs 12/29/22 zolpidem 5 mg tablet 2.5 mg (1/2 x 5 mg) PO BEDTIME PRN 01/26/23 Sleep #45 tabs potassium chloride 10 mEq 10 meq PO DAILY #60 caps 02/23/23 capsule,extended release oxycodone 5 mg tablet 5 mg PO Q8H PRN pain #10 tabs 05/14/23 albuterol sulfate 90 mcg/actuation 2 puff inhalation Q6H PRN 05/15/23 aerosol inhaler shortness of breath or wheezing #8.5 grams fluticasone furoate 200 1 inh inhalation DAILY #90 ea 05/18/23 mcg/actuation blister powder for inhalation (Arnuity Ellipta) Allergies Allergy/AdvReac Type Severity Reaction Status Date / Time hydromorphone Allergy Intermediate RASH/GI Verified 06/21/23 11:49 UPSET hydrocodone Allergy Mild GI UPSET Verified 06/21/23 11:49 rosuvastatin [From Crestor] Allergy Unknown Intolerant Verified 06/21/23 11:49 diltiazem [DILTIAZEM] AdvReac Intermediate BRADYCARDIA Verified 06/21/23 11:49 atorvastatin AdvReac Unknown Significant Verified 06/21/23 11:49 weakness, myalgias Patient History Medical History Bruises easily First degree AV block Essential hypertension History of cardioversion (~07/31/20) PAD (peripheral artery disease) History of syncope Tachy-kimmy syndrome Cervical spondylosis Osteoarthritis of left knee Pacemaker (~11/2015) Anticoagulated Gastroenteritis Lumbar region somatic dysfunction Upper extremity somatic dysfunction Vitamin D deficiency Fatigue Segmental and somatic dysfunction of pelvic region Segmental and somatic dysfunction of sacral region Cranial somatic dysfunction Segmental and somatic dysfunction of abdomen and other regions Segmental and somatic dysfunction of thoracic region Cervical somatic dysfunction Chronic neck pain Insomnia Bilateral chronic otitis media Allergies Anxiety (~2013) Shoulder pain (~2018) Carpal tunnel syndrome Hearing loss Fibroid (~1964) Hypothyroid HTN (hypertension) Atrial fibrillation (~2014) Surgical History History of carpal tunnel release H/O cardiac radiofrequency ablation (~05/17/17) Hx of breast reduction, elective (~2006) Anesthesia History of appendectomy History of cholecystectomy History of hysterectomy (~1978) Cataracts, bilateral Pacemaker (~11/06/15) Family History Father Hypertension Mother Lung cancer Social History household members: none Smoking Status: Never smoker alcohol intake: never substance use type: does not use Smoking Status: Never smoker alcohol intake frequency: a few times a month Substance Use Type: does not use Exam Initial Vital Signs Initial Vital Signs: Vital Signs Pulse Rate 98 H 06/21/23 11:45 Blood Pressure 138/75 06/21/23 11:45 Pulse Oximetry 94 06/21/23 11:45 GENERAL: Alert pleasant 82-year-old female and in no acute distress. HEENT: Head atraumatic,EOMI, pupils reactive, face symmetric, moist mucous membranes CARDIOVASCULAR: Regular rate and rhythm without murmurs, rubs or gallops. RESPIRATORY: Breath sounds equal bilaterally, no wheezes rales or rhonchi. ABDOMEN: Soft, nontender. Normoactive bowel sounds all 4 quadrants. No guarding or rebound. EXTREMITIES: Normal range of motion, no clubbing or edema. Neurovascularly intact NEUROLOGICAL: Alert and oriented x4.Normal gait and speech. SKIN: Warm, dry, no laceration, no petechiae, no rashes or lesions. Course Orders Ordered: ED Orders 06/21/23 12:05 CMP [Comprehensive Metabolic Panel] Stat Complete Blood Count AUTO DIFF Stat 06/21/23 12:54 Urine Culture Stat 06/21/23 12:59 Urine Microscopic Stat Vital Signs Vital signs: Vital Signs - 8 hr 06/21/23 11:45 06/21/23 11:45 06/21/23 11:46 Temperature 98.3 F Pulse Rate 98 H 81 Respiratory Rate 14 Blood Pressure 138/75 134/83 Pulse Oximetry 94 99 Oxygen Delivery Method Room Air 06/21/23 12:00 06/21/23 12:00 06/21/23 12:30 Temperature Pulse Rate 74 78 Respiratory Rate Blood Pressure 145/72 H Pulse Oximetry 97 96 Oxygen Delivery Method Room Air 06/21/23 12:30 Temperature Pulse Rate Respiratory Rate 14 Blood Pressure 154/104 H Pulse Oximetry Oxygen Delivery Method MDM - Recheck/Abnormal Lab/Rx Lab Data 06/21/23 12:05 06/21/23 12:05 Labs: Lab Results 06/21/23 06/21/23 Range/Units 12:05 12:54 WBC 12.3 H (4.5-11.0) X10^3/uL RBC 5.54 H (4.0-5.2) X10^6/uL Hgb 15.4 (12.0-16.0) g/dL Hct 46.6 H (36-46) % MCV 84.1 (80-100) fL MCH 27.8 (26-34) PG MCHC 33.1 (30-36) % RDW 13.8 (11.6-14.8) % Plt Count 319 (150-400) X10^3/uL Neut % (Auto) 83.4 H (50-75) % Lymph % (Auto) 7.3 L (25-40) % [place] % (Auto) 7.7 (3-14) % Eos % (Auto) 1.0 L (2-4) % Baso % (Auto) 0.6 (0-2) % Neut # (Auto) 32539 H (1197-4166) /uL Lymph # (Auto) 900 L (3688-2927) /uL [place] # (Auto) 900 (0-900) /uL Eos # (Auto) 100 (0-450) /uL Baso # (Auto) 100 (0-100) /uL Sodium 129 L (137-145) mmol/L Potassium 3.6 (3.4-5.1) mmol/L Chloride 93 L (98-107) mmol/L Carbon Dioxide 31 (22-32) mmol/L BUN 8 (7-17) mg/dL Creatinine 0.54 (0.52-1.04) mg/dL Estimated GFR > 60 (>60) mL/min BUN/Creatinine Ratio 14.8 (6-22) Glucose 120 H (80-110) mg/dL Calcium 9.3 (8.4-10.2) mg/dL Total Bilirubin 1.2 (0.2-1.3) mg/dL AST 28 (14-36) IU/L ALT 21 (<35) IU/L Alkaline Phosphatase 65 (38-126) U/L Total Protein 7.8 (6.3-8.2) g/dL Albumin 4.3 (3.5-5.0) g/dL Globulin 3.5 (1.7-4.1) g/dL Albumin/Globulin Ratio 1.2 (1.0-2.8) Urine RBC 0-1/hpf (0-5/HPF) Urine WBC None seen (0-5/HPF) Ur Squamous Epith Cells 5-10 /hpf H (0-5/HPF) Amorphous Sediment 1+ Urine Bacteria Few (2-10) H (None) Ur Culture Indicated? Specimen cultured Vol Urine Centrifuged 10ml (spun) Urine Dip Bedside Urine Glucose Negative Bedside Urine Bilirubin - Negative Bedside Urine Ketone - Negative Urine Specific [place] 1.01 Bedside Urine Occult Blood +/- Bedside Urine pH 7.0 Bedside Urine Protein - Negative Bedside Urine Urobilinogen - Negative Bedside Urine Nitrite - Negative Bedside Urine Leukocytes - Negative Esterase MDM Narrative Medical decision making narrative: 82-year-old female overall appears well nontoxic. Blood pressure initially 138/75 has increased a little bit to 154/104. She is completely asymptomatic. She was previously hyponatremic with a sodium of 127 however today it is 129. She also some mild leukocytosis of 12.3 she previously did have some mild leukocytosis it last year but her last WBC was 8.4 in April. Urinalysis does show some bacteria and red blood cells. Without signs or symptoms would hold off till culture and sensitivity returned He is completely asymptomatic sodium has improved mild leukocytosis without sign of infection. Blood pressure is within normal limits. This time I recommend she follow up with her primary care provider in her supervisor [employer]'s Discharge Plan Departure Patient Disposition: Home Clinical Impression: Acute hyponatremia, Hypertension Instructions: High Blood Pressure, DI for Hyponatremia Activity Restrictions/Additional Instructions: *You have been diagnosed with low sodium and high blood pressure *What to do: At this time your sodium is actually improving her blood pressure is within normal limits. Please talk to your supervisor [employer] and primary care provider about further instructions. At this time your urine culture is pending we will hold off treating you with antibiotics and till we get your final results. We will call you if you should need an antibiotic. *Continue to take medications as directed Continue medication every other day as prescribed *Follow up with your primary care provider in 2-3 days or call [phone] *Return to ER if you should have headache chest pain weakness contusion or any new, worsening or concerning symptoms Prescriptions: No Action Xarelto 20 mg tablet 20 mg PO QPM Qty: 90 3RF Rx Instructions: must administer with evening meal levothyroxine 50 mcg tablet 50 mcg PO DAILY Qty: 90 3RF Liquid IV Hydration Multiplier PO Patient Comments: pt only uses 1/2 packet Ingredients: pure cane sugar, dextrose, citric acid, salt, potassium citrate, sodium citrate, dipotassium phosphate, silicon dioxide, stevia leaf extract (rebaudioside-a), vitamin C (ascorbic acid), vitamin B3 (niacinamide), vitamin B5 (d-calcium pantothenate), natural flavor, vitamin B6 (pyridoxine hydrochloride), vitamin B12 (cyanocobalamin). Rx Instructions: Mix 1 packet in 8oz of water. escitalopram oxalate 10 mg tablet 10 mg PO BEDTIME Qty: 90 2RF potassium chloride 10 mEq capsule, extended release 10 meq PO DAILY Qty: 60 0RF albuterol sulfate 90 mcg/actuation HFA aerosol inhaler 2 puff inhalation Q6H PRN (Reason: shortness of breath or wheezing) Qty: 8.5 12RF Arnuity Ellipta 200 mcg/actuation blister with device 1 inh inhalation DAILY Qty: 90 2RF Rx Instructions: [place] teeth or at least rinse mouth and spit after use coenzyme Q10 [Co Q-10] 100 mg capsule 100 mg PO DAILY Qty: 90 0RF metoprolol succinate 50 mg tablet extended release 24 hr See Rx Instructions PO BID Rx Instructions: 1/2 tab QAM, 1 tab QPM orally twice a day; zolpidem 5 mg tablet 2.5 mg PO BEDTIME PRN (Reason: Sleep) Qty: 45 0RF Rx Instructions: Caution regarding possible dizziness or falls on med. Limit use as possible. Multivitamin Gummies 200 mcg Tablet,Chewable 1 tab PO DAILY aspirin 81 mg Capsule 81 mg PO BEDTIME Qty: 0 acetaminophen 500 mg capsule 500 mg PO Q4H MDD Max 3000 mg per day PRN (Reason: fever or pain) Qty: 90 0RF chlorthalidone 25 mg tablet 12.5 mg PO Q OTHER DAY Rx Instructions: order change 06/19/23 cyclosporine [Restasis] 0.05 % Dropperette 1 drp OPHTHALMIC (EYE) BEDTIME Praluent Pen 75 mg/mL Pen Injector 75 mg SUBCUT Q14D losartan 100 mg tablet 100 mg PO QAM oxycodone 5 mg tablet 5 mg PO Q8H PRN (Reason: pain) Qty: 10 0RF Referrals: Sarah Montana DO [Primary Care Provider] - Stand Alone Forms: Patient Portal/API
[2023-06-21 13:07] LABS: Urine Volume 10mL (spun)
[2023-06-21 13:11] LABS: Amorphous Sediment Urine 1+; Bacteria Urine Few (2-10); Culture Indicated Urine Specimen Cultured; RBC Urine 0-1/HPF (0-5/HPF); Squamous Epithelial Cell Urine 5-10 /HPF (0-5/HPF); WBC Urine None Seen (0-5/HPF)
== END 2023-06-21 13:22 | disposition home or self-care (01) ==
PROVIDERS: Emergency Provider Emergency Medicine; PCP Family Medicine
DX: I10 Essential (primary) hypertension (principal); E87.1 Hypo-osmolality and hyponatremia
CPT/HCPCS: 36415; 80053; 81003; 81015; 85025; 87086; 99283

== ENCOUNTER → 2023-08-13 12:09 | Outpatient (CLI) | payer MEDICARE, SELFPAY ==
[2023-06-22 12:44] VITALS: BMI 34.0
--- NOTE | 2023-08-13 12:10 | DI.US.S_ITS ---
PROCEDURE: US ARTERIAL DUPLEX UE RT INDICATIONS: Stricture of artery TECHNIQUE: Color and pulse Doppler interrogation was performed of right upper extremity arterial systems, with image documentation. COMPARISON: None. FINDINGS: Right upper extremity: Subclavian artery (proximal): 67 cm/sec, with biphasic flow. Subclavian artery (mid): 143 cm/sec, with biphasic flow. Subclavian artery (distal): 139 cm/sec, with biphasic flow. Axillary artery: 113 cm/sec, with biphasic flow. Brachial artery (proximal): 126 cm/sec, with biphasic flow. Brachial artery (mid): 105 cm/sec, with biphasic flow. Brachial artery (distal): 112 cm/sec, with biphasic flow. Radial artery (proximal): 62 cm/sec, with biphasic flow. Radial artery (mid): 82 cm/sec, with biphasic above baseline flow. Radial artery (distal): 53 cm/sec, with biphasic above baseline flow. Ulnar artery (proximal): 62 cm/sec, with biphasic flow. Ulnar artery (mid): 56 cm/sec. with biphasic above baseline flow. Ulnar artery (distal): 59 cm/sec, with biphasic above baseline flow. Reyes-scale imaging description: Minimal scattered atherosclerotic plaque. IMPRESSION: Multiphasic waveforms of the right upper extremity arterial vasculature with no velocity shift to suggest a hemodynamically significant stenosis. Dictated by: Geovani Murphy M.D. on 08/13/2023 at 17:37 Approved by: Geovani Murphy M.D. on 08/13/2023 at 17:40
== END ==
PROVIDERS: PCP Family Medicine; Referring Provider Internal Medicine Interventional Cardiology; Visit Provider Internal Medicine Interventional Cardiology
DX: I77.1 Stricture of artery (principal)
CPT/HCPCS: 93931

== ENCOUNTER → 2023-09-18 13:00 | Outpatient (CLI) | payer MEDICARE, SELFPAY ==
[2023-06-22 12:44] VITALS: BMI 34.0
[2023-09-18 14:30] LABS: Influenza A - CEPHEID Flu A NEGATIVE (NEGATIVE); Influenza B - CEPHEID Flu B NEGATIVE (NEGATIVE); Respiratory Syncytial Virus Negative (Negative)
[2023-09-18 14:55] LABS: COVID-19 CEPHEID 4-PLEX PCR POSITIVE (Negative)
== END ==
PROVIDERS: PCP Family Medicine; Visit Provider Registered Nurse
DX: R05.9 Cough, unspecified (principal); R09.89 Other specified symptoms and signs involving the circulatory and respiratory systems
CPT/HCPCS: 0241U

== ENCOUNTER 2023-10-05 07:56 | Emergency (ER) | payer MEDICARE, SELFPAY ==
[2023-06-22 12:44] VITALS: BMI 34.0
[2023-10-05] VITALS (51 sets, daily range): BP systolic 139–247; BP diastolic 65–129; PULSE 76–99; RESP 17–78; TEMP 36.3; O2SAT 96–99
--- NOTE | 2023-10-05 08:06 | ED.ARRPALP ---
HPI - Arrhythmia/Palpitations General Chief Complaint: Shortness of Breath/Dyspnea Stated Complaint: Afib Time Seen by Provider: 10/05/23 08:03 History of Present Illness HPI narrative: 82-year-old female with history of atrial fibrillation, taking Xarelto chronic anticoagulation, 1st diagnosis about 5 years ago, prior ablation about [address] Denny in [place], more recently followed by cardiology Dr. Sondra beasley, saw her primary care provider Dr. Montana on Thursday and was not felt to be in atrial fibrillation as far she knows at that visit, Thursday afternoon and over the weekend she has had intermittent upper abdominal discomfort and lower chest discomfort, feels that she might be in atrial fibrillation. She has no heart racing chest pounding palpitation symptoms. She denies any pain to her back arm jaw shoulder blades. Not associated with any diaphoresis. No fevers or chills. No nausea or vomiting. No diarrhea, no black or red stools. No painful urination. No flank pain discomfort. She thinks that she has not missed any doses of any of her medications. Related Data Home Medications Medication Instructions Recorded Confirmed multivitamin with minerals-folic 1 tab PO DAILY 04/01/21 10/02/23 acid 200 mcg chewable tablet (Multivitamin Gummies) aspirin 81 mg capsule 81 mg PO BEDTIME ##0 04/03/21 10/02/23 alirocumab 75 mg/mL subcutaneous 75 mg SUBCUT Q14D 05/26/22 10/02/23 pen injector (Praluent Pen) cyclosporine 0.05 % eye drops in a 1 drp ophthalmic (eye) BEDTIME 05/26/22 10/02/23 dropperette (Restasis) chlorthalidone 25 mg tablet 12.5 mg PO Q OTHER DAY 06/21/23 10/02/23 Previous Rx's Medication Instructions Recorded acetaminophen 500 mg capsule 500 mg PO Q4H PRN fever or pain 04/05/21 #90 caps coenzyme Q10 100 mg capsule (Co 100 mg PO DAILY #90 caps 07/11/22 Q-10) rivaroxaban 20 mg tablet (Xarelto) 20 mg PO QPM #90 tabs 09/16/22 levothyroxine 50 mcg tablet 50 mcg PO DAILY #90 tabs 11/17/22 escitalopram oxalate 10 mg tablet 10 mg PO BEDTIME #90 tabs 12/29/22 zolpidem 5 mg tablet 2.5 mg (1/2 x 5 mg) PO BEDTIME PRN 01/26/23 Sleep #45 tabs albuterol sulfate 90 mcg/actuation 2 puff inhalation Q6H PRN 05/15/23 aerosol inhaler shortness of breath or wheezing #8.5 grams fluticasone furoate 200 1 inh inhalation DAILY #90 ea 08/26/23 mcg/actuation blister powder for inhalation (Arnuity Ellipta) losartan 100 mg tablet 100 mg PO QAM #90 tabs 08/26/23 metoprolol succinate 50 mg See Rx Instructions PO DAILY #135 08/31/23 tablet,extended release 24 hr tabs potassium chloride 20 mEq 20 meq PO DAILY #90 tabs 10/02/23 tablet,extended release Allergies Allergy/AdvReac Type Severity Reaction Status Date / Time hydromorphone Allergy Intermediate RASH/GI Verified 10/02/23 10:22 UPSET hydrocodone Allergy Mild GI UPSET Verified 10/02/23 10:22 rosuvastatin [From Crestor] Allergy Unknown Intolerant Verified 10/02/23 10:22 diltiazem [DILTIAZEM] AdvReac Intermediate BRADYCARDIA Verified 10/02/23 10:22 atorvastatin AdvReac Unknown Significant Verified 10/02/23 10:22 weakness, myalgias Review of Systems Review of Systems Narrative: see HPI Patient History Medical History (Updated 10/05/23 @ 17:11 by Ernst Stokes MD) Dyspnea Bruises easily First degree AV block Essential hypertension History of cardioversion (~07/31/20) PAD (peripheral artery disease) History of syncope Tachy-kimmy syndrome Cervical spondylosis Osteoarthritis of left knee Pacemaker (~11/2015) Anticoagulated Gastroenteritis Lumbar region somatic dysfunction Upper extremity somatic dysfunction Vitamin D deficiency Fatigue Segmental and somatic dysfunction of pelvic region Segmental and somatic dysfunction of sacral region Cranial somatic dysfunction Segmental and somatic dysfunction of abdomen and other regions Segmental and somatic dysfunction of thoracic region Cervical somatic dysfunction Chronic neck pain Insomnia Bilateral chronic otitis media Allergies Anxiety (~2013) Shoulder pain (~2018) Carpal tunnel syndrome Hearing loss Fibroid (~1964) Hypothyroid HTN (hypertension) Atrial fibrillation (~2014) Surgical History History of carpal tunnel release H/O cardiac radiofrequency ablation (~07/02/16) Hx of breast reduction, elective (~2006) Anesthesia History of appendectomy History of cholecystectomy History of hysterectomy (~1978) Cataracts, bilateral Pacemaker (~11/06/15) Family History Father Hypertension Mother Lung cancer Social History household members: none Smoking Status: Never smoker alcohol intake: never substance use type: does not use Smoking Status: Never smoker alcohol intake frequency: a few times a month Substance Use Type: does not use Exam Narrative Exam Narrative: GENERAL: Well-developed patient, in mild distress. HEAD: Atraumatic. Normocephalic. EYES: Pupils equal round and reactive. Extraocular motions intact. No scleral icterus. No injection or drainage. ENT: Nose without bleeding, purulent drainage. Throat without erythema, tonsillar hypertrophy or exudate. Airway patent. NECK: Trachea midline. Non tender CARDIOVASCULAR: Regular rate and rhythm without murmurs, gallops, or rubs. RESPIRATORY: Clear to auscultation. Breath sounds equal bilaterally. No wheezes, rales, or rhonchi. GASTROINTESTINAL: Abdomen soft, non-tender, nondistended. EXTREMITIES: No edema or joint tenderness. BACK: Nontender without deformity or crepitance. No flank tenderness. NEURO: AOx3. Nonfocal neuro exam SKIN: No rash or erythema of visible areas Initial Vital Signs Initial Vital Signs: Vital Signs Pulse Rate 81 10/05/23 08:04 Pulse Oximetry 98 10/05/23 08:04 Course Orders Ordered: ED Orders 10/05/23 13:05 CT angio chest abdomen pelvis Stat Discontinued Medications Famotidine (Famotidine 20 Mg/2 Ml Vial) 20 mg IV NOW TED Last Admin: 10/05/23 08:57 Dose: 20 mg Documented By: MARTIN Hydralazine HCl (Hydralazine 20 Mg/Ml Vial) 10 mg IV NOW ONE Stop: 10/05/23 12:09 Last Admin: 10/05/23 12:13 Dose: 10 mg Documented By: MARTIN Sodium Chloride (Normal Saline 0.9%) 1,000 mls @ 500 mls/hr IV BOLUS ONE Stop: 10/05/23 15:05 Last Infusion: 10/05/23 16:00 Dose: Infused Documented By: Admin: 10/05/23 13:55 Dose: 500 mls/hr Documented By: MARTIN Ondansetron HCl (Ondansetron 4 Mg/2 Ml Inj) 4 mg IV NOW ONE Stop: 10/05/23 13:43 Last Admin: 10/05/23 13:55 Dose: 4 mg Documented By: MARTNI Vital Signs Vital signs: Vital Signs - 8 hr 10/05/23 12:00 10/05/23 12:07 10/05/23 12:07 Pulse Rate 84 82 Respiratory Rate 19 21 Blood Pressure 247/129 H Pulse Oximetry 98 97 10/05/23 12:13 10/05/23 12:21 10/05/23 12:21 Pulse Rate 80 87 Respiratory Rate 20 Blood Pressure 247/129 H 225/100 H Pulse Oximetry 98 10/05/23 12:30 10/05/23 12:31 10/05/23 12:31 Pulse Rate 83 81 Respiratory Rate 19 20 Blood Pressure 183/79 H Pulse Oximetry 98 98 10/05/23 12:41 10/05/23 12:41 10/05/23 13:00 Pulse Rate 80 93 H Respiratory Rate 20 25 H Blood Pressure 147/65 H Pulse Oximetry 98 98 10/05/23 13:01 10/05/23 13:01 10/05/23 13:03 Pulse Rate 92 H 96 H Respiratory Rate 24 24 Blood Pressure 192/105 H Pulse Oximetry 97 98 10/05/23 13:03 10/05/23 13:11 10/05/23 13:11 Pulse Rate 89 Respiratory Rate 22 Blood Pressure 191/86 H 191/74 H Pulse Oximetry 98 10/05/23 13:20 10/05/23 13:20 10/05/23 13:30 Pulse Rate 97 H 98 H Respiratory Rate 22 78 H Blood Pressure 201/86 H Pulse Oximetry 99 98 10/05/23 14:00 10/05/23 14:01 10/05/23 14:01 Pulse Rate 94 H 99 H Respiratory Rate 24 21 Blood Pressure 159/80 H Pulse Oximetry 96 97 10/05/23 14:10 10/05/23 14:10 10/05/23 14:20 Pulse Rate 93 H 91 H Respiratory Rate 17 Blood Pressure 148/66 H Pulse Oximetry 97 97 10/05/23 14:20 10/05/23 14:30 10/05/23 14:30 Pulse Rate 96 H Respiratory Rate 22 Blood Pressure 162/97 H 170/73 H Pulse Oximetry 97 10/05/23 14:40 10/05/23 14:40 10/05/23 14:50 Pulse Rate 90 88 Respiratory Rate 24 23 Blood Pressure 164/92 H Pulse Oximetry 97 96 10/05/23 14:50 10/05/23 15:00 10/05/23 15:00 Pulse Rate 91 H Respiratory Rate 24 Blood Pressure 175/88 H 156/84 H Pulse Oximetry 96 10/05/23 15:10 10/05/23 15:10 10/05/23 15:37 Pulse Rate 94 H 95 H Respiratory Rate 24 24 Blood Pressure 147/96 H Pulse Oximetry 96 10/05/23 15:53 10/05/23 15:53 10/05/23 16:00 Pulse Rate 91 H 88 Respiratory Rate 23 21 Blood Pressure 144/95 H Pulse Oximetry 97 97 10/05/23 16:00 10/05/23 16:10 10/05/23 16:10 Pulse Rate 87 Respiratory Rate 22 Blood Pressure 153/93 H 168/81 H Pulse Oximetry 97 10/05/23 16:20 10/05/23 16:20 10/05/23 16:30 Pulse Rate 89 Respiratory Rate 19 Blood Pressure 145/70 H 144/77 H Pulse Oximetry 97 10/05/23 16:30 10/05/23 16:40 10/05/23 16:40 Pulse Rate 88 86 Respiratory Rate 20 21 Blood Pressure 149/69 H Pulse Oximetry 97 96 10/05/23 16:51 10/05/23 16:51 10/05/23 17:00 Pulse Rate 85 Respiratory Rate 24 Blood Pressure 143/65 H 167/75 H Pulse Oximetry 97 10/05/23 17:00 10/05/23 17:10 10/05/23 17:10 Pulse Rate 79 84 Respiratory Rate 21 22 Blood Pressure 139/67 Pulse Oximetry 96 96 MDM - Arrhythmia/Palpitations Lab Data Attestation: I reviewed the patient's lab results. 10/05/23 08:10 10/05/23 08:10 Labs: Lab Results 10/05/23 10/05/23 Range/Units 08:10 10:28 WBC 10.0 (4.5-11.0) X10^3/uL RBC 5.82 H (4.0-5.2) X10^6/uL Hgb 16.3 H (12.0-16.0) g/dL Hct 48.3 H (36-46) % MCV 83.0 (80-100) fL MCH 28.1 (26-34) PG MCHC 33.8 (30-36) % RDW 14.5 (11.6-14.8) % Plt Count 366 (150-400) X10^3/uL Neut % (Auto) 81.6 H (50-75) % Lymph % (Auto) 8.0 L (25-40) % [place] % (Auto) 8.4 (3-14) % Eos % (Auto) 1.2 L (2-4) % Baso % (Auto) 0.8 (0-2) % Neut # (Auto) 8200 H (7308-0006) /uL Lymph # (Auto) 800 L (2925-5629) /uL [place] # (Auto) 800 (0-900) /uL Eos # (Auto) 100 (0-450) /uL Baso # (Auto) 100 (0-100) /uL PT 23.4 H (9.4-12.5) SECONDS INR 2.0 H (0.9-1.3) Sodium 128 L (137-145) mmol/L Potassium 3.8 (3.4-5.1) mmol/L Chloride 90 L (98-107) mmol/L Carbon Dioxide 29 (22-32) mmol/L BUN 9 (7-17) mg/dL Creatinine 0.71 (0.52-1.04) mg/dL Estimated GFR > 60 (>60) mL/min BUN/Creatinine Ratio 12.7 (6-22) Glucose 126 H (80-110) mg/dL Lactate 1.1 (0.7-2.1) mmol/L Calcium 9.0 (8.4-10.2) mg/dL Magnesium 1.5 L (1.6-2.3) mg/dL Total Bilirubin 1.9 H (0.2-1.3) mg/dL AST 35 (14-36) IU/L ALT 27 (<35) IU/L Alkaline Phosphatase 54 (38-126) U/L Troponin I < 0.012 < 0.012 (0.01-0.034) ng/mL NT-Pro-B Natriuret Pep 1890 H (<450) pg/mL Total Protein 7.4 (6.3-8.2) g/dL Albumin 4.0 (3.5-5.0) g/dL Globulin 3.4 (1.7-4.1) g/dL Albumin/Globulin Ratio 1.2 (1.0-2.8) Point of Care Testing Glucose POC 125 Imaging Data Chest x-ray: Radiologist's Impresson: [address] [address] XRay Report Signed Patient: Jory Reese MR#: [id number] : 1940 Acct:[id number] Age/Sex: 82 / F Date of Service: 10/05/23 Loc: ED Accession Number: [id number] Procedure: XR chest 1V Ordering Provider: Ernst Stokes MD PROCEDURE: XR CHEST 1V INDICATIONS: Shortness of breath TECHNIQUE: One view of the chest was acquired. COMPARISON: [facility], , XR CHEST 1V, 09/03/2022, 5:13. FINDINGS: Surgical changes and devices: Pacemaker Lungs and pleura: Lungs are clear. No pleural effusions or pneumothorax. Mediastinum: Mediastinal contours appear normal. Heart size is normal. Bones and chest wall: No suspicious bony lesions. Overlying soft tissues appear unremarkable. IMPRESSION: No acute cardiopulmonary abnormality is seen. Dictated by: Hong Morales M.D. on 10/05/2023 at 8:40 Approved by: Hong Morales M.D. on 10/05/2023 at 8:40 CTA chest abdomen pelvis: Radiologist's Impresson: [address] [address] [address] Scan Report Signed Patient: Jory Reese MR#: [id number] : 1940 Acct:[id number] Age/Sex: 82 / F Date of Service: 10/05/23 Loc: ED Accession Number: [id number] Procedure: CT angio chest abdomen pelvis Ordering Provider: Ernst Stokes MD PROCEDURE: CT ANGIO CHEST ABDOMEN PELVIS INDICATIONS: elev BP, increasing BP despite Rx, eval aorta TECHNIQUE: Precontrast 5 mm thick sections acquired from the lung apices to the iliac crests. After the administration of intravenous contrast, 2.5 mm thick sections again acquired from the lung apices to the iliac crests. Maximum intensity projection (MIP) oblique sagittal and coronal reformats were then acquired. For radiation dose reduction, the following was used: automated exposure control. COMPARISON: [facility], CT, CT ANGIO CHEST ABDOMEN PELVIS, 05/26/2022, 17:25. FINDINGS: Image quality: Diagnostic. AORTA and its attachments: Ascending and descending thoracic aorta and abdominal aorta are of normal caliber without aneurysm or dissection or significant stenosis. Classic three-vessel arch anatomy. Great vessel origins are widely patent. SMA, celiac, and DINAH are widely patent. Bilateral common iliacs and external iliacs are widely patent. Common femorals are widely patent. Pulmonary tree: No acute pulmonary emboli. CHEST: Lower Neck: No enlarged lymph nodes. Thyroid: No thyroid nodules which require sonographic evaluation. Axillae: No enlarged lymph nodes. Chest Wall: Unremarkable. Lungs and Pleura: No pneumothorax or pleural effusions. No consolidation or suspicious nodules. Heart: Mild cardiomegaly. Left ventricular hypertrophy. Bilateral atria are enlarged. Pacemaker. No pericardial effusion. Thoracic Vessels: Pulmonary arteries demonstrate normal size. Mediastinum and Meghan: No enlarged lymph nodes. Esophagus: No wall thickening. No hiatal hernia. ABDOMEN: Liver: No solid mass. Gallbladder: Surgically absent Biliary ducts: No biliary dilation. Pancreas: No ductal dilation. Spleen: Size is within normal limits. Adrenal Glands: No adrenal nodules. Kidneys and Ureters: No hydronephrosis. No solid mass. No complex renal cystic lesion which requires follow up. Stomach and Bowel: Normal colonic caliber, without significant wall thickening. Diverticulosis without evidence of acute diverticulitis. Peritoneum: No abnormal intraperitoneal fluid. No free air. Ventral Wall: No hernia. Abdominal Nodes: No retroperitoneal or mesenteric adenopathy by size criteria. Vessels: Inferior vena cava is normal in size. PELVIS: Pelvic Organs: Uterus is surgically absent.. Bladder: Unremarkable. Pelvic Nodes: No enlarged lymph nodes. Miscellaneous: No inguinal hernias are seen. Bones: Lumbar degenerative change. No lytic or blastic bony lesions. No compression fractures. IMPRESSION: 1. Unremarkable thoracic and abdominal aorta. 2. No acute pulmonary emboli. 3. No acute process in the chest, abdomen, and pelvis. 4. Left ventricular hypertrophy, cardiomegaly with biatrial enlargement. 5. Remote cholecystectomy and hysterectomy. Dictated by: Hong Morales M.D. on 10/05/2023 at 14:42 Approved by: Hong Morales M.D. on 10/05/2023 at 14:50 ECG Data Attestation: I personally reviewed and interpreted this ECG as follows: Interpretation: Atrial fibrillation from ventricular response rate 83, no obvious ST segment elevation or depression changes. Flat appearing T-waves lead V6 and lead 3 and F. QRS 86, QTC 446. MDM Narrative Medical decision making narrative: 82-year-old female with history of atrial fibrillation, remote ablation, Xarelto chronic anticoagulation, prior cardioversion in context of fast heart rate in the past, with 3 days duration intermittent substernal chest discomfort and epigastric discomfort, no current pain, general malaise. EKG shows atrial fibrillation, with ventricular response rate 80s, no obvious ischemic changes. Labs pending. She is currently stable, does not warrant emergent cardioversion at this time, await chest x-ray and lab study results. Currently chest/epigastric pain-free. IV Pepcid Records review, ED visit here for atrial fibrillation on chronic anticoagulation August 2022, history of pacer [employer] noted, interrogation of the time benign, found at that visit to have low magnesium and low potassium, repleted, was discharged home after serial troponins negative. We will request interrogation pacemaker, [employer] type. Labs pending. Pacer interrogation unremarkable, no ectopy. Troponin negative. Elevated blood pressure, patient took her own blood pressure medications, persistently elevated. IV hydralazine. Still elevated. Interval repeat troponin negative/unmeasurable. CT angiogram chest abdomen and pelvis ordered. IV fluid bolus. CT angiogram showed no acute changes, see radiology report. Patient ambulatory in the room and went able to ambulate to the bathroom. Repeat troponin negative. Patient able to take oral fluids, feels better, wants to go home. Further management as an outpatient for now. Suggested contacting her regular provider tomorrow Thursday. Also with her industrial energy engineer Dr. Whaley Critical Care Time Critical Care Time Critical Care Time: Yes Total Critical Care Time: 31 Attestation: The high probability of a clinically significant, sudden or life threatening deterioration of the [cardiopulmonary, abdominopelvic, genitourinary] system(s) required my full and direct attention, intervention and personal management. The aggregate critical care time was [31] minutes. This time is in addition to time spent performing reported procedures but includes the following: [x] Data Review and interpretation [x] Patient assessment and monitoring of vital signs [x] Documentation [x] Medication orders and management Discharge Plan Departure Patient Disposition: Home Clinical Impression: Atrial fibrillation, Shortness of breath, Abdominal discomfort, Hypertension Activity Restrictions/Additional Instructions: History of atrial fibrillation, chronic blood thinner medications, with lower chest upper abdominal discomfort, some shortness of breath. Chest x-ray unremarkable. EKG and serial blood tests not suggestive of heart attack at this time. You had elevated blood pressure that kept rising despite IV hydralazine dose that was given. We did CT angiogram of the chest abdomen and pelvis making sure there was no area that was bleeding or having any problems with the aorta that would account for this change. That study showed no acute changes. You felt improved, we are able to walk around, your blood pressure improved. Continue your chronic regular medications for now. Consider antacid treatment in case any discomfort was related to reflux. [id number] omeprazole can be taken daily. Recheck symptoms tomorrow early next week with your regular provider. Regarding your atrial fibrillation, you seems stable at this time, no evidence for heart attack, and no evidence for rapid heart rate. We did discuss cardioversion electricity when you 1st arrived, but you remained stable through the course, and you did not want to have any electrical cardioversion. Discussed further management of your atrial fibrillation with your industrial energy engineer Dr. Whaley. Recheck with your regular provider in your industrial energy engineer's as above. Return to the earlier to this/nearest emergency department for any change worsening symptoms or any concerns prior Prescriptions: No Action Xarelto 20 mg tablet 20 mg PO QPM Qty: 90 3RF Rx Instructions: must administer with evening meal levothyroxine 50 mcg tablet 50 mcg PO DAILY Qty: 90 3RF escitalopram oxalate 10 mg tablet 10 mg PO BEDTIME Qty: 90 2RF Hold Instructions: pt not taking albuterol sulfate 90 mcg/actuation HFA aerosol inhaler 2 puff inhalation Q6H PRN (Reason: shortness of breath or wheezing) Qty: 8.5 12RF metoprolol succinate 50 mg tablet extended release 24 hr See Rx Instructions PO DAILY Qty: 135 0RF Rx Instructions: 1 tab QPM, 1/2 tab QAM orally daily; coenzyme Q10 [Co Q-10] 100 mg capsule 100 mg PO DAILY Qty: 90 0RF Hold Instructions: pt not taking potassium chloride 20 mEq tablet extended release 20 meq PO DAILY Qty: 90 3RF zolpidem 5 mg tablet 2.5 mg PO BEDTIME PRN (Reason: Sleep) Qty: 45 0RF Hold Instructions: pt not taking Rx Instructions: Caution regarding possible dizziness or falls on med. Limit use as possible. losartan 100 mg tablet 100 mg PO QAM Qty: 90 3RF Arnuity Ellipta 200 mcg/actuation blister with device 1 inh inhalation DAILY Qty: 90 2RF Hold Instructions: seasonal - restart spring 2024 Rx Instructions: Dexter teeth or at least rinse mouth and spit after use Multivitamin Gummies 200 mcg Tablet,Chewable 1 tab PO DAILY aspirin 81 mg Capsule 81 mg PO BEDTIME Qty: 0 acetaminophen 500 mg capsule 500 mg PO Q4H MDD Max 3000 mg per day PRN (Reason: fever or pain) Qty: 90 0RF chlorthalidone 25 mg tablet 12.5 mg PO Q OTHER DAY Rx Instructions: order change 06/19/23 cyclosporine [Restasis] 0.05 % Dropperette 1 drp OPHTHALMIC (EYE) BEDTIME Praluent Pen 75 mg/mL Pen Injector 75 mg SUBCUT Q14D Referrals: Denisse Whaley MD [Physician] - Sarah Montana DO [Primary Care Provider] - Stand Alone Forms: Patient Portal/API
--- NOTE | 2023-10-05 08:11 | EKG_ITS ---
[place] [id number] [place] [id number] Test Date: 2023-10-05 Pat Name: Jory Reese Department: Room: Gender: Female Retail Store Manager: JOSE : 1940 Requested By: Order Number: [id number] Reading MD: Lenny Gallego Measurements Intervals [place] Rate: 83 P: [place]: QRS: -24 QRSD: 86 T: 172 QT: 380 QTc: 446 Interpretive Statements Atrial fibrillation Nonspecific ST and T wave abnormality Electronically Signed On 10-05-2023 14:28:54 PDT by Lenny Gallego
[2023-10-05 08:21] LABS: Add Manual Diff / Slide Review NO; Basophils Absolute Auto 100 /uL (0-100); Basophils Percent Auto 0.8 % (0-2); Eosinophils Absolute Auto 100 /uL (0-450); Eosinophils Percent Auto 1.2 % (2-4); Hematocrit 48.3 % (36-46); Hemoglobin 16.3 g/dL (12.0-16.0); Lymphocytes Absolute Auto 800 /uL (1100-4500); Mean Corpuscular HGB Conc 33.8 % (30-36); Mean Corpuscular Hemoglobin 28.1 PG (26-34); Monocytes Absolute Auto 800 /uL (0-900); Monocytes Percent Auto 8.4 % (3-14); Neutrophils Absolute Auto 8200 /uL (1500-7000); Neutrophils Percent Auto 81.6 % (50-75); Platelet Count 366 X10^3/uL (150-400); Red Blood Cell Count 5.82 X10^6/uL (4.0-5.2); Red Cell Distribution Width 14.5 % (11.6-14.8)
[2023-10-05 08:27] LABS: Prothrombin Time 23.4 SECONDS (9.4-12.5)
[2023-10-05 08:33] LABS: Lactate (Lactic Acid) 1.1 mmol/L (0.7-2.1)
[2023-10-05] MEDS: FAMOTIDINE 20 MG/2 ML VIAL IV (08:57)
[2023-10-05 09:36] LABS: Alanine Aminotransferase 27 IU/L (<35); Albumin Globulin Ratio 1.2 (1.0-2.8); Alkaline Phosphatase 54 U/L (38-126); Aspartate Aminotransferase 35 IU/L (14-36); BUN Creatinine Ratio 12.7 (6-22); Bilirubin Total 1.9 mg/dL (0.2-1.3); Blood Urea Nitrogen 9 mg/dL (7-17); Carbon Dioxide 29 mmol/L (22-32); Chloride 90 mmol/L (98-107); Estimated Glomerular Filt Rate > 60 mL/min (>60); Globulin 3.4 g/dL (1.7-4.1); Glucose 126 mg/dL (80-110); HEMOLYSIS < 15 (0-50); Potassium 3.8 mmol/L (3.4-5.1); Sodium 128 mmol/L (137-145); Total Protein 7.4 g/dL (6.3-8.2)
[2023-10-05 09:48] LABS: Troponin I < 0.012 ng/mL (0.01-0.034)
[2023-10-05 10:43] LABS: NT-proBNP (BNP-Adult 18+) 1890 pg/mL (<450)
[2023-10-05 11:05] LABS: Troponin I < 0.012 ng/mL (0.01-0.034)
[2023-10-05] MEDS: HYDRALAZINE 20 MG/ML VIAL 10 MG IV (12:13)
--- NOTE | 2023-10-05 13:05 | DI.CT.S_ITS ---
PROCEDURE: CT ANGIO CHEST ABDOMEN PELVIS INDICATIONS: elev BP, increasing BP despite Rx, eval aorta TECHNIQUE: Precontrast 5 mm thick sections acquired from the lung apices to the iliac crests. After the administration of intravenous contrast, 2.5 mm thick sections again acquired from the lung apices to the iliac crests. Maximum intensity projection (MIP) oblique sagittal and coronal reformats were then acquired. For radiation dose reduction, the following was used: automated exposure control. COMPARISON: [facility], CT, CT ANGIO CHEST ABDOMEN PELVIS, 05/26/2022, 17:25. FINDINGS: Image quality: Diagnostic. AORTA and its attachments: Ascending and descending thoracic aorta and abdominal aorta are of normal caliber without aneurysm or dissection or significant stenosis. Classic three-vessel arch anatomy. Great vessel origins are widely patent. SMA, celiac, and DINAH are widely patent. Bilateral common iliacs and external iliacs are widely patent. Common femorals are widely patent. Pulmonary tree: No acute pulmonary emboli. CHEST: Lower Neck: No enlarged lymph nodes. Thyroid: No thyroid nodules which require sonographic evaluation. Axillae: No enlarged lymph nodes. Chest Wall: Unremarkable. Lungs and Pleura: No pneumothorax or pleural effusions. No consolidation or suspicious nodules. Heart: Mild cardiomegaly. Left ventricular hypertrophy. Bilateral atria are enlarged. Pacemaker. No pericardial effusion. Thoracic Vessels: Pulmonary arteries demonstrate normal size. Mediastinum and Meghan: No enlarged lymph nodes. Esophagus: No wall thickening. No hiatal hernia. ABDOMEN: Liver: No solid mass. Gallbladder: Surgically absent Biliary ducts: No biliary dilation. Pancreas: No ductal dilation. Spleen: Size is within normal limits. Adrenal Glands: No adrenal nodules. Kidneys and Ureters: No hydronephrosis. No solid mass. No complex renal cystic lesion which requires follow up. Stomach and Bowel: Normal colonic caliber, without significant wall thickening. Diverticulosis without evidence of acute diverticulitis. Peritoneum: No abnormal intraperitoneal fluid. No free air. Ventral Wall: No hernia. Abdominal Nodes: No retroperitoneal or mesenteric adenopathy by size criteria. Vessels: Inferior vena cava is normal in size. PELVIS: Pelvic Organs: Uterus is surgically absent.. Bladder: Unremarkable. Pelvic Nodes: No enlarged lymph nodes. Miscellaneous: No inguinal hernias are seen. Bones: Lumbar degenerative change. No lytic or blastic bony lesions. No compression fractures. IMPRESSION: 1. Unremarkable thoracic and abdominal aorta. 2. No acute pulmonary emboli. 3. No acute process in the chest, abdomen, and pelvis. 4. Left ventricular hypertrophy, cardiomegaly with biatrial enlargement. 5. Remote cholecystectomy and hysterectomy. Dictated by: Hong Morales M.D. on 10/05/2023 at 14:42 Approved by: Hong Morales M.D. on 10/05/2023 at 14:50
--- NOTE | 2023-10-05 13:40 | PC.NURSE ---
[facility] [place] reported after CT IV Contrast, patient became nauseated and vomiting. No Resp distress or rash noted.
[2023-10-05] MEDS: SODIUM CHLORIDE 0.9% 1,000 ML 500 ML IV (13:55)
[2023-10-05] MEDS: ONDANSETRON 4 MG/2 ML INJ IV (13:55)
--- NOTE | 2023-10-05 14:15 | PC.NURSE ---
At 1300 pt reporting increased abdominal pain and bilateral leg tingling. Vital signs obtained, Pt still hypertesive after hydralazine. Dr. Stokes aware, CT chest ordered. Continuing to monitor pt for any acute changes.
--- NOTE | 2023-10-05 14:39 | PC.NURSE ---
Pt reports feeling shakey, states she last ate yesterday at 1600. Blood glucose 125 at 1430.
[2023-10-05 15:09] LABS: Magnesium 1.5 mg/dL (1.6-2.3)
== END 2023-10-05 17:21 | disposition home or self-care (01) ==
PROVIDERS: Emergency Provider Emergency Medicine; PCP Family Medicine
DX: I48.91 Unspecified atrial fibrillation (principal); R06.02 Shortness of breath; R10.9 Unspecified abdominal pain; I10 Essential (primary) hypertension; Z79.01 Long term (current) use of anticoagulants
CPT/HCPCS: 36415; 71045; 71275; 74174; 80053; 82962; 83605; 83735; 83880; 84484; 85025; 85610; 93005; 96361; 96374; 96375; 99284; J0360; J2405; Q9967

== ENCOUNTER → 2023-11-16 08:01 | Outpatient (CLI) | payer MEDICARE, SELFPAY ==
[2023-06-22 12:44] VITALS: BMI 34.0
[2023-11-16 09:30] LABS: BUN Creatinine Ratio 11.9 (6-22); Blood Urea Nitrogen 7 mg/dL (7-17); Carbon Dioxide 32 mmol/L (22-32); Cholesterol 82 mg/dL (140-199); Estimated Glomerular Filt Rate > 60 mL/min (>60); HEMOLYSIS < 15 (0-50); Potassium 4.1 mmol/L (3.4-5.1); Triglycerides 51 mg/dL (35-150)
[2023-11-16 09:32] LABS: Calcium 9.3 mg/dL (8.4-10.2); Chloride 93 mmol/L (98-107); Glucose 112 mg/dL (80-110); HDL Cholesterol 54 mg/dL (40-60); LDL Cholesterol Calculated 18 mg/dL (<100); Sodium 130 mmol/L (137-145)
== END ==
PROVIDERS: PCP Family Medicine; Referring Provider Internal Medicine Cardiovascular Disease; Visit Provider Internal Medicine Cardiovascular Disease
DX: I10 Essential (primary) hypertension (principal); E78.5 Hyperlipidemia, unspecified
CPT/HCPCS: 36415; 80048; 80061

== ENCOUNTER → 2023-12-15 14:37 | Outpatient (CLI) | payer MEDICARE, SELFPAY ==
[2023-06-22 12:44] VITALS: BMI 34.0
[2023-12-15 15:50] LABS: Blood Urea Nitrogen 12 mg/dL (7-17); Calcium 9.5 mg/dL (8.4-10.2); Carbon Dioxide 31 mmol/L (22-32); Chloride 90 mmol/L (98-107); Estimated Glomerular Filt Rate > 60 mL/min (>60); Glucose 143 mg/dL (80-110); HEMOLYSIS 20 (0-50); Potassium 3.6 mmol/L (3.4-5.1); Sodium 130 mmol/L (137-145)
== END ==
PROVIDERS: PCP Family Medicine; Referring Provider Internal Medicine Cardiovascular Disease; Visit Provider Internal Medicine Cardiovascular Disease
DX: I10 Essential (primary) hypertension (principal); E87.1 Hypo-osmolality and hyponatremia
CPT/HCPCS: 36415; 80048

== ENCOUNTER → 2024-01-04 14:12 | Outpatient (CLI) | payer MEDICARE, SELFPAY ==
[2023-06-22 12:44] VITALS: BMI 34.0
[2024-01-04 16:19] LABS: Blood Urea Nitrogen 13 mg/dL (7-17); Calcium 9.4 mg/dL (8.4-10.2); Carbon Dioxide 31 mmol/L (22-32); Chloride 94 mmol/L (98-107); Estimated Glomerular Filt Rate > 60 mL/min (>60); Glucose 110 mg/dL (80-110); HEMOLYSIS < 15 (0-50); Potassium 3.9 mmol/L (3.4-5.1); Sodium 129 mmol/L (137-145)
== END ==
PROVIDERS: PCP Family Medicine; Referring Provider Internal Medicine Cardiovascular Disease; Visit Provider Internal Medicine Cardiovascular Disease
DX: I10 Essential (primary) hypertension (principal); E87.1 Hypo-osmolality and hyponatremia
CPT/HCPCS: 36415; 80048

== ENCOUNTER → 2024-01-25 12:14 | Outpatient (CLI) | payer MEDICARE, SELFPAY ==
[2023-06-22 12:44] VITALS: BMI 34.0
--- NOTE | 2024-01-25 12:15 | DI.ECHO.S_ITS ---
[place] +---------+ [facility] : : [address] : : [place] : : [id number] : : Phone: [phone] Echocardiogram Report + + :Name: HOMERO DONG Study Date: 01/25/2024 Height: 62 in : :Hospital ReadingLocation: Weight: 180 lb : : Gender: Female BSA: 1.8 m2 : :: 1940 Age: 83 yrs BP: 126/95 mmHg: :Reason For Study: DIASTOLIC HEART FAILURE : :Ordering Physician: LUCI, : :NATALIE Performed By: Carlito Mcfadden : :Referring: NATALIE VERMA : + + Interpretation Summary The ejection fraction is estimated to be 60-65%. Diastolic function could not be accurately assessed due to atrial fibrillation. The right ventricle is moderately dilated. Right ventricular systolic function is mild to moderately reduced. Both atria are severely dilated. There is mild to moderate mitral regurgitation. There is moderate to severe tricuspid regurgitation. The right ventricular systolic pressure is estimated to be at least 80 mmHg based on an estimated right atrial pressure of 8 mm Hg. Compared to the prior study dated 09/16/2021, the right ventricle is now dilated with reduced systolic function, the tricuspid regurgitation has increased along with the pulmonary artery systolic pressure. Procedure: A two-dimensional transthoracic echocardiogram with color flow and Doppler was performed. The study quality was technically good. Comparison is made with the echocardiogram of 09/16/2021. The patient was in atrial fibrillation with heart rates between 62-82 bpm during the exam. Left Ventricle: The left ventricle is normal in size. Proximal septal thickening is noted. There is no ventricular septal defect visualized. The ejection fraction is estimated to be 60-65%. There are no focal wall motion abnormalities. Diastolic function could not be accurately assessed due to atrial fibrillation. Right Ventricle: The right ventricle is moderately dilated. There is a pacemaker lead in the right ventricle. Right ventricular systolic function is mild to moderately reduced. Atria: Both atria are severely dilated. There is a catheter/pacemaker lead seen in the right atrium. There is no Doppler evidence for an interatrial shunt. Mitral Valve: The mitral valve leaflets appear mildly thickened, but open well. There is moderate mitral annular calcification. The mitral valve leaflets appear to open well. There is mild to moderate mitral regurgitation. Aortic Valve: The aortic valve is mildly calcified. There is no aortic stenosis. No aortic regurgitation is present. Tricuspid Valve: The tricuspid valve is normal in structure and function. There is moderate to severe tricuspid regurgitation. The right ventricular systolic pressure is estimated to be at least 80 mmHg based on an estimated right atrial pressure of 8 mm Hg. Pulmonic Valve: The pulmonic valve is normal in structure and function. There is trace pulmonic regurgitation. Great Vessels: The aortic root is normal size. The dimensions of the ascending aorta are normal. The pulmonary artery is normal size. The IVC is of normal diameter and collapses less than 50% with a sniff. This suggests a right atrial pressure of 8 mm Hg. Pericardium/ Pleura There is no pericardial effusion. There is no pleural effusion. MMode/2D Measurements & Calculations LVIDd: 3.6 cm LVOT diam: 1.8 cm LVIDs: 2.4 cm Ao root diam: 2.6 cm FS: 34.6 % asc Aorta Diam: 3.0 cm EPSS: 0.49 cm IVSd: 1.0 cm LVPWd: 1.1 cm LV diaz. diameter/BSA (cm/m^2): 2.0 LV sys. diameter/BSA (cm/m^2): 1.3 LA A2 area: 19.9 cm2 RA long axis: 5.5 cm LA A4 area: 26.1 cm2 RA area: 20.3 cm2 LA length (vol): 6.7 cm RA vol: 64.2 ml LA vol: 66.1 ml RA : 35.1 ml/m2 LA vol index: 36.2 ml/m2 IVC diam: 2.0 cm RVD1 (basal): 4.1 cm RVD2 (mid): 3.6 cm TAPSE: 1.4 cm Doppler Measurements & Calculations Ao V2 max: 177.3 cm/sec LVOT Max Joselito: 69.4 cm/sec Ao V2 mean: 117.9 cm/sec LV V1 max P.9 mmHg Ao max P.6 mmHg LV V1 VTI: 17.0 cm Ao mean P.3 mmHg CRISTIAN(I,D): 1.1 cm2 Ao V2 VTI: 40.4 cm CRISTIAN(V,D): 0.98 cm2 sev ratio: 0.42 CRISTIAN indexed to BSA (cm^2/m^2): 0.58 MV E max joselito: 121.5 cm/sec TR max joselito: 424.6 cm/sec MV A max joselito: 33.8 cm/sec TR max P.1 mmHg MV E/A: 3.6 PA V2 max: 67.2 cm/sec Med Peak E' Joselito: 5.2 cm/sec PA V2 mean: 41.2 cm/sec E/E' med: 23.5 PA mean P.77 mmHg Lat Peak E' Joselito: 7.0 cm/sec PA pr(Accel): 70.4 mmHg E/E' lat: 17.4 E/e' average: 20.5 MV dec time: 0.14 sec SV(LVOT): 42.8 ml Reading Physician:03:[id number] PM
== END ==
LOC: ECHO 12:14
PROVIDERS: PCP Family Medicine; Referring Provider Internal Medicine Cardiovascular Disease; Visit Provider Internal Medicine Cardiovascular Disease
DX: I08.1 Rheumatic disorders of both mitral and tricuspid valves (principal); R06.00 Dyspnea, unspecified; Z95.0 Presence of cardiac pacemaker
CPT/HCPCS: 93306

== ENCOUNTER → 2024-02-12 14:11 | Outpatient (CLI) | payer MEDICARE, SELFPAY ==
[2023-06-22 12:44] VITALS: BMI 34.0
[2024-02-12 15:13] LABS: BUN Creatinine Ratio 20.3 (6-22); Blood Urea Nitrogen 14 mg/dL (7-17); Calcium 9.3 mg/dL (8.4-10.2); Carbon Dioxide 31 mmol/L (22-32); Chloride 94 mmol/L (98-107); Estimated Glomerular Filt Rate > 60 mL/min (>60); Glucose 115 mg/dL (80-110); HEMOLYSIS < 15 (0-50); Potassium 4.8 mmol/L (3.4-5.1); Sodium 131 mmol/L (137-145)
[2024-02-12 15:24] LABS: NT-proBNP (BNP-Adult 18+) 1610 pg/mL (<450)
== END ==
PROVIDERS: PCP Family Medicine; Referring Provider Internal Medicine Cardiovascular Disease; Visit Provider Internal Medicine Cardiovascular Disease
DX: I50.32 Chronic diastolic (congestive) heart failure (principal)
CPT/HCPCS: 36415; 80048; 83880

== ENCOUNTER → 2024-03-18 11:28 | Outpatient (CLI) | payer OTHER, SELFPAY ==
[2023-06-22 12:44] VITALS: BMI 34.0
[2024-03-18 13:23] LABS: BUN Creatinine Ratio 14.1 (6-22); Blood Urea Nitrogen 10 mg/dL (7-17); Calcium 9.3 mg/dL (8.4-10.2); Carbon Dioxide 29 mmol/L (22-32); Chloride 94 mmol/L (98-107); Estimated Glomerular Filt Rate > 60 mL/min (>60); Glucose 93 mg/dL (80-110); HEMOLYSIS < 15 (0-50); Potassium 3.9 mmol/L (3.4-5.1); Sodium 131 mmol/L (137-145)
== END ==
PROVIDERS: PCP Family Medicine; Referring Provider Internal Medicine Cardiovascular Disease; Visit Provider Internal Medicine Cardiovascular Disease
DX: I10 Essential (primary) hypertension (principal); E87.1 Hypo-osmolality and hyponatremia
CPT/HCPCS: 36415; 80048

== ENCOUNTER → 2024-06-17 12:37 | Outpatient (CLI) | payer OTHER, SELFPAY ==
[2023-06-22 12:44] VITALS: BMI 34.0
[2024-06-17 13:36] LABS: Influenza A - CEPHEID Flu A POSITIVE (NEGATIVE); Influenza B - CEPHEID Flu B NEGATIVE (NEGATIVE); Respiratory Syncytial Virus Negative (Negative)
[2024-06-17 13:39] LABS: COVID-19 CEPHEID 4-PLEX PCR Negative (Negative)
== END ==
LOC: LAB 12:38
PROVIDERS: PCP Family Medicine; Visit Provider Chiropractor
DX: R05.9 Cough, unspecified (principal); R53.83 Other fatigue; R06.00 Dyspnea, unspecified; R06.89 Other abnormalities of breathing
CPT/HCPCS: 0241U

== ENCOUNTER 2024-07-23 06:17 | Emergency (ER) | payer OTHER, SELFPAY ==
[2023-06-22 12:44] VITALS: BMI 34.0
[2024-07-23] VITALS (25 sets, daily range): BP systolic 117–227; BP diastolic 56–128; PULSE 70–85; RESP 15–24; TEMP 36.1; O2SAT 93–97; BMI 34.2
--- NOTE | 2024-07-23 06:23 | DI.RAD.S_ITS ---
PROCEDURE: XR CHEST 1V INDICATIONS: chest pain, hypertension TECHNIQUE: One view of the chest was acquired. COMPARISON: [facility], CR, XR CHEST 1V, 10/05/2023, 8:08. [facility], CR, XR CHEST 1V, 09/03/2022, 5:13. FINDINGS: Surgical changes and devices: Left chest wall pacemaker Lungs and pleura: Lungs are clear. No pleural effusions or pneumothorax. Mediastinum: Mediastinal contours appear normal. Heart size is enlarged, stable. Bones and chest wall: No suspicious bony lesions. Overlying soft tissues appear unremarkable. IMPRESSION: No acute pulmonary process. Dictated by: Chava Shah M.D. on 07/23/2024 at 7:28 Approved by: Chava Shah M.D. on 07/23/2024 at 7:28
--- NOTE | 2024-07-23 06:31 | EKG_ITS ---
[place] [address] [address] [place] [id number] Test Date: 2024-07-23 Pat Name: Jory Reese Department: [facility] Room: Gender: Female Adult Caregiver: CRISTELA : 1940 Requested By: Order Number: [id number] Reading MD: Lenny Gallego Measurements Intervals [place] Rate: 79 P: [place]: QRS: 209 QRSD: 84 T: 154 QT: 378 QTc: 433 Interpretive Statements Atrial fibrillation with premature ventricular or aberrantly conducted complexes Right superior axis deviation Pulmonary disease pattern Right ventricular hypertrophy Septal infarct , age undetermined Electronically Signed On 07-23-2024 8:45:23 PDT by Lenny Gallego
--- NOTE | 2024-07-23 06:37 | ED.GENADULT ---
HPI - General Adult <Ernst Stokes MD - Last Filed: 07/23/24 15:25> General Chief complaint: Shortness of Breath/Dyspnea Stated complaint: Poss Heart problems,not sleeping well,has pacemake Time Seen by Provider: 07/23/24 06:21 Source: patient Mode of arrival: Ambulatory History of Present Illness HPI narrative: 83-year-old female with history of COPD, pacemaker, atrial fibrillation on Xarelto anticoagulation, hypertension. She was awakened 3:00 a.m. with sweating, no fevers or chills. No chest pain or shortness of breath. Was unable to really get back to sleep, later this morning started having right-sided sharp intermittent headaches. Took her blood pressure medicines metoprolol and losartan about 5:30 a.m., still having headaches. No focal weakness to face arm or leg. No focal numbness to face arm or leg. No recent illness symptoms. Denies abdominal discomfort. Denies nausea or vomiting. Denies painful or frequent urination. Onset (ago): minute(s) Related Data Home Medications ?Medication ?Instructions ?Recorded ?Confirmed multivitamin with minerals-folic 1 tab PO DAILY 04/01/21 06/23/24 acid 200 mcg chewable tablet (Multivitamin Gummies) aspirin 81 mg capsule 81 mg PO BEDTIME ##0 04/03/21 06/23/24 latanoprost 0.005 % eye drops drp EYE-BOTH 06/23/24 06/23/24 metoprolol succinate 50 mg 50 mg PO BID 06/23/24 tablet,extended release 24 hr timolol maleate 0.5 % eye drops drp EYE-BOTH 06/23/24 06/23/24 Previous Rx's ?Medication ?Instructions ?Recorded acetaminophen 500 mg capsule 500 mg PO Q4H PRN fever or pain 04/05/21 #90 caps coenzyme Q10 100 mg capsule (Co 100 mg PO DAILY #90 caps 07/11/22 Q-10) Held on 06/29/23. Instructions: pt not taking rivaroxaban 20 mg tablet (Xarelto) 20 mg PO QPM #90 tabs 09/16/22 escitalopram oxalate 10 mg tablet 10 mg PO BEDTIME #90 tabs 03/04/24 levothyroxine 50 mcg tablet 50 mcg PO DAILY #90 tabs 01/17/25 (Synthroid) albuterol sulfate 90 mcg/actuation 2 puff inhalation Q6H PRN 03/28/24 aerosol inhaler shortness of breath or wheezing #8.5 grams fluticasone furoate 200 1 inh inhalation DAILY #90 ea 03/31/24 mcg/actuation blister powder for inhalation (Arnuity Ellipta) potassium chloride 20 mEq 20 meq PO DAILY #90 tabs 05/05/24 tablet,extended release chlorthalidone 25 mg tablet 12.5 mg (1/2 x 25 mg) PO Q OTHER 05/30/24 DAY #45 tabs losartan 100 mg tablet 100 mg PO QAM #90 tabs 05/30/24 Allergies Allergy/AdvReac Type Severity Reaction Status Date / Time hydromorphone Allergy Intermediate RASH/GI Verified 07/23/24 06:31 UPSET hydrocodone Allergy Mild GI UPSET Verified 07/23/24 06:31 rosuvastatin (From Crestor) Allergy Unknown Intolerant Verified 07/23/24 06:31 diltiazem (DILTIAZEM) AdvReac Intermediate BRADYCARDIA Verified 07/23/24 06:31 atorvastatin AdvReac Unknown Significant Verified 07/23/24 06:31 weakness, myalgias Patient History <Ernst Stokes MD - Last Filed: 07/23/24 15:25> Medical History (Updated 07/23/24 @ 12:04 by Abisai Juan DO) Dyspnea Bruises easily First degree AV block Essential hypertension History of cardioversion (~07/31/20) PAD (peripheral artery disease) History of syncope Tachy-kimmy syndrome Cervical spondylosis Osteoarthritis of left knee Pacemaker (~11/2015) Anticoagulated Gastroenteritis Lumbar region somatic dysfunction Upper extremity somatic dysfunction Vitamin D deficiency Fatigue Segmental and somatic dysfunction of pelvic region Segmental and somatic dysfunction of sacral region Cranial somatic dysfunction Segmental and somatic dysfunction of abdomen and other regions Segmental and somatic dysfunction of thoracic region Cervical somatic dysfunction Chronic neck pain Insomnia Bilateral chronic otitis media Anxiety (~2013) Shoulder pain (~2018) Carpal tunnel syndrome Hearing loss Fibroid (~1964) Hypothyroid HTN (hypertension) Atrial fibrillation (~2014) Surgical History (Updated 06/23/24 @ 17:27 by Sarah Montana DO) History of intravascular stent placement Hx of breast reduction, elective (~2006) History of carpal tunnel release H/O cardiac radiofrequency ablation (~07/02/16) Anesthesia History of appendectomy History of cholecystectomy History of hysterectomy (~1978) Cataracts, bilateral Pacemaker (~11/06/15) Family History Father Hypertension Mother Lung cancer Social History household members: none Smoking Status: Never smoker alcohol intake: never substance use type: does not use Smoking Status: Never smoker alcohol intake frequency: other Exam <Ernst Stokes MD - Last Filed: 07/23/24 15:25> Narrative Exam Narrative: GENERAL: Well-developed patient, in mild distress. HEAD: Atraumatic. Normocephalic. EYES: Pupils equal round and reactive. Extraocular motions intact. No scleral icterus. No injection or drainage. ENT: Nose without bleeding, purulent drainage. Throat without erythema, tonsillar hypertrophy or exudate. Airway patent. NECK: Trachea midline. Non tender CARDIOVASCULAR: Regular rate and rhythm without murmurs, gallops, or rubs. RESPIRATORY: Clear to auscultation. Breath sounds equal bilaterally. No wheezes, rales, or rhonchi. GASTROINTESTINAL: Abdomen soft, non-tender, nondistended. EXTREMITIES: No edema or joint tenderness. BACK: Nontender without deformity or crepitance. No flank tenderness. NEURO: AOx3. Motor functions grossly nonfocal SKIN: No rash or erythema of visible areas Initial Vital Signs Initial Vital Signs: Vital Signs Pulse Rate 79 07/23/24 06:26 Blood Pressure 187/114 H 07/23/24 06:26 Pulse Oximetry 95 07/23/24 06:26 <Abisai Juan DO - Last Filed: 07/23/24 12:04> Initial Vital Signs Initial Vital Signs: Vital Signs Pulse Rate 79 07/23/24 06:26 Blood Pressure 187/114 H 07/23/24 06:26 Pulse Oximetry 95 07/23/24 06:26 Course <Ernst Stokes MD - Last Filed: 07/23/24 15:25> Orders Ordered: ED Orders 07/23/24 06:45 Complete Blood Count AUTO DIFF Stat Comprehensive Metabolic Panel Stat Lipase Stat Troponin & CK Cardiac Panel Stat 07/23/24 06:46 CT head/brain wo con Stat 07/23/24 10:50 Trop I [Troponin I] Stat Discontinued Medications Hydralazine HCl (Hydralazine 20 Mg/Ml Vial) 5 mg IV NOW ONE Stop: 07/23/24 06:39 Last Admin: 07/23/24 07:37 Dose: Not Given Documented By: KEVIN Hydralazine HCl (Hydralazine 20 Mg/Ml Vial) 10 mg IV NOW ONE Stop: 07/23/24 07:37 Last Admin: 07/23/24 07:41 Dose: 10 mg Documented By: KEVIN Potassium Chloride (Potassium Chloride 20 Meq/15 Ml Udc) 40 meq PO NOW ONE Stop: 07/23/24 09:58 Last Admin: 07/23/24 10:45 Dose: 40 meq Documented By: SANDEE Vital Signs Vital signs: Vital Signs - 8 hr 07/23/24 07:30 07/23/24 07:30 07/23/24 07:41 Pulse Rate 81 83 Respiratory Rate 23 Blood Pressure 184/94 H 227/110 H Pulse Oximetry 96 07/23/24 07:46 07/23/24 07:46 07/23/24 08:00 Pulse Rate 75 74 Respiratory Rate 19 18 Blood Pressure 172/75 H Pulse Oximetry 95 95 07/23/24 08:00 07/23/24 08:07 07/23/24 08:16 Pulse Rate 82 74 Respiratory Rate 17 Blood Pressure 126/57 L 126/57 L Pulse Oximetry 95 07/23/24 08:16 07/23/24 08:30 07/23/24 08:31 Pulse Rate 73 71 Respiratory Rate 16 16 Blood Pressure 117/93 H Pulse Oximetry 94 95 07/23/24 08:31 07/23/24 08:45 07/23/24 08:45 Pulse Rate 75 Respiratory Rate 15 Blood Pressure 119/57 L 121/57 L Pulse Oximetry 94 07/23/24 09:00 07/23/24 09:00 07/23/24 09:15 Pulse Rate 74 72 Respiratory Rate 16 16 Blood Pressure 123/56 L Pulse Oximetry 93 93 07/23/24 09:15 07/23/24 09:30 07/23/24 09:30 Pulse Rate 75 Respiratory Rate 19 Blood Pressure 133/63 158/69 H Pulse Oximetry 94 07/23/24 09:54 07/23/24 09:54 07/23/24 10:00 Pulse Rate 77 74 Respiratory Rate 22 21 Blood Pressure 124/73 Pulse Oximetry 96 95 07/23/24 10:00 07/23/24 10:15 07/23/24 10:15 Pulse Rate 74 Respiratory Rate 19 Blood Pressure 137/79 158/82 H Pulse Oximetry 96 07/23/24 10:30 07/23/24 10:30 07/23/24 10:46 Pulse Rate 70 Respiratory Rate 18 Blood Pressure 156/76 H 147/105 H Pulse Oximetry 95 07/23/24 10:46 07/23/24 11:00 07/23/24 11:51 Pulse Rate 78 84 84 Respiratory Rate 24 17 Blood Pressure Pulse Oximetry 95 93 <Abisai Juan, DO - Last Filed: 07/23/24 12:04> Orders Ordered: ED Orders 07/23/24 06:45 Complete Blood Count AUTO DIFF Stat Comprehensive Metabolic Panel Stat Lipase Stat Troponin & CK Cardiac Panel Stat 07/23/24 06:46 CT head/brain wo con Stat 07/23/24 10:50 Trop I [Troponin I] Stat Discontinued Medications Hydralazine HCl (Hydralazine 20 Mg/Ml Vial) 5 mg IV NOW ONE Stop: 07/23/24 06:39 Last Admin: 07/23/24 07:37 Dose: Not Given Documented By: CTS Hydralazine HCl (Hydralazine 20 Mg/Ml Vial) 10 mg IV NOW ONE Stop: 07/23/24 07:37 Last Admin: 07/23/24 07:41 Dose: 10 mg Documented By: CTS Potassium Chloride (Potassium Chloride 20 Meq/15 Ml Udc) 40 meq PO NOW ONE Stop: 07/23/24 09:58 Last Admin: 07/23/24 10:45 Dose: 40 meq Documented By: RB Vital Signs Vital signs: Vital Signs - 8 hr 07/23/24 07:30 07/23/24 07:30 07/23/24 07:41 Pulse Rate 81 83 Respiratory Rate 23 Blood Pressure 184/94 H 227/110 H Pulse Oximetry 96 07/23/24 07:46 07/23/24 07:46 07/23/24 08:00 Pulse Rate 75 74 Respiratory Rate 19 18 Blood Pressure 172/75 H Pulse Oximetry 95 95 07/23/24 08:00 07/23/24 08:07 07/23/24 08:16 Pulse Rate 82 74 Respiratory Rate 17 Blood Pressure 126/57 L 126/57 L Pulse Oximetry 95 07/23/24 08:16 07/23/24 08:30 07/23/24 08:31 Pulse Rate 73 71 Respiratory Rate 16 16 Blood Pressure 117/93 H Pulse Oximetry 94 95 07/23/24 08:31 07/23/24 08:45 07/23/24 08:45 Pulse Rate 75 Respiratory Rate 15 Blood Pressure 119/57 L 121/57 L Pulse Oximetry 94 07/23/24 09:00 07/23/24 09:00 07/23/24 09:15 Pulse Rate 74 72 Respiratory Rate 16 16 Blood Pressure 123/56 L Pulse Oximetry 93 93 07/23/24 09:15 07/23/24 09:30 07/23/24 09:30 Pulse Rate 75 Respiratory Rate 19 Blood Pressure 133/63 158/69 H Pulse Oximetry 94 07/23/24 09:54 07/23/24 09:54 07/23/24 10:00 Pulse Rate 77 74 Respiratory Rate 22 21 Blood Pressure 124/73 Pulse Oximetry 96 95 07/23/24 10:00 07/23/24 10:15 07/23/24 10:15 Pulse Rate 74 Respiratory Rate 19 Blood Pressure 137/79 158/82 H Pulse Oximetry 96 07/23/24 10:30 07/23/24 10:30 07/23/24 10:46 Pulse Rate 70 Respiratory Rate 18 Blood Pressure 156/76 H 147/105 H Pulse Oximetry 95 07/23/24 10:46 07/23/24 11:00 07/23/24 11:51 Pulse Rate 78 84 84 Respiratory Rate 24 17 Blood Pressure Pulse Oximetry 95 93 Medical Decision Making <Ernst Stokes MD - Last Filed: 07/23/24 15:25> Lab Data 07/23/24 06:45 07/23/24 06:45 Labs: Lab Results 07/23/24 07/23/24 Range/Units 06:45 10:50 WBC 7.6 (4.5-11.0) X10^3/uL RBC 6.01 H (4.0-5.2) X10^6/uL Hgb 16.7 H (12.0-16.0) g/dL Hct 50.4 H (36-46) % MCV 84.0 (80-100) fL MCH 27.8 (26-34) PG MCHC 33.1 (30-36) % RDW 15.6 H (11.6-14.8) % Plt Count 250 (150-400) X10^3/uL Neut % (Auto) 78.9 H (50-75) % Lymph % (Auto) 9.6 L (25-40) % [place] % (Auto) 9.3 (3-14) % Eos % (Auto) 1.1 L (2-4) % Baso % (Auto) 1.1 (0-2) % Neut # (Auto) 6000 (9874-4265) /uL Lymph # (Auto) 700 L (7366-2835) /uL [place] # (Auto) 700 (0-900) /uL Eos # (Auto) 100 (0-450) /uL Baso # (Auto) 100 (0-100) /uL RBC Morphology See below Poikilocytosis 1+ H Anisocytosis 2+ H Sodium 131 L (137-145) mmol/L Potassium 3.3 L (3.4-5.1) mmol/L Chloride 92 L (98-107) mmol/L Carbon Dioxide 30 (22-32) mmol/L BUN 13 (7-17) mg/dL Creatinine 0.70 (0.52-1.04) mg/dL Estimated GFR > 60 (>60) mL/min BUN/Creatinine Ratio 18.6 (6-22) Glucose 118 H (70-99) mg/dL Calcium 8.9 (8.4-10.2) mg/dL Total Bilirubin 1.9 H (0.2-1.3) mg/dL AST 40 H (14-36) IU/L ALT 24 (<35) IU/L Alkaline Phosphatase 65 (38-126) U/L Total Creatine Kinase 54 (30-135) U/L Troponin I < 0.012 < 0.012 (0.01-0.034) ng/mL Total Protein 7.9 (6.3-8.2) g/dL Albumin 4.3 (3.5-5.0) g/dL Globulin 3.6 (1.7-4.1) g/dL Albumin/Globulin Ratio 1.2 (1.0-2.8) Lipase 65 (23-300) U/L ECG Data Attestation: I personally reviewed and interpreted this ECG as follows: Interpretation: 0631, atrial fibrillation with ventricular response rate 79. No obvious ST segment elevation or depression changes. Some wandering baseline changes noted. QRS 84, QTC 433. MDM Narrative Medical decision making narrative: 83-year-old female with history of hypertension, Afib on Xarelto, had sweatiness this morning, then took her blood pressure medicines 530, having right-sided sharp nontraumatic headache pain. Took her own oral metoprolol and losartan morning doses 0530. Blood pressure on triage 220/120. Nonfocal neuro exam. IV hydralazine [address] head noncontrast ordered. Chest x-ray, EKG, labs pending. Keep NPO. 0700, signed out to Dr Juan. All lab work, vital signs, nurse triage note, medication list, previous ER visits, and all imaging studies reviewed. Patient given 10 mg hydralazine here for which blood pressure responded. CT head and chest x-ray both did not show any acute process. 2 sets troponin negative, EKG showed AFib rate controlled heart rate in the 70s, GCS 15 nonfocal neuro exam. Patient given potassium here but she subsequently vomited up given the texture. patient is on potassium at home and I told her to double up on potassium for the next 2 days. Differential diagnosis includes STEMI NSTEMI CVA subdural subarachnoid hypertension emergency, urgency, aneurysm. <Abisai Juan, DO - Last Filed: 07/23/24 12:04> Lab Data Labs: Lab Results 07/23/24 07/23/24 Range/Units 06:45 10:50 WBC 7.6 (4.5-11.0) X10^3/uL RBC 6.01 H (4.0-5.2) X10^6/uL Hgb 16.7 H (12.0-16.0) g/dL Hct 50.4 H (36-46) % MCV 84.0 (80-100) fL MCH 27.8 (26-34) PG MCHC 33.1 (30-36) % RDW 15.6 H (11.6-14.8) % Plt Count 250 (150-400) X10^3/uL Neut % (Auto) 78.9 H (50-75) % Lymph % (Auto) 9.6 L (25-40) % [place] % (Auto) 9.3 (3-14) % Eos % (Auto) 1.1 L (2-4) % Baso % (Auto) 1.1 (0-2) % Neut # (Auto) 6000 (4941-6049) /uL Lymph # (Auto) 700 L (1249-4609) /uL [place] # (Auto) 700 (0-900) /uL Eos # (Auto) 100 (0-450) /uL Baso # (Auto) 100 (0-100) /uL RBC Morphology See below Poikilocytosis 1+ H Anisocytosis 2+ H Sodium 131 L (137-145) mmol/L Potassium 3.3 L (3.4-5.1) mmol/L Chloride 92 L (98-107) mmol/L Carbon Dioxide 30 (22-32) mmol/L BUN 13 (7-17) mg/dL Creatinine 0.70 (0.52-1.04) mg/dL Estimated GFR > 60 (>60) mL/min BUN/Creatinine Ratio 18.6 (6-22) Glucose 118 H (70-99) mg/dL Calcium 8.9 (8.4-10.2) mg/dL Total Bilirubin 1.9 H (0.2-1.3) mg/dL AST 40 H (14-36) IU/L ALT 24 (<35) IU/L Alkaline Phosphatase 65 (38-126) U/L Total Creatine Kinase 54 (30-135) U/L Troponin I < 0.012 < 0.012 (0.01-0.034) ng/mL Total Protein 7.9 (6.3-8.2) g/dL Albumin 4.3 (3.5-5.0) g/dL Globulin 3.6 (1.7-4.1) g/dL Albumin/Globulin Ratio 1.2 (1.0-2.8) Lipase 65 (23-300) U/L Imaging Data Chest x-ray: Radiologist's Impression: [address] [address] XRay Report Signed Patient: Jory Reese MR#: [id number] : 1940 Acct:[id number] Age/Sex: 83 / F Date of Service: 07/23/24 Loc: ED Accession Number: [id number] Procedure: XR chest 1V Ordering Provider: Ernst Stokes MD PROCEDURE: XR CHEST 1V INDICATIONS: chest pain, hypertension TECHNIQUE: One view of the chest was acquired. COMPARISON: [facility], CR, XR CHEST 1V, 10/05/2023, 8:08. [facility], CR, XR CHEST 1V, 09/03/2022, 5:13. FINDINGS: Surgical changes and devices: Left chest wall pacemaker Lungs and pleura: Lungs are clear. No pleural effusions or pneumothorax. Mediastinum: Mediastinal contours appear normal. Heart size is enlarged, stable. Bones and chest wall: No suspicious bony lesions. Overlying soft tissues appear unremarkable. IMPRESSION: No acute pulmonary process. CT scan - head: Radiologist's Impression: [place] [address] CT Scan Report Signed Patient: Jory Reese MR#: [id number] : 1940 Acct:[id number] Age/Sex: 83 / F Date of Service: 07/23/24 Loc: ED Accession Number: [id number] Procedure: CT head/brain wo con Ordering Provider: Ernst Stokes MD PROCEDURE: CT HEAD/BRAIN WO CON INDICATIONS: MÁRQUEZ, right sided, high BP TECHNIQUE: Noncontrast 4.5 mm thick angled axial sections acquired from the foramen magnum to the vertex, with coronal and sagittal reformats. For radiation dose reduction, the following was used: automated exposure control, adjustment of mA and/or kV according to patient size. COMPARISON: None. FINDINGS: Image quality: Diagnostic. CSF spaces: Basal cisterns are patent. No extra-axial fluid collections. The ventricles are symmetric in size and shape. Brain: No intracranial bleeds or mass effect. There is cerebral volume loss, with resultant ventricular and sulcal prominence. There are periventricular and deep white matter chronic small vessel ischemic changes. There is intracranial internal carotid artery atherosclerosis. Skull and face: Calvarium and visualized facial bones appear intact, without suspicious lesions. Sinuses: Visualized sinuses and mastoids are clear. IMPRESSION: No acute intracranial pathology. Dictated by: Chava Shah M.D. on 07/23/2024 [facility] Narrative Medical decision making narrative: 83-year-old female with history of hypertension, had sweatiness this morning, then took her blood pressure medicines 530, having right-sided sharp headache pain. Blood pressure on triage 220/120. Nonfocal neuro exam. IV hydralazine [address] head noncontrast ordered. Chest x-ray, EKG, labs pending. Keep NPO. 0700, signed out to Dr Juan. All lab work, vital signs, nurse triage note, medication list, previous ER visits, and all imaging studies reviewed. Patient given 10 mg hydralazine here for which blood pressure responded. CT head and chest x-ray both did not show any acute process. 2 sets troponin negative, EKG showed AFib rate controlled heart rate in the 70s, GCS 15 nonfocal neuro exam. Patient given potassium here but she subsequently vomited up given the texture. patient is on potassium at home and I told her to double up on potassium for the next 2 days. Differential diagnosis includes STEMI NSTEMI CVA subdural subarachnoid hypertension emergency, urgency, aneurysm. Discharge Plan Departure Patient Disposition: Home Clinical Impression: Hypertensive urgency, Hypokalemia Instructions: Malignant Hypertension Activity Restrictions/Additional Instructions: Return with new or worsening symptoms. Follow up with PCP on Thursday for BP recheck. Double up on potassium for the next 2 days. Prescriptions: No Action Xarelto 20 mg tablet 20 mg PO QPM Qty: 90 3RF Rx Instructions: must administer with evening meal levothyroxine [Synthroid] 50 mcg tablet 50 mcg PO DAILY Qty: 90 3RF escitalopram oxalate 10 mg tablet 10 mg PO BEDTIME Qty: 90 2RF albuterol sulfate 90 mcg/actuation HFA aerosol inhaler 2 puff inhalation Q6H PRN (Reason: shortness of breath or wheezing) Qty: 8.5 12RF Arnuity Ellipta 200 mcg/actuation blister with device 1 inh inhalation DAILY Qty: 90 2RF Rx Instructions: [place] teeth or at least rinse mouth and spit after use potassium chloride 20 mEq tablet extended release 20 meq PO DAILY Qty: 90 1RF losartan 100 mg tablet 100 mg PO QAM Qty: 90 0RF chlorthalidone 25 mg tablet 12.5 mg PO Q OTHER DAY Qty: 45 0RF Rx Instructions: order change 06/19/23 coenzyme Q10 [Co Q-10] 100 mg capsule 100 mg PO DAILY Qty: 90 0RF metoprolol succinate 50 mg tablet extended release 24 hr 50 mg PO BID timolol maleate 0.5 % drops EYE-BOTH latanoprost 0.005 % drops EYE-BOTH Multivitamin Gummies 200 mcg Tablet,Chewable 1 tab PO DAILY aspirin 81 mg Capsule 81 mg PO BEDTIME Qty: 0 acetaminophen 500 mg capsule 500 mg PO Q4H MDD Max 3000 mg per day PRN (Reason: fever or pain) Qty: 90 0RF Referrals: Sarah Montana DO [Primary Care Provider, Medical] Stand Alone Forms: Patient Portal/API
--- NOTE | 2024-07-23 06:46 | DI.CT.S_ITS ---
PROCEDURE: CT HEAD/BRAIN WO CON INDICATIONS: MÁRQUEZ, right sided, high BP TECHNIQUE: Noncontrast 4.5 mm thick angled axial sections acquired from the foramen magnum to the vertex, with coronal and sagittal reformats. For radiation dose reduction, the following was used: automated exposure control, adjustment of mA and/or kV according to patient size. COMPARISON: None. FINDINGS: Image quality: Diagnostic. CSF spaces: Basal cisterns are patent. No extra-axial fluid collections. The ventricles are symmetric in size and shape. Brain: No intracranial bleeds or mass effect. There is cerebral volume loss, with resultant ventricular and sulcal prominence. There are periventricular and deep white matter chronic small vessel ischemic changes. There is intracranial internal carotid artery atherosclerosis. Skull and face: Calvarium and visualized facial bones appear intact, without suspicious lesions. Sinuses: Visualized sinuses and mastoids are clear. IMPRESSION: No acute intracranial pathology. Dictated by: Chava Shah M.D. on 07/23/2024 at 7:29 Approved by: Chava Shah M.D. on 07/23/2024 at 7:33
[2024-07-23 07:08] LABS: Alanine Aminotransferase 24 IU/L (<35); Albumin 4.3 g/dL (3.5-5.0); Albumin Globulin Ratio 1.2 (1.0-2.8); Alkaline Phosphatase 65 U/L (38-126); Aspartate Aminotransferase 40 IU/L (14-36); BUN Creatinine Ratio 18.6 (6-22); Bilirubin Total 1.9 mg/dL (0.2-1.3); Blood Urea Nitrogen 13 mg/dL (7-17); Calcium 8.9 mg/dL (8.4-10.2); Carbon Dioxide 30 mmol/L (22-32); Chloride 92 mmol/L (98-107); Creatine Kinase 54 U/L (30-135); Estimated Glomerular Filt Rate > 60 mL/min (>60); Globulin 3.6 g/dL (1.7-4.1); Glucose 118 mg/dL (70-99); HEMOLYSIS < 15 (0-50); Lipase 65 U/L (23-300); Potassium 3.3 mmol/L (3.4-5.1); Sodium 131 mmol/L (137-145); Total Protein 7.9 g/dL (6.3-8.2)
[2024-07-23 07:20] LABS: Troponin I < 0.012 ng/mL (0.01-0.034)
[2024-07-23 07:25] LABS: Basophils Absolute Auto 100 /uL (0-100); Basophils Percent Auto 1.1 % (0-2); Eosinophils Absolute Auto 100 /uL (0-450); Eosinophils Percent Auto 1.1 % (2-4); Hematocrit 50.4 % (36-46); Hemoglobin 16.7 g/dL (12.0-16.0); Lymphocytes Absolute Auto 700 /uL (1100-4500); Lymphocytes Percent Auto 9.6 % (25-40); Mean Corpuscular HGB Conc 33.1 % (30-36); Mean Corpuscular Hemoglobin 27.8 PG (26-34); Monocytes Absolute Auto 700 /uL (0-900); Monocytes Percent Auto 9.3 % (3-14); Neutrophils Absolute Auto 6000 /uL (1500-7000); Neutrophils Percent Auto 78.9 % (50-75); Platelet Count 250 X10^3/uL (150-400); Red Blood Cell Count 6.01 X10^6/uL (4.0-5.2); Red Cell Distribution Width 15.6 % (11.6-14.8); White Blood Cell Count 7.6 X10^3/uL (4.5-11.0)
[2024-07-23 07:26] LABS: Add Manual Diff / Slide Review SLIDE REVIEW
--- NOTE | 2024-07-23 07:29 | PC.NURSE ---
Addendum entered by Aisha Pearson R.N. 07/23/24 07:36: BP taken manually on R arm--200/110. Per Dr Juan verbal order for 10mg hydralazine instead of 5mg. order changed. Original Note: manual BP taken L arm. 184/94. Per Dr Juan, hold order for hydralazine 5mg iv
[2024-07-23] MEDS: hydrALAZINE 20 MG/ML VIAL 10 MG IV (07:41)
[2024-07-23 07:54] LABS: Anisocytosis 2+; Poikilocytosis 1+
[2024-07-23] MEDS: POTASSIUM CHLORIDE 20 MEQ/15 ML UDC 40 MEQ PO (10:45)
[2024-07-23 11:30] LABS: Troponin I < 0.012 ng/mL (0.01-0.034)
== END 2024-07-23 12:13 | disposition home or self-care (01) ==
PROVIDERS: Emergency Medicine; Emergency Provider Family Medicine; PCP Family Medicine
DX: I16.0 Hypertensive urgency (principal); I10 Essential (primary) hypertension; I48.91 Unspecified atrial fibrillation; Z79.01 Long term (current) use of anticoagulants; Z95.0 Presence of cardiac pacemaker
CPT/HCPCS: 36415; 70450; 71045; 80053; 82550; 83690; 84484; 85025; 93005; 96374; 99284; J0360

== ENCOUNTER → 2024-08-01 13:04 | Outpatient (CLI) | payer OTHER, SELFPAY ==
[2023-06-22 12:44] VITALS: BMI 34.0
[2024-08-01 15:12] LABS: Add Manual Diff / Slide Review NO; Basophils Absolute Auto 100 /uL (0-100); Basophils Percent Auto 1.1 % (0-2); Eosinophils Absolute Auto 100 /uL (0-450); Eosinophils Percent Auto 1.2 % (2-4); Hematocrit 50.2 % (36-46); Hemoglobin 16.4 g/dL (12.0-16.0); Lymphocytes Absolute Auto 800 /uL (1100-4500); Lymphocytes Percent Auto 10.4 % (25-40); Mean Corpuscular HGB Conc 32.7 % (30-36); Mean Corpuscular Hemoglobin 27.7 PG (26-34); Mean Corpuscular Volume 84.7 fL (80-100); Monocytes Absolute Auto 800 /uL (0-900); Monocytes Percent Auto 10.3 % (3-14); Neutrophils Absolute Auto 6100 /uL (1500-7000); Platelet Count 278 X10^3/uL (150-400); Red Blood Cell Count 5.93 X10^6/uL (4.0-5.2); Red Cell Distribution Width 15.7 % (11.6-14.8)
[2024-08-01 15:28] LABS: Alanine Aminotransferase 24 IU/L (<35); Albumin 4.2 g/dL (3.5-5.0); Albumin Globulin Ratio 1.2 (1.0-2.8); Alkaline Phosphatase 63 U/L (38-126); Aspartate Aminotransferase 35 IU/L (14-36); BUN Creatinine Ratio 13.4 (6-22); Bilirubin Total 1.8 mg/dL (0.2-1.3); Blood Urea Nitrogen 9 mg/dL (7-17); Calcium 9.4 mg/dL (8.4-10.2); Carbon Dioxide 33 mmol/L (22-32); Chloride 93 mmol/L (98-107); Estimated Glomerular Filt Rate > 60 mL/min (>60); Globulin 3.5 g/dL (1.7-4.1); Glucose 95 mg/dL (70-99); HEMOLYSIS < 15 (0-50); Potassium 4.4 mmol/L (3.4-5.1); Sodium 131 mmol/L (137-145); Total Protein 7.7 g/dL (6.3-8.2)
== END ==
PROVIDERS: PCP Family Medicine
DX: R76.8 Other specified abnormal immunological findings in serum (principal)
CPT/HCPCS: 36415; 80053; 82784; 83883; 84155; 84165; 85025; 86334

== ENCOUNTER → 2024-10-27 09:57 | Outpatient (CLI) | payer OTHER, SELFPAY ==
[2023-06-22 12:44] VITALS: BMI 34.0
[2024-10-27 11:05] LABS: Blood Urea Nitrogen 8 mg/dL (7-17); Calcium 9.7 mg/dL (8.4-10.2); Carbon Dioxide 32 mmol/L (22-32); Chloride 94 mmol/L (98-107); Estimated Glomerular Filt Rate > 60 mL/min (>60); Glucose 91 mg/dL (70-99); HEMOLYSIS 31 (0-50); Potassium 4.1 mmol/L (3.4-5.1); Sodium 131 mmol/L (137-145)
== END ==
PROVIDERS: PCP Family Medicine; Referring Provider Internal Medicine Cardiovascular Disease; Visit Provider Internal Medicine Cardiovascular Disease
DX: I10 Essential (primary) hypertension (principal)
CPT/HCPCS: 36415; 80048